=== PATIENT | male | born 1935 | race Caucasian/White ===

== ENCOUNTER → 2016-10-02 | Outpatient (CLI) | payer BC ==
[~2016-10-02] MED LIST: AMR2 PO; ASPCH81X PO; ASPEC81 PO; ATOR-24 PO; CLOP1TAB15 PO; DABI150C PO; EZET10TA63 PO; ISOS60TA25 PO; LEVO100T84 PO; LEVO125T5 PO; LOSA1TAB PO; METO100T14 PO; METO100T44 PO; METO50TA7 PO; MULT-506 PO; NTRGSL/4 UT; OMEG10007 PO; SENN-61 PO; SIMV40TA2 PO
[2016-10-02 12:21] LABS: BASO % 0.2 %; BASO ABS # 0.01 K/uL (0-0.2); COMPLETE YES; EOS % 3.1 %; HEMATOCRIT 37.6 % (42-52); IG% 0.2 %; LYMPH % 22.8 %; LYMPH ABS # 1.32 K/uL (1.2-3.4); MEAN CELL VOLUME 99.5 fL (80-100); MEAN CORPUSCULAR HEMOGLOBIN 32.5 pg (25-34); MEAN CORPUSCULAR HGB CONC 32.7 g/dl (32-36); MEAN PLATELET VOLUME 12.4 fL (7.4-10.4); MONO % 12.6 %; NEUT % 61.1 %; PLATELET COUNT 138 K/uL (130-400); RED BLOOD COUNT 3.78 M/uL (4.7-6.1)
[2016-10-02 12:40] LABS: ALT/SGPT 26 U/L (12-78); BLOOD UREA NITROGEN 29 mg/dl (7-18); BUN/CREATININE RATIO 22.2 (10-20); CARBON DIOXIDE 24 mmol/L (21-32); CHLORIDE 110 mmol/L (98-107); CHOLESTEROL 95 mg/dl (0-200); GLUCOSE 138 mg/dl (70-99); POTASSIUM 4.3 mmol/L (3.5-5.1); SODIUM 143 mmol/L (136-145); TRIGLYCERIDES 86 mg/dl (0-150); VERY LOW DENSITY LIPOPROT CALC 17 mg/dl
[2016-10-02 12:42] LABS: CALCIUM 8.6 mg/dl (8.5-10.1)
[2016-10-02 12:50] LABS: ALB/GLOB RATIO 1.1 (0.9-2); ALKALINE PHOSPHATASE 72 U/L (45-117); AST/SGOT 14 U/L (15-37); CHOLESTEROL/HDL RATIO 2.8; HDL CHOLESTEROL 34 mg/dl; LDL CHOLESTEROL CALCULATED 44 mg/dl; PROSTATE SPECIFIC ANTIGEN 0.622 ng/ml (0.000-4.000)
[2016-10-02 13:03] LABS: ESTIMATED AVERAGE GLUCOSE 169 mg/dl; HA1C FLAG Normal (Normal)
[2016-10-02 13:08] LABS: RATIO 10.1 mcg/mg (0-30.0)
== END | disposition home or self-care (01) ==
LOC: C.LABBFT 07:39
PROVIDERS: ATTEND Internal Medicine
DX: E11.59 Type 2 diabetes mellitus with other circulatory complications (principal); I25.10 Atherosclerotic heart disease of native coronary artery without angina pectoris; Z12.5 Encounter for screening for malignant neoplasm of prostate

== ENCOUNTER → 2016-10-12 | Outpatient (CLI) | payer BC ==
[2016-10-12 12:19] LABS: BASO % 0.2 %; BASO ABS # 0.01 K/uL (0-0.2); COMPLETE YES; HEMATOCRIT 38.7 % (42-52); IG% 0.2 %; LYMPH % 24.3 %; LYMPH ABS # 1.47 K/uL (1.2-3.4); MEAN PLATELET VOLUME 12.8 fL (7.4-10.4); MONO % 10.9 %; NEUT % 62.4 %; PLATELET COUNT 136 K/uL (130-400); RED BLOOD COUNT 3.87 M/uL (4.7-6.1); WHITE BLOOD COUNT 6.04 K/uL (4.8-10.8)
[2016-10-12 13:01] LABS: FERRITIN 179.5 ng/ml (8.0-388.0)
--- NOTE | 2016-10-17 11:14 | CODING QUERY MEDICAL NECESSITY ---
SUPPORTING DIAGNOSIS NEEDED A supporting diagnosis is required for the test/procedure performed on this patient in order for us to be reimbursed by the patient's insurance. Please provide a supporting diagnosis for the following test/procedure listed below next to the test name along with your signature. *If there is no additional diagnosis for this patient that would support the following test/procedure please document that below next to the test/procedure. Test(s)/Procedure(s) that require a supporting diagnosis: * VITAMIN B12 DIAGNOSIS: Provider Signature: Date: Thank you Sofia Wakpala [employer] Once completed, please kindly fax back to [phone] For questions please call [phone]
== END | disposition home or self-care (01) ==
LOC: C.LABBFT 08:33
PROVIDERS: ATTEND Internal Medicine
DX: D64.9 Anemia, unspecified (principal)

== ENCOUNTER → 2017-03-06 | Day surgery (SDC) | payer BC ==
[2017-02-26 10:15] VITALS: Ht 170.2 cm; Wt 109.1 kg
[~2017-03-06] VITALS: Ht 170.2 cm; Wt 109.1 kg
[~2017-03-06] MED LIST changes: +500ML BSS 0.3ML EPI 1:1000PF IRRIG ONE; +ACETAMINOPHEN 325 MG TAB PO PRN; +AMVISC PLUS 0.8ML SYRINGE INT OCU ONE; -ASPEC81 PO; +ATROPINE SULFATE 0.1 MG/ML 5ML SYR IV PRN; +AcetaZOLAMIDE 250 MG TAB PO SCH; +BETAXOLOL HCL 0.25% OP SUSP PER DROP CHARGE OPL SCH; +BRIMONIDINE TART 0.2% OP SOLN PER DROP CHARGE ONE; +BSS FLUSH ONE; -CLOP1TAB15 PO; +ENDOCOAT 0.85ML SYRINGE INT OCU ONE; -EZET10TA63 PO; +EpHEDrine SULFATE INJ 50 MG/ML AMP IV PRN; +EpINEphrine INJ 1MG/ML AMP 1 MG/ML AMP ONE; +LACTATED RINGER'S 1000ML 500 ML IV SCH; -LEVO100T84 PO; +LIDOCAINE 4% OP SOLN DROP CHARGE ONE; +LIDOCAINE 4% OP SOLN DROP CHARGE OPL SCH; +LIDOCAINE HCL 1% MPF 2 ML VIAL ONE; -METO100T44 PO; -METO50TA7 PO; +MIDAZOLAM HCL 1 MG/ML 2ML VIAL ONE; +MIX: 4ML BSS 1ML EPI 1:1000 PF INSTIL ONE; +MOXIFLOXACIN OPH SOLN PER DROP CHARGE ONE; -MULT-506 PO; +OCUCOAT 1 ML SOLN IO ONE; -OMEG10007 PO; +POVIDONE-IODINE OP SOLN 30 ML BTL ONE; +PROPARACAINE 0.5% OP SOLN PER DROP CHARGE OPL SCH; -SIMV40TA2 PO; +TOBRAMYCIN/DEXAMETHASONE OPH OINT PER APPLN CHARGE ONE
--- NOTE | 2017-03-06 07:43 | History & Physical Bridge - [place] ---
H&P Re-Evaluation Bridge Note: I have examined the patient, reviewed the History & Physical and in the interval since the performance of the History & Physical I have noted the following changes of clinical significance: No changes noted
[2017-03-06] MEDS: PHENYLEPHRINE HCL 2.5% OP SOLN PER DROP CHARGE OPL SCH ×2 (07:49→07:54)
[2017-03-06] MEDS: TROPICAMIDE 1% OP SOLN PER DROP CHARGE OPL SCH ×2 (07:50→07:55)
[2017-03-06] MEDS: CYCLOPENTOLATE HCL 1% OP SOLN PER DROP CHARGE OPL SCH ×2 (07:51→07:56)
[2017-03-06] MEDS: MOXIFLOXACIN OPH SOLN PER DROP CHARGE OPL SCH ×2 (07:52→08:02)
--- NOTE | 2017-03-06 08:38 | Discharge Instructions-SurgCtr ---
Discharge Instructions Date of Service Mar 06, 2017. Visit Reason for Visit: Left Cataract Discharge Discharge Diagnosis / Problem: lens implant left eye Discharge Goals Goal(s): Improve function Activity Recommendations Activity Limitations: resume your previous activity Lifting Limitations: no more than 10 pounds Exercise/Sports Limitations: gradually increase as tolerated May Resume Sexual Activity: when tolerated Shower/Bathe: tomorrow Driving or Machine Use: resume 1 day after discharge Anesthesia . Post Anesthesia Instructions: If you have had General Anesthesia or IV Sedation: * Do not drive today. * Resume driving when surgeon permits. * Do not make important decisions or sign legal documents today. * Call surgeon for: 1. Temperature elevations greater than 101 degrees F. 2. Uncontrollable pain. 3. Excessive bleeding. 4. Persistent nausea and vomiting. 5. Medication intolerance (nausea, vomiting or rash). * For nausea and vomiting use only clear liquids such as: tea, soda, bouillon until nausea subsides, then gradually increase diet as tolerated. * If you have any concerns or questions, call your surgeon's office. If physician is unavailable and it is an emergency, call 911 or go to the nearest emergency room. . Instructions / Follow-Up Instructions / Follow-Up ACTIVITY RECOMMENDATIONS: * Light activities. * Mild irritation and blurred vision are common for the first few days. * You may walk outside, read, watch television. * Redness around the white part of the eye is common. MEDICATIONS: Resume previous medications unless instructed otherwise by your surgeon. * Take white Diamox (Acetazolamide) tablet at 1 pm today. Start all eye drops at 1 pm today: * Eye drops (today and tomorrow): Durezol - one drop in operative eye every 3 hours while awake Ofloxacin - one drop in operative eye every 3 hours while awake SPECIAL CARE INSTRUCTIONS: * Tape plastic shield over eye to sleep at night. Call your doctor at with any concerns or problems. FOLLOW UP VISIT: Follow-up with Dr Wilkes at [place] office as scheduled. Diet Recommendations Home Diet: no limitations Procedures Procedures Performed: Left Cataract Phacoemulsification with Intraocular Lens Implant Pending Studies Studies pending at discharge: no Medical Emergencies . Who to Call and When: Medical Emergencies: If at any time you feel your situation is an emergency, please call 911 immediately. . Non-Emergent Contact Non-Emergency issues call your: Roofing Applicator Call Non-Emergent contact if: your pain is not controlled [phone] . . "Provider Documentation" section prepared by Antonio Wilkes. .
--- NOTE | 2017-03-06 08:40 | [facility] Operative Report ---
Operative Report Date of Service Mar 06, 2017. Operative Report 1. PREOPERATIVE DIAGNOSIS: Senile nuclear cataract, left eye. 2. POSTOPERATIVE DIAGNOSIS: Senile nuclear cataract, left eye. 3. PROCEDURE: Phacoemulsification of left cataract with posterior chamber lens implant, type Bausch & Lomb, model MX60, power +19.5 diopters. ANESTHESIA: Local standby. SURGEON: Dr. Wilkes. COMPLICATIONS: None. OPERATING TIME: 10 minutes. 4. OPERATION AND FINDINGS: DESCRIPTION OF PROCEDURE: The left pupil was dilated. The anesthetic was administered using a topical technique. The left eye was prepped and draped. A speculum was placed. A clear corneal incision was formed. The chamber was filled with Amvisc Plus and Endocoat. Epinephrine solution was used. A paracentesis was placed. A capsulorrhexis was performed. The nucleus was hydrodissected. A dense lens was removed with phacoemulsification. Time was 7.73 seconds. The aspiration unit was used to remove the cortex. The capsule was filled with Amvisc Plus. The lens implant was folded and placed into the capsule. The incision was hydrated. The Amvisc was aspirated. The wound was secure. The chamber was deep. The pupil was round. Brimonidine, TobraDex ointment and Vigamox solution were placed. The speculum was removed. The patient was returned to the Recovery Room in stable condition. I attest to the content of the Intraoperative Record and any orders documented therein. Any exceptions are noted below. The scribe's documentation has been prepared in my presence, under my direction and personally reviewed by me in its entirety. I confirm that the note above accurately reflects all work, treatment, procedures, and medical decision making performed by me. I personally scribed for Antonio Wilkes M.D. (ALINE) on 03/06/17 at 08:40. Electronically submitted by Teressa Calvin ([email or web address]).
[2017-03-06 08:42] VITALS: TEMP 36.5
--- NOTE | 2017-03-06 08:48 | Anesthesia Progress Nt - [facility] ---
Anesthesia Post Op Note Date & Time Mar 06, 2017 at 08:47 Vital Signs Pain Intensity: 0 Vital Signs Past 12 Hours Date Time Temp Pulse Resp B/P (MAP) Pulse Ox O2 Delivery O2 Flow Rate FiO2 03/06/17 08:42 36.5 77 12 127/82 (97) 95 Room Air 03/06/17 07:51 37.1 90 20 144/90 (108) 97 Room Air Notes Mental Status: alert / awake / arousable, participated in evaluation Pt Amnestic to Procedure: Yes Nausea / Vomiting: adequately controlled Pain: adequately controlled Airway Patency, RR, SpO2: stable & adequate BP & HR: stable & adequate Hydration State: stable & adequate Anesthetic Complications: no major complications apparent
[2017-03-06 09:03] VITALS: BP 149/89; PULSE 75; O2SAT 96
== END | disposition home or self-care (01) ==
LOC: X.SURG 07:31
PROVIDERS: ATTEND Specialist
DX: H25.12 Age-related nuclear cataract, left eye (principal); I10 Essential (primary) hypertension; I51.9 Heart disease, unspecified; E03.9 Hypothyroidism, unspecified; Z79.82 Long term (current) use of aspirin; Z79.899 Other long term (current) drug therapy

== ENCOUNTER → 2017-03-20 | Day surgery (SDC) | payer BC ==
[2017-03-13 08:28] VITALS: Ht 170.2 cm; Wt 109.1 kg
[~2017-03-20] VITALS: Ht 170.2 cm; Wt 109.1 kg
[~2017-03-20] MED LIST changes: -500ML BSS 0.3ML EPI 1:1000PF IRRIG ONE; -AMVISC PLUS 0.8ML SYRINGE INT OCU ONE; -BETAXOLOL HCL 0.25% OP SUSP PER DROP CHARGE OPL SCH; +BETAXOLOL HCL 0.25% OP SUSP PER DROP CHARGE OPR SCH; -BSS FLUSH ONE; -ENDOCOAT 0.85ML SYRINGE INT OCU ONE; -LIDOCAINE 4% OP SOLN DROP CHARGE OPL SCH; +LIDOCAINE 4% OP SOLN DROP CHARGE OPR SCH; -MIX: 4ML BSS 1ML EPI 1:1000 PF INSTIL ONE; -OCUCOAT 1 ML SOLN IO ONE; -PROPARACAINE 0.5% OP SOLN PER DROP CHARGE OPL SCH; +PROPARACAINE 0.5% OP SOLN PER DROP CHARGE OPR SCH
[2017-03-20] MEDS: PHENYLEPHRINE HCL 2.5% OP SOLN PER DROP CHARGE OPR SCH ×2 (10:18→10:23)
[2017-03-20] MEDS: TROPICAMIDE 1% OP SOLN PER DROP CHARGE OPR SCH ×2 (10:18→10:23)
[2017-03-20] MEDS: CYCLOPENTOLATE HCL 1% OP SOLN PER DROP CHARGE OPR SCH ×2 (10:19→10:24)
[2017-03-20] MEDS: MOXIFLOXACIN OPH SOLN PER DROP CHARGE OPR SCH ×2 (10:20→10:30)
--- NOTE | 2017-03-20 10:58 | Discharge Instructions-SurgCtr ---
Discharge Instructions Date of Service Mar 20, 2017. Visit Reason for Visit: Right Cataract Discharge Discharge Diagnosis / Problem: lens implant right eye Discharge Goals Goal(s): Improve function Activity Recommendations Activity Limitations: resume your previous activity Lifting Limitations: no more than 10 pounds Exercise/Sports Limitations: gradually increase as tolerated May Resume Sexual Activity: when tolerated Shower/Bathe: tomorrow Driving or Machine Use: resume 1 day after discharge Anesthesia . Post Anesthesia Instructions: If you have had General Anesthesia or IV Sedation: * Do not drive today. * Resume driving when surgeon permits. * Do not make important decisions or sign legal documents today. * Call surgeon for: 1. Temperature elevations greater than 101 degrees F. 2. Uncontrollable pain. 3. Excessive bleeding. 4. Persistent nausea and vomiting. 5. Medication intolerance (nausea, vomiting or rash). * For nausea and vomiting use only clear liquids such as: tea, soda, bouillon until nausea subsides, then gradually increase diet as tolerated. * If you have any concerns or questions, call your surgeon's office. If physician is unavailable and it is an emergency, call 911 or go to the nearest emergency room. . Instructions / Follow-Up Instructions / Follow-Up ACTIVITY RECOMMENDATIONS: * Light activities. * Mild irritation and blurred vision are common for the first few days. * You may walk outside, read, watch television. * Redness around the white part of the eye is common. MEDICATIONS: Resume previous medications unless instructed otherwise by your surgeon. * Take white Diamox (Acetazolamide) tablet at 2 pm today. Start all eye drops at 2 pm today: * Eye drops (today and tomorrow): Durezol - one drop in operative eye every 3 hours while awake Ofloxacin - one drop in operative eye every 3 hours while awake SPECIAL CARE INSTRUCTIONS: * Tape plastic shield over eye to sleep at night. Call your doctor at with any concerns or problems. FOLLOW UP VISIT: Follow-up with Dr Wilkes at [facility] as scheduled. Diet Recommendations Home Diet: no limitations Procedures Procedures Performed: Right Eye Cataract Phacoemulsification With Intraocular Lens Implant Pending Studies Studies pending at discharge: no Medical Emergencies . Who to Call and When: Medical Emergencies: If at any time you feel your situation is an emergency, please call 911 immediately. . Non-Emergent Contact Non-Emergency issues call your: Directional Driller Call Non-Emergent contact if: your pain is not controlled [phone] . . "Provider Documentation" section prepared by Antonio Wilkes. .
--- NOTE | 2017-03-20 11:00 | [facility] Operative Report ---
Operative Report Date of Service Mar 20, 2017. Operative Report 1. PREOPERATIVE DIAGNOSIS: Senile nuclear cataract, right eye. 2. POSTOPERATIVE DIAGNOSIS: Senile nuclear cataract, right eye. 3. PROCEDURE: Phacoemulsification of right cataract with posterior chamber lens implant, type Bausch & Lomb, model MI60L, power +19.5 diopters. ANESTHESIA: Local standby. SURGEON: Dr. Wilkes. COMPLICATIONS: None. OPERATING TIME: 10 minutes. 4. OPERATION AND FINDINGS: DESCRIPTION OF PROCEDURE: The right pupil was dilated. The anesthetic was administered using a topical technique. The right eye was prepped and draped. A speculum was placed. A clear corneal incision was formed. The chamber was filled with Amvisc Plus and Endocoat. Epinephrine solution was used. A paracentesis was placed. A capsulorrhexis was performed. The nucleus was hydrodissected. The lens was removed with phacoemulsification. Time was 6.10 seconds. The aspiration unit was used to remove the cortex. The capsule was filled with Amvisc Plus. The lens implant was folded and placed into the capsule. The incision was hydrated. The Amvisc was aspirated. The wound was secure. The chamber was deep. The pupil was round. Brimonidine, TobraDex ointment and Vigamox solution were placed. The speculum was removed. The patient was returned to the Recovery Room in stable condition. I attest to the content of the Intraoperative Record and any orders documented therein. Any exceptions are noted below. The scribe's documentation has been prepared in my presence, under my direction and personally reviewed by me in its entirety. I confirm that the note above accurately reflects all work, treatment, procedures, and medical decision making performed by me. I personally scribed for Antonio Wilkes M.D. (ALINE) on 03/20/17 at 11:00. Electronically submitted by Teressa Calvin ([email or web address]).
[2017-03-20 11:03] VITALS: TEMP 36.4
--- NOTE | 2017-03-20 11:24 | Anesthesia Progress Nt - [facility] ---
Anesthesia Post Op Note Date & Time Mar 20, 2017 at 11:24 Vital Signs Pain Intensity: 0 Vital Signs Past 12 Hours Date Time Temp Pulse Resp B/P (MAP) Pulse Ox O2 Delivery O2 Flow Rate FiO2 03/20/17 11:03 36.4 65 16 151/88 (109) 96 Room Air 03/20/17 10:08 36.4 66 18 143/87 (105) 96 Room Air Notes Mental Status: alert / awake / arousable, participated in evaluation Pt Amnestic to Procedure: Yes Nausea / Vomiting: adequately controlled Pain: adequately controlled Airway Patency, RR, SpO2: stable & adequate BP & HR: stable & adequate Hydration State: stable & adequate Anesthetic Complications: no major complications apparent
[2017-03-20 11:27] VITALS: BP 138/77; PULSE 61; O2SAT 96
== END | disposition home or self-care (01) ==
LOC: X.SURG 09:21
PROVIDERS: ATTEND Specialist
DX: H25.11 Age-related nuclear cataract, right eye (principal); I25.2 Old myocardial infarction; I25.10 Atherosclerotic heart disease of native coronary artery without angina pectoris; I10 Essential (primary) hypertension; E11.9 Type 2 diabetes mellitus without complications; E03.9 Hypothyroidism, unspecified; Z87.891 Personal history of nicotine dependence; Z79.82 Long term (current) use of aspirin; Z98.42 Cataract extraction status, left eye

== ENCOUNTER → 2017-04-02 | Outpatient (CLI) | payer BC ==
[~2017-04-02] MED LIST changes: -ACETAMINOPHEN 325 MG TAB PO PRN; -ATROPINE SULFATE 0.1 MG/ML 5ML SYR IV PRN; -AcetaZOLAMIDE 250 MG TAB PO SCH; -BETAXOLOL HCL 0.25% OP SUSP PER DROP CHARGE OPR SCH; -BRIMONIDINE TART 0.2% OP SOLN PER DROP CHARGE ONE; -EpHEDrine SULFATE INJ 50 MG/ML AMP IV PRN; -EpINEphrine INJ 1MG/ML AMP 1 MG/ML AMP ONE; -LACTATED RINGER'S 1000ML 500 ML IV SCH; -LIDOCAINE 4% OP SOLN DROP CHARGE ONE; -LIDOCAINE 4% OP SOLN DROP CHARGE OPR SCH; -LIDOCAINE HCL 1% MPF 2 ML VIAL ONE; -MIDAZOLAM HCL 1 MG/ML 2ML VIAL ONE; -MOXIFLOXACIN OPH SOLN PER DROP CHARGE ONE; -POVIDONE-IODINE OP SOLN 30 ML BTL ONE; -PROPARACAINE 0.5% OP SOLN PER DROP CHARGE OPR SCH; -TOBRAMYCIN/DEXAMETHASONE OPH OINT PER APPLN CHARGE ONE
[2017-04-02 12:19] LABS: MEAN CORPUSCULAR HGB CONC 32.6 g/dl (32-36)
[2017-04-02 12:21] LABS: ESTIMATED AVERAGE GLUCOSE 192 mg/dl; HA1C FLAG Normal (Normal)
[2017-04-02 12:26] LABS: ALT/SGPT 28 U/L (12-78); BLOOD UREA NITROGEN 26 mg/dl (7-18); BUN/CREATININE RATIO 18.8 (10-20); CALCIUM 9.2 mg/dl (8.5-10.1); CARBON DIOXIDE 25 mmol/L (21-32); CHLORIDE 106 mmol/L (98-107); CHOLESTEROL 124 mg/dl (0-200); CREATININE 1.36 mg/dl (0.60-1.40); GLUCOSE 165 mg/dl (70-99); POTASSIUM 4.2 mmol/L (3.5-5.1); SODIUM 139 mmol/L (136-145); TRIGLYCERIDES 152 mg/dl (0-150); VERY LOW DENSITY LIPOPROT CALC 30 mg/dl
[2017-04-02 12:29] LABS: ALB/GLOB RATIO 1.1 (0.9-2); ALKALINE PHOSPHATASE 81 U/L (45-117); AST/SGOT 15 U/L (15-37); CHOLESTEROL/HDL RATIO 3.3; HDL CHOLESTEROL 38 mg/dl; LDL CHOLESTEROL CALCULATED 56 mg/dl
[2017-04-02 12:39] LABS: HEMATOCRIT 38.9 % (42-52); MEAN CELL VOLUME 99.7 fL (80-100); MEAN CORPUSCULAR HEMOGLOBIN 32.6 pg (25-34); WHITE BLOOD COUNT 6.88 K/uL (4.8-10.8)
[2017-04-02 12:50] LABS: BASO % 0.3 %; BASO ABS # 0.02 K/uL (0-0.2); COMPLETE YES; EOS % 2.3 %; IG% 0.3 %; LYMPH % 19.8 %; LYMPH ABS # 1.36 K/uL (1.2-3.4); MEAN PLATELET VOLUME 13.2 fL (7.4-10.4); NEUT % 68.3 %; PLATELET COUNT 133 K/uL (130-400); PLT ESTIMATE DECREASED
== END | disposition home or self-care (01) ==
LOC: C.LABBFT 08:13
PROVIDERS: ATTEND Internal Medicine
DX: D64.9 Anemia, unspecified (principal); E11.59 Type 2 diabetes mellitus with other circulatory complications

== ENCOUNTER → 2017-08-16 | Outpatient (CLI) | payer BC ==
[2017-08-16 12:23] LABS: ALBUMIN 3.8 gm/dl (3.4-5.0); ALKALINE PHOSPHATASE 87 U/L (45-117); ALT/SGPT 26 U/L (12-78); AST/SGOT 16 U/L (15-37); BLOOD UREA NITROGEN 24 mg/dl (7-18); CALCIUM 8.8 mg/dl (8.5-10.1); CARBON DIOXIDE 27 mmol/L (21-32); CHOLESTEROL 110 mg/dl (0-200); CREATININE 1.33 mg/dl (0.60-1.40); GLUCOSE 117 mg/dl (70-99); LDL CHOLESTEROL CALCULATED 54 mg/dl; POTASSIUM 4.8 mmol/L (3.5-5.1); SODIUM 138 mmol/L (136-145)
[2017-08-16 12:24] LABS: HEMOGLOBIN A1C 7.3 % (4.5-5.6)
[2017-08-16 12:33] LABS: TOTAL PROTEIN 7.5 gm/dl (6.4-8.2)
== END | disposition home or self-care (01) ==
LOC: C.LABBFT 08:41
PROVIDERS: ATTEND Internal Medicine
DX: E11.59 Type 2 diabetes mellitus with other circulatory complications (principal)

== ENCOUNTER 2020-07-05 11:36 | Observation (INO) ==
[2020-07-05] MEDS ORDERED: LACTATED RINGER'S 1,000 ML IV SCH (11:45)
[2020-07-05 12:35] LABS: INR 1.4 (0.9-1.1); Prothrombin Time 14.2 Seconds (9.0-12.0)
[2020-07-05 12:52] LABS: Hematocrit (blood only) 37.7 % (42-52); Hemoglobin 12.2 g/dL (14.0-18.0); Mean Corpuscular Hemoglobin 32.7 pg (25-34); Mean Corpuscular Hgb Conc 32.4 g/dL (32-36); Mean Corpuscular Volume 101.1 fL (80-100); Platelet Count 118 K/uL (130-400); RDW Coefficient of Variation 12.9 % (11.5-14.5); RDW Standard Deviation 47.4 fL (36.4-46.3); Red Blood Count 3.73 M/uL (4.7-6.1); White Blood Count 9.05 K/uL (4.8-10.8)
[2020-07-05 12:53] LABS: Basophils # (auto) 0.02 K/uL (0-0.2); Basophils % (auto) 0.2 %; Echinocytes 1+; Eosinophils # (auto) 0.09 K/uL (0-0.5); Immature Granulocytes # (auto) 0.02 K/uL (0.00-0.02); Immature Granulocytes % (auto) 0.2 %; Lymphocytes # (auto) 1.75 K/uL (1.2-3.4); Lymphocytes % (auto) 19.3 %; Monocytes # (auto) 0.81 K/uL (0.11-0.59); Neutrophils # (auto) 6.36 K/uL (1.4-6.5); Neutrophils % (auto) 70.3 %; Platelet Estimate Decreased (Normal)
[2020-07-05 13:05] LABS: BUN Creatinine Ratio 18.4 (10-20); Blood Urea Nitrogen 34 mg/dl (7-18); Calcium 9.3 mg/dl (8.5-10.1); Carbon Dioxide 23 mmol/L (21-32); Chloride 108 mmol/L (98-107); Est GFR (Non-African American) 33.6; Glucose 268 mg/dl (70-99); Potassium 4.4 mmol/L (3.5-5.1); Sodium 138 mmol/L (136-145)
[2020-07-05] MEDS ORDERED: MIDAZOLAM HCL 5 MG/ML 1 ML VIAL ONE (13:59)
[2020-07-05] MEDS ORDERED: fentaNYL citrate 100 MCG/2 ML VIAL ONE (14:00)
[2020-07-05] MEDS ORDERED: LIDOCAINE HCL 1% 20 ML VIAL ONE (14:11)
[2020-07-05] MEDS ORDERED: BACITRACIN OINT 0.9 GM PKT ONE (14:11)
[2020-07-05] MEDS ORDERED: BACITRACIN INJ 50,000 UNIT VIAL ONE (14:11)
--- NOTE | 2020-07-05 14:33 | History & Physical Bridge Note ---
Date of Service July 05, 2020 History & Physical Bridge Note I have examined the patient, reviewed the History & Physical and in the interval since the performance of the History & Physical I have noted the following changes of clinical significance: no changes noted. I reviewed the indications, procedure, risks and alternatives with the patient, answered all questions. Consent obtained. Patient understands and agrees to the procedure. I also reviewed the risks and use of sedation, patient understands and consent obtained.
--- NOTE | 2020-07-05 14:42 | Pre Anesthesia Assessment ---
Date of Service July 05, 2020 Pre Sedation Assessment Vital Signs Temp Pulse Resp BP BP Pulse Ox 07/05/20 14:29 36.9 C 16 159/79 H 97 07/05/20 12:30 47 L 10 L 96 07/05/20 12:25 48 L 13 160/69 H 97 07/05/20 12:20 36 L 12 97 07/05/20 12:11 33 L 16 154/63 H 97 07/05/20 12:10 33 L 14 97 07/05/20 12:00 33 L 98 07/05/20 11:59 36.5 C 16 182/68 H 98 07/05/20 11:57 30 L 182/68 H 99 Cardiovascular + regular rate and + bradycardic Respiratory normal respiratory effort, lungs clear to auscultation Pre-Sedation Airway Assessment Smoking Status: Former smoker Hx Sleep Apnea: Yes Hx Difficult Intubation: No Short, Thick Neck: No Thyromental Distance: > or= 3.5 Finger Breadths Oral Cavity: + WNL Mallampati Class: II ASA: ASA2 NPO Status Date of Last Intake of Fluids: 07/05/20 Time of Last Intake of Fluids: 08:00 Date of Last Intake of Solid Food: 07/05/20 Time of Last Intake of Solid Foods: 08:00 Procedure Planning Contraindications for Sedation: none Current Medications Reviewed: Yes Notes The planned sedation has been discussed with the patient. Informed Consent was obtained. I have identified the patient, determined the appropriateness of sedation and have assessed the patient immediately prior to the procedure. All medicine(s) and interventions are by my order.
--- NOTE | 2020-07-05 16:41 | Electrophysiology Report ---
Date of Service July 05, 2020 Electrophysiology Procedure Electrophysiology Procedure Report Preoperative diagnosis: Complete heart block Postoperative diagnosis: Same Procedure: Dual-chamber pacemaker implantation Surgeon: Avery Davidson MD Estimated blood loss: 20 cc Complications: None Disposition: Carton Forming Machine Helper recovery Procedure details: After obtaining informed consent for the procedure, the patient was brought to the laboratory and prepped and draped in the standard sterile manner. Dye was injected the left arm IV site to opacify the left subclavian vein. The subclavian vein was identified and found to be free of obstruction. The left prepectoral region was anesthetized with 1% lidocaine local anesthetic and left axillary venipuncture was performed by percutaneous technique and a guidewire placed through the left subclavian vein into the superior vena cava. The area was further infiltrated with 1% lidocaine local anesthetic and a 6 atrial cm incision was made parallel to the left clavicle and 2 cm below it and carried down to the anterior pectoralis fascia. A pacemaker pocket was formed by blunt dissection anterior to the pectoralis fascia and a bacitracin-soaked sponge (50,000 units in 50 cc normal saline solution) was placed in the pocket. An 8 [place] Medtronic lead introducer was placed over the guidewire into the left subclavian vein, the dilator and guidewire were removed and a bipolar active fixation steroid tipped atrial lead was advanced through the introducer into the superior vena cava. A guidewire was placed through the introducer and the introducer was stripped from the lead and guidewire. Another 7 [place] Medtronic lead introducer was placed over the guidewire into the left subclavian vein, the dilator and guidewire were removed and a bipolar active fixation steroid tipped lead was advanced through the introducer into the superior vena cava. The atrial lead was temporarily placed in the right ventricle and screwed into position in order to pace the ventricle while the ventricular lead was being positioned. Using a His bundle guiding catheter and a guidewire the sheath was advanced into the right ventricle and positioned in the basilar septal area. The ventricular lead was advanced through the sheath and the lead was rotated with the fixed screw fixing the lead in position. Pacing and sensing thresholds were evaluated in bipolar configuration and are recorded on the implant data sheet. The atrial lead was unscrewed from the ventricular myocardium and withdrawn into the atrium. Using a curved stylette the atrial lead was positioned in the region of the atrial appendage and the screw extended fixing the lead in position. Pacing and sensing thresholds were evaluated in bipolar configuration and are recorded on the implant data sheet. Once the leads were in position they were attached to the anterior pectoralis fascia using 2 sutures of 2-0 silk around each lead collar. The bacitracin- soaked sponge was removed from the pocket, hemostasis was obtained, the pacemaker was attached to the leads and placed in the pocket with the leads coiled beneath it. The incision was closed with a running double subcutaneous closure of 3-0 Vicryl absorbable suture, followed by running subcuticular skin closure of 4-0 Vicryl absorbable suture. Bacitracin ointment was placed on the incision and a dressing applied. [facility] Electrophysiology codes Pacing Procedure 1: Pacin Insert/Replace Pacer A & V Miscellaneous Procedures Procedure 1: EP Miscellaneous: 45184 Contrast injection for venography Procedure 2: EP Miscellaneous: 33897-34 Vengraphy, extremity PG Moderate Sedation Codes Moderate Sedation Codes Procedure 1: Sedation/Anesthesia: 93904 Mod Sedation by the same physician;Init15 Min Child Age 5 & Up Procedure 2: Sedation/Anesthesia: 18764 Mod Sedation by the same physician; Ea [id number] Minutes
--- NOTE | 2020-07-05 16:51 | Post Anesthesia Assessment ---
Date of Service July 05, 2020 Post Sedation Assessment Vital Signs Temp Pulse Resp BP BP Pulse Ox 07/05/20 14:29 36.9 C 16 159/79 H 97 07/05/20 12:30 47 L 10 L 96 07/05/20 12:25 48 L 13 160/69 H 97 07/05/20 12:20 36 L 12 97 07/05/20 12:11 33 L 16 154/63 H 97 07/05/20 12:10 33 L 14 97 07/05/20 12:00 33 L 98 07/05/20 11:59 36.5 C 16 182/68 H 98 07/05/20 11:57 30 L 182/68 H 99 Discharge Sedation Level of Care: Fast Track Phase II Post Sedation Plan On clinical assessment, the patient appears to have tolerated the sedation without complications. Patient is recovering as anticipated. Patient will continue to be monitored by nursing and may be discharged when sedation discharge criteria are met per below protocol. Upon Completions of procedure up to 15 minutes continue every 5 minute vital signs and the P.A.R. score; then discharge to a Phase I or Fast Track to Phase II per the following guidelines: * Discharge Patient to appropriate Phase II area if PAR is 8 or greater or return to pre- procedure baseline. The post - procedure orders will be as directed. * If PAR score is less than 8 or not return to pre-procedure baseline then patient will follow Phase I monitoring till PAR is reached for Phase II. The Phase I may be done in procedure room or may call to secure a Phase I area. * If naloxone or flumazenil are used for reversal, hold in Phase I for continued monitoring from when last reversal dose was given for a minimum of 60 minutes or longer pending the nurse and/or physician discretion of patient condition before discharge to Phase II. Please call the Sedation Physician to re-evaluate and complete post-note for discharge to Phase II area. Do NOT discharge from procedure sedation or Phase 1 until post- sedation evaluation note is complete by procedure /sedation MD Sedation Discharge Instructions to be given to the patient at discharge to home.
[2020-07-05] MEDS ORDERED: NITROGLYCERIN SL 0.4 MG/TAB TAB SL PRN (17:16)
[2020-07-05] MEDS ORDERED: ACETAMINOPHEN W/CODEINE #3 1 TAB PO PRN (17:18)
[2020-07-05] MEDS ORDERED: ACETAMINOPHEN 325 MG TAB PO PRN (17:18)
[2020-07-05] MEDS ORDERED: PHARMACY GLYCEMIC MGMT CONSULT PRN (17:32)
[2020-07-05] MEDS ORDERED: GLUCAGON FOR INJ 1 MG VIAL IM PRN (17:45)
[2020-07-05] MEDS ORDERED: GLUCOSE 40% GEL 15 GM TUBE PO PRN (17:45)
[2020-07-05] MEDS ORDERED: CARBOHYDRATES FOR HYPOGLYCEMIA PO PRN (17:45)
[2020-07-05] MEDS ORDERED: DEXTROSE 50% 50 ML SYRINGE IV PRN (17:45)
[2020-07-05] MEDS ORDERED: GLUCOSE 10 TABS/TUBE PO PRN (17:45)
[2020-07-05] MEDS ORDERED: INSULIN GLARGINE SOLOSTAR 100 UNITS/ML 3 ML PEN SC ONE (18:00)
[2020-07-05] MEDS: INSULIN ASPART 100 UNITS/ML 3 ML PEN SC SCH ×3 (18:13→23:34)
[2020-07-05] MEDS ORDERED: GLIMEPIRIDE 2 MG TAB PO SCH (21:00)
[2020-07-06] MEDS: INSULIN ASPART 100 UNITS/ML 3 ML PEN SC SCH ×2 (03:54→08:31)
[2020-07-06] MEDS ORDERED: LEVOTHYROXINE SODIUM 150 MCG TABLET PO SCH (06:30)
--- NOTE | 2020-07-06 08:11 | XRay Report ---
XR chest 2V PA/lateral CLINICAL HISTORY: Chest x-ray for pacemaker placement COMPARISON STUDY: 11/04/2010 FINDINGS: The heart is enlarged. There is a left subclavian dual-chamber central venous pacemaker. No pneumothorax is visualized. Electrode position appears unremarkable right images. There is no failur e. There is no focal pulmonary consolidation. There is mild basilar atelectasis.[ IMPRESSION: No evidence of pneumothorax status post left subclavian pacemaker placement. ACT 112: Negative or not required by law. Electronically signed by: Jim Mayorga M.D. 07/06/2020 8:10 AM
--- NOTE | 2020-07-06 08:40 | Cardiology Progress Note ---
Date of Service July 06, 2020 Assessment & Plan (1) Status post placement of cardiac pacemaker: He is doing well post pacemaker implantation, the pacemaker is working well, his chest x-ray shows good lead position and he feels well. He will be stable for discharge today pending laboratory studies. (2) Acute kidney injury superimposed on chronic kidney disease: His creatinine has been rising recently, especially on the day of pacemaker implantation. I suspect some of this is due to his bradycardia with decreased kidney perfusion but I did use x-ray dye yesterday (a small amount) so repeat creatinine is pending. I suspect that will not keep him in the hospital, although it may determine when we have to do follow-up measurements. (3) Paroxysmal atrial fibrillation: He has a history of paroxysmal atrial fibrillation but has not had documentation of that in 10 years from the record. He may have asymptomatic episodes therefore it is not clear whether he has it, however the pacemaker has excellent monitoring for atrial fibrillation and therefore I am not going to continue his anticoagulation for now. He may well need it in the future but perhaps it safer to see that he has atrial fibrillation rather than continuing anticoagulation. (4) Hypertension: His blood pressure is quite elevated, he was on metoprolol succinate 100 mg daily and that was discontinued when he developed the bradycardia but it did not allow resumption of AV conduction. There is no reason to restart it and I am going to restart it today and send him home on that dose. Admission and Anticipated Discharge Date Admission Date: July 05, 2020 Subjective He is feeling well today, much better than before pacemaker implantation. No incisional discomfort, no chest discomfort or shortness of breath. Physical Exam Physical Exam: The incision is clean and dry, there is a small amount of blood on the dressing from yesterday (he was on Pradaxa), no swelling, erythema or tenderness. Correct rhythm is regular without rub Lungs are clear Results & Data ([facility]) Vital Signs (Past 12 Hours) Vital Signs Temp Pulse Pulse Resp BP BP Pulse Ox 07/06/20 07:19 83 07/06/20 07:12 36.7 C 88 17 179/99 H 96 07/06/20 02:23 36.4 C L 78 18 164/102 H 96 07/05/20 23:23 65 07/05/20 22:58 36.8 C 81 19 157/90 H 96 Diagnostic Findings Coagulation 07/05/20 Range/Units 12:07 PT 14.2 H (9.0-12.0) Seconds CBC 07/05/20 Range/Units 12:07 WBC 9.05 (4.8-10.8) K/uL RBC 3.73 L (4.7-6.1) M/uL Hgb 12.2 L (14.0-18.0) g/dL Hct 37.7 L (42-52) % Plt Count 118 L (130-400) K/uL Neut # (Auto) 6.36 (1.4-6.5) K/uL Lymph # (Auto) 1.75 (1.2-3.4) K/uL [place] # (Auto) 0.81 H (0.11-0.59) K/uL Eos # (Auto) 0.09 (0-0.5) K/uL Baso # (Auto) 0.02 (0-0.2) K/uL Comprehensive Metabolic Panel 07/05/20 Range/Units 12:07 Sodium 138 (136-145) mmol/L Potassium 4.4 (3.5-5.1) mmol/L Chloride 108 H (98-107) mmol/L Carbon Dioxide 23 (21-32) mmol/L BUN 34 H (7-18) mg/dl Creatinine 1.83 H (0.6-1.4) mg/dl Glucose 268 H (70-99) mg/dl Calcium 9.3 (8.5-10.1) mg/dl Intake and Output 07/05/20 07/06/20 07/06/20 22:59 06:59 14:59 Intake Total 200 / 200 278.5 / 278.5 Output Total 225 / 625 400 / 400 Balance -25 / -425 -121.5 / -121.5 Intake: IV 278.5 / 278.5 Lr 1,000 ml @ 15 mls/hr IV . 278.5 / 278.5 Q24H [facility] Rx#:[id number] Oral 200 / 200 Output: Urine 225 / 625 400 / 400 Other: Weight 100.698 kg Weight Measurement Method Built in [facility] Postop ECG: Sinus rhythm with atrial sensing and ventricular pacing appropriately Telemetry: Sinus rhythm with ventricular pacing appropriately Chest x-ray: Good lead position, no pneumothorax Pacemaker evaluation: Excellent pacing and sensing characteristics on both leads PG Care Time/CCT Total # of Minutes Spent Total Time Spent with Patient: Total time spent is greater than 50% in c oordination of care (as documented) at patient's floor/unit and/or counseling patient: Coding Level of Care Code 80352 Post Operative Follow-Up Diagnoses Status post placement of cardiac pacemaker Z95.0 Acute kidney injury superimposed on chronic kidney disease N17.9; N18.9 Paroxysmal atrial fibrillation I48.0 Hypertension I10 Hypertension type: essential hypertension CPT Codes Dual Lead Pacemaker System - 85855 ([id number]) (1) Hypertension Hypertension type: essential hypertension Qualified Code(s): I10 - Essential (primary) hypertension
[2020-07-06] MEDS ORDERED: ISOSORBIDE MONO EXTENDED REL 60 MG TABCR PO SCH (09:00)
[2020-07-06] MEDS ORDERED: INSULIN GLARGINE SOLOSTAR 100 UNITS/ML 3 ML PEN SC SCH (09:00)
[2020-07-06] MEDS ORDERED: ATORVASTATIN 40 MG TAB PO SCH (09:00)
[2020-07-06] MEDS ORDERED: SITagliptin PHOSPHATE 100 MG TAB PO SCH (09:00)
[2020-07-06] MEDS ORDERED: METOPROLOL SUCC 50MG EXT REL TAB PO SCH (09:00)
[2020-07-06] MEDS ORDERED: LOSARTAN POTASSIUM 50 MG TAB PO SCH (09:00)
[2020-07-06 10:00] LABS: BUN Creatinine Ratio 18.4 (10-20); Blood Urea Nitrogen 31 mg/dl (7-18); Calcium 9.8 mg/dl (8.5-10.1); Carbon Dioxide 24 mmol/L (21-32); Chloride 109 mmol/L (98-107); Est GFR (African American) 42.3; Est GFR (Non-African American) 36.5; Glucose 205 mg/dl (70-99); Sodium 138 mmol/L (136-145)
--- NOTE | 2020-07-07 05:27 | Electrocardiogram Report ---
Test Reason : Blood Pressure : / mmHG Vent. Rate : 084 BPM Atrial Rate : 084 BPM P-R Int : 196 ms QRS Dur : 148 ms QT Int : 426 ms P-R-T Axes : 053 -12 154 degrees QTc Int : 503 ms Atrial-sensed ventricular-paced rhythm Abnormal ECG When compared with ECG of 04-NOV-2010 14:37, Ventricular pacing is now present Confirmed by Trace Finn ([id number]) on 07/07/2020 5:26:40 AM Referred By: Avery Davidson Confirmed By:Trace Finn
--- NOTE | 2020-07-07 10:38 | Discharge Summary ---
Date of Service July 07, 2020 Admission HPI Per Admitting Provider 84-year-old man with coronary artery disease, hypertension, and paroxysmal atrial fibrillation (dabigatran/metoprolol) who presents acutely after noticing profound fatigue over the past week and a heart rate at times in the 40 bpm range. ECG today did show sinus bradycardia with first-degree and 2:1 second-degree AV block, ventricular rate 40 bpm. 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 His atrial fibrillation with rapid ventricular response occurred in 2010, I could not locate no documentation although he could have asymptomatic episodes of recurrent atrial fibrillation since that time. He last had transient chest discomfort in 2017, subsequent dobutamine stress echo achieved 96% maximum predicted heart rate, he did note mild chest discomfort but had no discernible wall motion abnormalities. He has not had any chest symptoms since that time. He denies any known tick exposure, rash, or other suggestion of Lyme disease. No fevers or chills. No orthopnea or PND. No ankle edema. No orthostasis, lightheadedness, presyncope, or syncope. No palpitations or CHF symptoms. He notes no bleeding problems or reflux symptoms. His lipid profile remains favorable on atorvastatin. His beta-beatriz was tapered off however he presented with complete heart block and a heart rate of just over 30 bpm on June 21, 2020. He was therefore on no medications to cause heart block and he was brought in for pacemaker implantation. Admission Exam (Per Admitting) Constitutional Constitutional: Alert, cooperative and in no distress. HEENT: Unremarkable Neck: No jugular venous distention, carotid pulses are slow but otherwise normal and equal bilaterally without bruits. Pulmonary: Clear to auscultation bilaterally. Cardiac: Regular slow rhythm with no murmur, gallop or rub. Abdomen: Soft, nontender with normal bowel sounds. Extremities: No edema. Distal pulses intact. Neurologic: No focal findings. Gait is steady. Skin: No rash, ecchymoses or petechiae. Discharge Data Procedures Performed Operation Date: 07/05/20 15:00 Actual Procedures p Pacer with A/V Leads (Dual) - Avery Davidson MD s Bundle of his Recording - Avery Davidson MD s Venogram Extremity Unilateral - Avery Davidson MD Hospital Course (1) Status post placement of cardiac pacemaker: He underwent pacemaker implantation on July 05, 2020, the procedure was uneventful. He is doing well post pacemaker implantation, the pacemaker is working well, his chest x-ray shows good lead position and he feels well. He will be stable for discharge today pending laboratory studies. (2) Acute kidney injury superimposed on chronic kidney disease: His creatinine has been rising recently, especially on the day of pacemaker implantation. I suspe suspected ct some of this is due to his bradycardia with decreased kidney perfusion but I did use x-ray dye yesterday (a small amount) so repeat creatinine was performed and had dropped back to his more recent readings which were elevated but in the 1.4 range. I suspect this may continue to improve although he may have underlying kidney disease. (3) Paroxysmal atrial fibrillation: He has a history of paroxysmal atrial fibrillation but has not had documentation of that in 10 years from the record. He may have asymptomatic episodes therefore it is not clear whether he has it, however the pacemaker has excellent monitoring for atrial fibrillation and therefore I am not going to continue his anticoagulation for now. He may well need it in the future but perhaps it safer to see that he has atrial fibrillation rather than continuing anticoagulation. (4) Hypertension: His blood pressure was quite elevated, he was on metoprolol succinate 100 mg daily and that was discontinued when he developed the bradycardia. There is no reason not to restart it following pacemaker implantation and I did restart it today and sent him home on that dose. Coding Level of Care Code None Diagnoses Status post placement of cardiac pacemaker Z95.0 Acute kidney injury superimposed on chronic kidney disease N17.9; N18.9 Paroxysmal atrial fibrillation I48.0 Hypertension I10 Hypertension type: essential hypertension
== END 2020-07-06 13:23 | disposition home or self-care (01) ==
LOC: 1E → 2S 18:58

== ENCOUNTER 2020-08-03 14:56 | Inpatient (IN) ==
[2020-08-03] MEDS ORDERED: ONDANSETRON INJ 2 MG/ML 2 ML VIAL IV STA (15:18)
[2020-08-03] MEDS ORDERED: ONDANSETRON INJ 2 MG/ML 2 ML VIAL ONE (15:19)
[2020-08-03 15:49] LABS: INR 1.1 (0.9-1.1); Partial Thromboplastin Time 25.1 Seconds (21.0-31.0)
[2020-08-03] MEDS ORDERED: OPTIRAY 320 125ml IV ONE (15:49)
[2020-08-03 15:50] LABS: iSTAT Creatinine 1.7 mg/dl (0.6-1.3); iSTAT Hemoglobin 12.6 g/dl (14.0-18.0); iSTAT Ionized Calcium 1.26 mmol/l (1.12-1.32); iSTAT Potassium 5.1 mmol/L (3.3-5.0)
[2020-08-03 15:51] LABS: Alanine Aminotransferase 23 U/L (12-78); Albumin Level 4.1 gm/dl (3.4-5.0); Aspartate Aminotransferase 8 U/L (15-37); BUN Creatinine Ratio 27.5 (10-20); Blood Urea Nitrogen 45 mg/dl (7-18); Calcium 9.5 mg/dl (8.5-10.1); Carbon Dioxide 24 mmol/L (21-32); Chloride 103 mmol/L (98-107); Est GFR (African American) 45.1; Est GFR (Non-African American) 38.9; Glucose 197 mg/dl (70-99); Potassium 4.9 mmol/L (3.5-5.1); Sodium 134 mmol/L (136-145)
[2020-08-03 15:55] LABS: Hematocrit (blood only) 37.7 % (42-52); Hemoglobin 12.4 g/dL (14.0-18.0); Mean Corpuscular Hemoglobin 32.6 pg (25-34); Mean Corpuscular Hgb Conc 32.9 g/dL (32-36); Mean Corpuscular Volume 99.2 fL (80-100); Mean Platelet Volume 13.1 fL (7.4-10.4); Platelet Count 114 K/uL (130-400); RDW Coefficient of Variation 12.7 % (11.5-14.5); RDW Standard Deviation 45.9 fL (36.4-46.3); White Blood Count 9.93 K/uL (4.8-10.8)
[2020-08-03 15:56] LABS: Albumin Globulin Ratio 1.1 (0.9-2); Alkaline Phosphatase 87 U/L (45-117); Basophils # (auto) 0.01 K/uL (0-0.2); Basophils % (auto) 0.1 %; Bilirubin,Total 0.6 mg/dl (0.2-1); Eosinophils # (auto) 0.02 K/uL (0-0.5); Eosinophils % (auto) 0.2 %; Giant Platelets 1+; Globulin 3.8 gm/dl (2.5-4.0); Immature Granulocytes # (auto) 0.02 K/uL (0.00-0.02); Immature Granulocytes % (auto) 0.2 %; Lymphocytes # (auto) 1.16 K/uL (1.2-3.4); Lymphocytes % (auto) 11.7 %; Monocytes # (auto) 0.66 K/uL (0.11-0.59); Monocytes % (auto) 6.6 %; Neutrophils # (auto) 8.06 K/uL (1.4-6.5); Neutrophils % (auto) 81.2 %; Platelet Estimate Decreased (Normal); Total Protein 7.9 gm/dl (6.4-8.2); Troponin I < 0.015 ng/ml (0-0.045)
--- NOTE | 2020-08-03 15:59 | CT Scan Report ---
HEAD CT NONCONTRAST CT DOSE: HISTORY: Stroke Like Symptoms TECHNIQUE: Multiaxial CT images of the head were performed without the use of intravenous contrast. A utomated exposure control was utilized for this study. A dose lowering technique was utilized adheri ng to the principles of ALARA. Comparison: None. Findings: A 2 cm retention cyst within the left maxillary sinus. The mastoid air cells are clear. The calvarium and skull base are intact. There is no mass, hematoma, midline shift, acute infarct. White matter hypodensity is nonspecific but suggestive of microvascular ischemic change. The ventricles an d sulci demonstrate mild age-related involutional changes. There is an old punctate lacunar infarct s een within the left basal ganglia. Impression: No acute intracranial abnormality. Atrophy and microvascular ischemic changes. ACT 112: Negative or not required by law. Electronically signed by: dA Mensah M.D. 08/03/2020 3:58 PM
--- NOTE | 2020-08-03 16:07 | CT Scan Report ---
CTA ANGIOGRAPHY OF THE HEAD CLINICAL HISTORY: Stroke Like Symptoms COMPARISON STUDY: No previous studies for comparison. TECHNIQUE: Helical axial images of the head were obtained following uneventful intravenous administr ation of 118 cc of Optiray 320. Sagittal and coronal reconstructions were viewed as well as maximal i ntensity projections on an independent 3-D workstation. Automated exposure control was utilized for the study. A dose lowering technique was utilized adhering to the principles of ALARA. FINDINGS: No acute intracranial hemorrhage, midline shift or mass effect is present. Ventricular syst em is unremarkable. Basal cisterns are patent. There is suspected encephalomalacia within the right o ccipital lobe. No intracranial aneurysm is identified. There is extensive calcified plaque within the bilateral cavernous carotids. There is no abrupt cut off within the anterior circulation. There is a brupt cut off of the intracranial portion of the right vertebral artery just distal to the takeoff of the right posterior inferior cerebellar artery which is patent. The basilar artery and intracranial portion of the left vertebral artery are patent. There is mild stenosis of the bilateral posterior ce rebral arteries which are patent. IMPRESSION: 1. Abrupt occlusion of the intracranial portion of the right vertebral artery which is likely acute. Findings discussed with Dr. Stockton at time of dictation. 2. No additional sites of vessel occlusion. Extensive plaque within bilateral cavernous carotids. No intracranial aneurysm. ACT 112: Negative or not required by law. Electronically signed by: Carlos Woodward M.D. 08/03/2020 4:05 PM
--- NOTE | 2020-08-03 16:07 | CT Scan Report ---
NECK CTA HISTORY: Stroke Like Symptoms TECHNIQUE: Multiaxial CT images of the neck were performed following the intravenous administration o f contrast to evaluate the major cervical vessels. Maximum intensity projection images were also obta ined. All measurements were calculated based on NASCET criteria. A dose lowering technique was utili zed adhering to the principles of ALARA. COMPARISON STUDY: None. FINDINGS: The aortic arch and proximal great vessels are widely patent. Pacemaker wires are partiall y visualized. There is moderate calcified plaque within the right carotid bulb resulting in 30% focal stenosis at the origin of the right internal carotid artery. Remaining segments of the right interna l carotid artery are patent. No significant stenosis or dissection within the left carotid arteries. The right common carotid artery is also patent. The bilateral cervical vertebral arteries are patent. However, there is focal occlusion involving the intracranial portion of the distal right vertebral a rtery. This is likely acute. A 4 mm nodule within the right upper lobe on image 17. 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 IMPRESSION: 1. Focal occlusion involving the intracranial portion of the distal right vertebral artery. This is l ikely acute. 2. Approximately 30% stenosis at the origin of the right internal carotid artery. The remaining bilat eral carotid arteries are patent. 3. 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 4. A 4 mm indeterminate pulmonary nodule within the right upper lobe. One year chest CT follow-up can be performed to ensure stability. ACT 112: Negative or not required by law. Electronically signed by: Ad Mensah M.D. 08/03/2020 4:06 PM
[2020-08-03] MEDS ORDERED: SODIUM CHLORIDE 0.9% 500 ML IV ONE (16:25)
--- NOTE | 2020-08-03 16:48 | XRay Report ---
XR chest 1V portable CLINICAL HISTORY: dizzy COMPARISON STUDY: Chest radiograph July 06, 2020. FINDINGS: Dual lead left subclavian pacemaker is in place. There is no pneumothorax. Cardiomegaly is unchanged. Trace left pleural effusion is noted. There is pulmonary vascular congestion with suspecte d mild pulmonary edema. IMPRESSION: 1. Mild pulmonary edema with a trace left pleural effusion. 2. Cardiomegaly. ACT 112: Negative or not required by law. Electronically signed by: Carlos Woodward M.D. 08/03/2020 4:46 PM
--- NOTE | 2020-08-03 16:59 | Emergency Department Note ---
Impression & Plan Vertebral artery occlusion, CKD (chronic kidney disease), stage III, Cerebrovascular accident, Nausea & vomiting ED Provider Note Provider: Adriel Stockton MD DATE OF SERVICE: 08/03/2020 CHIEF COMPLAINT: Dizzy, nausea, neck pain, speech issues HISTORY OF PRESENT ILLNESS: Patient is a 84-year-old gentleman history of CKD, diabetes, hyperlipidemia, hypothyroidism, hypertension, A. fib with recent plantation of the pacemaker several weeks ago presenting today via ambulance from home with sudden onset of dizziness around 10 AM according to him and his . Reports his guarding felt very suddenly dizzy. states she felt his speech was a little bit slurred. Patient frontal but numbness in his right fingers. also states she seemed like his right face was a little bit droopy. Patient yesterday and overnight had been complaining of some pain in the back of his neck as well which he states is minimal at this time. Denies headache. States nausea and some vomiting started earlier. Vomiting upon me entering the room. Denies abdominal pain. Denies chest pain or shortness of breath. Denies weakness or numbness in the lower extremities that is new. Patient denies recent illness. Patient denies a history of similar. does report the patient is on aspirin at this time but did accidentally take a dose of his Pradaxa yesterday although he supposed to be off this medication after his pacemaker. Patient states he did well after his pacemaker placement and I was able to ambulate and get around much better than before when he had bradycardia. REVIEW OF SYSTEMS: A total of 10 review of systems was obtained and negative except as stated above in the HPI. PAST MEDICAL HISTORY: As noted above MEDICATIONS: Reviewed home medications with the patient. SOCIAL HISTORY: Lives at home with PHYSICAL EXAM: GENERAL: alert and oriented on the stretcher appears somewhat fatigued Head: normocephalic and atraumatic EYES: No injection, discharge or icterus. PERRL NECK: Trachea midline. Supple. ENT: Mucous membranes pink and moist. Pharynx without erythema or exudate. LUNGS: Airway patent. No retractions. Breath sounds clear HEART: Regular rate and rhythm. No chest wall tenderness with a left upper chest wall pacemaker in place without significant erythema. ABDOMEN: Soft and non-tender, without guarding or rebound. SKIN: Warm, mildly diaphoretic somewhat malone in appearance. EXTREMITIES: Without swelling, tenderness or deformity NEUROLOGICAL: Patient with some mild right-sided facial droop. No significant aphasia. Following all commands. No gaze preference. Tongue midline. states his speech is slightly off but no gross dysarthria/slurred speech or. Normal strength and tone in the extremities. Sensation to gross touch normal except for the distal tips of the right fingers. EK bpm AV paced rhythm with no acute ST segment elevation noted. Inferior and lateral T wave flattening noted. QTc 438. CONTINUOUS CARDIAC MONITORING: was ordered and showed a heart rate of 60s bpm in paced rhythm EKG #2: 68 bpm interval he states ventricularly paced rhythm no PVC noted. No acute ST segment elevation noted with persistent inferior and lateral T wave flattening. Patient's laboratory studies and imaging reviewed. Differential includes Infection, dehydration, metabolic abnormality, hypo/hyperglycemia, electrolyte disturbance, anemia, hypoxia, cardiac sources, intracerebral event, toxicologic, neurologic, as well as other pathologies. IMPRESSION/MEDICAL DECISION MAKING: Patient presents with sudden onset of dizziness with a day or 2 of some neck pain. Does not appear meningitic no fever reported. No significant cytosis appreciated. Outside the timeframe for TPA and a stroke alert was not called. Patient also did take a dose of Pradaxa yesterday. Right vertebral occlusion noted per radiology who alerted me this via call when reading. No other large vessel occlusion noted per radiology report. Patient's nausea improved and his color and diaphoresis resolved while here. Discussed with telestroke at [facility] reported there is no acute intervention that could be offered there at this time and less clot progression. Discussed with our neurology here. Covid was negative. Renal function appears at baseline and given some fluid hydration here. Stable anemia without significant leukocytosis doubt this is infectious. The hospitalist was alerted. The patient was updated with the findings. I doubt this is cardiac in nature and believe this is likely related to stroke and vertebral occlusion. Patient was agreeable for further admission and care here of likely stroke in the right vertebral artery occlusion. DIAGNOSIS: Stroke, right vertebral occlusion, nausea DISPOSITION: Hospitalist will evaluate for further care as an inpatient Past Med/Surg History Medical History (Updated 08/03/20 @ 23:51 by Adriel Stockton M.D.) Anemia Benign prostate hyperplasia CAD (coronary artery disease) Diabetes mellitus with circulatory complication Dyslipidemia Hypertension Hypothyroidism Obesity Paroxysmal atrial fibrillation Prostatitis Surgical History History of colonoscopy (~1992) S/P cataract surgery left - 03/06/17, right - 03/20/17 Family History Father Lung cancer Smoker Brother Smoker Social History Smoking Status: Former smoker Tobacco Type: Cigarettes Age Started Using Tobacco: 14; Age Quit Using Tobacco: 50; packs per day: 0.5; Years Smoked: 36; Cigarettes Per Day: 10; Smoking End Date: 1970; Second Hand Exposure: No; Hx Alcohol Use: No Hx Substance Use: No Preferred Language: Greek Communication Ability: Effective Sign Language Interpreter Required: No Beliefs That Will Affect Care: None marital status: Current Living Situation: Spouse Other Information That Helps Us Care for You: No Feels Safe at Home: Yes Safety Concerns: Feels Safe At This Time Assistive Devices: Glasses and Hearing Aid - Bilateral Allergies Allergies Allergy/AdvReac Type Severity Reaction Status Date / Time No Known Allergies Allergy Verified 08/03/20 17:25 Home Meds Home Medications Medication Instructions Recorded Confirmed blood-glucose meter #1 ea 10/22/18 07/19/20 nitroglycerin 0.4 mg sublingual 0.4 mg SL Q5M PRN #1 tab 01/02/19 08/03/20 tablet aspirin 81 mg tablet,delayed 81 mg PO DAILY 07/11/20 08/03/20 release atorvastatin 40 mg PO HS 08/03/20 08/03/20 Previous Rx's Medication Instructions Recorded isosorbide mononitrate 60 mg 60 mg PO DAILY #90 tab 01/11/20 tablet,extended release 24 hr levothyroxine 150 mcg tablet 150 mcg PO DAILY #90 tab 05/11/20 metoprolol succinate 100 mg PO QAM #60 tab 07/06/20 blood sugar diagnostic #100 ea 07/11/20 glimepiride 4 mg tablet 4 mg PO BID #180 tab 07/11/20 lancets 30 gauge #200 ea 07/11/20 losartan 50 mg tablet 50 mg PO DAILY #90 tab 07/11/20 sitagliptin 100 mg tablet 100 mg PO DAILY #90 tab 07/11/20 Results & Data (ED) Vital Signs Vital Signs - 24 hr 08/03/20 14:40 08/03/20 15:01 08/03/20 15:25 Temperature 36.6 C Temperature Source Oral Pulse Rate 68 65 69 Pulse Rate [Apical] Pulse Rate from SpO2 Sensor 65 68 Pulse Rhythm Regular Pulse Rhythm [Apical] Pulse Strength Strong Respiratory Rate 18 19 13 Respiratory Effort / Characteristics Respiratory Depth Normal Respiratory Pattern Blood Pressure 138/78 138/78 138/75 Blood Pressure [Left Arm] Blood Pressure Mean 98 98 96 Blood Pressure Mean [Left Arm] Blood Pressure Position Semi-fowlers Blood Pressure Position [Left Arm] Pulse Oximetry 98 96 97 Oxygen Delivery Method Room Air Sepsis Recent Fever Within 48 Hours No Sepsis New/Unexplained Change in Mental Status Yes Sepsis Action Taken by Nursing No Action Required 08/03/20 15:30 08/03/20 15:58 08/03/20 16:00 Temperature Temperature Source Pulse Rate 68 69 67 Pulse Rate [Apical] Pulse Rate from SpO2 Sensor 68 70 67 Pulse Rhythm Pulse Rhythm [Apical] Pulse Strength Respiratory Rate 12 13 10 L Respiratory Effort / Characteristics Respiratory Depth Respiratory Pattern Blood Pressure 156/78 H 126/65 128/70 Blood Pressure [Left Arm] Blood Pressure Mean 104 85 89 Blood Pressure Mean [Left Arm] Blood Pressure Position Blood Pressure Position [Left Arm] Pulse Oximetry 96 98 96 Oxygen Delivery Method Sepsis Recent Fever Within 48 Hours Sepsis New/Unexplained Change in Mental Status Sepsis Action Taken by Nursing 08/03/20 16:30 08/03/20 16:39 08/03/20 17:00 Temperature Temperature Source Pulse Rate 65 63 Pulse Rate [Apical] 62 Pulse Rate from SpO2 Sensor 63 66 Pulse Rhythm Pulse Rhythm [Apical] Regular Pulse Strength Respiratory Rate 12 17 16 Respiratory Effort / Characteristics Non-Labored Spontaneous Respiratory Depth Normal Respiratory Pattern Regular Blood Pressure 140/69 148/84 H Blood Pressure [Left Arm] 140/69 Blood Pressure Mean 92 105 Blood Pressure Mean [Left Arm] 92 Blood Pressure Position Blood Pressure Position [Left Arm] Lying Pulse Oximetry 95 97 97 Oxygen Delivery Method Room Air Sepsis Recent Fever Within 48 Hours Sepsis New/Unexplained Change in Mental Status Sepsis Action Taken by Nursing 08/03/20 17:30 08/03/20 18:00 08/03/20 18:01 Temperature Temperature Source Pulse Rate 66 68 65 Pulse Rate [Apical] Pulse Rate from SpO2 Sensor Pulse Rhythm Pulse Rhythm [Apical] Pulse Strength Respiratory Rate 15 18 15 Respiratory Effort / Characteristics Respiratory Depth Respiratory Pattern Blood Pressure 139/81 172/83 H Blood Pressure [Left Arm] Blood Pressure Mean 100 112 Blood Pressure Mean [Left Arm] Blood Pressure Position Blood Pressure Position [Left Arm] Pulse Oximetry Oxygen Delivery Method Sepsis Recent Fever Within 48 Hours Sepsis New/Unexplained Change in Mental Status Sepsis Action Taken by Nursing 08/03/20 18:30 08/03/20 18:31 08/03/20 19:00 Temperature Temperature Source Pulse Rate 68 67 67 Pulse Rate [Apical] Pulse Rate from SpO2 Sensor Pulse Rhythm Pulse Rhythm [Apical] Pulse Strength Respiratory Rate 10 L 15 14 Respiratory Effort / Characteristics Respiratory Depth Respiratory Pattern Blood Pressure 213/107 H Blood Pressure [Left Arm] Blood Pressure Mean 142 Blood Pressure Mean [Left Arm] Blood Pressure Position Blood Pressure Position [Left Arm] Pulse Oximetry Oxygen Delivery Method Sepsis Recent Fever Within 48 Hours Sepsis New/Unexplained Change in Mental Status Sepsis Action Taken by Nursing 08/03/20 19:01 08/03/20 19:30 Temperature Temperature Source Pulse Rate 66 64 Pulse Rate [Apical] Pulse Rate from SpO2 Sensor Pulse Rhythm Pulse Rhythm [Apical] Pulse Strength Respiratory Rate 17 14 Respiratory Effort / Characteristics Respiratory Depth Respiratory Pattern Blood Pressure 151/96 H Blood Pressure [Left Arm] Blood Pressure Mean 114 Blood Pressure Mean [Left Arm] Blood Pressure Position Blood Pressure Position [Left Arm] Pulse Oximetry Oxygen Delivery Method Sepsis Recent Fever Within 48 Hours Sepsis New/Unexplained Change in Mental Status Sepsis Action Taken by Nursing Laboratory Data Result diagrams: 08/03/20 15:13 08/03/20 15:13 Lab Results 08/03/20 08/03/20 08/03/20 Range/Units 15:13 15:13 15:13 WBC 9.93 (4.8-10.8) K/uL RBC 3.80 L (4.7-6.1) M/uL Hgb 12.4 L (14.0-18.0) g/dL POC Hgb (14.0-18.0) g/dl Hct 37.7 L (42-52) % POC Hct (42-52) % MCV 99.2 (80-100) fL MCH 32.6 (25-34) pg MCHC 32.9 (32-36) g/dL RDW Std Deviation 45.9 (36.4-46.3) fL RDW Coeff of Jose 12.7 (11.5-14.5) % Plt Count 114 L (130-400) K/uL MPV 13.1 H (7.4-10.4) fL Immature Gran % (Auto) 0.2 % Neut % (Auto) 81.2 % Lymph % (Auto) 11.7 % [place] % (Auto) 6.6 % Eos % (Auto) 0.2 % Baso % (Auto) 0.1 % Neut # (Auto) 8.06 H (1.4-6.5) K/uL Lymph # (Auto) 1.16 L (1.2-3.4) K/uL [place] # (Auto) 0.66 H (0.11-0.59) K/uL Eos # (Auto) 0.02 (0-0.5) K/uL Baso # (Auto) 0.01 (0-0.2) K/uL Immature Gran # (Auto) 0.02 (0.00-0.02) K/uL Platelet Estimate Decreased L (Normal) Giant Platelets 1+ PT 11.0 (9.0-12.0) Seconds INR 1.1 (0.9-1.1) APTT 25.1 (21.0-31.0) Seconds PTT Ratio 1.0 POC Sodium (135-144) mmol/L Sodium 134 L (136-145) mmol/L POC Potassium (3.3-5.0) mmol/L Potassium 4.9 (3.5-5.1) mmol/L POC Chloride (101-112) mmol/L Chloride 103 (98-107) mmol/L Carbon Dioxide 24 (21-32) mmol/L POC Total CO2 (24-31) mmol/L Anion Gap 6.0 (3-11) POC Anion Gap (16-25) mmol/L POC BUN (7-18) mg/dl BUN 45 H (7-18) mg/dl Creatinine 1.62 H (0.6-1.4) mg/dl POC Creatinine (0.6-1.3) mg/dl Est Cr Clr Drug Dosing 40.0 ml/min Est GFR ( Amer) 45.1 Est GFR (Non-Af Amer) 38.9 BUN/Creatinine Ratio 27.5 H (10-20) Glucose 197 H (70-99) mg/dl POC Glucose (other) (70-99) mg/dl Calcium 9.5 (8.5-10.1) mg/dl POC Ioniz Calcium Aaliyah (1.12-1.32) mmol/l Magnesium 2.0 (1.8-2.4) mg/dl Total Bilirubin 0.6 (0.2-1) mg/dl AST 8 L (15-37) U/L ALT 23 (12-78) U/L Alkaline Phosphatase 87 (45-117) U/L Troponin I < 0.015 (0-0.045) ng/ml Total Protein 7.9 (6.4-8.2) gm/dl Albumin 4.1 (3.4-5.0) gm/dl Globulin 3.8 (2.5-4.0) gm/dl Albumin/Globulin Ratio 1.1 (0.9-2) COVID-19 Eval Order SARS-CoV-2 (PCR) (Negative) Influenza Type A (PCR) (Neg) Influenza Type B (PCR) (Neg) RSV (RT-PCR) (Neg) Blood Type Antibody Screen 08/03/20 08/03/20 08/03/20 Range/Units 15:32 15:38 17:25 WBC (4.8-10.8) K/uL RBC (4.7-6.1) M/uL Hgb (14.0-18.0) g/dL POC Hgb 12.6 L (14.0-18.0) g/dl Hct (42-52) % POC Hct 37 L (42-52) % MCV (80-100) fL MCH (25-34) pg MCHC (32-36) g/dL RDW Std Deviation (36.4-46.3) fL RDW Coeff of Jose (11.5-14.5) % Plt Count (130-400) K/uL MPV (7.4-10.4) fL Immature Gran % (Auto) % Neut % (Auto) % Lymph % (Auto) % [place] % (Auto) % Eos % (Auto) % Baso % (Auto) % Neut # (Auto) (1.4-6.5) K/uL Lymph # (Auto) (1.2-3.4) K/uL [place] # (Auto) (0.11-0.59) K/uL Eos # (Auto) (0-0.5) K/uL Baso # (Auto) (0-0.2) K/uL Immature Gran # (Auto) (0.00-0.02) K/uL Platelet Estimate (Normal) Giant Platelets PT (9.0-12.0) Seconds INR (0.9-1.1) APTT (21.0-31.0) Seconds PTT Ratio POC Sodium 134 L (135-144) mmol/L Sodium (136-145) mmol/L POC Potassium 5.1 H (3.3-5.0) mmol/L Potassium (3.5-5.1) mmol/L POC Chloride 102 (101-112) mmol/L Chloride (98-107) mmol/L Carbon Dioxide (21-32) mmol/L POC Total CO2 26 (24-31) mmol/L Anion Gap (3-11) POC Anion Gap 13.0 L (16-25) mmol/L POC BUN 46 H (7-18) mg/dl BUN (7-18) mg/dl Creatinine (0.6-1.4) mg/dl POC Creatinine 1.7 H (0.6-1.3) mg/dl Est Cr Clr Drug Dosing ml/min Est GFR ( Amer) Est GFR (Non-Af Amer) BUN/Creatinine Ratio (10-20) Glucose (70-99) mg/dl POC Glucose (other) 208 H (70-99) mg/dl Calcium (8.5-10.1) mg/dl POC Ioniz Calcium Aaliyah 1.26 (1.12-1.32) mmol/l Magnesium (1.8-2.4) mg/dl Total Bilirubin (0.2-1) mg/dl AST (15-37) U/L ALT (12-78) U/L Alkaline Phosphatase (45-117) U/L Troponin I (0-0.045) ng/ml Total Protein (6.4-8.2) gm/dl Albumin (3.4-5.0) gm/dl Globulin (2.5-4.0) gm/dl Albumin/Globulin Ratio (0.9-2) COVID-19 Eval Order CovFluRsv at [facility] SARS-CoV-2 (PCR) (Negative) Influenza Type A (PCR) (Neg) Influenza Type B (PCR) (Neg) RSV (RT-PCR) (Neg) Blood Type A Positive Antibody Screen NEGATIVE 08/03/20 Range/Units 17:25 WBC (4.8-10.8) K/uL RBC (4.7-6.1) M/uL Hgb (14.0-18.0) g/dL POC Hgb (14.0-18.0) g/dl Hct (42-52) % POC Hct (42-52) % MCV (80-100) fL MCH (25-34) pg MCHC (32-36) g/dL RDW Std Deviation (36.4-46.3) fL RDW Coeff of Jose (11.5-14.5) % Plt Count (130-400) K/uL MPV (7.4-10.4) fL Immature Gran % (Auto) % Neut % (Auto) % Lymph % (Auto) % [place] % (Auto) % Eos % (Auto) % Baso % (Auto) % Neut # (Auto) (1.4-6.5) K/uL Lymph # (Auto) (1.2-3.4) K/uL [place] # (Auto) (0.11-0.59) K/uL Eos # (Auto) (0-0.5) K/uL Baso # (Auto) (0-0.2) K/uL Immature Gran # (Auto) (0.00-0.02) K/uL Platelet Estimate (Normal) Giant Platelets PT (9.0-12.0) Seconds INR (0.9-1.1) APTT (21.0-31.0) Seconds PTT Ratio POC Sodium (135-144) mmol/L Sodium (136-145) mmol/L POC Potassium (3.3-5.0) mmol/L Potassium (3.5-5.1) mmol/L POC Chloride (101-112) mmol/L Chloride (98-107) mmol/L Carbon Dioxide (21-32) mmol/L POC Total CO2 (24-31) mmol/L Anion Gap (3-11) POC Anion Gap (16-25) mmol/L POC BUN (7-18) mg/dl BUN (7-18) mg/dl Creatinine (0.6-1.4) mg/dl POC Creatinine (0.6-1.3) mg/dl Est Cr Clr Drug Dosing ml/min Est GFR ( Amer) Est GFR (Non-Af Amer) BUN/Creatinine Ratio (10-20) Glucose (70-99) mg/dl POC Glucose (other) (70-99) mg/dl Calcium (8.5-10.1) mg/dl POC Ioniz Calcium Aaliyah (1.12-1.32) mmol/l Magnesium (1.8-2.4) mg/dl Total Bilirubin (0.2-1) mg/dl AST (15-37) U/L ALT (12-78) U/L Alkaline Phosphatase (45-117) U/L Troponin I (0-0.045) ng/ml Total Protein (6.4-8.2) gm/dl Albumin (3.4-5.0) gm/dl Globulin (2.5-4.0) gm/dl Albumin/Globulin Ratio (0.9-2) COVID-19 Eval Order SARS-CoV-2 (PCR) NEGATIVE (Negative) Influenza Type A (PCR) Negative (Neg) Influenza Type B (PCR) Negative (Neg) RSV (RT-PCR) Negative (Neg) Blood Type Antibody Screen Administered Medications Heparin Sodium/Dextrose (Heparin Sodium/Dextrose) 25,000 units in 500 mls @ 29 mls/hr IV .[id number] JOHN; Protocol Stop: 09/02/20 21:07 Last Admin: 08/03/20 21:48 Dose: 1,450 units/hr, 29 mls/hr Documented by: [id number] Cosigned by: [id number] Dextrose/Lactated Ringer's (D5w And Lactated Ringers) 1,000 mls @ 80 mls/hr IV .[id number] JOHN Stop: 09/02/20 21:11 Last Admin: 08/03/20 21:25 Dose: 80 mls/hr Documented by: [id number] Discontinued Medications Aspirin (Aspirin 300 Mg Supp) 300 mg AK ONE ONE Stop: 08/03/20 21:13 Last Admin: 08/03/20 21:50 Dose: 300 mg Documented by: [id number] Heparin Sodium/Dextrose (Heparin Iv Standard *No* Bolus) 1 ea IV Q15M JOHN; Protocol Stop: 09/02/20 21:07 Last Admin: 08/03/20 22:00 Dose: Not Given Documented by: [id number] Admin: 08/03/20 21:59 Dose: Not Given Documented by: [id number] Sodium Chloride (Nss) 500 mls @ 999 mls/hr IV .Q31M ONE Stop: 08/03/20 16:55 Last Infusion: 08/03/20 17:21 Dose: 0 mls/hr Documented by: [id number] Admin: 08/03/20 16:41 Dose: 999 mls/hr Documented by: [id number] Ioversol (Optiray 320 125ml) 118 ml IV ONCE ONE Stop: 08/03/20 15:50 Last Admin: 08/03/20 15:50 Dose: 118 ml Documented by: [id number] Ondansetron HCl (Ondansetron Inj 2 Mg/Ml 2 Ml Vial) 4 mg IV NOW STA Stop: 08/03/20 15:19 Last Admin: 08/03/20 15:26 Dose: 4 mg Documented by: [id number] Ondansetron HCl (Ondansetron Inj 2 Mg/Ml 2 Ml Vial) Confirm Administered Dose 4 mg .ROUTE .STK-MED ONE Stop: 08/03/20 15:20 Last Admin: 08/03/20 17:21 Dose: Not Given Documented by: [id number] Imaging Data Radiologist's Impression: Head CT 08/03/20 15:[address] DOSE: HISTORY: Stroke Like Symptoms TECHNIQUE: Multiaxial CT images of the head were performed without the use of intravenous contrast. Automated exposure control was utilized for this study. A dose lowering technique was utilized adhering to the principles of ALARA. Comparison: None. Findings: A 2 cm retention cyst within the left maxillary sinus. The mastoid air cells are clear. The calvarium and skull base are intact. There is no mass, hematoma, midline shift, acute infarct. White matter hypodensity is nonspecific but suggestive of microvascular ischemic change. The ventricles and sulci demonstrate mild age-related involutional changes. There is an old punctate lacunar infarct seen within the left basal ganglia. Impression: No acute intracranial abnormality. Atrophy and microvascular ischemic changes. ACT 112: Negative or not required by law. Electronically signed by: Ad Mensah M.D. 08/03/2020 3:58 PM Head CTA 08/03/20 15:19 CTA ANGIOGRAPHY OF THE HEAD CLINICAL HISTORY: Stroke Like Symptoms COMPARISON STUDY: No previous studies for comparison. TECHNIQUE: Helical axial images of the head were obtained following uneventful intravenous administration of 118 cc of Optiray 320. Sagittal and coronal reconstructions were viewed as well as maximal intensity projections on an independent 3-D workstation. Automated exposure control was utilized for the study. A dose lowering technique was utilized adhering to the principles of ALARA. FINDINGS: No acute intracranial hemorrhage, midline shift or mass effect is present. Ventricular system is unremarkable. Basal cisterns are patent. There is suspected encephalomalacia within the right occipital lobe. No intracranial aneurysm is identified. There is extensive calcified plaque within the bilateral cavernous carotids. There is no abrupt cut off within the anterior circulation. There is abrupt cut off of the intracranial portion of the right vertebral artery just distal to the takeoff of the right posterior inferior cerebellar artery which is patent. The basilar artery and intracranial portion of the left vertebral artery are patent. There is mild stenosis of the bilateral posterior cerebral arteries which are patent. IMPRESSION: 1. Abrupt occlusion of the intracranial portion of the right vertebral artery which is likely acute. Findings discussed with Dr. Stockton at time of dictation. 2. No additional sites of vessel occlusion. Extensive plaque within bilateral cavernous carotids. No intracranial aneurysm. ACT 112: Negative or not required by law. Electronically signed by: Carlos Woodward M.D. 08/03/2020 4:05 PM Neck CTA 08/03/20 15:19 NECK CTA HISTORY: Stroke Like Symptoms TECHNIQUE: Multiaxial CT images of the neck were performed following the intravenous administration of contrast to evaluate the major cervical vessels. Maximum intensity projection images were also obtained. All measurements were calculated based on NASCET criteria. A dose lowering technique was utilized adhering to the principles of ALARA. COMPARISON STUDY: None. FINDINGS: The aortic arch and proximal great vessels are widely patent. Pacemaker wires are partially visualized. There is moderate calcified plaque within the right carotid bulb resulting in 30% focal stenosis at the origin of the right internal carotid artery. Remaining segments of the right internal carotid artery are patent. No significant stenosis or dissection within the left carotid arteries. The right common carotid artery is also patent. The bilateral cervical vertebral arteries are patent. However, there is focal occlusion involving the intracranial portion of the distal right vertebral artery. This is likely acute. A 4 mm nodule within the right upper lobe on image 17. 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 IMPRESSION: 1. Focal occlusion involving the intracranial portion of the distal right vertebral artery. This is likely acute. 2. Approximately 30% stenosis at the origin of the right internal carotid artery. The remaining bilateral carotid arteries are patent. 3. 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 4. A 4 mm indeterminate pulmonary nodule within the right upper lobe. One year chest CT follow-up can be performed to ensure stability. ACT 112: Negative or not required by law. Electronically signed by: Ad Mensah M.D. 08/03/2020 4:06 PM Chest X-Ray 08/03/20 16:27 XR chest 1V portable CLINICAL HISTORY: dizzy COMPARISON STUDY: Chest radiograph July 06, 2020. FINDINGS: Dual lead left subclavian pacemaker is in place. There is no pneumothorax. Cardiomegaly is unchanged. Trace left pleural effusion is noted. There is pulmonary vascular congestion with suspected mild pulmonary edema. IMPRESSION: 1. Mild pulmonary edema with a trace left pleural effusion. 2. Cardiomegaly. ACT 112: Negative or not required by law. Electronically signed by: Carlos Woodward M.D. 08/03/2020 4:46 PM Discharge Plan Visit Data Chief Complaint: Stroke/CVA Symptoms ED Provider: Adriel Stockton Discharge Problem: Vertebral artery occlusion, CKD (chronic kidney disease), stage III, Cerebrovascular accident, Nausea & vomiting Patient Disposition: Admitted As Inpatient Discharge Instructions Interventions: ED Discharge Assessment Last Done: 08/03/20 20:38 Discharge Problem: Vertebral artery occlusion Qualifiers: Laterality: right Qualified Code(s): I65.01 - Occlusion and stenosis of right vertebral artery CKD (chronic kidney disease), stage III Qualifiers: Chronic kidney disease stage 3 subtype: stage 3b (GFR 30-44) Qualified Code(s): N18.32 - Chronic kidney disease, stage 3b Cerebrovascular accident Qualifiers: CVA mechanism: unspecified Qualified Code(s): I63.9 - Cerebral infarction, unspecified Nausea & vomiting Qualifiers: Vomiting type: unspecified Vomiting Intractability: non-intractable Qualified C ode(s): R11.2 - Nausea with vomiting, unspecified
--- NOTE | 2020-08-03 18:18 | History & Physical Report ---
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 - CHANDANA XT MRI SURE SCAN [id number] generator, Atrial Lead Medtronic - [id number], RV lead- Medtronic [id number] - Pacemaker in ~2 weeks, this may change ability for MRI to be done- Information to cardiology- pending OK or not. - Allow permissive HTN-oral agents on hold as bedside swallow evaluation needs performed secondary to dysarthria. - BP <220 / <110---- Labetalol IV 10-20 mg IV - ASA and Plavix- Oder in morning of 08/04 if swallow screen, otherwise ASA rectal is OK - Continue Atorvastatin 40 mg - NPO as above - ECHO ordered with bubble study - Heparin drip no bolus- neurology recommendation- overnight (2) Hyperlipidemia: As above, lipid panel in the morning - Continue Atorvastatin 40mg (3) CKD (chronic kidney disease), stage III: Stable slight increase in BUN - NPO tonight, D5LR at 80 ml per hour for hydration - Keep intravascularly repleted with contrast (4) Diabetes mellitus type 2, uncontrolled: Hold oral agents - NPO- BG checks 6 hours while NPO - Notify provifer if > 180, no coverage until then. - Avoid hypoglycemia for now (5) Obesity: No acute needs - continue with above, DM, Lipids, BP control, excercise - Appreciate PT/OT (6) Hypothyroidism: No acute needs - continue Synthroid- convert to IV in morning if not tolerating PO (7) CAD (coronary artery disease): Non occlusive disease, Normal stress ECHO in 2017 - Continue statin and BB, ARB, and isosorbide when able to tolerate PO History of Present Illness Chief Complaint: dizziness Primary Care Provider: Taj Montes MD 84 YOM with past medical history of CKD III, DM II, HLD, Hypothyroidism, HTN, CAD, BPH, AFib, and heart block with recent placement of permanent pacemaker. Patient comes to the emergency room after calling 911 this morning for feeling like he was going to pass out and vision changes. The patient was out in the garden planting tomato plants, where approximately around 1000 he started feeling like he was going to pass out- light headedness, dizzy, nausea. This was associated with vision change as well- "everything could not come into focus". He did not report any visual field cuts or inability to see out of either eye. He sat down thinking this would go away and attempted to drink some water, which he then threw up. Patient and also report some facial droop and slurred speech. He also endorses neck pain that is sharp and aching in nature. This neck pain has been going on for weeks per the patient. He denies any change with head position. Upon my evaluation the patient and the , both thought this was greatly improved. He did take his medications this morning including an ASA and also reports that he took a Pradaxa dose yesterday as he forgot that it was not discontinued. Currently NIHSS- 0. Pending swallow screen, NPO until that is completed. Allow permissive HTN, hold home medic ations at this time, patient will be admitted for hemodynamic monitoring, telemetry, and q2 hour neuro checks. Allergies Allergy/AdvReac Type Severity Reaction Status Date / Time No Known Allergies Allergy Verified 08/03/20 17:25 Home Medications Medication Instructions Recorded Confirmed Type blood-glucose meter #1 ea 10/22/18 07/19/20 History nitroglycerin 0.4 mg sublingual 0.4 mg SL Q5M PRN #1 tab 01/02/19 08/03/20 History tablet isosorbide mononitrate 60 mg 60 mg PO DAILY #90 tab 01/11/20 08/03/20 Rx tablet,extended release 24 hr levothyroxine 150 mcg tablet 150 mcg PO DAILY #90 tab 05/11/20 08/03/20 Rx metoprolol succinate 100 mg PO QAM #60 tab 07/06/20 08/03/20 Rx aspirin 81 mg tablet,delayed 81 mg PO DAILY 07/11/20 08/03/20 History release blood sugar diagnostic #100 ea 07/11/20 07/19/20 Rx glimepiride 4 mg tablet 4 mg PO BID #180 tab 07/11/20 08/03/20 Rx lancets 30 gauge #200 ea 07/11/20 07/19/20 Rx losartan 50 mg tablet 50 mg PO DAILY #90 tab 07/11/20 08/03/20 Rx sitagliptin 100 mg tablet 100 mg PO DAILY #90 tab 07/11/20 08/03/20 Rx atorvastatin 40 mg PO HS 08/03/20 08/03/20 History Past Med/Surg History Medical History (Updated 08/03/20 @ 23:51 by Adriel Stockton M.D.) Anemia Benign prostate hyperplasia CAD (coronary artery disease) Diabetes mellitus with circulatory complication Dyslipidemia Hypertension Hypothyroidism Obesity Paroxysmal atrial fibrillation Prostatitis Surgical History History of colonoscopy (~1992) S/P cataract surgery left - 03/06/17, right - 03/20/17 Family History Father Lung cancer Smoker Brother Smoker Social History Smoking Status: Former smoker Tobacco Type: Cigarettes Age Started Using Tobacco: 14; Age Quit Using Tobacco: 50; packs per day: 0.5; Years Smoked: 36; Cigarettes Per Day: 10; Smoking End Date: 1970; Second Hand Exposure: No; Hx Alcohol Use: No Hx Substance Use: No Preferred Language: Syriac Communication Ability: Effective Mail Reader Required: No Beliefs That Will Affect Care: None marital status: Current Living Situation: Spouse Other Information That Helps Us Care for You: No Feels Safe at Home: Yes Safety Concerns: Feels Safe At This Time Assistive Devices: Glasses and Hearing Aid - Bilateral Review of Systems Review of Systems: REVIEW OF SYSTEMS: Constitutional: No fever, sweats or chills Eyes: (+) worsening or blurred vision; No diplopia, no ENT: normal hearing, no trouble swallowing Respiratory: No cough, sputum, dyspnea at rest or on exertion Cardiovascular: No chest pain, tightness or palpitations Abdomen: (+) nausea, vomiting, No pain, , diarrhea or constipation Musculoskeletal: No joint pain, calf pain, swelling Neurologic: (+) dizziness, numbness, (-) weakness, numbness/tingling, or balance problems Psychiatric: No anxiety or depression Skin: No rash or itch Physical Exam Physical Exam: PHYSICAL EXAM: General: awake, alert, no apparent distress Head: Normocephalic, atraumatic ENT: PERRL, EOMI, no pharyngeal exudate, mucous membranes moist Neuro: AAO x 3, speech clear and appropriate slight slurring, strength intact bilaterally 5/5 upper and lower, sensation intact and equal all extremities and dermatomes, no pronator drift, no visual defects, fine motor moments and coordination intact, posterior neck pain, and dizziness, No visual field deficits, no difficulty reading or writing, object interpretation normal. No overshoot with finger to nose. Chest: equal rise and fall of the chest, no accessory muscle use, no heaves or thrills, Clear to auscultation, on room air, Cardiac: Regular rate and rhythm with occasional V-pace, telemetry reviewed, skin warm dry, cap refill <3 seconds, peripheral pulses +2 no JVD, no murmur, no edema GI: NABS x 4 quadrants, soft, nontender to palpation, no rebound, guarding or tenderness : Spontaneously voiding, no pain, no CVA tenderness, Extremities: Normal inspection, no peripheral edema or erythema, calfs nontender to palpation Psych: Normal mood and affect Skin: no rash or erythema Results & Data Results & Data ([facility]) Vital Signs (Past 12 Hours) Vital Signs Temp Pulse Pulse Resp BP BP Pulse Ox 08/03/20 16:39 62 17 140/69 97 08/03/20 16:00 67 10 L 128/70 96 08/03/20 15:58 69 13 126/65 98 08/03/20 15:30 68 12 156/78 H 96 08/03/20 15:25 69 13 138/75 97 08/03/20 15:01 65 19 138/78 96 08/03/20 14:40 36.6 C 68 18 138/78 98 Laboratory Results Abnormal lab results 08/03/20 08/03/20 08/03/20 Range/Units 15:13 15:13 15:38 RBC 3.80 L (4.7-6.1) M/uL Hgb 12.4 L (14.0-18.0) g/dL POC Hgb 12.6 L (14.0-18.0) g/dl Hct 37.7 L (42-52) % POC Hct 37 L (42-52) % Plt Count 114 L (130-400) K/uL MPV 13.1 H (7.4-10.4) fL Neut # (Auto) 8.06 H (1.4-6.5) K/uL Lymph # (Auto) 1.16 L (1.2-3.4) K/uL [place] # (Auto) 0.66 H (0.11-0.59) K/uL Platelet Estimate Decreased L (Normal) POC Sodium 134 L (135-144) mmol/L Sodium 134 L (136-145) mmol/L POC Potassium 5.1 H (3.3-5.0) mmol/L POC Anion Gap 13.0 L (16-25) mmol/L POC BUN 46 H (7-18) mg/dl BUN 45 H (7-18) mg/dl Creatinine 1.62 H (0.6-1.4) mg/dl POC Creatinine 1.7 H (0.6-1.3) mg/dl BUN/Creatinine Ratio 27.5 H (10-20) Glucose 197 H (70-99) mg/dl POC Glucose (other) 208 H (70-99) mg/dl AST 8 L (15-37) U/L Diagnostic Findings XR chest 1V portable CLINICAL HISTORY: dizzy COMPARISON STUDY: Chest radiograph July 06, 2020. FINDINGS: Dual lead left subclavian pacemaker is in place. There is no pneumothorax. Cardiomegaly is unchanged. Trace left pleural effusion is noted. There is pulmonary vascular congestion with suspected mild pulmonary edema. IMPRESSION: 1. Mild pulmonary edema with a trace left pleural effusion. 2. Cardiomegaly. NECK CTA HISTORY: Stroke Like Symptoms TECHNIQUE: Multiaxial CT images of the neck were performed following the intravenous administration of contrast to evaluate the major cervical vessels. Maximum intensity projection images were also obtained. All measurements were calculated based on NASCET criteria. A dose lowering technique was utilized adhering to the principles of ALARA. COMPARISON STUDY: None. FINDINGS: The aortic arch and proximal great vessels are widely patent. Pacemaker wires are partially visualized. There is moderate calcified plaque within the right carotid bulb resulting in 30% focal stenosis at the origin of the right internal carotid artery. Remaining segments of the right internal carotid artery are patent. No significant stenosis or dissection within the left carotid arteries. The right common carotid artery is also patent. The bilateral cervical vertebral arteries are patent. However, there is focal occlusion involving the intracranial portion of the distal right vertebral artery. This is likely acute. A 4 mm nodule within the right upper lobe on image 17. 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 IMPRESSION: 1. Focal occlusion involving the intracranial portion of the distal right vertebral artery. This is likely acute. 2. Approximately 30% stenosis at the origin of the right internal carotid artery. The remaining bilateral carotid arteries are patent. 3. 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 4. A 4 mm indeterminate pulmonary nodule within the right upper lobe. One year chest CT follow-up can be performed to ensure stability. CTA ANGIOGRAPHY OF THE HEAD CLINICAL HISTORY: Stroke Like Symptoms COMPARISON STUDY: No previous studies for comparison. TECHNIQUE: Helical axial images of the head were obtained following uneventful intravenous administration of 118 cc of Optiray 320. Sagittal and coronal reconstructions were viewed as well as maximal intensity projections on an independent 3-D workstation. Automated exposure control was utilized for the study. A dose lowering technique was utilized adhering to the principles of ALARA. FINDINGS: No acute intracranial hemorrhage, midline shift or mass effect is pre sent. Ventricular system is unremarkable. Basal cisterns are patent. There is suspected encephalomalacia within the right occipital lobe. No intracranial aneurysm is identified. There is extensive calcified plaque within the bilateral cavernous carotids. There is no abrupt cut off within the anterior circulation. There is abrupt cut off of the intracranial portion of the right vertebral artery just distal to the takeoff of the right posterior inferior cerebellar artery which is patent. The basilar artery and intracranial portion of the left vertebral artery are patent. There is mild stenosis of the bilateral posterior cerebral arteries which are patent. IMPRESSION: 1. Abrupt occlusion of the intracranial portion of the right vertebral artery which is likely acute. Findings discussed with Dr. Stockton at time of dictation. 2. No additional sites of vessel occlusion. Extensive plaque within bilateral cavernous carotids. No intracranial aneurysm. Medications Administered Discontinued Medications Sodium Chloride (Nss) 500 mls @ 999 mls/hr IV .Q31M ONE Stop: 08/03/20 16:55 Last Infusion: 08/03/20 17:21 Dose: 0 mls/hr Documented by: [id number] Admin: 08/03/20 16:41 Dose: 999 mls/hr Documented by: [id number] Ioversol (Optiray 320 125ml) 118 ml IV ONCE ONE Stop: 08/03/20 15:50 Last Admin: 08/03/20 15:50 Dose: 118 ml Documented by: [id number] Ondansetron HCl (Ondansetron Inj 2 Mg/Ml 2 Ml Vial) 4 mg IV NOW STA Stop: 08/03/20 15:19 Last Admin: 08/03/20 15:26 Dose: 4 mg Documented by: [id number] Ondansetron HCl (Ondansetron Inj 2 Mg/Ml 2 Ml Vial) Confirm Administered Dose 4 mg .ROUTE .STK-MED ONE Stop: 08/03/20 15:20 Last Admin: 08/03/20 17:21 Dose: Not Given Documented by: [id number] Home Medications blood-glucose meter #1 ea 10/22/18 [History Confirmed 07/19/20] nitroglycerin 0.4 mg sublingual tablet 0.4 mg SL Q5M PRN #1 tab 01/02/19 [History Confirmed 08/03/20] isosorbide mononitrate 60 mg tablet,extended release 24 hr 60 mg PO DAILY #90 tab 01/11/20 [Rx Confirmed 08/03/20] levothyroxine 150 mcg tablet 150 mcg PO DAILY #90 tab 05/11/20 [Rx Confirmed 08/03/20] metoprolol succinate 100 mg PO QAM #60 tab 07/06/20 [Rx Confirmed 08/03/20] aspirin 81 mg tablet,delayed release 81 mg PO DAILY 07/11/20 [History Confirmed 08/03/20] blood sugar diagnostic #100 ea 07/11/20 [Rx Confirmed 07/19/20] glimepiride 4 mg tablet 4 mg PO BID #180 tab 07/11/20 [Rx Confirmed 08/03/20] lancets 30 gauge #200 ea 07/11/20 [Rx Confirmed 07/19/20] losartan 50 mg tablet 50 mg PO DAILY #90 tab 07/11/20 [Rx Confirmed 08/03/20] sitagliptin 100 mg tablet 100 mg PO DAILY #90 tab 07/11/20 [Rx Confirmed 08/03/20] atorvastatin 40 mg PO HS 08/03/20 [History Confirmed 08/03/20] ECG Additional Comments: XR chest 1V portable CLINICAL HISTORY: dizzy COMPARISON STUDY: Chest radiograph July 06, 2020. FINDINGS: Dual lead left subclavian pacemaker is in place. There is no pneumothorax. Cardiomegaly is unchanged. Trace left pleural effusion is noted. There is pulmonary vascular congestion with suspected mild pulmonary edema. IMPRESSION: 1. Mild pulmonary edema with a trace left pleural effusion. 2. Cardiomegaly. Code Status & VTE Plan Code Status CODE: FULL VTE: Heparin drip Supervising Physician Co-Signing Physician Notes I personally saw and examined the patient. I verified all velasco points and agree with Dl WELLER with the following exceptions and/or additions: 84-year-old male who presents to the ER with strokelike symptoms consisting of slurred speech, dizziness. Last known well 10 AM. O/E -mild dysarthria appreciated, not yet back to baseline per family at bedside. No focal neuropathy on exam, no facial droop, mild sensory deficit in fingertips of right hand. A/P Vertebral artery occlusion -discussed with neurology at time of admission and planning for heparin IV drip. Agree with allowing permissive hypertension and holding losartan and isosorbide mononitrate at this time. Restart atorvastatin pending speech evaluation. Otherwise plan as above PG Care Time/CCT Total # of Minutes Spent Total Time Spent with Patient: Total time spent is greater than 50% in coordination of care (as documented) at patient's floor/unit and/or counseling patient: Coding Level of Care Code 76632 Initial Inpt Care Lvl 3 Diagnoses Vertebral artery occlusion I65.09 Laterality: unspecified laterality Hyperlipidemia E78.5 Hyperlipidemia type: unspecified CKD (chronic kidney disease), stage III N18.30 Chronic kidney disease stage 3 subtype: unspecified whether 3a or 3b Diabetes mellitus type 2, uncontrolled E11.65 Glycemic state: with hyperglycemia Obesity E66.09; Z68.33 Body mass index: BMI 33.0-33.9 Obesity classification: adult class 1 (BMI 30 - 34.9) Obesity type: due to excess calories Serious obesity comorbidity presence: without serious comorbidity Hypothyroidism E03.9 Hypothyroidism type: unspecified CAD (coronary artery disease) I25.10 Associated angina: without angina Coronary Disease-Associated Artery/Lesion type: [place] artery [place] vs. transplanted heart: [place] heart (1) Vertebral artery occlusion Laterality: unspecified laterality Qualified Code(s): I65.09 - Occlusion and stenosis of unspecified vertebral artery (2) CKD (chronic kidney disease), stage III Chronic kidney disease stage 3 subtype: unspecified whether 3a or 3b Qualified Code(s): N18.30 - Chronic kidney disease, stage 3 unspecified (3) CAD (coronary artery disease) Associated angina: without angina Coronary Disease-Associated Artery/Lesion type: [place] artery [place] vs. transplanted heart: [place] heart Qualified Code(s): I25.10 - Atherosclerotic heart disease of [place] coronary artery without angina pectoris (4) Hyperlipidemia Hyperlipidemia type: unspecified Qualified Code(s): E78.5 - Hyperlipidemia, unspecified (5) Hypothyroidism Hypothyroidism type: unspecified Qualified Code(s): E03.9 - Hypothyroidism, unspecified (6) Diabetes mellitus type 2, uncontrolled Glycemic state: with hyperglycemia Qualified Code(s): E11.65 - Type 2 diabetes mellitus with hyperglycemia (7) Obesity Body mass index: BMI 33.0-33.9 Obesity classification: adult class 1 (BMI 30 - 34.9) Obesity type: due to excess calories Serious obesity comorbidity presence: without serious comorbidity Qualified Code(s): E66.09 - Other obesity due to excess calories; Z68.33 - Body mass index [BMI] 33.0-33.9, adult
--- NOTE | 2020-08-03 18:24 | Neurology Consultation ---
Date of Consultation August 03, 2020 Assessment & Plan (1) Vertebral artery occlusion: Agus Watt is an 84 yo man w/ PMH of HTN, HLD, DM, CKD, pAfib on ASA, CAD s/p recent pacemaker (07/05/20) placement and hypothyroidism who p/t [facility] with acute onset of dizziness, dysarthria, right FP. 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 (does appear to have a dominant left vertebral artery at baseline and hypoplastic right vertebral artery so this could be chronic in nature is no comparison is available) - MRI brain: pending - MRA neck: pending (would get MRA neck with fat sat sequence to r/o possible dissection given the neck pain and vertebral artery occlusion) - TTE: pending - Telemetry: pending - A1c: pending - FLP: pending - Troponin, TSH: negative, pending Stroke Management: - Acute treatment: ASA - Continuous cardiac monitoring, should have PM interrogated as outpatient if telemetry here unrevealing - Vitals, Neurochecks, NIHSS per unit routine - BP parameters: SBP CAP 220, hold home anti-hypertensives for permissive HTN, IV Labetalol/Hydralazine PRN - Obtain MRI brain to evaluate stroke burden/MRA neck with fat sat sequence to r/o dissection - Complete ischemic stroke workup with TTE without bubble, A1c, fasting lipid panel, TSH - Consult speech, PT, OT for supportive management - Will staff counsel concerning stroke education, smoking cessation, healthy diet, physical activity, weight loss - Follow up with PCP for assistance with outpatient goals (BP <130/80, LDL <70, A1c <7) - Follow up in neurology clinic in 6-8 weeks with BENIGNO Ramon Secondary Stroke Prevention: - Antiplatelet: transition to plavix 75mg daily on the AM of 08/04 - Anticoagulation: if ok from a cardiac standpoint given recent PM placement, would consider high risk/no bolus heparin gtt overnight before transitioning to PO plavix tomorrow - Statin: Atorvastatin 40mg daily HTN: - BP parameters, as above - Hold home BP meds (isosorbide, losartan, metoprolol) for now in favor of permissive HTN FEN/GI: - Diet: NPO until cleared by Speech evaluation - Monitor lytes and replete PRN - Zofran prn for nausea Glucose Control: - Sliding scale insulin and accuchecks per primary team to avoid hyperglycemia Thank you for this interesting consult. Plan of care was discussed with primary team. Please call with any questions. (2) Hyperlipidemia: (3) Paroxysmal atrial fibrillation: (4) Uncontrolled diabetes mellitus with stage 3 chronic kidney disease: (5) Hypertension: History of Present Illness History of Present Illness Agus Watt is an 84 yo man w/ PMH of HTN, HLD, DM, CKD, pAfib on ASA, CAD s/p recent pacemaker (07/05/20) placement and hypothyroidism who p/t [facility] with acute onset of dizziness, dysarthria, right FP. [employer] ~10am on 08/03/20. In the ED, he was afebrile, BP 138/78, heart rate 68, respiratory 18 satting 98% on room air. Labs notable for WBC 9.2, hemoglobin low at 12.4 with MCV 99.2, platelets low at 114, sodium 134, potassium 4.9, BUN 45, creatinine elevated to 1.62, glucose 197, INR 1.1, LFTs within normal, troponin negative. Imaging independently reviewed. 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 MRI brain pending. On examination, he reports that he was in his normal state of health until about 10am this morning when he had acute onset of dizziness, N/V, right FP, dysarthria and right hand numbness. This persisted, prompting ED presentation. reports that he has c/o neck pain for the last month. Denies any associated headache, vision loss, weakness. Has been on ASA 81mg daily, took an extra pradaxa by accident yesterday. Otherwise, denies any recent illness, injury, neck manipulation or other change in medications. Had PM placed last month for persistent bradycardia (neck pain present prior to this). Allergies Allergy/AdvReac Type Severity Reaction Status Date / Time No Known Allergies Allergy Verified 08/03/20 17:25 Home Medications Medication Instructions Recorded Confirmed Type blood-glucose meter #1 ea 10/22/18 07/19/20 History nitroglycerin 0.4 mg sublingual 0.4 mg SL Q5M PRN #1 tab 01/02/19 08/03/20 History tablet isosorbide mononitrate 60 mg 60 mg PO DAILY #90 tab 01/11/20 08/03/20 Rx tablet,extended release 24 hr levothyroxine 150 mcg tablet 150 mcg PO DAILY #90 tab 05/11/20 08/03/20 Rx metoprolol succinate 100 mg PO QAM #60 tab 07/06/20 08/03/20 Rx aspirin 81 mg tablet,delayed 81 mg PO DAILY 07/11/20 08/03/20 History release blood sugar diagnostic #100 ea 07/11/20 07/19/20 Rx glimepiride 4 mg tablet 4 mg PO BID #180 tab 07/11/20 08/03/20 Rx lancets 30 gauge #200 ea 07/11/20 07/19/20 Rx losartan 50 mg tablet 50 mg PO DAILY #90 tab 07/11/20 08/03/20 Rx sitagliptin 100 mg tablet 100 mg PO DAILY #90 tab 07/11/20 08/03/20 Rx atorvastatin 40 mg PO HS 08/03/20 08/03/20 History Patient History Medical History Anemia Benign prostate hyperplasia CAD (coronary artery disease) Diabetes mellitus with circulatory complication Dyslipidemia Hypertension Hypothyroidism Obesity Paroxysmal atrial fibrillation Prostatitis Surgical History History of colonoscopy (~1992) S/P cataract surgery left - 03/06/17, right - 03/20/17 Family History Father Lung cancer Smoker Brother Smoker Social History Smoking Status: Unknown if ever smoked Tobacco Type: Cigarettes Age Started Using Tobacco: 14; Age Quit Using Tobacco: 50; packs per day: 0.5; Years Smoked: 36; Cigarettes Per Day: 10; Second Hand Exposure: No; Hx Alcohol Use: No Hx Substance Use: No Preferred Language: German Beliefs That Will Affect Care: None marital status: Current Living Situation: Spouse Feels Safe at Home: Yes Assistive Devices: Hearing Aid - Bilateral Review of Systems Review of Systems: 14 point review of systems completed and negative except as in HPI. Exam (Neuro) Physical Exam: General Exam: GEN: NAD, sitting/lying down in examination bed. HEENT: No conjunctival injection, no rhinorrhea. CV: RRR on monitor, no significant edema. PULM: Nonlabored respirations on room air. Neuro Exam: MS: Awake and Alert. Oriented to person, place, and date. Speech fluent and appropriate, +dysarthria, no paraphasic errors. Language intact including naming, comprehension, repetition. Cognition and memory grossly intact. Attention intact. No neglect. CN: Visual lopez full, + blink to threat bilaterally. No extinction to double simultaneous stimuli. Unable to visualize fundi on fundoscopic exam. PERRLA OU. Left CNVI partial palsy, mild end gaze nystagmus (worse on left lateral gaze). Facial sensation intact to LT. Mild right facial droop. Hearing intact to conversation. Shoulder shrug normal. Tongue midline. MOTOR: Normal bulk and tone. No pronator drift. BUE strength 5/5 at deltoids, biceps, triceps, wrist flexors and extensors bilaterally. BLE strength 5/5 at iliopsoas, hamstrings, quadriceps, tibialis anterior, and gastrocnemius bilaterally. REFLEXES: 1+ at biceps, triceps, brachioradialis, absent patella, and absent Achilles bilaterally. Flexor plantar responses bilaterally. SENSORY: Intact to LT/vibration throughout, no extinction to double simultaneous stimuli. COORDINATION: Mild dysmetria in RUE on [id number], normal LUE. Normal Stephen bilaterally. GAIT: Deferred due to physical status. NIH STROKE SCALE 1A. Level of Consciousness (0-3) = 0 1B. LOC Questions (0-2) = 0 1C. LOC Commands (0-2) = 0 2. Best Horizontal Gaze (0-2) = 0 3. Visual Lopez (0-3) = 0 4. Facial Palsy (0-3) = 1 5. Motor Arm Right (0-4) = 0 Left (0-4) = 0 6. Motor Leg Right (0-4) = 0 Left (0-4) = 0 7. Limb Ataxia (0-2) = 1 8. Sensory (0-2) = 0 9. Best Language (0-3) = 0 10. Dysarthria (0-2) = 2 11. Extinction and Inattention (0-2) = 0 NIHSS TOTAL = 4 Results & Data ([facility]) Vital Signs (Past 12 Hours) Vital Signs Temp Pulse Pulse Resp BP BP Pulse Ox 08/03/20 16:39 62 17 140/69 97 08/03/20 16:00 67 10 L 128/70 96 08/03/20 15:58 69 13 126/65 98 08/03/20 15:30 68 12 156/78 H 96 08/03/20 15:25 69 13 138/75 97 08/03/20 15:01 65 19 138/78 96 08/03/20 14:40 36.6 C 68 18 138/78 98 PG Care Time/CCT Total # of Minutes Spent Total Time Spent with Patient: Total time spent is greater than 50% in coordination of care (as documented) at patient's floor/unit and/or counseling patient: Coding Level of Care Code 94176 Initial Inpt Care Lvl 3 Diagnoses Vertebral artery occlusion I65.09 Hyperlipidemia E78.5 Paroxysmal atrial fibrillation I48.0 Uncontrolled diabetes mellitus with stage 3 chronic kidney disease E11.22; E11.65; N18.30 Hypertension I10 Hypertension type: essential hypertension (1) Hypertension Hypertension type: essential hypertension Qualified Code(s): I10 - Essential (primary) hypertension
[2020-08-03 18:29] LABS: Influenza A virus by PCR Negative (Neg); Influenza B virus by PCR Negative (Neg); RSV by PCR Negative (Neg); SARS CoV2 RNA(COVID-19) InHosp NEGATIVE (Negative)
[2020-08-03] MEDS ORDERED: ONDANSETRON INJ 2 MG/ML 2 ML VIAL IV PRN (21:08)
[2020-08-03] MEDS ORDERED: PHARMACIST DISCHARGE MED REC CONSULT PRN (21:12)
[2020-08-03] MEDS ORDERED: ASPIRIN 300 MG SUPP PR ONE (21:12)
[2020-08-03] MEDS ORDERED: DEXTROSE 50% 50 ML SYRINGE IV PRN (21:12)
[2020-08-03] MEDS ORDERED: CARBOHYDRATES FOR HYPOGLYCEMIA PO PRN (21:12)
[2020-08-03] MEDS ORDERED: GLUCOSE 40% GEL 15 GM TUBE PO PRN (21:12)
[2020-08-03] MEDS ORDERED: GLUCAGON FOR INJ 1 MG VIAL SQ PRN (21:12)
[2020-08-03] MEDS ORDERED: NITROGLYCERIN SL 0.4 MG/TAB TAB SL PRN (21:12)
[2020-08-03] MEDS ORDERED: GLUCOSE 10 TABS/TUBE PO PRN (21:12)
[2020-08-03] MEDS: D5W AND LACTATED RINGERS 1,000 ML IV SCH (21:25)
[2020-08-03] MEDS: HEPARIN SODIUM/DEXTROSE 25,000 UNITS/500 ML BAG IV SCH (21:48)
[2020-08-03 21:52] LABS: Partial Thromboplastin Time 25.9 Seconds (21.0-31.0)
[2020-08-03] MEDS: Heparin IV Adult Wt-Based Standard *NO* Bolus Protocol IV SCH ×2 (21:59→22:00)
[2020-08-04 05:16] LABS: Hematocrit (blood only) 34.5 % (42-52); Hemoglobin 11.5 g/dL (14.0-18.0); Mean Corpuscular Hemoglobin 32.9 pg (25-34); Mean Corpuscular Hgb Conc 33.3 g/dL (32-36); Mean Corpuscular Volume 98.6 fL (80-100); Mean Platelet Volume 12.9 fL (7.4-10.4); Platelet Count 106 K/uL (130-400); RDW Coefficient of Variation 12.6 % (11.5-14.5); RDW Standard Deviation 44.9 fL (36.4-46.3); White Blood Count 8.75 K/uL (4.8-10.8)
[2020-08-04 05:17] LABS: Basophils # (auto) 0.01 K/uL (0-0.2); Basophils % (auto) 0.1 %; Eosinophils # (auto) 0.02 K/uL (0-0.5); Eosinophils % (auto) 0.2 %; Giant Platelets 1+; Immature Granulocytes # (auto) 0.02 K/uL (0.00-0.02); Immature Granulocytes % (auto) 0.2 %; Lymphocytes # (auto) 1.02 K/uL (1.2-3.4); Lymphocytes % (auto) 11.7 %; Monocytes % (auto) 10.3 %; Neutrophils # (auto) 6.78 K/uL (1.4-6.5); Neutrophils % (auto) 77.5 %; Platelet Estimate Decreased (Normal)
[2020-08-04 05:21] LABS: Partial Thromboplastin Ratio 1.6; Partial Thromboplastin Time 42.9 Seconds (21.0-31.0)
[2020-08-04 05:30] LABS: BUN Creatinine Ratio 26.9 (10-20); Creatinine Clr Calc Pharmacy 47.1 ml/min; Est GFR (African American) 54.8; Est GFR (Non-African American) 47.3; Potassium 4.1 mmol/L (3.5-5.1)
[2020-08-04 06:15] LABS: Estimated Average Glucose 194 mg/dl; Hemoglobin A1C 8.4 % (4.5-5.6)
--- NOTE | 2020-08-04 09:10 | Hospitalist Progress Note ---
Date of Service August 04, 2020 Assessment & Plan (1) Vertebral artery occlusion: CT scan of the head with no hemorrhage. There is chronic infarct in left centrum semiovale. 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 Heparin drip initiated No evidence of intracranial hemorrhage or hemorrhagic conversion Discontinue heparin drip in the morning and initiate clopidogrel 75 mg daily Continue with aspirin 81 mg daily Continue with atorvastatin (2) S/P cardiac pacemaker procedure: Status post cardiac pacemaker placement 2 weeks ago It appears that the pacemaker is MRI compatible Check with cardiology regarding safety of MRI since placement was only 2 weeks ago Pacemaker interrogated and shows no episodes of atrial fibrillation or ventricular tachycardia Continue to monitor on telemetry (3) Uncontrolled diabetes mellitus with stage 3 chronic kidney disease: Outpatient management with glimepiride and sitagliptin No insulin as an outpatient We will initiate sliding scale insulin with NovoLog Hemoglobin A1c is 8.4% (4) Hypertension: Permissive hypertension at this time due to acute findings on CT head Continue with home antihypertensives Follow on telemetry (5) CAD (coronary artery disease): No evidence of ACS Initiated on heparin drip for vertebral artery occlusion not for cardiac purposes Imdur, losartan, metoprolol succinate all held to allow for permissive hypertension Reinstitute antihypertensives in the morning if patient continues to be stable (6) CKD (chronic kidney disease), stage III: Creatinine stable at 1.38 Follow serial labs (7) Hyperlipidemia: Continue atorvastatin (8) Paroxysmal atrial fibrillation: Metoprolol succinate Not on any antiarrhythmics Follow on telemetry (9) Hypothyroidism: TSH 1.02 Continue levothyroxine at 150 mcg daily (10) DVT prophylaxis: Currently on heparin drip Convert to clopidogrel tomorrow Admission and Anticipated Discharge Date Admission Date: August 03, 2020 Subjective Attending: Dr. Nunn Is an 84-year-old male that presented yesterday with near syncope. CT scan of the head revealed a vessel vessel embolus in the left dot from v ertebral artery occlusion. There is no hemorrhagic transformation. There is also evidence of chronic infarct in left centrum semiovale. MRI of the head and MRA of the neck was recommended but patient has a pacemaker that was just placed in the last 2 weeks. Radiology does not feel that an MRI would provide further information from a CTA. Patient seen at bedside. He has somewhat of a slur to his speech I am unclear as to whether this is chronic or acute. He also has a slight facial droop on the right side. He is complaining of right sided visual problems where he gets twinges of pain behind his right eye. His tongue is midline. Cerebellar function is intact. No aphasia. He denies any fever or chills. No evidence of illness. He denies any dysphagia. He has no acute complaints. Review of Systems Review of Systems: All systems reviewed & are unremarkable except as noted in Subjective Physical Exam Physical Exam: GENERAL : No acute distress. Pleasant. Talkative EYES: No icterus, gaze conjugate. Pupils equal round and reactive to light NOSE: No evidence of epistaxis MOUTH: No lesions or candidiasis. Slight facial droop on the right. Tongue is midline. Mucosa moist. NECK: Supple LUNGS: CTA B/L, no wheezes, rales or rhonchi HEART: Regular, rate controlled. No appreciation of ectopy. ABDOMEN: Soft, NT, ND, BS Present EXTREMITIES: No LE edema, pedal pulses intact NEURO: A&OX3. Good historian. Slight right pronator drift. Cerebellar function intact with [id number] and rapid alternating movements. Able to easily perform [id number]. Toes are downgoing bilaterally. Results & Data Results & Data ([facility]) Vital Signs (Past 12 Hours) Vital Signs Temp Pulse Pulse Resp BP Pulse Ox Pulse Ox 08/04/20 07:12 62 08/04/20 07:11 36.5 C 67 20 121/73 95 08/04/20 03:57 36.7 C 60 18 116/72 96 08/03/20 23:11 36.8 C 68 69 18 124/78 97 08/03/20 21:16 71 08/03/20 21:12 97 Laboratory Results 08/04/20 03:58 08/04/20 03:58 Diagnostic Findings CTA ANGIOGRAPHY OF THE HEAD CLINICAL HISTORY: Stroke Like Symptoms COMPARISON STUDY: No previous studies for comparison. TECHNIQUE: Helical axial images of the head were obtained following uneventful intravenous administration of 118 cc of Optiray 320. Sagittal and coronal reconstructions were viewed as well as maximal intensity projections on an independent 3-D workstation. Automated exposure control was utilized for the study. A dose lowering technique was utilized adhering to the principles of ALARA. FINDINGS: No acute intracranial hemorrhage, midline shift or mass effect is present. Ventricular system is unremarkable. Basal cisterns are patent. There is suspected encephalomalacia within the right occipital lobe. No intracranial aneurysm is identified. There is extensive calcified plaque within the bilateral cavernous carotids. There is no abrupt cut off within the anterior circulation. There is abrupt cut off of the intracranial portion of the right vertebral artery just distal to the takeoff of the right posterior inferior cerebellar artery which is patent. The basilar artery and intracranial portion of the left vertebral artery are patent. There is mild stenosis of the bilateral posterior cerebral arteries which are patent. IMPRESSION: 1. Abrupt occlusion of the intracranial portion of the right vertebral artery which is likely acute. Findings discussed with Dr. Stockton at time of dictation. 2. No additional sites of vessel occlusion. Extensive plaque within bilateral ca vernous carotids. No intracranial aneurysm. PG Care Time/CCT Total # of Minutes Spent Total Time Spent with Patient: Total time spent is greater than 50% in coordination of care (as documented) at patient's floor/unit and/or counseling patient: Coding Level of Care Code 64087 Subseq Hosp Care Lvl 3 Diagnoses Vertebral artery occlusion I65.01 Laterality: right S/P cardiac pacemaker procedure Z95.0 Uncontrolled diabetes mellitus with stage 3 chronic kidney disease E11.22; E11.65; N18.30 Hypertension I10 Hypertension type: essential hypertension CAD (coronary artery disease) I25.10 Coronary Disease-Associated Artery/Lesion type: [place] artery [place] vs. transplanted heart: [place] heart Associated angina: without angina CKD (chronic kidney disease), stage III N18.32 Chronic kidney disease stage 3 subtype: stage 3b (GFR 30-44) Hyperlipidemia E78.5 Hyperlipidemia type: unspecified Paroxysmal atrial fibrillation I48.0 Hypothyroidism E03.9 Hypothyroidism type: unspecified DVT prophylaxis Z29.9 (1) Vertebral artery occlusion Laterality: right Qualified Code(s): I65.01 - Occlusion and stenosis of right vertebral artery (2) Hypertension Hypertension type: essential hypertension Qualified Code(s): I10 - Essential (primary) hypertension (3) CAD (coronary artery disease) Coronary Disease-Associated Artery/Lesion type: [place] artery [place] vs. transplanted heart: [place] heart Associated angina: without angina Qualified Code(s): I25.10 - Atherosclerotic heart disease of [place] coronary artery without angina pectoris (4) CKD (chronic kidney disease), stage III Chronic kidney disease stage 3 subtype: stage 3b (GFR 30-44) Qualified Code(s): N18.32 - Chronic kidney disease, stage 3b (5) Hyperlipidemia Hyperlipidemia type: unspecified Qualified Code(s): E78.5 - Hyperlipidemia, unspecified (6) Hypothyroidism Hypothyroidism type: unspecified Qualified Code(s): E03.9 - Hypothyroidism, unspecified
[2020-08-04] MEDS: D5W AND LACTATED RINGERS 1,000 ML IV SCH ×2 (09:59→23:24)
--- NOTE | 2020-08-04 11:50 | XCELERA ---
[id number]
[2020-08-04 11:56] LABS: Partial Thromboplastin Ratio 1.9
[2020-08-04] MEDS: HEPARIN SODIUM/DEXTROSE 25,000 UNITS/500 ML BAG IV SCH (13:09)
--- NOTE | 2020-08-04 14:27 | Neurology Progress Note ---
Date of Service August 04, 2020 Assessment & Plan (1) Vertebral artery occlusion: Agus Watt is an 84 yo man w/ PMH of HTN, HLD, DM, CKD, pAfib on ASA, CAD s/p recent pacemaker (07/05/20) placement and hypothyroidism who p/t [facility] with acute onset of dizziness, dysarthria, right FP. 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 If unable to obtain, recommend an outpatient DSA soon after discharge to see if intervention would be appropriate. - TTE: EF 60-65%, moderate LVH, moderate LA dilation, mild MR - Telemetry: pending. Pacemaker report shows no episodes of AF/VT. - A1c: 8.4 - FLP: 66 - Troponin, TSH: negative, pending Stroke Management: - Acute treatment: ASA - Continuous cardiac monitoring, should have PM interrogated as outpatient if telemetry here unrevealing - Vitals, Neurochecks, NIHSS per unit routine - BP parameters: SBP CAP 180, IV Labetalol/Hydralazine PRN - Obtain MRI brain to evaluate stroke burden/MRA neck with fat sat sequence to r/o dissection - Complete ischemic stroke workup with TSH - Consult speech, PT, OT for supportive management - Will counseling services director concerning stroke education, smoking cessation, healthy diet, physical activity, weight loss - Follow up with PCP for assistance with outpatient goals (BP <130/80, LDL <70, A1c <7) - Follow up in neurology clinic in 6-8 weeks with BENIGNO Ramon Secondary Stroke Prevention: - Antiplatelet: continue ASA 81mg daily/start plavix 75mg daily - Anticoagulation: d/c heparin gtt and start plavix 75mg daily - Statin: continue Atorvastatin 40mg daily HTN: - BP parameters, as above - Restart home BP meds (isosorbide, losartan, metoprolol) for goal normotension over the next 3-4 days FEN/GI: - Diet: NPO until cleared by Speech evaluation - Monitor lytes and replete PRN - Zofran prn for nausea Glucose Control: - Sliding scale insulin and accuchecks per primary team to avoid hyperglycemia Thank you for this interesting consult. Plan of care was discussed with primary team. Please call with any questions. (2) Hyperlipidemia: (3) Paroxysmal atrial fibrillation: (4) Uncontrolled diabetes mellitus with stage 3 chronic kidney disease: (5) Hypertension: Admission and Anticipated Discharge Date Admission Date: August 03, 2020 Subjective NAEs overnight. Unable to obtain MRI brain yet. He reports that he has been having intermittent blurry vision and right hand numbness. Denies any new stroke like symptoms. Review of Systems Review of Systems: 10 point review of systems completed and negative except as in HPI. Results & Data ([facility]) Vital Signs (Past 12 Hours) Vital Signs Temp Pulse Pulse Resp BP Pulse Ox 08/04/20 09:30 72 18 137/82 98 08/04/20 07:12 62 08/04/20 07:11 36.5 C 67 20 121/73 95 08/04/20 03:57 36.7 C 60 18 116/72 96 Exam (Neuro) Physical Exam: General Exam: GEN: NAD, lying down in examination bed. HEENT: No conjunctival injection, no rhinorrhea. CV: RRR on monitor, no significant edema. PULM: Nonlabored respirations on room air. Neuro Exam: NIH STROKE SCALE 1A. Level of Consciousness (0-3) = 0 1B. LOC Questions (0-2) = 0 1C. LOC Commands (0-2) = 0 2. Best Horizontal Gaze (0-2) = 0 3. Visual Lopez (0-3) = 0 4. Facial Palsy (0-3) = 1 5. Motor Arm Right (0-4) = 0 Left (0-4) = 0 6. Motor Leg Right (0-4) = 0 Left (0-4) = 0 7. Limb Ataxia (0-2) = 0 8. Sensory (0-2) = 0 9. Best Language (0-3) = 0 10. Dysarthria (0-2) = 2 11. Extinction and Inattention (0-2) = 0 NIHSS TOTAL = 3 PG Care Time/CCT Total # of Minutes Spent Total Time Spent with Patient: Total time spent is greater than 50% in coordination of care (as documented) at patient's floor/unit and/or counseling patient: Coding Level of Care Code 70745 Subseq Hosp Care Lvl 3 Diagnoses Vertebral artery occlusion I65.01 Laterality: right Hyperlipidemia E78.5 Hyperlipidemia type: unspecified Paroxysmal atrial fibrillation I48.0 Uncontrolled diabetes mellitus with stage 3 chronic kidney disease E11.22; E11.65; N18.30 Hypertension I10 Hypertension type: essential hypertension (1) Vertebral artery occlusion Laterality: right Qualified Code(s): I65.01 - Occlusion and stenosis of right vertebral artery (2) Hyperlipidemia Hyperlipidemia type: unspecified Qualified Code(s): E78.5 - Hyperlipidemia, unspecified (3) Hypertension Hypertension type: essential hypertension Qualified Code(s): I10 - Essential (primary) hypertension
--- NOTE | 2020-08-04 22:14 | Electrocardiogram Report ---
Test Reason : Blood Pressure : / mmHG Vent. Rate : 061 BPM Atrial Rate : 061 BPM P-R Int : 240 ms QRS Dur : 118 ms QT Int : 436 ms P-R-T Axes : 000 -09 250 degrees QTc Int : 438 ms AV dual-paced rhythm with prolonged AV conduction Abnormal ECG When compared with ECG of 05-JUL-2020 17:28, Vent. rate has decreased BY 23 BPM Confirmed by Trace Finn ([id number]) on 08/04/2020 10:14:20 PM Referred By: REFERRED SELF Confirmed By:Trace Finn
[2020-08-04] MEDS ORDERED: DEXTROSE 50% 50 ML SYRINGE IV PRN (22:22)
[2020-08-05] MEDS: LEVOTHYROXINE SODIUM 150 MCG TABLET PO SCH (05:40)
[2020-08-05] MEDS: HEPARIN SODIUM/DEXTROSE 25,000 UNITS/500 ML BAG IV SCH (05:40)
[2020-08-05 06:12] LABS: Partial Thromboplastin Ratio 2.4
[2020-08-05 06:17] LABS: Partial Thromboplastin Time 62.2 Seconds (21.0-31.0)
[2020-08-05 06:20] LABS: Eosinophils # (auto) 0.03 K/uL (0-0.5); Eosinophils % (auto) 0.4 %; Hematocrit (blood only) 34.7 % (42-52); Hemoglobin 11.5 g/dL (14.0-18.0); Immature Granulocytes # (auto) 0.02 K/uL (0.00-0.02); Immature Granulocytes % (auto) 0.2 %; Lymphocytes # (auto) 1.22 K/uL (1.2-3.4); Lymphocytes % (auto) 14.6 %; Mean Corpuscular Hemoglobin 32.9 pg (25-34); Mean Corpuscular Hgb Conc 33.1 g/dL (32-36); Mean Corpuscular Volume 99.1 fL (80-100); Mean Platelet Volume 13.5 fL (7.4-10.4); Monocytes # (auto) 0.84 K/uL (0.11-0.59); Neutrophils # (auto) 6.27 K/uL (1.4-6.5); Neutrophils % (auto) 74.8 %; Platelet Count 108 K/uL (130-400); Platelet Estimate Decreased (Normal); RBC Morphology Unremarkable; RDW Coefficient of Variation 12.6 % (11.5-14.5); RDW Standard Deviation 45.6 fL (36.4-46.3); White Blood Count 8.38 K/uL (4.8-10.8)
[2020-08-05 06:28] LABS: BUN Creatinine Ratio 24.5 (10-20); Calcium 8.9 mg/dl (8.5-10.1); Creatinine Clr Calc Pharmacy 49.8 ml/min; Est GFR (African American) 58.9; Est GFR (Non-African American) 50.8; Potassium 4.3 mmol/L (3.5-5.1)
--- NOTE | 2020-08-05 06:30 | Electrocardiogram Report ---
Test Reason : Blood Pressure : / mmHG Vent. Rate : 063 BPM Atrial Rate : 063 BPM P-R Int : 240 ms QRS Dur : 122 ms QT Int : 442 ms P-R-T Axes : 065 -11 239 degrees QTc Int : 452 ms AV dual-paced rhythm with prolonged AV conduction Abnormal ECG When compared with ECG of 03-AUG-2020 15:09, Vent. rate has increased BY 2 BPM Confirmed by Trace Finn ([id number]) on 08/05/2020 6:30:02 AM Referred By: REFERRED SELF Confirmed By:Trace Finn
[2020-08-05] MEDS: INSULIN ASPART 100 UNITS/ML 3 ML PEN SC SCH ×4 (08:18→20:00)
[2020-08-05] MEDS ORDERED: GADOBUTROL 65ML VIAL IV ONE (14:04)
--- NOTE | 2020-08-05 14:16 | Magnetic Resonance Report ---
MR brain wo con HISTORY: 84 years-old Male posterior stroke acute strokelike symptoms COMPARISON: Head CT 08/03/2020, CTA neck 08/03/2020. TECHNIQUE: Multiplanar multisequence MRI of the brain was obtained without the use of IV contrast FINDINGS: Chief Underwriter localizer images demonstrate no gross extracranial abnormality. Small focus of restricted diffu antionette involves the right aspect of the cervical medullary junction measuring 6 mm in AP dimension. Cor responding increased T2/FLAIR signal within this distribution measures up to 12 mm. Low to intermedia te signal on the ADC map. There is no acute intracranial hemorrhage, midline shift, abnormal extra-ax ial collection, hydrocephalus or intracranial mass. No pathologic blooming artifact. Age-related invo lutional changes. Mild patchy T2/FLAIR hyperintensities throughout the white matter suggest chronic m icrovascular ischemic disease. Chronic lacunar infarct of the superior aspect left lentiform nucleus. The cerebral venous sinuses and major arterial flow voids are patent. Right mastoid effusion. Polypoi d mucosal thickening of the left maxillary sinus, 3.0 cm. Prior bilateral lens repair. The skull and soft tissues are unremarkable. IMPRESSION: 1. Small acute infarct involves the right cervical medullary junction. 2. Age-related involutional changes with chronic microvascular ischemic disease. ACT 112: Negative or not required by law. The above report was generated using voice recognition software. It may contain grammatical, syntax o r spelling errors. Electronically signed by: Chris Sandoval M.D. 08/05/2020 2:15 PM
--- NOTE | 2020-08-05 14:24 | Magnetic Resonance Report ---
NECK MRA HISTORY: Vertebral artery occlusion TECHNIQUE: [id number] and gadolinium-enhanced MRA of the neck was performed both before and after the intravenous administration of contrast. All measurements were calculated based on NASCET criteri a. COMPARISON STUDY: Neck CTA 08/03/2020. FINDINGS: The aortic arch and proximal great vessels are widely patent. Redemonstration of the occlu ded distal right vertebral artery at the intracranial portion. Approximately 30% focal stenosis at th e origin of the right internal carotid artery due to the calcified plaque. No significant stenosis wi thin the bilateral common carotid or left internal carotid arteries. 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 IMPRESSION: 1. No change in the occluded intracranial portion of the distal right vertebral artery. 2. 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 3. Approximately 30% stenosis at the origin of the right internal carotid artery. ACT 112: Negative or not required by law. Electronically signed by: Ad Mensah M.D. 08/05/2020 2:23 PM
[2020-08-05] MEDS: CLOPIDOGREL BISULFATE 75 MG TAB PO SCH (15:24)
--- NOTE | 2020-08-05 17:19 | Hospitalist Progress Note ---
Date of Service August 05, 2020 Assessment & Plan (1) Vertebral artery occlusion: CT scan of the head with no hemorrhage. There is chronic infarct in left centrum semiovale. 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 MRI of the brain with small acute infarct involving the right cervical medullary junction. MRA of the neck with: * No change in the occluded intracranial portion of the distal right vertebral artery. 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 * Approximately 30% stenosis at the origin of the right internal carotid artery. Heparin drip discontinued today and clopidogrel started Continue with aspirin 81 mg daily Continue with atorvastatin Patient seen by PT/OT. At this point they feel the patient is not safe to go home. (2) S/P cardiac pacemaker procedure: Status post cardiac pacemaker placement 2 weeks ago Discussed pacemaker with cardiology. Okay for MRI. Pacemaker interrogated and shows no episodes of atrial fibrillation or ventricular tachycardia Continue to monitor on telemetry No issues with telemetry. (3) Uncontrolled diabetes mellitus with stage 3 chronic kidney disease: Outpatient management with glimepiride and sitagliptin No insulin as an outpatient We will initiate sliding scale insulin with NovoLog Hemoglobin A1c is 8.4% Will most likely discharge home on only glimepiride and sitagliptin with outpatient management (4) Hypertension: Permissive hypertension at this time due to acute findings on CT head Continue with home antihypertensives Follow on telemetry (5) CAD (coronary artery disease): No evidence of ACS Initiated on heparin drip for vertebral artery occlusion not for cardiac purposes. This was discontinued today and clopidogrel was started Imdur, losartan, metoprolol succinate all held to allow for permissive hypert ension Reinstitute antihypertensives in the morning if patient continues to be stable (6) CKD (chronic kidney disease), stage III: Creatinine stable at 1.3 Follow serial labs (7) Hyperlipidemia: Continue atorvastatin (8) Paroxysmal atrial fibrillation: Metoprolol succinate Not on any antiarrhythmics Follow on telemetry (9) Hypothyroidism: TSH 1.02 Continue levothyroxine at 150 mcg daily (10) DVT prophylaxis: Clopidogrel started today Increase ambulation as tolerated Continue with physical therapy Disposition: Per Occupational Therapy report, patient would best be served by going to acute rehab for short period of time. Long discussion with patient's by telephone tonight with update. She agrees with rehab and personally would prefer [facility]. She is very concerned that she did not get him to the hospital in time or this may have been caused by overuse of the arm on the side of the pacemaker. I assured her that she did everything correctly in these things occur without being anyone's fault. She was very appreciative for the call. All questions were answered to her satisfaction. Admission and Anticipated Discharge Date Admission Date: August 03, 2020 Subjective Attending: Dr. Nunn Patient seen well in bedside chair. Generally he is feeling better. However, he continues to have episodes where he gets numbness followed by hemiparesis of the right arm and difficulty with his right eye. These episodes only last a few minutes and are accompanied by diaphoresis. He is scheduled for an MRA and MRI of the brain and neck. Neurology is following. Heparin drip has been discontinued. Clopidogrel has been started. Referral has been made for placement for rehab. He denies any chest pain or shortness of breath. Review of Systems Review of Systems: All systems reviewed & are unremarkable except as noted in Subjective Physical Exam Physical Exam: GENERAL : No acute distress EYES: No icterus, gaze conjugate. Pupils equal round and reactive to light. NOSE: No evidence of epistaxis MOUTH: No lesions or candidiasis NECK: Supple LUNGS: CTA B/L, no wheezes, rales or rhonchi HEART: Regular, rate controlled ABDOMEN: Soft, NT, ND, BS Present EXTREMITIES: No LE edema, pedal pulses intact NEURO: A&OX3. Pronator drift is resolved. There is no evidence of facial droop. Patient still has a little bit of a slur but states that he thinks this is normal for him. Results & Data Results & Data ([facility]) Vital Signs (Past 12 Hours) Vital Signs Temp Pulse Pulse Resp BP Pulse Ox 08/05/20 14:20 66 08/05/20 11:29 36.7 C 81 16 138/66 96 08/05/20 07:51 36.5 C 64 19 145/76 H 95 Laboratory Results 08/05/20 05:22 08/05/20 05:22 Diagnostic Findings NECK MRA HISTORY: Vertebral artery occlusion TECHNIQUE: [id number] and gadolinium-enhanced MRA of the neck was performed both before and after the intravenous administration of contrast. All measurements were calculated based on NASCET criteria. COMPARISON STUDY: Neck CTA 08/03/2020. FINDINGS: The aortic arch and proximal great vessels are widely patent. Redemonstration of the occluded distal right vertebral artery at the intracranial portion. Approximately 30% focal stenosis at the origin of the right internal carotid artery due to the calcified plaque. No significant stenosis within the bilateral common carotid or left internal carotid arteries. 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 IMPRESSION: 1. No change in the occluded intracranial portion of the distal right vertebral artery. 2. Mild focal fusiform aneurysmal dilatation of the distal left cervical inter nal carotid artery measuring up to 7 mm in diameter. 3. Approximately 30% stenosis at the origin of the right internal carotid artery. ACT 112: Negative or not required by law. Electronically signed by: Ad Mensah M.D. 08/05/2020 2:23 PM MR brain wo con HISTORY: 84 years-old Male posterior stroke acute strokelike symptoms COMPARISON: Head CT 08/03/2020, CTA neck 08/03/2020. TECHNIQUE: Multiplanar multisequence MRI of the brain was obtained without the use of IV contrast FINDINGS: Store Coordinator localizer images demonstrate no gross extracranial abnormality. Small focus of restricted diffusion involves the right aspect of the cervical medul salome junction measuring 6 mm in AP dimension. Corresponding increased T2/FLAIR signal within this distribution measures up to 12 mm. Low to intermediate signal on the ADC map. There is no acute intracranial hemorrhage, midline shift, abnormal extra-axial collection, hydrocephalus or intracranial mass. No pathologic blooming artifact. Age-related involutional changes. Mild patchy T2/FLAIR hyperintensities throughout the white matter suggest chronic microvascular ischemic disease. Chronic lacunar infarct of the superior aspect left lentiform nucleus. The cerebral venous sinuses and major arterial flow voids are patent. Right mastoid effusion. Polypoid mucosal thickening of the left maxillary sinus, 3.0 cm. Prior bilateral lens repair. The skull and soft tissues are unremarkable. IMPRESSION: 1. Small acute infarct involves the right cervical medullary junction. 2. Age-related involutional changes with chronic microvascular ischemic disease. ACT 112: Negative or not required by law. The above report was generated using voice recognition software. It may contain grammatical, syntax or spelling errors. Electronically signed by: Chris Sandoval M.D. 08/05/2020 2:15 PM PG Care Time/CCT Total # of Minutes Spent Total Time Spent with Patient: Total time spent is greater than 50% in coordination of care (as documented) at patient's floor/unit and/or counseling patient: Coding Level of Care Code 24924 Subseq Hosp Care Lvl 2 Diagnoses Vertebral artery occlusion I65.01 Laterality: right S/P cardiac pacemaker procedure Z95.0 Uncontrolled diabetes mellitus with stage 3 chronic kidney disease E11.22; E11.65; N18.30 Hypertension I10 Hypertension type: essential hypertension CAD (coronary artery disease) I25.10 Associated angina: without angina Coronary Disease-Associated Artery/Lesion type: mc[place]ath artery [place] vs. transplanted heart: mcgrath heart CKD (chronic kidney disease), stage III N18.32 Chronic kidney disease stage 3 subtype: stage 3b (GFR 30-44) Hyperlipidemia E78.5 Hyperlipidemia type: unspecified Paroxysmal atrial fibrillation I48.0 Hypothyroidism E03.9 Hypothyroidism type: unspecified DVT prophylaxis Z29.9 (1) Vertebral artery occlusion Laterality: right Qualified Code(s): I65.01 - Occlusion and stenosis of right vertebral artery (2) CKD (chronic kidney disease), stage III Chronic kidney disease stage 3 subtype: stage 3b (GFR 30-44) Qualified Code(s): N18.32 - Chronic kidney disease, stage 3b (3) CAD (coronary artery disease) Associated angina: without angina Coronary Disease-Associated Artery/Lesion type: m[place] artery [place] vs. transplanted heart: mcgrath heart Qualified Code(s): I25.10 - Atherosclerotic heart disease of mcgrath coronary artery without angina pectoris (4) Hyperlipidemia Hyperlipidemia type: unspecified Qualified Code(s): E78.5 - Hyperlipidemia, unspecified (5) Hypothyroidism Hypothyroidism type: unspecified Qualified Code(s): E03.9 - Hypothyroidism, unspecified (6) Hypertension Hypertension type: essential hypertension Qualified Code(s): I10 - Essential (primary) hypertension
[2020-08-05] MEDS: ATORVASTATIN 40 MG TAB PO SCH (20:02)
[2020-08-06] MEDS: LEVOTHYROXINE SODIUM 150 MCG TABLET PO SCH (05:35)
[2020-08-06 07:27] LABS: Partial Thromboplastin Ratio 0.9; Partial Thromboplastin Time 23.7 Seconds (21.0-31.0)
[2020-08-06 07:39] LABS: Hematocrit (blood only) 36.1 % (42-52); Hemoglobin 11.8 g/dL (14.0-18.0); Mean Corpuscular Hemoglobin 32.7 pg (25-34); Mean Corpuscular Hgb Conc 32.7 g/dL (32-36); Mean Platelet Volume 12.7 fL (7.4-10.4); Platelet Count 107 K/uL (130-400); RDW Coefficient of Variation 12.7 % (11.5-14.5); RDW Standard Deviation 46.6 fL (36.4-46.3); Red Blood Count 3.61 M/uL (4.7-6.1); White Blood Count 6.99 K/uL (4.8-10.8)
[2020-08-06 07:40] LABS: Basophils # (auto) 0.01 K/uL (0-0.2); Basophils % (auto) 0.1 %; Eosinophils # (auto) 0.04 K/uL (0-0.5); Eosinophils % (auto) 0.6 %; Immature Granulocytes # (auto) 0.01 K/uL (0.00-0.02); Immature Granulocytes % (auto) 0.1 %; Lymphocytes # (auto) 1.06 K/uL (1.2-3.4); Lymphocytes % (auto) 15.2 %; Monocytes # (auto) 0.72 K/uL (0.11-0.59); Monocytes % (auto) 10.3 %; Neutrophils # (auto) 5.15 K/uL (1.4-6.5); Neutrophils % (auto) 73.7 %; Platelet Estimate Decreased (Normal)
[2020-08-06] MEDS: INSULIN ASPART 100 UNITS/ML 3 ML PEN SC SCH ×4 (07:40→21:09)
[2020-08-06 07:42] LABS: BUN Creatinine Ratio 21.2 (10-20); Calcium 9.4 mg/dl (8.5-10.1); Creatinine Clr Calc Pharmacy 46.7 ml/min; Est GFR (African American) 54.3; Est GFR (Non-African American) 46.9
[2020-08-06] MEDS: METOPROLOL SUCC 50MG EXT REL TAB PO SCH (07:55)
[2020-08-06] MEDS: ISOSORBIDE MONO EXTENDED REL 60 MG TABCR PO SCH (07:55)
[2020-08-06] MEDS: ASPIRIN 81 MG ECTAB PO SCH (07:55)
[2020-08-06] MEDS: CLOPIDOGREL BISULFATE 75 MG TAB PO SCH (07:55)
[2020-08-06] MEDS: LOSARTAN POTASSIUM 50 MG TAB PO SCH (07:55)
[2020-08-06] MEDS: ATORVASTATIN 40 MG TAB PO SCH (20:25)
--- NOTE | 2020-08-06 21:26 | Hospitalist Progress Note ---
Date of Service August 06, 2020 Assessment & Plan (1) Cerebrovascular accident: MRI brain shows acute stroke at cervical medullary junction on the right - Allow permissive HTN initially - ASA and Plavix 75mg daily can stop heparin drip - Continue Atorvastatin 40 mg - BP control with Losartan, Imdur, Metoprolol - needs better DM control, on glimepiride and sitagliptin, HbA1c is 8.4% - ECHO: no atrial septal defect Dr. Stockton recommends close follow up with vascular surgeon for diagnostic angiogram of neck, vertebral artery might require intervention, not emergent, no need for transfer (2) Vertebral artery occlusion: Right vertebral artery occlusion- acute - [facility] consulted, appreciate their recommendations - MRI of the brain ordered- Urgent to Routine- pending MRI compatibility and ability of medtronic medical office technician. - CHANDANA XT MRI SURE SCAN [id number] generator, Atrial Lead Medtronic - [id number], RV lead- Medtronic [id number] - Pacemaker in ~2 weeks, this may change ability for MRI to be done- Information to cardiology- Okay for MRI MRI brain: acute right stroke cervical medullary junction see above for management, recommendations (3) S/P cardiac pacemaker procedure: Status post cardiac pacemaker placement 2 weeks ago Discussed pacemaker with cardiology. [place] for MRI. Pacemaker interrogated and shows no episodes of atrial fibrillation or ventricular tachycardia Continue to monitor on telemetry No issues with telemetry. (4) Uncontrolled diabetes mellitus with stage 3 chronic kidney disease: Outpatient management with glimepiride and sitagliptin No insulin as an outpatient We will initiate sliding scale insulin with NovoLog Hemoglobin A1c is 8.4% Will most likely discharge home on only glimepiride and sitagliptin with outpatient management (5) Hypertension: see above, Losartan, Imdur, Metoprolol (6) CAD (coronary artery disease): No evidence of ACS Initiated on heparin drip for vertebral artery occlusion not for cardiac purposes. This was discontinued and clopidogrel was started Imdur, losartan, metoprolol succinate resumed (7) CKD (chronic kidney disease), stage III: Creatinine stable at 1.39 electrolytes stable (8) Hyperlipidemia: As above, lipid panel in the morning - Continue Atorvastatin 40mg (9) Paroxysmal atrial fibrillation: Metoprolol s/p pacemaker (10) Hypothyroidism: TSH 1.02 Continue levothyroxine at 150 mcg daily (11) DVT prophylaxis: Clopidogrel started today Increase ambulation as tolerated Continue with physical therapy Disposition: Per Occupational Therapy report, patient would best be served by going to acute rehab for short period of time. Long discussion with patient's by telephone tonight with update. She agrees with rehab and personally would prefer [facility]. She is very concerned that she did not get him to the hospital in time or this may have been caused by overuse of the arm on the side of the pacemaker. I assured her that she did everything correctly in these things occur without being anyone's fault. She was very appreciative for the call. All questions were answered to her satisfaction. Admission and Anticipated Discharge Date Admission Date: August 03, 2020 Subjective patient doing well, had one episode of diaphoresis and weakness, similar to prior episodes eating well, no focal neurological deficits, NIH is 0-1 breathing comfortably, no chest pain, no fever reviewed MRI brain results, small stroke at right cervical medullary junction MRA neck with fusiform dilation of right internal carotid d/w Dr. Stockton, she recommends close follow up with vascular surgeon at [place] for diagnostic angiogram patient and his are considering rehab at this time, CM following Review of Systems Review of Systems: All systems reviewed & are unremarkable except as noted in Subjective Physical Exam Constitutional: WD/WN, vitals as above Neck: trachea midline, no thyromegaly Respiratory: normal respiratory effort, lungs clear to auscultation Cardiovascular: RRR, no murmur, no edema Gastrointestinal (Abdomen): normal bowel sounds, soft, nontender, no hepatosplenomegaly Musculoskeletal: no cyanosis or clubbing, extremities motor strength 5/5 Skin: no rashes, warm and dry Neurologic: patellar DTR's 2+ bilat, sensation intact and PERRL, EOMI, accommodation nl, no face palsy, no dysarthria Psychiatric: A+Ox3, euthymic affect Lymphatic: no cervical or axillary lymphadenopathy Results & Data Results & Data ([place]) Vital Signs (Past 12 Hours) Vital Signs Temp Pulse Pulse Resp BP Pulse Ox 08/06/20 19:17 36.9 C 69 20 132/69 95 08/06/20 15:55 36.4 C L 64 16 120/68 98 08/06/20 15:21 36.9 C 67 19 137/60 97 08/06/20 15:00 64 08/06/20 11:07 36.7 C 62 19 93/59 L 95 Laboratory Results Laboratory Results - last 24 hr 08/06/20 08/06/20 08/06/20 07:06 07:06 07:06 WBC 6.99 RBC 3.61 L Hgb 11.8 L Hct 36.1 L MCV 100.0 MCH 32.7 MCHC 32.7 RDW Std Deviation 46.6 H RDW Coeff of Jose 12.7 Plt Count 107 L MPV 12.7 H Immature Gran % (Auto) 0.1 Neut % (Auto) 73.7 Lymph % (Auto) 15.2 [place] % (Auto) 10.3 Eos % (Auto) 0.6 Baso % (Auto) 0.1 Neut # (Auto) 5.15 Lymph # (Auto) 1.06 L [place] # (Auto) 0.72 H Eos # (Auto) 0.04 Baso # (Auto) 0.01 Immature Gran # (Auto) 0.01 Platelet Estimate Decreased L APTT 23.7 PTT Ratio 0.9 Sodium 139 Potassium 4.0 Chloride 107 Carbon Dioxide 28 Anion Gap 4.0 BUN 29 H Creatinine 1.39 Est Cr Clr Drug Dosing 46.7 Est GFR ( Amer) 54.3 Est GFR (Non-Af Amer) 46.9 BUN/Creatinine Ratio 21.2 H Glucose 158 H POC Glucose Calcium 9.4 08/06/20 08/06/20 08/06/20 07:29 08:58 11:31 WBC RBC Hgb Hct MCV MCH MCHC RDW Std Deviation RDW Coeff of Jose Plt Count MPV Immature Gran % (Auto) Neut % (Auto) Lymph % (Auto) [place] % (Auto) Eos % (Auto) Baso % (Auto) Neut # (Auto) Lymph # (Auto) [place] # (Auto) Eos # (Auto) Baso # (Auto) Immature Gran # (Auto) Platelet Estimate APTT PTT Ratio Sodium Potassium Chloride Carbon Dioxide Anion Gap BUN Creatinine Est Cr Clr Drug Dosing Est GFR ( Amer) Est GFR (Non-Af Amer) BUN/Creatinine Ratio Glucose POC Glucose 160 H 179 H 150 H Calcium 08/06/20 08/06/20 16:41 20:29 WBC RBC Hgb Hct MCV MCH MCHC RDW Std Deviation RDW Coeff of Jose Plt Count MPV Immature Gran % (Auto) Neut % (Auto) Lymph % (Auto) [place] % (Auto) Eos % (Auto) Baso % (Auto) Neut # (Auto) Lymph # (Auto) [place] # (Auto) Eos # (Auto) Baso # (Auto) Immature Gran # (Auto) Platelet Estimate APTT PTT Ratio Sodium Potassium Chloride Carbon Dioxide Anion Gap BUN Creatinine Est Cr Clr Drug Dosing Est GFR ( Amer) Est GFR (Non-Af Amer) BUN/Creatinine Ratio Glucose POC Glucose 126 H 109 H Calcium Diagnostic Findings MRI brain IMPRESSION: 1. Small acute infarct involves the right cervical medullary junction. 2. Age-related involutional changes with chronic microvascular ischemic disease. MRA neck IMPRESSION: 1. No change in the occluded intracranial portion of the distal right vertebral artery. 2. 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 3. Approximately 30% stenosis at the origin of the right internal carotid artery. Medications Administered Current Inpatient Medications Aspirin (Aspirin 81 Mg Ectab) 81 mg PO DAILY JOHN Stop: 09/05/20 08:59 Last Admin: 08/06/20 07:55 Dose: 81 mg Documented by: Atorvastatin Calcium (Atorvastatin 40 Mg Tab) 40 mg PO HS JOHN Stop: 09/04/20 20:59 Last Admin: 08/06/20 20:25 Dose: 40 mg Documented by: Clopidogrel Bisulfate (Clopidogrel Bisulfate 75 Mg Tab) 75 mg PO QAM JOHN Stop: 09/04/20 13:14 Last Admin: 08/06/20 07:55 Dose: 75 mg Documented by: Dextrose (Dextrose 50% 50 Ml Syringe) 25 - 50 ml IV UD PRN; Protocol PRN Reason: Hypoglycemia Protocol Stop: 09/02/20 21:11 Glucagon (Glucagon For Inj 1 Mg Vial) 1 mg SQ UD PRN; Protocol PRN Reason: Hypoglycemia Protocol Stop: 09/02/20 21:11 Glucose (Glucose 10 Tabs/Tube) 4 - 8 tabs PO UD PRN; Protocol PRN Reason: Hypoglycemia Protocol Stop: 09/02/20 21:11 Glucose (Glucose 40% Gel 15 Gm Tube) 15 - 30 gm PO UD PRN; Protocol PRN Reason: Hypoglycemia Protocol Stop: 09/02/20 21:11 Insulin Aspart (Insulin Aspart 100 Units/Ml 3 Ml Pen) 0 units SC ACHS JOHN Stop: 09/04/20 07:29 Last Admin: 08/06/20 17:02 Dose: 2 units Documented by: Isosorbide Mononitrate (Isosorbide [place] Extended Rel 60 Mg Tabcr) 60 mg PO DAILY [facility] Stop: 09/05/20 08:59 Last Admin: 08/06/20 07:55 Dose: 60 mg Documented by: Levothyroxine Sodium (Levothyroxine Sodium 150 Mcg Tablet) 150 mcg PO DAILYBB [facility] Stop: 09/04/20 06:29 Last Admin: 08/06/20 05:35 Dose: 150 mcg Documented by: Losartan Potassium (Losartan Potassium 50 Mg Tab) 50 mg PO DAILY [facility] Stop: 09/05/20 08:59 Last Admin: 08/06/20 07:55 Dose: 50 mg Documented by: Metoprolol Succinate (Metoprolol Succ 50mg Ext Rel Tab) 100 mg PO QAM [facility] Stop: 09/05/20 08:59 Last Admin: 08/06/20 07:55 Dose: 100 mg Documented by: Miscellaneous (Carbohydrates For Hypoglycemia ) 15 - 30 gm PO UD PRN PRN Reason: Hypoglycemia Protocol Stop: 09/02/20 21:11 Miscellaneous Information (Pharmacist Discharge Med Rec Consult) 1 ea N/A UD PRN PRN Reason: Consult Stop: 09/02/20 21:11 Nitroglycerin (Nitroglycerin Sl 0.4 Mg/Tab Tab) 0.4 mg SL Q5M PRN PRN Reason: chest pain Stop: 09/02/20 21:11 Ondansetron HCl (Ondansetron Inj 2 Mg/Ml 2 Ml Vial) 4 mg IV Q6H PRN PRN Reason: Nausea Stop: 09/02/20 21:07 PG Care Time/CCT Total # of Minutes Spent Total Time Spent with Patient: Total time spent is greater than 50% in coordination of care (as documented) at patient's floor/unit and/or counseling patient: Coding Level of Care Code 62307 Subseq Hosp Care Lvl 2 Diagnoses Cerebrovascular accident I63.9 CVA mechanism: unspecified Vertebral artery occlusion I65.01 Laterality: right S/P cardiac pacemaker procedure Z95.0 Uncontrolled diabetes mellitus with stage 3 chronic kidney disease E11.22; E11.65; N18.30 Hypertension I10 Hypertension type: essential hypertension CAD (coronary artery disease) I25.10 Coronary Disease-Associated Artery/Lesion type: [place] artery [place] vs. transplanted heart: [place]q heart Associated angina: without angina CKD (chronic kidney disease), stage III N18.32 Chronic kidney disease stage 3 subtype: stage 3b (GFR 30-44) Hyperlipidemia E78.5 Hyperlipidemia type: unspecified Paroxysmal atrial fibrillation I48.0 Hypothyroidism E03.9 Hypothyroidism type: unspecified DVT prophylaxis Z29.9 (1) Vertebral artery occlusion Laterality: right Qualified Code(s): I65.01 - Occlusion and stenosis of right vertebral artery (2) Hypertension Hypertension type: essential hypertension Qualified Code(s): I10 - Essential (primary) hypertension (3) CAD (coronary artery disease) Coronary Disease-Associated Artery/Lesion type: [place] artery [place] vs. transplanted heart: [place]q heart Associated angina: without angina Qualified Code(s): I25.10 - Atherosclerotic heart disease of [place] coronary artery without angina pectoris (4) CKD (chronic kidney disease), stage III Chronic kidney disease stage 3 subtype: stage 3b (GFR 30-44) Qualified Code(s): N18.32 - Chronic kidney disease, stage 3b (5) Hyperlipidemia Hyperlipidemia type: unspecified Qualified Code(s): E78.5 - Hyperlipidemia, unspecified (6) Hypothyroidism Hypothyroidism type: unspecified Qualified Code(s): E03.9 - Hypothyroidism, unspecified (7) Cerebrovascular accident CVA mechanism: unspecified Qualified Code(s): I63.9 - Cerebral infarction, unspecified
[2020-08-07] MEDS: LEVOTHYROXINE SODIUM 150 MCG TABLET PO SCH (06:21)
[2020-08-07] MEDS: LOSARTAN POTASSIUM 50 MG TAB PO SCH (07:41)
[2020-08-07] MEDS: CLOPIDOGREL BISULFATE 75 MG TAB PO SCH (07:42)
[2020-08-07] MEDS: ASPIRIN 81 MG ECTAB PO SCH (07:42)
[2020-08-07] MEDS: ISOSORBIDE MONO EXTENDED REL 60 MG TABCR PO SCH (07:42)
[2020-08-07] MEDS: INSULIN ASPART 100 UNITS/ML 3 ML PEN SC SCH ×4 (07:45→20:23)
--- NOTE | 2020-08-07 08:15 | Neurology Progress Note ---
Date of Service August 07, 2020 Assessment & Plan (1) Vertebral artery occlusion: Agus Watt is an 84 yo man w/ PMH of HTN, HLD, DM, CKD, pAfib on ASA, CAD s/p recent pacemaker (07/05/20) placement and hypothyroidism who p/t [facility] with acute onset of dizziness, dysarthria, right FP. 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 - TTE: EF 60-65%, moderate LVH, moderate LA dilation, mild MR - Telemetry: pending. Pacemaker report shows no episodes of AF/VT. - A1c: 8.4 - FLP: 66 - Troponin, TSH: negative, WNL Stroke Management: - Continuous cardiac monitoring, should have PM interrogated as outpatient if te lemetry here unrevealing - Vitals, Neurochecks, NIHSS per unit routine - BP parameters: SBP CAP 180, goal normotension - Consult speech, PT, OT for supportive management - Will genetic counselor concerning stroke education, smoking cessation, healthy diet, physical activity, weight loss - Follow up with PCP for assistance with outpatient goals (BP <130/80, LDL <70, A1c <7) - Follow up in neurology clinic in 6-8 weeks with BENIGNO Ramon - Recommend an outpatient DSA soon after discharge to see if intervention would be appropriate vs maximal medical therapy with ASA/plavix/statin (recommend Dr Garcia at [facility]) Secondary Stroke Prevention: - Antiplatelet: continue ASA 81mg daily/plavix 75mg daily x21 days minimum - Anticoagulation: not indicated at this time - Statin: continue Atorvastatin 40mg daily HTN: - BP parameters, as above - Continue home BP meds (isosorbide, losartan, metoprolol) for goal normotension over the next 2-3 days FEN/GI: - Monitor lytes and replete PRN - Zofran prn for nausea Glucose Control: - Sliding scale insulin and accuchecks per primary team to avoid hyperglycemia Thank you for this interesting consult. Plan of care was discussed with primary team. Please call with any questions. (2) Hyperlipidemia: (3) Paroxysmal atrial fibrillation: (4) Uncontrolled diabetes mellitus with stage 3 chronic kidney disease: (5) Hypertension: Admission and Anticipated Discharge Date Admission Date: August 03, 2020 Subjective NAEs overnight. He feels like he is doing better and would prefer doing PT at home. Ok to have outpatient DSA. Review of Systems Review of Systems: 10 point review of systems completed and negative except as in HPI. Results & Data ([facility]) Vital Signs (Past 12 Hours) Vital Signs Temp Pulse Pulse Resp BP Pulse Ox 08/07/20 07:34 62 08/07/20 07:06 61 19 105/72 96 08/07/20 03:35 36.7 C 65 17 120/66 98 08/06/20 22:57 36.6 C 60 18 124/70 96 Exam (Neuro) Physical Exam: General Exam: GEN: NAD, lying down in examination bed. HEENT: No conjunctival injection, no rhinorrhea. CV: RRR on monitor, no significant edema. PULM: Nonlabored respirations on room air. Neuro Exam: NIH STROKE SCALE 1A. Level of Consciousness (0-3) = 0 1B. LOC Questions (0-2) = 0 1C. LOC Commands (0-2) = 0 2. Best Horizontal Gaze (0-2) = 0 3. Visual Lopez (0-3) = 0 4. Facial Palsy (0-3) = 1 5. Motor Arm Right (0-4) = 0 Left (0-4) = 0 6. Motor Leg Right (0-4) = 0 Left (0-4) = 0 7. Limb Ataxia (0-2) = 0 8. Sensory (0-2) = 0 9. Best Language (0-3) = 0 10. Dysarthria (0-2) = 2 11. Extinction and Inattention (0-2) = 0 NIHSS TOTAL = 3 PG Care Time/CCT Total # of Minutes Spent Total Time Spent with Patient: Total time spent is greater than 50% in coordination of care (as documented) at patient's floor/unit and/or counseling patient: Coding Level of Care Code 59307 Subseq Hosp Care Lvl 3 Diagnoses Vertebral artery occlusion I65.01 Laterality: right Hyperlipidemia E78.5 Hyperlipidemia type: unspecified Paroxysmal atrial fibrillation I48.0 Uncontrolled diabetes mellitus with stage 3 chronic kidney disease E11.22; E11.65; N18.30 Hypertension I10 Hypertension type: essential hypertension (1) Vertebral artery occlusion Laterality: right Qualified Code(s): I65.01 - Occlusion and stenosis of right vertebral artery (2) Hyperlipidemia Hyperlipidemia type: unspecified Qualified Code(s): E78.5 - Hyperlipidemia, unspecified (3) Hypertension Hypertension type: essential hypertension Qualified Code(s): I10 - Essential (primary) hypertension
[2020-08-07] MEDS: METOPROLOL SUCC 50MG EXT REL TAB PO SCH (09:21)
--- NOTE | 2020-08-07 14:58 | Hospitalist Progress Note ---
Date of Service August 07, 2020 Assessment & Plan (1) Vertebral artery occlusion: CT scan of the head with no hemorrhage. There is chronic infarct in left centrum semiovale. 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 MRI of the brain with small acute infarct involving the right cervical medullary junction. MRA of the neck with: * No change in the occluded intracranial portion of the distal right vertebral artery. 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 * Approximately 30% stenosis at the origin of the right internal carotid artery. Heparin drip discontinued. Continue clopidogrel daily Continue with aspirin 81 mg daily Continue with atorvastatin Patient seen by PT/OT. At this point they feel the patient is not safe to go home. Referral made to [facility]. Follow-up outpatient with neurology Follow-up outpatient with vascular surgery (2) S/P cardiac pacemaker procedure: Status post cardiac pacemaker placement 2 weeks ago Discussed pacemaker with cardiology. Okay for MRI. Pacemaker interrogated and shows no episodes of atrial fibrillation or ventricular tachycardia No arrhythmias or issues on telemetry Moved to medical floor (3) Uncontrolled diabetes mellitus with stage 3 chronic kidney disease: Outpatient management with glimepiride and sitagliptin No insulin as an outpatient Continue sliding scale insulin with NovoLog Hemoglobin A1c is 8.4% Will most likely discharge home on only glimepiride and sitagliptin with outpatient management Aggressive control as an outpatient (4) Hypertension: Permissive hypertension at this time due to acute findings on CT head Continue with home antihypertensives Vitals per protocol (5) CAD (coronary artery disease): No evidence of ACS Initiated on heparin drip for vertebral artery occlusion not for cardiac purposes. This was discontinued and clopidogrel was started Continue Imdur, losartan, metoprolol succinate as tolerated (6) CKD (chronic kidney disease), stage III: Creatinine stable Follow serial labs (7) Hyperlipidemia: Continue atorvastatin (8) Paroxysmal atrial fibrillation: Metoprolol succinate Not on any antiarrhythmics Follow (9) Hypothyroidism: TSH 1.02 Continue levothyroxine at 150 mcg daily (10) DVT prophylaxis: Clopidogrel started today Increase ambulation as tolerated Continue with physical therapy Disposition: Per Occupational Therapy report, patient would best be served by going to acute rehab for short period of time. Long discussion with patient's by telephone. She agrees with rehab and [facility] Continue inpatient physical therapy and Occupational Therapy until discharge Disposition: Patient to transfer to medical floor today. Discharge to rehab per case management Admission and Anticipated Discharge Date Admission Date: August 03, 2020 Subjective Attending: Dr. Nunn Patient seen and examined at bedside. Has not had any more episodes today with change in status of right arm and right eye. Still having some irritation to right eye. Awaiting placement for acute care rehab No fever, chills, shakes, rigors. No chest pain or tightness. No lightheadedness, syncope, presyncope. No awareness of any arrhythmias. No awareness of any problems with pacemaker. No other acute complaints Review of Systems Review of Systems: All systems reviewed & are unremarkable except as noted in Subjective Physical Exam Physical Exam: GENERAL : No acute distress EYES: No icterus, gaze conjugate. Still some irritation of the right eye. No conjunctivitis. No discharge. NOSE: No evidence of epistaxis MOUTH: No lesions or candidiasis NECK: Supple LUNGS: CTA B/L, no wheezes, rales or rhonchi HEART: Regular, rate controlled ABDOMEN: Soft, NT, ND, BS Present EXTREMITIES: No LE edema, pedal pulses intact NEURO: A&OX3. No facial droop. Tongue is midline. Strength is equal and appropriate bilaterally. Negative pronator drift. Results & Data Results & Data ([facility]) Vital Signs (Past 12 Hours) Vital Signs Temp Pulse Pulse Resp BP Pulse Ox 08/07/20 11:35 36.7 C 78 20 148/82 H 96 08/07/20 07:34 62 08/07/20 07:06 61 19 105/72 96 08/07/20 03:35 36.7 C 65 17 120/66 98 Laboratory Results 08/06/20 07:06 08/06/20 07:06 Diagnostic Findings No further diagnostic studies PG Care Time/CCT Total # of Minutes Spent Total Time Spent with Patient: Total time spent is greater than 50% in coordination of care (as documented) at patient's floor/unit and/or counseling patient: Coding Level of Care Code 85651 Subseq Hosp Care Lvl 2 Diagnoses Vertebral artery occlusion I65.01 Laterality: right S/P cardiac pacemaker procedure Z95.0 Uncontrolled diabetes mellitus with stage 3 chronic kidney disease E11.22; E11.65; N18.30 Hypertension I10 Hypertension type: essential hypertension CAD (coronary artery disease) I25.10 Coronary Disease-Associated Artery/Lesion type: koi artery [place] vs. transplanted heart: koi heart Associated angina: without angina CKD (chronic kidney disease), stage III N18.32 Chronic kidney disease stage 3 subtype: stage 3b (GFR 30-44) Hyperlipidemia E78.5 Hyperlipidemia type: unspecified Paroxysmal atrial fibrillation I48.0 Hypothyroidism E03.9 Hypothyroidism type: unspecified DVT prophylaxis Z29.9 (1) Vertebral artery occlusion Laterality: right Qualified Code(s): I65.01 - Occlusion and stenosis of right vertebral artery (2) Hypertension Hypertension type: essential hypertension Qualified Code(s): I10 - Essential (primary) hypertension (3) CAD (coronary artery disease) Coronary Disease-Associated Artery/Lesion type: koi artery [place] vs. transplanted heart: koi heart Associated angina: without angina Qualified Code(s): I25.10 - Atherosclerotic heart disease of koi coronary artery without angina pectoris (4) CKD (chronic kidney disease), stage III Chronic kidney disease stage 3 subtype: stage 3b (GFR 30-44) Qualified Code(s): N18.32 - Chronic kidney disease, stage 3b (5) Hyperlipidemia Hyperlipidemia type: unspecified Qualified Code(s): E78.5 - Hyperlipidemia, unspecified (6) Hypothyroidism Hypothyroidism type: unspecified Qualified Code(s): E03.9 - Hypothyroidism, unspecified
[2020-08-07] MEDS: ATORVASTATIN 40 MG TAB PO SCH (20:04)
[2020-08-08] MEDS: LEVOTHYROXINE SODIUM 150 MCG TABLET PO SCH (06:22)
[2020-08-08] MEDS: LOSARTAN POTASSIUM 50 MG TAB PO SCH (08:07)
[2020-08-08] MEDS: CLOPIDOGREL BISULFATE 75 MG TAB PO SCH (08:07)
[2020-08-08] MEDS: METOPROLOL SUCC 50MG EXT REL TAB PO SCH (08:07)
[2020-08-08] MEDS: ASPIRIN 81 MG ECTAB PO SCH (08:07)
[2020-08-08] MEDS: ISOSORBIDE MONO EXTENDED REL 60 MG TABCR PO SCH (08:08)
[2020-08-08] MEDS: INSULIN ASPART 100 UNITS/ML 3 ML PEN SC SCH ×4 (08:10→20:19)
[2020-08-08] MEDS: ATORVASTATIN 40 MG TAB PO SCH (20:18)
[2020-08-08] MEDS ORDERED: ENOXAPARIN INJ 40 MG/0.4 ML SYR SQ ONE (21:13)
--- NOTE | 2020-08-08 21:13 | Hospitalist Progress Note ---
Date of Service August 08, 2020 Assessment & Plan (1) Cerebrovascular accident: MRI brain with acute stroke of right medulla. Continue ASA 81mg daily and Plavix 75mg daily for secondary stroke prevention. Continue Atorvastatin 40 mg. BP control with Losartan, Imdur, Metoprolol. ECHO: no source of thrombus. Dr. Stockton from [facility] Neuro recommends close follow up with vascular surgeon for diagnostic angiogram of neck vessels. Vertebral artery might require intervention but certainly not emergent. (2) Vertebral artery occlusion: Right vertebral artery occlusion - acute f/u vascular surgery post-discharge asa, plavix statin (3) S/P cardiac pacemaker procedure: Status post cardiac pacemaker placement in June 2020 for high-grade AV block. Pacemaker interrogation without paroxysmal atrial fibrillation or ventricular tachycardia. Continue to monitor on telemetry. (4) Uncontrolled diabetes mellitus with stage 3 chronic kidney disease: Outpatient management with glimepiride and sitagliptin No insulin as an outpatient Remains on novolog for correction/carb coverage Hemoglobin A1c is 8.4% (5) Hypertension: continue losartan, Imdur, Metoprolol (6) CAD (coronary artery disease): No evidence of ACS while here Imdur, losartan, metoprolol succinate statin asa plavix (7) CKD (chronic kidney disease), stage III: Creatinine stable at 1.39 repeat AM (8) Hyperlipidemia: LDL 66 on lipid profile this admission Continue Atorvastatin 40mg (9) Paroxysmal atrial fibrillation: No documented PAF in 10+ years. Recent pacer interrogation without a.fib or flutter. Had been on pradaxa up until June - now discontinued. (10) Hypothyroidism: TSH 1.02 Continue levothyroxine at 150 mcg daily (11) Thrombocytopenia: with mild anemia and macrocytosis check b12/folate in am (12) Anemia: macrocytic check b12/folate in am (13) DVT prophylaxis: lovenox 40mg daily discussed care with Radha from case management referral made to [facility] continue PT/OT attempted to call pt's this evening - phone rang and rang, did not connect w/ her Admission and Anticipated Discharge Date Admission Date: August 03, 2020 Subjective patient quite irritated that he is "just sitting around." during the visit he went back/forth about going to rehab but ultimately did state he would attend. he did voice that he knew rehab would be good for him. he reports unsteadiness on his feet. also reports mild numbness of right hand along with right eye droopiness. tele with no afib or flutter. Review of Systems Constitutional: no anorexia Respiratory: no cough and no dyspnea Cardiovascular: no chest pain Gastrointestinal: no abdominal pain Physical Exam Constitutional: no acute distress and no altered mental status Eyes: right eye ptosis ENMT: external ear and nose normal, oropharynx normal Respiratory: normal respiratory effort, lungs clear to auscultation Cardiovascular: Rate/Rhythm: regular rate and regular rhythm Heart Sounds: normal S1 and normal S2; no murmur Vessels: posterior tibial pulses present and dorsalis pedis pulses present; no JVD Extremities: no edema Gastrointestinal (Abdomen): normal bowel sounds, soft, nontender, no hepatosplenomegaly Neurologic: gait - tendency to lose balance and fall to his left; strength 5/5 x 4 extremities however; speech fluent Results & Data Results & Data ([facility]) Vital Signs (Past 12 Hours) Vital Signs Temp Pulse Resp BP Pulse Ox 08/08/20 15:22 36.7 C 65 18 130/62 95 Laboratory Results Laboratory Results - last 24 hr 08/08/20 08/08/20 08/08/20 07:33 11:25 16:29 POC Glucose 163 H 118 H 118 H 08/08/20 19:58 POC Glucose 141 H PG Care Time/CCT Total # of Minutes Spent Total Time Spent with Patient: Total time spent is greater than 50% in coordination of care (as documented) at patient's floor/unit and/or counseling patient: Coding Level of Care Code 05315 Subseq Hosp Care Lvl 2 Diagnoses Cerebrovascular accident I63.9 CVA mechanism: unspecified Vertebral artery occlusion I65.01 Laterality: right S/P cardiac pacemaker procedure Z95.0 Uncontrolled diabetes mellitus with stage 3 chronic kidney disease E11.22; E11.65; N18.30 Hypertension I10 Hypertension type: essential hypertension CAD (coronary artery disease) I25.10 Associated angina: without angina Coronary Disease-Associated Artery/Lesion type: [place] artery [place] vs. transplanted heart: [place] heart CKD (chronic kidney disease), stage III N18.32 Chronic kidney disease stage 3 subtype: stage 3b (GFR 30-44) Hyperlipidemia E78.5 Hyperlipidemia type: unspecified Paroxysmal atrial fibrillation I48.0 Hypothyroidism E03.9 Hypothyroidism type: unspecified Thrombocytopenia D69.6 Anemia D64.9 DVT prophylaxis Z29.9 (1) Vertebral artery occlusion Laterality: right Qualified Code(s): I65.01 - Occlusion and stenosis of right vertebral artery (2) CKD (chronic kidney disease), stage III Chronic kidney disease stage 3 subtype: stage 3b (GFR 30-44) Qualified Code(s): N18.32 - Chronic kidney disease, stage 3b (3) CAD (coronary artery disease) Associated angina: without angina Coronary Disease-Associated Artery/Lesion type: [place] artery [place] vs. transplanted heart: [place] heart Qualified Code(s): I25.10 - Atherosclerotic heart disease of [place] coronary artery without angina pectoris (4) Hyperlipidemia Hyperlipidemia type: unspecified Qualified Code(s): E78.5 - Hyperlipidemia, unspecified (5) Hypothyroidism Hypothyroidism type: unspecified Qualified Code(s): E03.9 - Hypothyroidism, unspecified (6) Cerebrovascular accident CVA mechanism: unspecified Qualified Code(s): I63.9 - Cerebral infarction, unspecified (7) Hypertension Hypertension type: essential hypertension Qualified Code(s): I10 - Essential (primary) hypertension
[2020-08-08] MEDS ORDERED: Nursing to Pharmacy Communication SCH (21:45)
[2020-08-09] MEDS: LEVOTHYROXINE SODIUM 150 MCG TABLET PO SCH (05:58)
[2020-08-09 07:02] LABS: Hematocrit (blood only) 34.6 % (42-52); Hemoglobin 11.4 g/dL (14.0-18.0); Mean Corpuscular Hemoglobin 32.7 pg (25-34); Mean Corpuscular Hgb Conc 32.9 g/dL (32-36); Mean Corpuscular Volume 99.1 fL (80-100); Mean Platelet Volume 12.8 fL (7.4-10.4); Platelet Count 115 K/uL (130-400); RDW Coefficient of Variation 12.7 % (11.5-14.5); RDW Standard Deviation 45.7 fL (36.4-46.3); Red Blood Count 3.49 M/uL (4.7-6.1)
[2020-08-09 07:33] LABS: BUN Creatinine Ratio 26.2 (10-20); Calcium 8.8 mg/dl (8.5-10.1); Creatinine Clr Calc Pharmacy 40.8 ml/min; Est GFR (African American) 46.5; Est GFR (Non-African American) 40.1; Potassium 4.1 mmol/L (3.5-5.1)
[2020-08-09 07:50] LABS: Folate (Folic Acid) > 20.00 ng/ml (>5.38); Vitamin B12 363 pg/ml (193-986)
[2020-08-09] MEDS: LOSARTAN POTASSIUM 50 MG TAB PO SCH (08:34)
[2020-08-09] MEDS: METOPROLOL SUCC 50MG EXT REL TAB PO SCH (08:34)
[2020-08-09] MEDS: CLOPIDOGREL BISULFATE 75 MG TAB PO SCH (08:35)
[2020-08-09] MEDS: ASPIRIN 81 MG ECTAB PO SCH (08:35)
[2020-08-09] MEDS: ISOSORBIDE MONO EXTENDED REL 60 MG TABCR PO SCH (08:35)
[2020-08-09] MEDS: INSULIN ASPART 100 UNITS/ML 3 ML PEN SC SCH ×2 (08:37→12:12)
[2020-08-09] MEDS ORDERED: CYANOCOBALAMIN 500 MCG TABLET (VITAMIN B-12) PO SCH (09:45)
[2020-08-09] MEDS ORDERED: STROKE PATIENT DISCHARGE STA (16:30)
--- NOTE | 2020-08-09 16:39 | Discharge Summary ---
Date of Service date of admission - August 04, 2019 date of discharge - August 09, 2020 Admission HPI Per Admitting Provider 84 YOM with past medical history of CKD III, DM II, HLD, Hypothyroidism, HTN, CAD, BPH, AFib, and heart block with recent placement of permanent pacemaker. Patient comes to the emergency room after calling 911 this morning for feeling like he was going to pass out and vision changes. The patient was out in the garden planting tomato plants, where approximately around 1000 he started feeling like he was going to pass out- light headedness, dizzy, nausea. This was associated with vision change as well- "everything could not come into focus". He did not report any visual field cuts or inability to see out of either eye. He sat down thinking this would go away and attempted to drink some water, which he then threw up. Patient and also report some facial droop and slurred speech. He also endorses neck pain that is sharp and aching in nature. This neck pain has been going on for weeks per the patient. He denies any change with head position. Upon my evaluation the patient and the , both thought this was greatly improved. He did take his medications this morning including an ASA and also reports that he took a Pradaxa dose yesterday as he forgot that it was not discontinued. Currently NIHSS- 0. Pending swallow screen, NPO until that is completed. Allow permissive HTN, hold home medications at this time, patient will be admitted for hemodynamic monitoring, telemetry, and q2 hour neuro checks. Principal Diagnosis right-sided medullary stroke Discharge Exam Constitutional no acute distress and no altered mental status Eyes slight ptosis of right upper eyeli ENMT external ear and nose normal, oropharynx normal Respiratory normal respiratory effort, lungs clear to auscultation Cardiovascular Rate/Rhythm: regular rate and regular rhythm Heart Sounds: normal S1 and normal S2; no murmur Vessels: posterior tibial pulses present and dorsalis pedis pulses present; no JVD Extremities: no edema Gastrointestinal (Abdomen) normal bowel sounds, soft, nontender, no hepatosplenomegaly Neurologic deep tendon reflexes 2+ bilaterally and moves all extremities; no focal motor deficits Speech / Cognition: normal speech Gait: + ataxic gait (Tendency to sway to left ) Discharge Data Allergies Allergy/AdvReac Type Severity Reaction Status Date / Time No Known Allergies Allergy Verified 08/03/20 17:25 Consultations [facility] Neurology PT, OT Speech therapy Procedures Performed echocardiogram - * EF 60-65% * NO OBVIOUS ASD or PFO * mild mitral regurgitation pacemaker interrogation - no PAF or ventricular dysrhythmia Ordered Studies Head CT 08/03/20 15:[address] DOSE: HISTORY: Stroke Like Symptoms TECHNIQUE: Multiaxial CT images of the head were performed without the use of intravenous contrast. Automated exposure control was utilized for this study. A dose lowering technique was utilized adhering to the principles of ALARA. Comparison: None. Findings: A 2 cm retention cyst within the left maxillary sinus. The mastoid air cells are clear. The calvarium and skull base are intact. There is no mass, hematoma, midline shift, acute infarct. White matter hypodensity is nonspecific but suggestive of microvascular ischemic change. The ventricles and sulci demonstrate mild age-related involutional changes. There is an old punctate lacunar infarct seen within the left basal ganglia. Impression: No acute intracranial abnormality. Atrophy and microvascular ischemic changes. ACT 112: Negative or not required by law. Electronically signed by: Ad Mensah M.D. 08/03/2020 3:58 PM Head CTA 08/03/20 15:19 CTA ANGIOGRAPHY OF THE HEAD CLINICAL HISTORY: Stroke Like Symptoms COMPARISON STUDY: No previous studies for comparison. TECHNIQUE: Helical axial images of the head were obtained following uneventful intravenous administration of 118 cc of Optiray 320. Sagittal and coronal reconstructions were viewed as well as maximal intensity projections on an independent 3-D workstation. Automated exposure control was utilized for the study. A dose lowering technique was utilized adhering to the principles of ALARA. FINDINGS: No acute intracranial hemorrhage, midline shift or mass effect is present. Ventricular system is unremarkable. Basal cisterns are patent. There is suspected encephalomalacia within the right occipital lobe. No intracranial aneurysm is identified. There is extensive calcified plaque within the bilateral cavernous carotids. There is no abrupt cut off within the anterior circulation. There is abrupt cut off of the intracranial portion of the right vertebral artery just distal to the takeoff of the right posterior inferior cerebellar artery which is patent. The basilar artery and intracranial portion of the left vertebral artery are patent. There is mild stenosis of the bilateral posterior cerebral arteries which are patent. IMPRESSION: 1. Abrupt occlusion of the intracranial portion of the right vertebral artery which is likely acute. Findings discussed with Dr. Stockton at time of dictation. 2. No additional sites of vessel occlusion. Extensive plaque within bilateral cavernous carotids. No intracranial aneurysm. ACT 112: Negative or not required by law. Electronically signed by: Carlos Woodward M.D. 08/03/2020 4:05 PM Neck CTA 08/03/20 15:19 NECK CTA HISTORY: Stroke Like Symptoms TECHNIQUE: Multiaxial CT images of the neck were performed following the intravenous administration of contrast to evaluate the major cervical vessels. Maximum intensity projection images were also obtained. All measurements were calculated based on NASCET criteria. A dose lowering technique was utilized adhering to the principles of ALARA. COMPARISON STUDY: None. FINDINGS: The aortic arch and proximal great vessels are widely patent. Pacemaker wires are partially visualized. There is moderate calcified plaque within the right carotid bulb resulting in 30% focal stenosis at the origin of the right internal carotid artery. Remaining segments of the right internal carotid artery are patent. No significant stenosis or dissection within the left carotid arteries. The right common carotid artery is also patent. The bilateral cervical vertebral arteries are patent. However, there is focal occlusion involving the intracranial portion of the distal right vertebral artery. This is likely acute. A 4 mm nodule within the right upper lobe on image 17. 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 IMPRESSION: 1. Focal occlusion involving the intracranial portion of the distal right vertebral artery. This is likely acute. 2. Approximately 30% stenosis at the origin of the right internal carotid artery. The remaining bilateral carotid arteries are patent. 3. 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 4. A 4 mm indeterminate pulmonary nodule within the right upper lobe. One year chest CT follow-up can be performed to ensure stability. ACT 112: Negative or not required by law. Electronically signed by: Ad Mensah M.D. 08/03/2020 4:06 PM Chest X-Ray 08/03/20 16:27 XR chest 1V portable CLINICAL HISTORY: dizzy COMPARISON STUDY: Chest radiograph July 06, 2020. FINDINGS: Dual lead left subclavian pacemaker is in place. There is no pneumothorax. Cardiomegaly is unchanged. Trace left pleural effusion is noted. There is pulmonary vascular congestion with suspected mild pulmonary edema. IMPRESSION: 1. Mild pulmonary edema with a trace left pleural effusion. 2. Cardiomegaly. ACT 112: Negative or not required by law. Electronically signed by: Carlos Woodward M.D. 08/03/2020 4:46 PM Brain MRI 08/05/20 05:36 MR brain wo con HISTORY: 84 years-old Male posterior stroke acute strokelike symptoms COMPARISON: Head CT 08/03/2020, CTA neck 08/03/2020. 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 Small focus of restricted diffusion involves the right aspect of the cervical medullary junction measuring 6 mm in AP dimension. Corresponding increased T2/FLAIR signal within this distribution measures up to 12 mm. Low to intermediate signal on the ADC map. There is no acute intracranial hemorrhage, midline shift, abnormal extra-axial collection, hydrocephalus or intracranial mass. No pathologic blooming artifact. Age-related involutional changes. Mild patchy T2/FLAIR hyperintensities throughout the white matter suggest chronic microvascular ischemic disease. Chronic lacunar infarct of the superior aspect left lentiform nucleus. The cerebral venous sinuses and major arterial flow voids are patent. Right mastoid effusion. Polypoid mucosal thickening of the left maxillary sinus, 3.0 cm. Prior bilateral lens repair. The skull and soft tissues are unremarkable. IMPRESSION: 1. Small acute infarct involves the right cervical medullary junction. 2. Age-related involutional changes with chronic microvascular ischemic disease. ACT 112: Negative or not required by law. The above report was generated using voice recognition software. It may contain grammatical, syntax or spelling errors. Electronically signed by: Chris Sandoval M.D. 08/05/2020 2:15 PM Neck MRA 08/05/20 11:51 NECK MRA HISTORY: Vertebral artery occlusion TECHNIQUE: Iffo-ty-evsfyd and gadolinium-enhanced MRA of the neck was performed both before and after the intravenous administration of contrast. All measurements were calculated based on NASCET criteria. COMPARISON STUDY: Neck CTA 08/03/2020. FINDINGS: The aortic arch and proximal great vessels are widely patent. Redemonstration of the occluded distal right vertebral artery at the intracranial portion. Approximately 30% focal stenosis at the origin of the right internal carotid artery due to the calcified plaque. No significant stenosis within the bilateral common carotid or left internal carotid arteries. 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 IMPRESSION: 1. No change in the occluded intracranial portion of the distal right vertebral artery. 2. 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 3. Approximately 30% stenosis at the origin of the right internal carotid artery. ACT 112: Negative or not required by law. Electronically signed by: Ad Mensah M.D. 08/05/2020 2:23 PM Hospital Course (1) Cerebrovascular accident: MRI brain with acute stroke of right medulla. Stroke mechanism - vessel to vessel embolus. Acute right vertebral artery occlusion felt to be the culprit. Seen by [facility] Neurology, Dr Anna Stockton. Combination of aspirin 81mg + plavix 75mg recommended x 21 days for secondary stroke prevention. At the 21-day moody the aspirin can be STOPPED, and he can continue on the plavix once daily by itself. Continue Atorvastatin 40mg. LDL was 66 on lipid profile. BP control with Losartan, Imdur, Metoprolol. ECHO: no source of thrombus/embolus. In addition to the above Dr. Stockton recommended close follow up with a vascular surgeon for diagnostic angiogram of neck vessels given the acute vertebral artery occlusion on right. He potentially may need intervention of such. See below. Finally, the patient's symptoms improved nicely while here, and it is hoped he makes a good recovery from this stroke. 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 Likely cause of his medullary stroke. f/u vascular surgery post-discharge - Dr Stockton recommended Dr Radha Garcia at [facility], vascular neurology. Continue asa, plavix x 21 days, then plavix monotherapy thereafter. Continue statin. 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 Pacemaker interrogation without paroxysmal atrial fibrillation or ventricular tachycardia. (4) Uncontrolled diabetes mellitus with stage 3 chronic kidney disease: Outpatient management with glimepiride and sitagliptin No insulin as an outpatient Hemoglobin A1c was 8.4% previous outpatient regimen of meds resumed at discharge (5) Hypertension: continue losartan, Imdur, Metoprolol BPs controlled (6) CAD (coronary artery disease): No evidence of ACS while here Imdur, losartan, metoprolol succinate were continued He remains on statin, asa, and plavix as well (7) CKD (chronic kidney disease), stage III: baseline CrCl 40s baseline Cr about 1.4 to 1.6 (8) Hyperlipidemia: LDL 66 on lipid profile this admission Continue Atorvastatin 40mg (9) Paroxysmal atrial fibrillation: No documented PAF in 10+ years. Recent pacer interrogation without a.fib or flutter. Had been on pradaxa up until June 2020 - now discontinued. (10) Hypothyroidism: TSH 1.02 Continue levothyroxine at 150 mcg daily (11) Thrombocytopenia: with mild anemia and macrocytosis platelet count low 100s on CBCs this admission given low-normal vitamin B12 level will supplement such if thrombocytopenia persists despite B12 supplementation I would advise outpatient hematology referral (12) Anemia: macrocytic discharge Hb 11.4 b12 level 363; since it is low-normal I discharged him on 1000mcg of oral B12 daily folate level was normal (13) Pulmonary nodule: 4mm - RUL refer to [facility] Pulmonary nodule program Total Time Total Time Spent Total Time Spent (In Minutes): 45 Total Time Includes: Examination of the Patient, Discharge Planning, Medication Reconciliation and Communication With Other Providers Discharge Plan Discharge Items Patient Disposition: Transfer Inpatient Rehab Fac Reason For Visit: STROKE, RIGHT VERTEBRAL ARTERY OCCLUSION Discharge Diagnosis: 1. right-sided stroke of the medulla 2. right-sided vertebral artery occlusion 3. diabetes 4. high blood pressure 5. mild anemia with mild thrombocytopenia (low platelets) 6. low-normal vitamin B12 level Activity: Resume your previous activity Non-emergency contact: Primary Care Provider and Neurologist Call non-emergency contact if: you have any medication questions and your symptoms worsen Follow-up/Referrals: Taj Montes III, MD [Primary Care Provider] - (see Dr Montes upon discharge from [facility] ) Mikaela Daley PA-C [Physician Shore Worker] - (6-8 weeks) Diet: Carb Consistent or DM2 and Heart Healthy Addtl Attending Provider Instructions: Mr Watt, You were treated for a stroke that caused mildly droopy right eyelid, numbness of the right hand, and unsteadiness on your feet. These symptoms gradually improved while here. Your MRI of the brain showed a stroke in the brainstem on the right side in a structure called the "medulla." We found a blocked/occluded artery on the back of the neck on the right side which is the likely cause of your stroke. This artery is called the "vertebral artery." The [facility] Neurology team saw you in consult and recommended 3 weeks of low- dose aspirin with plavix. At the 21-day moody the aspirin can be stopped, and you can continue on plavix once daily thereafter. Dr Stockton from neurology is recommending you see a vascular specialist by the name of Dr Radha Garcia in [place] to determine if you need anything done for the blocked artery in the back of the neck. Her office address/phone number is in this paperwork. Recommendations - 1. check blood sugars before meals and at bedtime. 2. CBC, BMP in 3-4 days for stability. 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 Follow up in neurology clinic in 6-8 weeks with BENIGNO Ramon. 2. Recommend an outpatient clinic appointment with Dr Radha Garcia at [facility], Vascular Neurology, to discuss treatment options for vertebral artery stenosis. Dr Radha Garcia [facility] [address] [place] [address], [address] [place] [address] 3. Aspirin 81mg daily PLUS Plavix 75mg daily x 21 days, then stop the aspirin, and continue on plavix alone thereafter. Stroke discharge instructions - Risk Factors for Stroke: You can reduce your chances of stroke by working with your medical provider to adopt a healthy lifestyle. Some specific ways to lower your chance of stroke are: * If you are a smoker, now is the time to stop smoking cigarettes * If you are diabetic, improve the control of your blood sugars * Avoid excessive amounts of alcohol * Control high blood pressure * Lose weight if you are overweight * Be sure to lead an active lifestyle * Eat a healthy diet low in salt, cholesterol and fat You should know about other risk factors for stroke that you are unable to control. These include: * Age 55 years or older * Male gender * Certain racial groups: , or / * Family History of Stroke, Mini stroke or Heart Attack * Sickle Cell Disease Who to Call and When: Medical Emergencies: Call 911 immediately if you experience any of the following warning signs and symptoms of Stroke: * Sudden numbness or weakness of the face, arm or leg, especially on one side of the body * Sudden confusion, trouble speaking or understanding * Sudden trouble seeing in one or both eyes * Sudden trouble walking, dizziness, loss of balance or coordination * Sudden severe headache with no cause Do not delay calling 911 if you experience any warning signs or symptoms of a stroke. Delay in seeking medical attention may affect what treatments can be given to you. . Pending Studies at Discharge: No Stand-Alone Forms: [facility] Skilled Items Patient informed of condition?: Yes DNR: No Discharge Level of Care: Acute rehab Communicable Disease: No Discharge Prognosis: Stable Lines: None Urinary Catheter: No Medications and DC Order Prescriptions: New clopidogrel 75 mg Tablet 75 mg PO QAM Qty: 30 RF: 5 cyanocobalamin (vitamin B-12) 500 mcg Tablet 1,000 mcg PO QAM Qty: 60 RF: 5 pantoprazole [Protonix] 40 mg tablet,delayed release (DR/EC) 40 mg PO DAILY Qty: 21 RF: 0 Continued isosorbide mononitrate 60 mg tablet extended release 24 hr 60 mg PO DAILY Qty: 90 RF: 3 aspirin [Adult Aspirin Regimen] 81 mg tablet,delayed release (DR/EC) 81 mg PO DAILY RF: 0 (DME) lancets [OneTouch Delica Lancets] 30 gauge misc See Rx Instructions .ROUTE .MEDSUPPLY Qty: 200 RF: 5 (DME) OneTouch Ultra Blue Test Strip Strip See Rx Instructions .ROUTE .MEDSUPPLY Qty: 100 RF: 5 glimepiride 4 mg tablet 4 mg PO BID Qty: 180 RF: 3 losartan 50 mg tablet 50 mg PO DAILY Qty: 90 RF: 3 Januvia 100 mg tablet 100 mg PO DAILY Qty: 90 RF: 3 levothyroxine 150 mcg tablet 150 mcg PO DAILY Qty: 90 RF: 3 (DME) blood-glucose meter kit See Dose Instructions .ROUTE .MEDSUPPLY Qty: 1 RF: 0 nitroglycerin 0.4 mg tablet, sublingual 0.4 mg SL Q5M PRN (Reason: chest pain) Qty: 1 RF: 0 metoprolol succinate 50 mg Tablet Extended Release 24 Hr 100 mg PO QAM Qty: 60 RF: 0 atorvastatin 40 mg tablet 40 mg PO HS RF: 0 Discharge Orders: Discharge Order (Routine); Ordered 08/09/20 Ordered By: Yao Short/Other Patient Handouts: Managing Type 2 Diabetes, Managing Diabetes: The A1C Test Admission Data Admit Date/Time: 08/03/20 19:42 Attending Provider: Yao Muñiz Admit Provider: Yao Martinez Primary Care Provider: Taj Montes III Other Providers: aYo Martinez ; Anna Stockton ; [employer],[facility] Other Interventions: Discharge Summary Assessment (RN) Last Done: 08/09/20 16:40 Coding Level of Care Code D/C Day Management >30 mins Diagnoses Cerebrovascular accident I63.9 CVA mechanism: unspecified Vertebral artery occlusion I65.01 Laterality: right S/P cardiac pacemaker procedure Z95.0 Uncontrolled diabetes mellitus with stage 3 chronic kidney disease E11.22; E11.65; N18.30 Hypertension I10 Hypertension type: essential hypertension CAD (coronary artery disease) I25.10 Associated angina: without angina Coronary Disease-Associated Artery/Lesion type: [place] artery [place] vs. transplanted heart: [place] heart CKD (chronic kidney disease), stage III N18.32 Chronic kidney disease stage 3 subtype: stage 3b (GFR 30-44) Hyperlipidemia E78.5 Hyperlipidemia type: unspecified Paroxysmal atrial fibrillation I48.0 Hypothyroidism E03.9 Hypothyroidism type: unspecified Thrombocytopenia D69.6 Anemia D64.9 Pulmonary nodule R91.1
--- NOTE | 2020-08-18 14:40 | Coding Query ---
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 Please assist us with the question(s) below: Coding Question(s): There is documentation, only on Progress Note 08/05/20 of, "However, he continues to have episodes where he gets numbness followed by hemiparesis of the right arm and difficulty with his right eye". The Hemiparesis of of the right arm is not documented elsewhere. Please specify below, in your clinical opinion. ( ) Hemiparesis of the Right Arm was treated/monitored. Please specify further below, in your clinical opinion regarding POA: ( ) likely present on admission ( x ) not present on admission ( ) undetermined if POA ( ) Other condition of the Right Arm was treated/monitored: Please Specify . Please specify further below, in your clinical opinion regarding POA: ( ) likely present on admission ( x ) not present on admission ( ) undetermined if POA ( x ) Hemiparesis of the Right Arm was either Ruled-out or Not treated/monitored or not a significant diagnosis RULED out - admitting physician, neurologist, and myself never saw right arm weakness. Physician's Response(s): Thank you Christina Zee Principal Diagnosis: "that condition established after study, to be chiefly responsible for occasioning the admission of the patient to the hospital for care." Co-Existing Principal Diagnosis: "when two or more diagnoses equally meet the criteria for principal diagnosis as determined by the circumstances of admission, diagnostic work up, and/or therapy provided, and the Alphabetic Index, Tabular List, or another coding guideline does not provide sequencing direction, any one of the diagnoses may be sequenced first." "When the physician has documented what appears to be a current diagnosis in the body of the record, but has not included the diagnosis in the final diagnostic statement, the physician should be asked whether the diagnosis should be added." (Source Coding Clinic 2 QTR90. p3-4) [facility]
== END 2020-08-09 17:12 | DRG 66 ==
LOC: ED 14:56 → SUATTDRO 19:42 → 2S 19:42 → 2W 08-07 14:46

== ENCOUNTER 2021-08-05 11:04 | Observation (INO) ==
--- NOTE | 2021-08-05 11:24 | Emergency Department Note ---
History of Present Illness General Chief complaint: Neuro Symptoms/Deficit Stated complaint: L EYE PROBLEM, L SIDE NUMB, BALANCE ISSUES Time Seen by Provider: 08/05/21 11:13 Source: patient and family History of Present Illness 85-year-old male presents with a history of prior CVA currently on Eliquis he states that at 730 this morning he had a slight headache in the right temporal region with mild pain in the right eye as well as tingling in the right fingertips. Patient states approximately 1 year ago this was a similar presentation of when he had a stroke. Patient has been taking aspirin and Eliquis daily. Patient denies any nausea vomiting chest pain shortness of breath. Patient has had increased blood sugar recently and some gait disturbances according to the patient's . Patient states that his symptoms are greatly improving. There are no other complaints at this time Home Medications Medication Instructions Recorded Confirmed Type blood-glucose meter #1 ea 10/22/18 05/15/21 History nitroglycerin 0.4 mg sublingual 0.4 mg SL Q5M PRN #1 tab 01/02/19 05/15/21 History tablet aspirin 81 mg tablet,delayed 81 mg PO DAILY 07/11/20 05/15/21 History release (Adult Aspirin Regimen) cyanocobalamin (vitamin B-12) 500 1,000 mcg PO QAM #60 tab 08/09/20 05/15/21 Rx mcg tablet levothyroxine 150 mcg tablet 150 mcg PO DAILY #90 tab 09/15/20 05/15/21 Rx metoprolol succinate 100 mg 100 mg PO DAILY #90 tab 09/15/20 05/15/21 Rx tablet,extended release 24 hr sitagliptin 50 mg tablet 50 mg PO DAILY #90 tab 09/15/20 05/15/21 Rx tiotropium 2.5 mcg-olodaterol 2.5 2 puff INHALATION DAILY #4 g 10/14/20 05/15/21 Rx mcg/actuation mist for inhalation (Stiolto Respimat) atorvastatin 40 mg tablet 40 mg PO HS #90 tab 10/17/20 05/15/21 Rx glimepiride 4 mg tablet 4 mg PO BID #180 tab 10/17/20 05/15/21 Rx losartan 50 mg tablet 50 mg PO DAILY #90 tab 10/17/20 05/15/21 Rx isosorbide mononitrate 60 mg 60 mg PO DAILY #90 tab 02/21/21 05/15/21 Rx tablet,extended release 24 hr apixaban 5 mg tablet (Eliquis) 5 mg PO BID #180 tab 02/23/21 05/15/21 Rx cholecalciferol (vitamin D3) 50 50 mcg PO DAILY 03/21/21 05/15/21 History mcg (2,000 unit) capsule blood sugar diagnostic #100 ea 05/15/21 05/15/21 Rx lancets 30 gauge (OneTouch Delica #200 ea 05/15/21 05/15/21 Rx Lancets) Allergies Allergy/AdvReac Type Severity Reaction Status Date / Time No Known Allergies Allergy Verified 05/15/21 08:31 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) Anemia Benign prostate hyperplasia CAD (coronary artery disease) Cerebrovascular accident CKD (chronic kidney disease), stage III Diabetes mellitus type 2, uncontrolled Diabetes mellitus with circulatory complication Dyslipidemia Hyperlipidemia Hypertension Hypothyroidism Obesity Paroxysmal atrial fibrillation Prostatitis 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 Surgical History History of colonoscopy (~1992) S/P cataract surgery left - 03/06/17, right - 03/20/17 Family History Father Lung cancer Smoker Brother Smoker Denies family history of Ovarian cancer Prostate cancer Breast cancer Colorectal cancer Social History Smoking Status: Never smoker Tobacco Type: Cigarettes Age Started Using Tobacco: 14; Age Quit Using Tobacco: 50; packs per day: 0.5; Years Smoked: 36; Cigarettes Per Day: 10; Second Hand Exposure: No; Hx Alcohol Use: No Hx Substance Use: No Preferred Language: Hungarian Communication Ability: Effective Manager Finance Required: No Beliefs That Will Affect Care: None marital status: Current Living Situation: Spouse Feels Safe at Home: Yes Assistive Devices: Walker Review of Systems A total of 10 systems reviewed and were otherwise negative Eyes: + problem reported Respiratory: no cough Cardiovascular: no chest pain Neurologic: + gait abnormality, + unsteadiness and + numbness; no syncope Physical Exam Vital Signs Vital Signs - 24 hr 08/05/21 11:08 08/05/21 11:23 08/05/21 11:24 Temperature 36.5 C Temperature Source Temporal Artery Scan Pulse Rate 82 69 Pulse Rate from SpO2 Sensor 68 Pulse Rhythm Regular Pulse Strength Normal Respiratory Rate 20 11 L Respiratory Effort / Characteristics Non-Labored Spontaneous Respiratory Depth Normal Respiratory Pattern Regular Blood Pressure 170/61 H 145/83 H Blood Pressure Mean 97 103 Blood Pressure Position Sitting Pulse Oximetry 97 97 Oxygen Delivery Method Room Air Sepsis Recent Fever Within 48 Hours No Sepsis New/Unexplained Change in Mental Status N/A Sepsis Action Taken by Nursing No Action Required 08/05/21 11:28 08/05/21 11:30 08/05/21 12:00 Temperature Temperature Source Pulse Rate 68 67 Pulse Rate from SpO2 Sensor 68 68 Pulse Rhythm Pulse Strength Respiratory Rate 17 15 Respiratory Effort / Characteristics Respiratory Depth Respiratory Pattern Blood Pressure 130/75 113/68 Blood Pressure Mean 93 83 Blood Pressure Position Pulse Oximetry 97 96 97 Oxygen Delivery Method Room Air Sepsis Recent Fever Within 48 Hours Sepsis New/Unexplained Change in Mental Status Sepsis Action Taken by Nursing 08/05/21 12:30 Temperature Temperature Source Pulse Rate 64 Pulse Rate from SpO2 Sensor 64 Pulse Rhythm Pulse Strength Respiratory Rate 9 L Respiratory Effort / Characteristics Respiratory Depth Respiratory Pattern Blood Pressure 103/64 Blood Pressure Mean 77 Blood Pressure Position Pulse Oximetry 96 Oxygen Delivery Method Sepsis Recent Fever Within 48 Hours Sepsis New/Unexplained Change in Mental Status Sepsis Action Taken by Nursing VITAL SIGNS - Vital signs and nursing notes were reviewed. GENERAL -85-year-old male appearing his stated age who is in no acute distress. Communicates well with provider and answers questions appropriately. SKIN - Without rashes. HEAD - NC/AT. Nontender along the right temporal region EYES - PERRL with EOMI bilaterally. Sclera anicteric. Palpebral conjunctiva pink and moist with no injection noted. EARS - No deformities of external structures noted on gross examination bilaterally. No pain elicited with palpation of the tragus bilaterally. NOSE - Midline and without cyanosis. No epistaxis or purulent drainage noted. Septum midline without deviation or septal hematoma noted. MOUTH/OROPHARYNX - Without perioral cyanosis. Buccal mucosa pink and moist and without leukoplakia. Tongue midline with equal elevation of palate bilaterally. No tonsillar hypertrophy, erythema, or exudates noted. Normal dentition noted. NECK - Neck with FROM. Supple to palpation. No lymphadenopathy noted. No nuchal rigidity. LUNGS - Chest wall symmetric without accessory muscle use, intercostals retractions, or central cyanosis. Normal vesicular breath sounds CTA B/L. No wheezes, rales, or rhonchi appreciated. CARDIAC - RRR with S1/S2. No murmur, rubs, or gallops appreciated. ABDOMEN - Abdominal contour soft without pulsations or visible masses. BS normoactive all four quadrants. No tenderness, palpable masses, hepatosplenomegaly, or ascites noted. EXTREMITIES - No clubbing or peripheral cyanosis. No pretibial edema present. +3/5 radial, posterior tibial, and dorsalis pedis pulses palpated throughout. +5/5 strength noted in UE/LE bilaterally. NEUROLOGIC - Cranial nerves II through XII grossly intact. Sensory intact to light touch throughout. Patellar reflexes +2/4. PSYCH - A&Ox3 and cooperates fully with examiner. Pt is very pleasant and interacts well with examiner. Course Reevaluation(s) Reevaluation #1: Patient resting in no distress at 12:35 PM, NIH is 0, [facility] Medical Decision Making Medical Records Attestation: I reviewed the patient's medical records. Home Medications Current Medication List: was personally reviewed by me Laboratory Data Attestation: I reviewed the patient's lab results. Result diagrams: 08/05/21 11:20 08/05/21 11:20 Lab Results 08/05/21 08/05/21 08/05/21 Range/Units 11:18 11:20 11:20 WBC 8.80 (4.8-10.8) K/uL RBC 3.97 L (4.7-6.1) M/uL Hgb 13.3 L (14.0-18.0) g/dL Hct 39.8 L (42-52) % MCV 100.3 H (80-100) fL MCH 33.5 (25-34) pg MCHC 33.4 (32-36) g/dL RDW Std Deviation 47.3 H (36.4-46.3) fL RDW Coeff of Jose 13.0 (11.5-14.5) % Plt Count 130 (130-400) K/uL MPV 13.4 H (7.4-10.4) fL Immature Gran % (Auto) 0.1 % Neut % (Auto) 77.0 % Lymph % (Auto) 15.2 % [place] % (Auto) 7.0 % Eos % (Auto) 0.6 % Baso % (Auto) 0.1 % Neut # (Auto) 6.77 H (1.4-6.5) K/uL Lymph # (Auto) 1.34 (1.2-3.4) K/uL [place] # (Auto) 0.62 H (0.11-0.59) K/uL Eos # (Auto) 0.05 (0-0.5) K/uL Baso # (Auto) 0.01 (0-0.2) K/uL Immature Gran # (Auto) 0.01 (0.00-0.02) K/uL Platelet Estimate Decreased L (Normal) ESR (0-20) mm/hr PT 11.5 (9.0-12.0) Seconds INR 1.1 (0.9-1.1) APTT 26.0 (21.0-31.0) Seconds PTT Ratio 0.9 Sodium (136-145) mmol/L Potassium (3.5-5.1) mmol/L Chloride (98-107) mmol/L Carbon Dioxide (21-32) mmol/L Anion Gap (3-11) BUN (6-23) mg/dl Creatinine (0.6-1.4) mg/dl Est Cr Clr Drug Dosing ml/min Est GFR ( Amer) ml/min Est GFR (Non-Af Amer) ml/min BUN/Creatinine Ratio (10-20) Glucose (70-99(Fasting)) mg/dl POC Glucose 245 H (70-99) mg/dl Calcium (8.5-10.1) mg/dl Magnesium (1.7-2.4) mg/dl Total Bilirubin (0.2-1.0) mg/dl AST (13-39) U/L ALT (7-52) U/L Alkaline Phosphatase (34-104) U/L Troponin I High Sens (0-20) pg/ml Total Protein (6.0-8.3) gm/dl Albumin (3.4-5.0) gm/dl Globulin (2.5-4.0) gm/dl Albumin/Globulin Ratio (0.9-2) SARS-CoV-2, RNA, NAAT (NEGATIVE) 08/05/21 08/05/21 08/05/21 Range/Units 11:20 11:20 12:35 WBC (4.8-10.8) K/uL RBC (4.7-6.1) M/uL Hgb (14.0-18.0) g/dL Hct (42-52) % MCV (80-100) fL MCH (25-34) pg MCHC (32-36) g/dL RDW Std Deviation (36.4-46.3) fL RDW Coeff of Jose (11.5-14.5) % Plt Count (130-400) K/uL MPV (7.4-10.4) fL Immature Gran % (Auto) % Neut % (Auto) % Lymph % (Auto) % [place] % (Auto) % Eos % (Auto) % Baso % (Auto) % Neut # (Auto) (1.4-6.5) K/uL Lymph # (Auto) (1.2-3.4) K/uL [place] # (Auto) (0.11-0.59) K/uL Eos # (Auto) (0-0.5) K/uL Baso # (Auto) (0-0.2) K/uL Immature Gran # (Auto) (0.00-0.02) K/uL Platelet Estimate (Normal) ESR 25 H (0-20) mm/hr PT (9.0-12.0) Seconds INR (0.9-1.1) APTT (21.0-31.0) Seconds PTT Ratio Sodium 138 (136-145) mmol/L Potassium 4.6 (3.5-5.1) mmol/L Chloride 105 (98-107) mmol/L Carbon Dioxide 26 (21-32) mmol/L Anion Gap 7 (3-11) BUN 38 H (6-23) mg/dl Creatinine 1.48 H (0.6-1.4) mg/dl Est Cr Clr Drug Dosing 42.7 ml/min Est GFR ( Amer) 50.0 ml/min Est GFR (Non-Af Amer) 43.1 ml/min BUN/Creatinine Ratio 25.7 H (10-20) Glucose 199 H (70-99(Fasting)) mg/dl POC Glucose (70-99) mg/dl Calcium 9.7 (8.5-10.1) mg/dl Magnesium 1.9 (1.7-2.4) mg/dl Total Bilirubin 0.5 (0.2-1.0) mg/dl AST 14 (13-39) U/L ALT 15 (7-52) U/L Alkaline Phosphatase 81 (34-104) U/L Troponin I High Sens 13.8 (0-20) pg/ml Total Protein 7.6 (6.0-8.3) gm/dl Albumin 4.4 (3.4-5.0) gm/dl Globulin 3.2 (2.5-4.0) gm/dl Albumin/Globulin Ratio 1.4 (0.9-2) SARS-CoV-2, RNA, NAAT NEGATIVE (NEGATIVE) Imaging Data Radiologist's Impression: Head CT 08/05/21 11:19 CT head/brain wo con CLINICAL HISTORY: Stroke Like Symptoms . Difficulty with balance. Numbness in the hands. COMPARISON STUDY: 08/03/2020 CT DOSE: 614.27 mGy.cm TECHNIQUE: Standard CT of the Brain was performed without IV contrast. A dose lowering technique was utilized adhering to the principles of ALARA. FINDINGS: Extraaxial space: There is no evidence for subdural hematoma. There are no extra-axial fluid collections. Ventricles and cisterns: The ventricles are mildly dilated bilaterally. There is no evidence for midline shift or mass effect. Parenchyma: There is no subarachnoid or intraparenchymal hemorrhage. There is no evidence for an acute infarct or cerebral edema. Acute or infarct is again seen within the basal ganglia on the left. There is mild cerebral cortical atrophy and decreased attenuation in the periventricular white matter representing remote small vessel disease. There are no gross mass lesions. Osseous structures: There is no evidence for an acute fracture. There is again a large mucosal polyp versus an inclusion cyst involving the floor the left maxillary antrum. The remaining visualized paranasal sinuses are clear. The mastoid air cells are clear bilaterally. Soft tissues: There is no evidence for focal soft tissue swelling. IMPRESSION: 1. No acute intracerebral pathology. 2. 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 3. Chronic left maxillary sinusitis is again noted. ACT 112: Negative or not required by law. Electronically signed by: Behzad Omalley M.D. 08/05/2021 11:58 AM MDM Narrative Patient medical decision making differential diagnosis includes CVA, TIA, temporal arteritis, metabolic derangement, and hyperglycemia. Plan is to check labs, CT, EKG Impression & Plan TIA (transient ischemic attack), Acute hyperglycemia Discharge Plan Visit Data Patient Disposition: Being Evaluated by Hospitalist Forms Stand Alone Forms: [facility] Prescriptions Prescriptions: No Action sitagliptin 50 mg tablet 50 mg PO DAILY Qty: 90 RF: 3 metoprolol succinate 100 mg tablet extended release 24 hr 100 mg PO DAILY Qty: 90 RF: 3 levothyroxine 150 mcg tablet 150 mcg PO DAILY Qty: 90 RF: 3 atorvastatin 40 mg tablet 40 mg PO HS Qty: 90 RF: 3 glimepiride 4 mg tablet 4 mg PO BID Qty: 180 RF: 3 losartan 50 mg tablet 50 mg PO DAILY Qty: 90 RF: 3 isosorbide mononitrate 60 mg tablet extended release 24 hr 60 mg PO DAILY Qty: 90 RF: 3 Eliquis 5 mg tablet 5 mg PO BID Qty: 180 RF: 3 cholecalciferol (vitamin D3) 50 mcg (2,000 unit) capsule 50 mcg PO DAILY RF: 0 aspirin [Adult Aspirin Regimen] 81 mg tablet,delayed release (DR/EC) 81 mg PO DAILY RF: 0 (DME) lancets [OneTouch Delica Lancets] 30 gauge misc See Rx Instructions .ROUTE .MEDSUPPLY Qty: 200 RF: 5 (DME) OneTouch Ultra Blue Test Strip Strip See Rx Instructions .ROUTE .MEDSUPPLY Qty: 100 RF: 5 (DME) blood-glucose meter kit See Dose Instructions .ROUTE .MEDSUPPLY Qty: 1 RF: 0 nitroglycerin 0.4 mg tablet, sublingual 0.4 mg SL Q5M PRN (Reason: chest pain) Qty: 1 RF: 0 tiotropium-olodaterol [Stiolto Respimat] 2.5-2.5 mcg/actuation mist RF: 0 Stiolto Respimat 2.5-2.5 mcg/actuation mist 2 puff inhalation DAILY Qty: 4 RF: 3 cyanocobalamin (vitamin B-12) 500 mcg Tablet 1,000 mcg PO QAM Qty: 60 RF: 5 Referrals Referrals: Savanna Lizama CRNP [Primary Care Provider] -
[2021-08-05 11:47] LABS: INR 1.1 (0.9-1.1); Partial Thromboplastin Ratio 0.9; Prothrombin Time 11.5 Seconds (9.0-12.0)
[2021-08-05 12:01] LABS: Troponin I High Sensitivity 13.8 pg/ml (0-20)
--- NOTE | 2021-08-05 12:01 | CT Scan Report ---
CT head/brain wo con CLINICAL HISTORY: Stroke Like Symptoms . Difficulty with balance. Numbness in the hands. COMPARISON STUDY: 08/03/2020 CT DOSE: 614.27 mGy.cm TECHNIQUE: Standard CT of the Brain was performed without IV contrast. A dose lowering technique was utilized adhering to the principles of ALARA. FINDINGS: Extraaxial space: There is no evidence for subdural hematoma. There are no extra-axial fluid collecti ons. Ventricles and cisterns: The ventricles are mildly dilated bilaterally. There is no evidence for midl ine shift or mass effect. Parenchyma: There is no subarachnoid or intraparenchymal hemorrhage. There is no evidence for an acut e infarct or cerebral edema. Acute or infarct is again seen within the basal ganglia on the left. The re is mild cerebral cortical atrophy and decreased attenuation in the periventricular white matter re presenting remote small vessel disease. There are no gross mass lesions. Osseous structures: There is no evidence for an acute fracture. There is again a large mucosal polyp versus an inclusion cyst involving the floor the left maxillary antrum. The remaining visualized para nasal sinuses are clear. The mastoid air cells are clear bilaterally. Soft tissues: There is no evidence for focal soft tissue swelling. IMPRESSION: 1. No acute intracerebral pathology. 2. 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 3. Chronic left maxillary sinusitis is again noted. ACT 112: Negative or not required by law. Electronically signed by: Behzad Omalley M.D. 08/05/2021 11:58 AM
[2021-08-05 12:02] LABS: Basophils # (auto) 0.01 K/uL (0-0.2); Basophils % (auto) 0.1 %; Eosinophils # (auto) 0.05 K/uL (0-0.5); Eosinophils % (auto) 0.6 %; Hematocrit (blood only) 39.8 % (42-52); Hemoglobin 13.3 g/dL (14.0-18.0); Immature Granulocytes # (auto) 0.01 K/uL (0.00-0.02); Immature Granulocytes % (auto) 0.1 %; Lymphocytes # (auto) 1.34 K/uL (1.2-3.4); Lymphocytes % (auto) 15.2 %; Mean Corpuscular Hemoglobin 33.5 pg (25-34); Mean Corpuscular Hgb Conc 33.4 g/dL (32-36); Mean Corpuscular Volume 100.3 fL (80-100); Mean Platelet Volume 13.4 fL (7.4-10.4); Monocytes # (auto) 0.62 K/uL (0.11-0.59); Neutrophils # (auto) 6.77 K/uL (1.4-6.5); Platelet Count 130 K/uL (130-400); Platelet Estimate Decreased (Normal); RDW Standard Deviation 47.3 fL (36.4-46.3); Red Blood Count 3.97 M/uL (4.7-6.1)
[2021-08-05 12:17] LABS: Albumin Globulin Ratio 1.4 (0.9-2); Albumin Level 4.4 gm/dl (3.4-5.0); BUN Creatinine Ratio 25.7 (10-20); Bilirubin,Total 0.5 mg/dl (0.2-1.0); Calcium 9.7 mg/dl (8.5-10.1); Creatinine Clr Calc Pharmacy 42.7 ml/min; Est GFR (Non-African American) 43.1 ml/min; Globulin 3.2 gm/dl (2.5-4.0); Magnesium 1.9 mg/dl (1.7-2.4); Potassium 4.6 mmol/L (3.5-5.1); Total Protein 7.6 gm/dl (6.0-8.3)
--- NOTE | 2021-08-05 13:10 | History & Physical Report ---
Date of Service August 05, 2021 Assessment & Plan (1) TIA (transient ischemic attack): Plan: -Right temporal headache with right fingertip numbness and slight balance disturbance. Resolved within 30 minutes, symptoms absent on exam in ED. -CT without evidence of acute infarction/hemorrhage/mass. 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 -Echo, carotid dopplers, MRI, lipid panel, A1c ordered. -On telemetry. (2) Diabetes mellitus type 2, uncontrolled: Plan: -HbA1c of 7.1% in April 2021. Will recheck in AM. -On sitagliptin and glimepiride at home, will hold during admission. -Checks sugars daily at home, only in AM before breakfast. Log from home shows they run 110-180, however today it is 199 on BMP, POC glucose is 245. Discussed with patient his sugar may be elevated at other times during the day or perhaps is home monitor is not giving accurate results. -BGM achs with SSI. -CC diet. (3) CKD (chronic kidney disease), stage III: Plan: -BUN 38, Cr 1.48, about baseline. -Renally dose all medications, avoid nephrotoxic agents. -Repeat BMP in AM. (4) Anemia: Plan: -Chronic, H/H acceptable and stable today. -Daily B12 supplement. B12 level n April. (5) CAD (coronary artery disease): Plan: -Follows with Dr. Valenzuela. -Continue metoprolol, losartan, isosorbide. Nitroglycerin prn. (6) Paroxysmal atrial fibrillation: Plan: -S/p pacemaker placement due to second-degree heart block. -Continue metoprolol. (7) Hypertension: Plan: -Continue metoprolol, losartan. (8) Hyperlipidemia: Plan: -Continue atorvastatin 40 gm daily. -Lipid panel in AM. (9) COPD with emphysema: Plan: -Continue home inhalers/ (10) Hypothyroidism: Plan: -Continue levothyroxine 150 mcg daily. (11) Benign prostate hyperplasia: Plan: -No current medications for this. (12) History of CVA (cerebrovascular accident): Plan: -In July 2020, evaluated here. Near full recovery since then, slightly decreased sensation in left -Continue Eliquis and aspirin. Plan: -Admit to med telemetry. -SCDs, Eliquis plus ASA for DVT ppx. -Full code. History of Present Illness Chief Complaint: right sided headache, finger numbness Primary Care Provider: NITHIN Tsai Mr. Watt is an 85-year-old male with past medical history of CVA in 2020 on Eliquis and ASA, CAD, HTN, HLD, pacemaker present, CKD3, DM2, and hypothyroidism who presents today with right-sided head pain and right finger numbness that started around 7:30 this morning. It was overlying his R shinto, sharp in quality with ? neck pain, "this morning my neck felt just a little different, and cracks every one and a while when I'm moving around", however no radiation to left side/eyes/ears/jaw. Associated with some general balance issues, and numbness and tingling in the tips of his R distal first four fingers. He does not report blurry vision this morning, but has had some intermittent blurry vision in the last month. Symptoms resolved within 30 minutes of onset, however patient's previous stroke in 2020 presented similarly so he came to ED for furth er evaluation. 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 A year ago the headache really hurt and went into my eye and ear and this was nothing close to that.' Also notes with his stroke his symptom were in his left hand predominantly, although headache was righ sided. Also endorses chronic memory dullness, but without acute confusion today Speech remains at baseline for him. Prior to this, he has been in his regular state of health with the exception of some mild nausea over the past day or two. No fever/chills, falls, focal weakness, swallowing difficulty, speech difficulty, chest pain/pressure, palpitations, abdominal pain, vomiting. In ED, Vital signs within normal limits, stable. Labs significant for non- fasting glucose on BMP 199, POC glucose 245. BUN 38, creatinine 1.48 which appears to be baseline. ESR 25. All other labs within normal limits. CT of head did not show acute intracerebral pathology. 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 Allergies Allergy/AdvReac Type Severity Reaction Status Date / Time No Known Allergies Allergy Verified 08/05/21 14:26 Home Medications Medication Instructions Recorded Confirmed Type blood-glucose meter #1 ea 10/22/18 05/15/21 History nitroglycerin 0.4 mg sublingual 0.4 mg SL Q5M PRN #1 tab 01/02/19 05/15/21 History tablet aspirin 81 mg tablet,delayed 81 mg PO DAILY 07/11/20 05/15/21 History release (Adult Aspirin Regimen) cyanocobalamin (vitamin B-12) 500 1,000 mcg PO QAM #60 tab 08/09/20 05/15/21 Rx mcg tablet sitagliptin 50 mg tablet 50 mg PO DAILY #90 tab 09/15/20 05/15/21 Rx atorvastatin 40 mg tablet 40 mg PO HS #90 tab 10/17/20 05/15/21 Rx glimepiride 4 mg tablet 4 mg PO BID #180 tab 10/17/20 05/15/21 Rx losartan 50 mg tablet 50 mg PO DAILY #90 tab 10/17/20 05/15/21 Rx apixaban 5 mg tablet (Eliquis) 5 mg PO BID #180 tab 02/23/21 05/15/21 Rx cholecalciferol (vitamin D3) 50 50 mcg PO DAILY 03/21/21 05/15/21 History mcg (2,000 unit) capsule blood sugar diagnostic #100 ea 05/15/21 05/15/21 Rx lancets 30 gauge (OneTouch Delica #200 ea 05/15/21 05/15/21 Rx Lancets) acetaminophen 325 mg tablet 650 mg PO Q4H PRN 08/05/21 08/05/21 History isosorbide mononitrate 60 mg 30 mg PO DAILY 08/05/21 08/05/21 History tablet,extended release 24 hr levothyroxine 150 mcg tablet 150 mcg PO DAILYBB 08/05/21 08/05/21 History metoprolol succinate 100 mg 100 mg PO DAILY 08/05/21 08/05/21 History tablet,extended release 24 hr multivitamin with minerals 1 tab PO DAILY 08/05/21 08/05/21 History (Multiple Vitamin-Minerals) Past Med/Surg History Medical History (Updated 08/05/21 @ 14:40 by Jyoti Bland PA-C) 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) Anemia Benign prostate hyperplasia CAD (coronary artery disease) Cerebrovascular accident CKD (chronic kidney disease), stage III Diabetes mellitus type 2, uncontrolled Diabetes mellitus with circulatory complication Dyslipidemia Hyperlipidemia Hypertension Hypothyroidism Obesity Paroxysmal atrial fibrillation Prostatitis 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 Surgical History History of colonoscopy (~1992) S/P cataract surgery left - 03/06/17, right - 03/20/17 Family History Father Lung cancer Smoker Brother Smoker Denies family history of Ovarian cancer Prostate cancer Breast cancer Colorectal cancer Social History Smoking Status: Former smoker Tobacco Type: Cigarettes Age Started Using Tobacco: 14; Age Quit Using Tobacco: 50; packs per day: 0.5; Years Smoked: 36; Cigarettes Per Day: 10; Smoking End Date: 1986; Second Hand Exposure: No; Do You Dip or Chew Tobacco: No; Hx Alcohol Use: No Hx Substance Use: No Preferred Language: Turkish Communication Ability: Effective Cotton Inspector Required: No Beliefs That Will Affect Care: None marital status: Current Living Situation: Spouse Other Information That Helps Us Care for You: No Feels Safe at Home: Yes Assistive Devices: Hearing Aid - Right and Walker Review of Systems Review of Systems: Constitutional: No fever/chills, weakness, fatigue, myalgias, anorexia, night sweats Eyes: Intermittent blurred vision with past several months, no acute issue today. No diplopia. ENT: No tinnitus, normal hearing, no trouble swallowing Respiratory: No cough, sputum, dyspnea at rest or on exertion Cardiovascular: No chest pain, tightness or palpitations Abdomen: Mild nausea x1-2 days; no vomiting, diarrhea or constipation : Denies dysuria, hematuria, increased urgency/frequency, urinary retention Musculoskeletal: No joint pain, calf pain, swelling Neurologic: Right-sided temporal headache, stabbing in nature this morning w/ right distal fourth digit numbness, generalized sense of being off balance; no focal or general weakness Psychiatric: No anxiety or depression Skin: No rash or itch Physical Exam Physical Exam: General: awake, alert, no apparent distress Head: Normocephalic, atraumatic ENT: PERRL, EOMI, no pharyngeal exudate, mucous membranes moist Chest: Clear to auscultation, on room air, no adventitious breath sounds Cardiac: Regular rate and rhythm, no murmur, no JVD, normal peripheral pulses, good capillary refill Abdominal: NABS x 4 quadrants, soft, nontender to palpation, no rebound, gu arding or tenderness Extremities: Normal inspection, no peripheral edema or erythema, calfs nontender to palpation Psych: Normal mood and affect Neuro: AAO x 3, strength intact bilaterally and rated 5/5, no motor deficits, speech is clear, no peripheral sensory deficits Skin: no rash or erythema Results & Data Results & Data ([facility]) Vital Signs (Past 12 Hours) Vital Signs Temp Pulse Resp BP Pulse Ox 08/05/21 12:30 64 9 L 103/64 96 08/05/21 12:00 67 15 113/68 97 08/05/21 11:30 68 17 130/75 96 08/05/21 11:28 97 08/05/21 11:24 69 11 L 97 08/05/21 11:23 145/83 H 08/05/21 11:08 36.5 C 82 20 170/61 H 97 Laboratory Results Abnormal lab results 08/05/21 08/05/21 08/05/21 Range/Units 11:18 11:20 11:20 RBC 3.97 L (4.7-6.1) M/uL Hgb 13.3 L (14.0-18.0) g/dL Hct 39.8 L (42-52) % MCV 100.3 H (80-100) fL RDW Std Deviation 47.3 H (36.4-46.3) fL MPV 13.4 H (7.4-10.4) fL Neut # (Auto) 6.77 H (1.4-6.5) K/uL [place] # (Auto) 0.62 H (0.11-0.59) K/uL Platelet Estimate Decreased L (Normal) ESR (0-20) mm/hr BUN 38 H (6-23) mg/dl Creatinine 1.48 H (0.6-1.4) mg/dl BUN/Creatinine Ratio 25.7 H (10-20) Glucose 199 H (70-99(Fasting)) mg/dl POC Glucose 245 H (70-99) mg/dl 08/05/21 Range/Units 11:20 RBC (4.7-6.1) M/uL Hgb (14.0-18.0) g/dL Hct (42-52) % MCV (80-100) fL RDW Std Deviation (36.4-46.3) fL MPV (7.4-10.4) fL Neut # (Auto) (1.4-6.5) K/uL [place] # (Auto) (0.11-0.59) K/uL Platelet Estimate (Normal) ESR 25 H (0-20) mm/hr BUN (6-23) mg/dl Creatinine (0.6-1.4) mg/dl BUN/Creatinine Ratio (10-20) Glucose (70-99(Fasting)) mg/dl POC Glucose (70-99) mg/dl Diagnostic Findings Head CT 08/05/21 11:19 CT head/brain wo con CLINICAL HISTORY: Stroke Like Symptoms . Difficulty with balance. Numbness in the hands. COMPARISON STUDY: 08/03/2020 CT DOSE: 614.27 mGy.cm TECHNIQUE: Standard CT of the Brain was performed without IV contrast. A dose lowering technique was utilized adhering to the principles of ALARA. FINDINGS: Extraaxial space: There is no evidence for subdural hematoma. There are no extra-axial fluid collections. Ventricles and cisterns: The ventricles are mildly dilated bilaterally. There is no evidence for midline shift or mass effect. Parenchyma: There is no subarachnoid or intraparenchymal hemorrhage. There is no evidence for an acute infarct or cerebral edema. Acute or infarct is again seen within the basal ganglia on the left. There is mild cerebral cortical atrophy and decreased attenuation in the periventricular white matter representing remote small vessel disease. There are no gross mass lesions. Osseous structures: There is no evidence for an acute fracture. There is again a large mucosal polyp versus an inclusion cyst involving the floor the left maxillary antrum. The remaining visualized paranasal sinuses are clear. The mastoid air cells are clear bilaterally. Soft tissues: There is no evidence for focal soft tissue swelling. IMPRESSION: 1. No acute intracerebral pathology. 2. 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 3. Chronic left maxillary sinusitis is again noted. ACT 112: Negative or not required by law. Electronically signed by: Behzad Omalley M.D. 08/05/2021 11:58 AM ECG Additional Comments: Atrial-sensed ventricular-paced rhythm with prolonged AV conduction Abnormal ECG When compared with ECG of 03-AUG-2021 12:26, No significant change was found. No ST segment or T wave changes. NSR. Code Status & VTE Plan Code Status Full code. VTE Prophylaxis Plan VTE Prophylaxis will be ordered: Yes Supervising Physician Co-Signing Physician Notes Patient seen and examined, chart reviewed, case discussed with Jyoti Bland PA-C and I agree with the assessment and plan as above except as otherwise noted. Patient is 85-year-old male with a history of CAD, DM, hypertension, A. fib, former tobacco use, COPD with emphysema, CKD stage III, hypothyroidism, hyperlipidemia, and pacemaker placement who presented with a headache, right eye pain, and right fingertip tingling which was similar to what he had experienced with a stroke 1 year ago. At that time he had a right ischemic medullary stroke confirmed on MRI, was treated with dual antiplatelet therapy followed by Plavix alone in addition to continuing his statin, losartan, metoprolol, and isosorbide. On follow-up he was switched from clopidogrel to Eliquis and aspirin was readded. He is anticoagulated with a DOAC and is on aspirin low- dose daily. At time of provider assessment symptoms have greatly improved and nearly completely resolved. No indication for TPA. No leukocytosis, hemoglobin 13.3, potassium and sodium are normal, creatinine 1.48 near normal baseline with creatinine clearance of 42, BSG 99. Patient has had reportedly some labile blood sugars, and was previously [address] check[address] Head [address] without acute findings. TSH 08/03 was normal. He was seen 08/03 in the ER for hyperglycemia without DKA. Home diabetes regimen include sitagliptin 50 mg daily, glimepiride 4 mg p.o. twice daily. Patient is on max dose of glimepiride, sitagliptin could be increased to 100 mg daily. Last A1c was 7.1 05/13 with this regimen. Patient does note that he has never been on Metformin, and has never been on a diabetes medicine the cause diarrhea. He has had some intermittent blurry vision with blood sugar fluctuations, and thinks his home glucometer may not be working correctly. Discussed that he should replace this or have it validated against an outpatient check with his PCP. Given high BSG here, symptoms, and stroke risk can consider using 500 mg extended release once to twice daily of Metformin XL although his EGFR is borderline cut off of around 45. No history on record review of EGFR less than 30. Will follow with TIA order set, no TPA, repeat imaging in the morning, and manage with basal bolus insulin for optimal control overnight. At time of bedside assessment patient is neurovascularly intact, no numbness or tingling in his hands or feet bilaterally, and has 5/5 strength in upper and lower extremities. Visual acuity and hearing are intact at visit. Does have some right medial canthus eversion with irritation, this is been present since he had his cataracts replaced. No dacryocystitis. No purulence/discharge and no stye is appreciated. May use methylcellulose drops for irritation Labs and images reviewed PG Care Time/CCT Total # of Minutes Spent Total Time Spent with Patient: Total time spent is greater than 50% in coordination of care (as documented) at patient's floor/unit and/or counseling patient: Coding Level of Care Code 10639 Initial Inpt Care Lvl 3 Diagnoses TIA (transient ischemic attack) G45.9 Anemia D64.9 Benign prostate hyperplasia N40.0 CAD (coronary artery disease) I25.10 Coronary Disease-Associated Artery/Lesion type: [place] artery [place] vs. transplanted heart: kashia heart Associated angina: without angina Diabetes mellitus type 2, uncontrolled E11.65 Glycemic state: with hyperglycemia Paroxysmal atrial fibrillation I48.0 Hypertension I10 Hypertension type: essential hypertension COPD with emphysema J43.9 Hyperlipidemia E78.5 Hyperlipidemia type: unspecified CKD (chronic kidney disease), stage III N18.32 Chronic kidney disease stage 3 subtype: stage 3b (GFR 30-44) Hypothyroidism E03.9 Hypothyroidism type: unspecified History of CVA (cerebrovascular accident) Z86.73 (1) CAD (coronary artery disease) Coronary Disease-Associated Artery/Lesion type: [place] artery [place] vs. transplanted heart: k[place]ia heart Associated angina: without angina Qualified Code(s): I25.10 - Atherosclerotic heart disease of [place] coronary artery without angina pectoris (2) Diabetes mellitus type 2, uncontrolled Glycemic state: with hyperglycemia Qualified Code(s): E11.65 - Type 2 diabetes mellitus with hyperglycemia (3) Hypertension Hypertension type: essential hypertension Qualified Code(s): I10 - Essential (primary) hypertension (4) Hyperlipidemia Hyperlipidemia type: unspecified Qualified Code(s): E78.5 - Hyperlipidemia, unspecified (5) CKD (chronic kidney disease), stage III Chronic kidney disease stage 3 subtype: stage 3b (GFR 30-44) Qualified Code(s): N18.32 - Chronic kidney disease, stage 3b (6) Hypothyroidism Hypothyroidism type: unspecified Qualified Code(s): E03.9 - Hypothyroidism, unspecified
--- NOTE | 2021-08-05 13:29 | Emergency Department Note ---
ED Visit Note EKG interpreted by me paced rhythm and underlying atrial rhythm rate is 68 first-degree AV block no obvious ST segment elevation or depression normal axis .
[2021-08-05] MEDS ORDERED: GLUCOSE 10 TABS/TUBE PO PRN (14:27)
[2021-08-05] MEDS ORDERED: GLUCOSE 40% GEL 15 GM TUBE PO PRN (14:27)
[2021-08-05] MEDS ORDERED: GLUCAGON FOR INJ 1 MG VIAL SQ PRN (14:27)
[2021-08-05] MEDS ORDERED: POLYETHYLENE (MIRALAX) 17 GM PACK PO PRN (14:27)
[2021-08-05] MEDS ORDERED: ONDANSETRON INJ 2 MG/ML 2 ML VIAL IV PRN (14:27)
[2021-08-05] MEDS ORDERED: NITROGLYCERIN SL 0.4 MG/TAB TAB SL PRN (14:27)
[2021-08-05] MEDS ORDERED: CARBOHYDRATES FOR HYPOGLYCEMIA PO PRN (14:27)
[2021-08-05] MEDS ORDERED: DEXTROSE 50% 50 ML SYRINGE IV PRN (14:27)
[2021-08-05] MEDS ORDERED: ACETAMINOPHEN 325 MG TAB PO PRN (14:27)
--- NOTE | 2021-08-05 16:26 | XCELERA ---
[id number]
--- NOTE | 2021-08-05 16:40 | Ultrasound Report ---
US carotid doppler BI CLINICAL HISTORY: TIA/CVA. COMPARISON: None. TECHNIQUE: Gallardo scale, Doppler spectral analysis, and color imaging was performed. Stenosis assessmen t by velocity criteria. FINDINGS: Right CCA velocity (cm/s): 60 Right ICA velocity (cm/s): 44 Right ICA/CCA ratio: 0.8 Right vertebral arterial flow: Antegrade. Right findings: There is prominent atherosclerotic plaque present at the origin of the right interna l carotid artery with approximately 50% stenosis present. Left CCA velocity (cm/s): 74 Left ICA velocity (cm/s): 63 Left ICA/CCA ratio: 0.8 Left vertebral arterial flow: Antegrade. Left findings: There is also atherosclerotic plaque present at the origin of the left internal carot id artery with less than 50% stenosis. IMPRESSION: 1. Approximately 50% stenosis at the origin of the right internal carotid artery due to large calcifi ed atherosclerotic plaque. 2. However, no hemodynamically significant stenosis is present. ACT 112: Negative or not required by law. Electronically signed by: Behzad Omalley M.D. 08/05/2021 4:38 PM
[2021-08-05] MEDS: INSULIN ASPART PER UNIT SC SCH ×2 (17:26→20:13)
[2021-08-05] MEDS: APIXABAN 5 MG TABLET PO SCH (20:13)
[2021-08-05] MEDS ORDERED: ATORVASTATIN 40 MG TAB PO SCH (21:00)
[2021-08-06] MEDS ORDERED: LEVOTHYROXINE SODIUM 150 MCG TABLET PO SCH (06:30)
[2021-08-06 07:08] LABS: INR 1.1 (0.9-1.1); Prothrombin Time 11.4 Seconds (9.0-12.0)
[2021-08-06 07:21] LABS: BUN Creatinine Ratio 24.5 (10-20); Calcium 9.4 mg/dl (8.5-10.1); Chol HDL Ratio 3.3 (0-5); Creatinine Clr Calc Pharmacy 44.3 ml/min; Est GFR (African American) 53.9 ml/min; Est GFR (Non-African American) 46.5 ml/min; Potassium 4.3 mmol/L (3.5-5.1)
--- NOTE | 2021-08-06 07:28 | Electrocardiogram Report ---
Test Reason : Blood Pressure : / mmHG Vent. Rate : 068 BPM Atrial Rate : 068 BPM P-R Int : 222 ms QRS Dur : 118 ms QT Int : 418 ms P-R-T Axes : 060 -11 043 degrees QTc Int : 444 ms Atrial-sensed ventricular-paced rhythm with prolonged AV conduction Abnormal ECG When compared with ECG of 03-AUG-2021 12:26, No significant change was found Confirmed by Rodrigo Mckeon ([id number]) on 08/06/2021 7:28:15 AM Referred By: REFERRED SELF Confirmed By:Sony Mckeon
[2021-08-06 08:32] LABS: Basophils # (auto) 0.01 K/uL (0-0.2); Basophils % (auto) 0.1 %; Eosinophils # (auto) 0.12 K/uL (0-0.5); Eosinophils % (auto) 1.5 %; Hematocrit (blood only) 38.6 % (42-52); Hemoglobin 12.6 g/dL (14.0-18.0); Immature Granulocytes # (auto) 0.02 K/uL (0.00-0.02); Immature Granulocytes % (auto) 0.3 %; Lymphocytes # (auto) 1.37 K/uL (1.2-3.4); Lymphocytes % (auto) 17.2 %; Mean Corpuscular Hemoglobin 32.7 pg (25-34); Mean Corpuscular Hgb Conc 32.6 g/dL (32-36); Mean Corpuscular Volume 100.3 fL (80-100); Mean Platelet Volume 13.8 fL (7.4-10.4); Monocytes # (auto) 0.78 K/uL (0.11-0.59); Monocytes % (auto) 9.8 %; Neutrophils # (auto) 5.68 K/uL (1.4-6.5); Neutrophils % (auto) 71.1 %; Platelet Count 120 K/uL (130-400); Platelet Estimate Decreased (Normal); RDW Coefficient of Variation 13.3 % (11.5-14.5); RDW Standard Deviation 48.2 fL (36.4-46.3); Red Blood Count 3.85 M/uL (4.7-6.1); White Blood Count 7.98 K/uL (4.8-10.8)
[2021-08-06] MEDS: INSULIN ASPART PER UNIT SC SCH ×2 (08:47→12:50)
[2021-08-06] MEDS: APIXABAN 5 MG TABLET PO SCH (08:50)
[2021-08-06] MEDS ORDERED: CYANOCOBALAMIN (B-12) 500 MCG TABLET PO SCH (09:00)
[2021-08-06] MEDS ORDERED: LOSARTAN POTASSIUM 50 MG TAB PO SCH (09:00)
[2021-08-06] MEDS ORDERED: ASPIRIN 81 MG ECTAB PO SCH (09:00)
[2021-08-06] MEDS ORDERED: ISOSORBIDE MONO EXTENDED REL 60 MG TABCR PO SCH (09:00)
[2021-08-06] MEDS ORDERED: UMECLIDINIUM/VILANTEROL 62.5/25MCG 7 PUFFS/INHALER INH SCH (09:00)
[2021-08-06] MEDS ORDERED: CHOLECALCIFEROL 1,000 UNITS 25 MCG TAB PO SCH (09:00)
[2021-08-06] MEDS ORDERED: METOPROLOL SUCC 50MG EXT REL TAB PO SCH (09:00)
--- NOTE | 2021-08-06 17:03 | Discharge Summary ---
Date of Service August 06, 2021 Admission HPI Per Admitting Provider Mr. Watt is an 85-year-old male with past medical history of CVA in 2020 on Eliquis and ASA, CAD, HTN, HLD, pacemaker present, CKD3, DM2, and hypothyroidism who presents today with right-sided head pain and right finger numbness that started around 7:30 this morning. It was overlying his R restoration, sharp in quality with ? neck pain, "this morning my neck felt just a little different, and cracks every one and a while when I'm moving around", however no radiation to left side/eyes/ears/jaw. Associated with some general balance issues, and numbness and tingling in the tips of his R distal first four fingers. He does not report blurry vision this morning, but has had some intermittent blurry vision in the last month. Symptoms resolved within 30 minutes of onset, however patient's previous stroke in 2020 presented similarly so he came to ED for further evaluation. His prior stroke felt similar but this episode 'was much much cake puller. A year ago the headache really hurt and went into my eye and ear and this was nothing close to that.' Also notes with his stroke his symptom were in his left hand predominantly, although headache was righ sided. Also endorses chronic memory dullness, but without acute confusion today Speech remains at baseline for him. Prior to this, he has been in his regular state of health with the exception of some mild nausea over the past day or two. No fever/chills, falls, focal weakness, swallowing difficulty, speech difficulty, chest pain/pressure, palpitations, abdominal pain, vomiting. In ED, Vital signs within normal limits, stable. Labs significant for non-fasting glucose on BMP 199, POC glucose 245. BUN 38, creatinine 1.48 which appears to be baseline. ESR 25. All other labs within normal limits. CT of head did not show acute intracerebral pathology. 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 Principal Diagnosis TIA Carotid Stenosis Discharge Exam General: A&Ox3. NAD. Cooperative. HEENT: Atraumatic, normocephalic. Vision and hearing grossly intact. Pulm: CTAB A&P. -wheezes, -rales, -rhonchi. Symmetrical chest rise. No increased work of breathing. No respiratory distress. Cardiac: RRR, -mrg. Radial pulses intact and symmetrical. Abdominal: Nontender, nondistended, soft. BS present. CRANIAL NERVES: II: Pupils equal and reactive, no relative afferent pupillary defect, no VF cuts III, IV, : EOM intact, no gaze preference or deviation, no nystagmus. V: normal sensation in V1, V2, and V3 segments bilaterally VII: no asymmetry, no nasolabial fold flattening VIII: normal hearing to speech IX, X: normal palatal elevation, no uvular deviation XI: 5/5 head turn and 5/5 shoulder shrug bilaterally XII: midline tongue protrusion MOTOR: RUE: 5/5 Shoulder internal rotation, external rotation, flexion, extension, abduction, adduction 5/5 Elbow flexion/extension, wrist flexion/extension 5/5 wellness instructor strength, finger flexion/extension, interosseus LUE: 5/5 Shoulder internal rotation, external rotation, flexion, extension, abduction, adduction 5/5 Elbow flexion/extension, wrist flexion/extension 5/5 wellness instructor strength, finger flexion/extension, interosseus RLE: 5/5 to hip flexion/extension, ankle dorsiflexion/plantarflexion LLE: 5/5 to hip flexion/extension, ankle dorsiflexion/plantarflexion REFLEXES: 2/4 patellar, bicepts, and achilles DTR without asymmetry. Bilateral flexor planter response, no Long's, no clonus SENSORY: Normal to touch in upper and lower extremities without deficit or asymmetry Discharge Data Allergies Allergy/AdvReac Type Severity Reaction Status Date / Time No Known Allergies Allergy Verified 08/05/21 14:26 Consultations 08/05/21 12:34 ED Decision to Admit Stat 08/06/21 08:04 Consult Vascular Surgery Routine 08/06/21 12:04 Consult [facility] dog daycare provider Routine Ordered Studies 08/05/21 11:19 CT head/brain wo con Stat 08/05/21 14:27 US carotid doppler BI Routine 08/06/21 14:27 MR brain wo con Routine Hospital Course (1) TIA (transient ischemic attack): Agus is an 85-year-old male with a history of CVA who presented with symptoms concerning for TIA. He had a history of right medullary stroke which presented with right-sided headache and left hand tingling/numbness. His current episode presented as right headache in the same spot with right sided hand numbness/tingling without weakness. He has not had symptoms like this since his stroke 1 year ago. His symptoms lasted for 30 minutes after which they resolved. No hypoglycemia. Patient has had some gait disturbance. To do as outpatient: 1. Follow-up MRI. This was scheduled for patient be performed prior to discharge, patient was unwilling to wait for this to be completed and wanted either set up as outpatient or to leave AMA without. Risks of not having follow-up imaging including potential for interval development of a stroke, or a stroke which was not visible on ischial CT which could prompt a change in antiplatelet agent to reduce future stroke risk was discussed, patient is unwilling to wait further for this to be completed. Recommend completing as outpatient, if stroke --> clopidogrel 2. Follow-up with vascular surgery. Patient did have TIA symptoms with a 50% right internal carotid plaque/stenosis. He thinks endarterectomy was discussed with his last stroke but 3. Follow-up with PCP within 1 week 4. Repeat BMP for creatinine stability. Patient was hyperglycemic with evid ence of poor control while admitted with an A1c above 7 at last check. Recheck was pending at time of discharge, patient did not want to wait further before leaving for additional management. Given observed high blood sugars and stroke risk 500mg Metformin XL were added once daily. His creatinine clearance is borderline for this (46.6 at discharge), follow BMP. -Right temporal headache with right fingertip numbness and slight balance disturbance. Resolved within 30 minutes, symptoms absent on exam in ED. -CT without evidence of acute infarction/hemorrhage/mass. 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 -Carotid Dopplers with right ICA 50% plaque stenosis. Discussed with vascular, patient will have follow-up with their office this week. Echo with normal LV SF, mildly dilated left atrium, no intra-arterial shunting -No abnormalities observed on telemetry Total cholesterol 106, LDL 55 (2) Diabetes mellitus type 2, uncontrolled: -HbA1c of 7.1% in April 2021. Will recheck in AM. -On sitagliptin and glimepiride at home, will hold during admission. -Checks sugars daily at home, only in AM before breakfast. Log from home shows they run 110-180, however today it is 199 on BMP, POC glucose is 245. Discussed with patient his sugar may be elevated at other times during the day or perhaps is home monitor is not giving accurate results. Patient with borderline creatinine clearance. Given high blood sugars here, A1c above 7.1 with recheck pending, and report of intermittent high blood sugars patient will start Metformin 500 mg extended release. Creatinine clearance for this is borderline (46 at dc), and should have BMP within 1 week and discontinued if not tolerated. (3) CKD (chronic kidney disease), stage III: -BUN 38, Cr 1.48, about baseline. -Renally dose all medications, avoid nephrotoxic agents. -Repeat stable, creatinine clearance 46 (4) Anemia: -Chronic, H/H acceptable and stable today. -Daily B12 supplement. B12 level n April. (5) CAD (coronary artery disease): -Follows with Dr. Valenzuela. -Continue metoprolol, losartan, isosorbide. Nitroglycerin prn. (6) Paroxysmal atrial fibrillation: -S/p pacemaker placement due to second-degree heart block. -Continue metoprolol. (7) Hypertension: -Continue metoprolol, losartan. (8) Hyperlipidemia: -Continue atorvastatin 40 gm daily. -Lipid panel as above (9) COPD with emphysema: -Continue home inhalers/ (10) Hypothyroidism: -Continue levothyroxine 150 mcg daily. (11) Benign prostate hyperplasia: -No current medications for this. (12) History of CVA (cerebrovascular accident): -In July 2020, evaluated here. Near full recovery since then, slightly decreased sensation in left -Continue Eliquis and aspirin. -Admit to med telemetry. -SCDs, Eliquis plus ASA for DVT ppx. -Full code. Total Time Total Time Spent Total Time Spent (In Minutes): Time spend day of discharge 45 minutes including direct patient care, documentation, review of labs and images, and coordination of care. Discharge Plan Discharge Items Patient Disposition: Home - Self-Care Reason For Visit: L EYE PROBLEM, L SIDE NUMB, BALANCE ISSUES Discharge Diagnosis: TIA R Carotid Stenosis Activity: Resume your previous activity Non-emergency contact: Primary Care Provider and Surgeon Call non-emergency contact if: you have any medication questions, your symptoms worsen, your pain is not controlled, your pain is worsening and you have a fever Follow-up/Referrals: Savanna Lizama CRNP [Primary Care Provider] - Tushar Menezes MD [Physician] - Diet: Carb Consistent or DM2 and Heart Healthy Addtl Attending Provider Instructions: You are seen in the hospital for right temporal headache and right fingertip numbness suspicious for a transient ischemic attack (mini stroke). This resolved within 30 minutes, and was absent by time evaluation in the emergency department. A CT scan did not show any evidence of acute stroke. A ultrasound of your neck showed a 50% stenosis (narrowing) of your right internal carotid artery which can cause strokes and strokelike symptoms. This was discussed with vascular surgery. Some patients benefit from a carotid endarterectomy performed within 2 weeks of TIA symptoms, a follow-up appointment is being scheduled for you with vascular surgery this week. If you do not receive confirmation of an appointment within 48 hours, please call their office at the number above. You were ambulating with good strength and your normal level of independent function at time of discharge. Please continue to take your home medications including apixaban and aspirin. Your home blood sugar has been elevated at home. Your last A1c was 7.1%, near but not at goal. You have had some vision changes with fluctuating blood sugars. Given your stroke risk and intermittent blood sugars above 200, the risk/benefits of starting an additional diabetes medication vs liberalized A1C goal with age was discussed. Your kidney function (creatinine) was 1.39, normal, during admission but with age we lose filtering capacity and your estimated creatinine clearance was 44.3. With filtering function between 30 and 45 Metformin should be used carefully, and a low-dose of 500 mg extended release was added. Please have a follow-up BMP to check your kidney function at your primary care follow-up within 2 weeks. If you do not tolerate this medication, or your kidney function worsens, it may be reasonable to switch to an alternative adjunct diabetes medication such as a long-acting insulin. Please continue to take your statin medication. Your LDL (bad cholesterol) was 55 during admission, an increase in your statin dose was not recommended. You requested to leave AMA due to delays in obtaining an MRI. You did not wish to wait have an MRI as inpatient which was not able to be performed in the morning/early afternoon. The risks of deferring MRI were discussed with you, and it was noted that you could have had a stroke that did not appear on the CT scan which could affect your choice of antiplatelet medication to prevent future strokes. You expressed an understanding of this, and wished to be discharged with followup as an outpatient instead. If you develop any new or worsening symptoms including fever, chills, sweats, chest pain, chest pressure, difficulty breathing, uncontrolled nausea/vomiting, rash, wheezing, passing out or nearly passing out, bleeding, black/bloody bowel movements, or other new or concerning symptoms please call your primary care physician, or call 911 for re-evaluation in the emergency department if you are very concerned. Pending Studies at Discharge: No Stand-Alone Forms: [facility], Smoking Cessation Medications and DC Order Prescriptions: New metformin 500 mg tablet extended release 24 hr 500 mg PO DAILY Qty: 30 RF: 0 Continued sitagliptin 50 mg tablet 50 mg PO DAILY Qty: 90 RF: 3 atorvastatin 40 mg tablet 40 mg PO HS Qty: 90 RF: 3 glimepiride 4 mg tablet 4 mg PO BID Qty: 180 RF: 3 losartan 50 mg tablet 50 mg PO DAILY Qty: 90 RF: 3 Eliquis 5 mg tablet 5 mg PO BID Qty: 180 RF: 3 cholecalciferol (vitamin D3) 50 mcg (2,000 unit) capsule 50 mcg PO DAILY RF: 0 aspirin [Adult Aspirin Regimen] 81 mg tablet,delayed release (DR/EC) 81 mg PO DAILY RF: 0 (DME) lancets [OneTouch Delica Lancets] 30 gauge misc See Rx Instructions .ROUTE .MEDSUPPLY Qty: 200 RF: 5 (DME) blood sugar diagnostic Strip See Rx Instructions .ROUTE .MEDSUPPLY Qty: 100 RF: 5 (DME) blood-glucose meter kit See Dose Instructions .ROUTE .MEDSUPPLY Qty: 1 RF: 0 nitroglycerin 0.4 mg tablet, sublingual 0.4 mg SL Q5M PRN (Reason: chest pain) Qty: 1 RF: 0 acetaminophen 325 mg Tablet 650 mg PO Q4H PRN (Reason: Pain) RF: 0 isosorbide mononitrate 60 mg tablet extended release 24 hr 30 mg PO DAILY RF: 0 levothyroxine 150 mcg tablet 150 mcg PO DAILYBB RF: 0 metoprolol succinate 100 mg tablet extended release 24 hr 100 mg PO DAILY RF: 0 Multiple Vitamin-Minerals Tablet 1 tab PO DAILY RF: 0 cyanocobalamin (vitamin B-12) 500 mcg Tablet 1,000 mcg PO QAM Qty: 60 RF: 5 Discharge Orders: Discharge Order (Routine); Ordered 08/06/21 Ordered By: Omid Pozo Admission Data Admit Date/Time: 08/05/21 13:11 Attending Provider: Omid Pozo Admit Provider: Jyoti Bland Primary Care Provider: Savanna Lizama Other Providers: Omid Pozo ; Tushar Menezes Other Interventions: Discharge Summary Assessment (RN) Last Done: 08/06/21 15:57 Coding Level of Care Code D/C DAY MANAGEMENT >30 MINS Diagnoses TIA (transient ischemic attack) G45.9 Diabetes mellitus type 2, uncontrolled E11.65 Glycemic state: with hyperglycemia CKD (chronic kidney disease), stage III N18.32 Chronic kidney disease stage 3 subtype: stage 3b (GFR 30-44) Anemia D64.9 CAD (coronary artery disease) I25.10 Coronary Disease-Associated Artery/Lesion type: [place] artery [place] vs. transplanted heart: [place] heart Associated angina: without angina Paroxysmal atrial fibrillation I48.0 Hypertension I10 Hypertension type: essential hypertension Hyperlipidemia E78.5 Hyperlipidemia type: unspecified COPD with emphysema J43.9 Hypothyroidism E03.9 Hypothyroidism type: unspecified Benign prostate hyperplasia N40.0 History of CVA (cerebrovascular accident) Z86.73
[2021-08-07 07:33] LABS: Estimated Average Glucose 166 mg/dl; Hemoglobin A1C 7.4 % (4.5-5.6)
--- NOTE | 2021-08-11 11:17 | Consultation ---
Date of Consultation August 11, 2021 History of Present Illness Attending Physician: Omid Pozo MD History of Present Illness PT DISCHARGED BEFORE BEING SEEN. Allergies Allergy/AdvReac Type Severity Reaction Status Date / Time No Known Allergies Allergy Verified 08/05/21 14:26 Home Medications Medication Instructions Recorded Confirmed Type blood-glucose meter #1 ea 10/22/18 08/07/21 History nitroglycerin 0.4 mg sublingual 0.4 mg SL Q5M PRN #1 tab 01/02/19 08/07/21 History tablet aspirin 81 mg tablet,delayed 81 mg PO DAILY 07/11/20 08/07/21 History release (Adult Aspirin Regimen) cyanocobalamin (vitamin B-12) 500 1,000 mcg PO QAM #60 tab 08/09/20 08/07/21 Rx mcg tablet atorvastatin 40 mg tablet 40 mg PO HS #90 tab 10/17/20 08/07/21 Rx apixaban 5 mg tablet (Eliquis) 5 mg PO BID #180 tab 02/23/21 08/07/21 Rx cholecalciferol (vitamin D3) 50 50 mcg PO DAILY 03/21/21 08/07/21 History mcg (2,000 unit) capsule acetaminophen 325 mg tablet 650 mg PO Q4H PRN 08/05/21 08/07/21 History isosorbide mononitrate 60 mg 30 mg PO DAILY 08/05/21 08/07/21 History tablet,extended release 24 hr levothyroxine 150 mcg tablet 150 mcg PO DAILYBB 08/05/21 08/07/21 History metoprolol succinate 100 mg 100 mg PO DAILY 08/05/21 08/07/21 History tablet,extended release 24 hr multivitamin with minerals 1 tab PO DAILY 08/05/21 08/07/21 History (Multiple Vitamin-Minerals) glimepiride 4 mg tablet 4 mg PO BID #180 tab 08/07/21 08/07/21 Rx losartan 50 mg tablet 50 mg PO DAILY #90 tab 08/07/21 08/07/21 Rx metformin 500 mg tablet,extended 500 mg PO DAILY #90 tab 08/07/21 08/07/21 Rx release 24 hr sitagliptin 50 mg tablet 50 mg PO DAILY #90 tab 08/07/21 08/07/21 Rx blood sugar diagnostic #100 ea 08/08/21 Rx lancets 30 gauge (OneTouch Delica #200 ea 08/08/21 Rx Lancets) Patient History Medical History (Updated 08/07/21 @ 10:57 by NITHIN Tsai) 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) Anemia Benign prostate hyperplasia CAD (coronary artery disease) Cerebrovascular accident CKD (chronic kidney disease), stage III Diabetes mellitus type 2, uncontrolled Diabetes mellitus with circulatory complication Dyslipidemia Hyperlipidemia Hypertension Hypothyroidism Obesity Paroxysmal atrial fibrillation Prostatitis 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 Surgical History History of colonoscopy (~1992) S/P cataract surgery left - 03/06/17, right - 03/20/17 Family History Father Lung cancer Smoker Brother Smoker Denies family history of Ovarian cancer Prostate cancer Breast cancer Colorectal cancer Social History Smoking Status: Former smoker Tobacco Type: Cigarettes Age Started Using Tobacco: 14; Age Quit Using Tobacco: 50; packs per day: 0.5; Years Smoked: 36; Cigarettes Per Day: 10; Second Hand Exposure: No; Hx Alcohol Use: No Hx Substance Use: No Preferred Language: Kiswahili Communication Ability: Effective Big Data Developer Required: No Beliefs That Will Affect Care: None marital status: Current Living Situation: Spouse Feels Safe at Home: Yes Assistive Devices: Hearing Aid - Right and Walker
--- NOTE | 2021-08-11 12:40 | Coding Query ---
CODING QUERY To promote full compliance with coding requirements relating to patient care, provider participation is requested in all cases of property clerk uncertainty. Please assist us with the question(s) below: Coding Question(s): There is documentation of TIA and Carotid Stenosis and documentation of, "Patient did have TIA symptoms with a 50% right internal carotid plaque/stenosis", and, "To do as outpatient: 1. Follow-up MRI. This was scheduled for patient be performed prior to discharge, patient was unwilling to wait for this to be completed and wanted either set up as outpatient or to leave AMA without. Risks of not having follow-up imaging including potential for interval development of a stroke, or a stroke which was not visible on ischial CT which could prompt a change in antiplatelet agent to reduce future stroke risk was discussed, patient is unwilling to wait further for this to be completed. Recommend completing as outpatient, if stroke --> clopidogrel", and, "Addtl Attending Provider Instructions: You are seen in the hospital for right temporal headache and right fingertip numbness suspicious for a transient ischemic attack (mini stroke). This resolved within 30 minutes, and was absent by time evaluation in the emergency department. A CT scan did not show any evidence of acute stroke. A ultrasound of your neck showed a 50% stenosis (narrowing) of your right internal carotid artery which can cause strokes and strokelike symptoms. This was discussed with vascular surgery. Some patients benefit from a carotid endarterectomy performed within 2 weeks of TIA symptoms, a follow-up appointment is being scheduled for you with vascular surgery this week", and, "You requested to leave AMA due to delays in obtaining an MRI. You did not wish to wait have an MRI as inpatient which was not able to be performed in the morning/early afternoon. The risks of deferring MRI were discussed with you, and it was noted that you could have had a stroke that did not appear on the CT scan which could affect your choice of antiplatelet medication to prevent future strokes. You expressed an understanding of this, and wished to be discharged with followup as an outpatient instead". Please specify below, in your clinical opinion, regarding TIA, Stroke and Carotid Stenosis, during this admission. ( X ) TIA, and Possible Stroke were Treated and/or monitored during this admission. Please specify further below, in your clinical opinion: ( ) most likely caused by the Right Carotid Stenosis ( ) Not likely caused by the Right Carotid Stenosis, Unspecified cause ( X ) caused by other: Please Specify, potentially caused by R carotid stenosis ( ) TIA was Treated during this admission, the Possible Stroke was Not treated and/or monitored during this admission. Please specify further below, in your clinical opinion: ( ) most likely caused by the Right Carotid Stenosis ( ) Not likely caused by the Right Carotid Stenosis, Unspecified cause ( ) caused by other: Please Specify ( ) Other: Please Specify Physician's Response(s): Thank you Christina Zee Principal Diagnosis: "that condition established after study, to be chiefly responsible for occasioning the admission of the patient to the hospital for care." Co-Existing Principal Diagnosis: "when two or more diagnoses equally meet the criteria for principal diagnosis as determined by the circumstances of admission, diagnostic work up, and/or therapy provided, and the Alphabetic Index, Tabular List, or another coding guideline does not provide sequencing direction, any one of the diagnoses may be sequenced first." "When the physician has documented what appears to be a current diagnosis in the body of the record, but has not included the diagnosis in the final diagnostic statement, the physician should be asked whether the diagnosis should be added." (Source Coding [facility] 2 QTR90. p3-4) [facility]
== END 2021-08-06 16:35 | disposition home or self-care (01) ==
LOC: ED 11:04 → INTOOBSV 13:11 → 2N 13:11

== ENCOUNTER 2021-08-24 10:56 | Inpatient (IN) ==
[2021-08-24 11:59] LABS: INR 1.1 (0.9-1.1); Partial Thromboplastin Time 27.1 Seconds (21.0-31.0); Prothrombin Time 11.4 Seconds (9.0-12.0)
[2021-08-24 12:05] LABS: Alanine Aminotransferase 14 U/L (7-52); Albumin Globulin Ratio 1.3 (0.9-2); Albumin Level 4.1 gm/dl (3.4-5.0); Alkaline Phosphatase 82 U/L (34-104); Anion Gap 8 (3-11); Aspartate Aminotransferase 14 U/L (13-39); BUN Creatinine Ratio 24.8 (10-20); Bilirubin,Total 0.5 mg/dl (0.2-1.0); Blood Urea Nitrogen 33 mg/dl (6-23); Calcium 9.8 mg/dl (8.5-10.1); Carbon Dioxide 25 mmol/L (21-32); Chloride 103 mmol/L (98-107); Est GFR (African American) 56.9 ml/min; Est GFR (Non-African American) 49.1 ml/min; Globulin 3.2 gm/dl (2.5-4.0); Glucose 200 mg/dl (70-99(Fasting)); Magnesium 1.9 mg/dl (1.7-2.4); Potassium 4.1 mmol/L (3.5-5.1); Sodium 136 mmol/L (136-145); Total Protein 7.3 gm/dl (6.0-8.3)
[2021-08-24 12:10] LABS: Troponin I High Sensitivity 16.2 pg/ml (0-20)
--- NOTE | 2021-08-24 12:12 | Emergency Department Note ---
History of Present Illness General Chief complaint: Neuro Symptoms/Deficit Stated complaint: WEAKNESS, STROKE IN JULY, OFF BALANCE Time Seen by Provider: 08/24/21 11:22 History of Present Illness Provider complaint: Weakness difficulty walking getting balance issues Onset (ago): day(s) 3 Associated symptoms: + weakness; no chest pain, no cough, no fever/chills, no headaches, no nausea/vomiting or no shortness of breath 85-year-old male presents emergency department with weakness difficulty walking and balance issues. Family member at bedside states his symptoms have been going on for the last few weeks but have been gotten progressively worse over the last 3 days. Patient was seen outpatient and had an MRI done which showed a stroke and was told to come to the emergency department. Patient denies any falls or headaches. Denies any hematuria, dysuria, fever, chest pain, difficulty breathing, melena, or hematochezia. Home Medications Medication Instructions Recorded Confirmed Type blood-glucose meter #1 ea 10/22/18 08/07/21 History nitroglycerin 0.4 mg sublingual 0.4 mg SL Q5M PRN #1 tab 01/02/19 08/24/21 History tablet aspirin 81 mg tablet,delayed 81 mg PO DAILY 07/11/20 08/24/21 History release (Adult Aspirin Regimen) cyanocobalamin (vitamin B-12) 500 1,000 mcg PO QAM #60 tab 08/09/20 08/24/21 Rx mcg tablet atorvastatin 40 mg tablet 40 mg PO HS #90 tab 10/17/20 08/24/21 Rx apixaban 5 mg tablet (Eliquis) 5 mg PO BID #180 tab 02/23/21 08/24/21 Rx cholecalciferol (vitamin D3) 50 50 mcg PO DAILY 03/21/21 08/24/21 History mcg (2,000 unit) capsule acetaminophen 325 mg tablet 650 mg PO Q4H PRN 08/05/21 08/24/21 History isosorbide mononitrate 60 mg 30 mg PO DAILY 08/05/21 08/24/21 History tablet,extended release 24 hr levothyroxine 150 mcg tablet 150 mcg PO DAILYBB 08/05/21 08/24/21 History metoprolol succinate 100 mg 100 mg PO DAILY 08/05/21 08/24/21 History tablet,extended release 24 hr multivitamin with minerals 1 tab PO DAILY 08/05/21 08/24/21 History (Multiple Vitamin-Minerals) glimepiride 4 mg tablet 4 mg PO BID #180 tab 08/07/21 08/24/21 Rx losartan 50 mg tablet 50 mg PO DAILY #90 tab 08/07/21 08/24/21 Rx blood sugar diagnostic #100 ea 08/08/21 Rx lancets 30 gauge (YasmaniTouch Delica #200 ea 08/08/21 08/24/21 Rx Lancets) metformin 500 mg tablet,extended 500 mg PO DIRECTED 08/24/21 08/24/21 History release 24 hr sitagliptin 50 mg tablet (Januvia) 50 mg PO DAILY 08/24/21 08/24/21 History Allergies Allergy/AdvReac Type Severity Reaction Status Date / Time No Known Allergies Allergy Verified 08/24/21 12:16 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) Anemia Benign prostate hyperplasia CAD (coronary artery disease) Cerebrovascular accident CKD (chronic kidney disease), stage III Diabetes mellitus type 2, uncontrolled Diabetes mellitus with circulatory complication Dyslipidemia Hyperlipidemia Hypertension Hypothyroidism Obesity Paroxysmal atrial fibrillation Prostatitis 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 Surgical History History of colonoscopy (~1992) S/P cataract surgery left - 03/06/17, right - 03/20/17 Family History Father Lung cancer Smoker Brother Smoker Denies family history of Ovarian cancer Prostate cancer Breast cancer Colorectal cancer Social History Smoking Status: Former smoker Tobacco Type: Cigarettes Age Started Using Tobacco: 14; Age Quit Using Tobacco: 50; packs per day: 0.5; Years Smoked: 36; Cigarettes Per Day: 10; Second Hand Exposure: No; Hx Alcohol Use: No Hx Substance Use: No Preferred Language: Albanian Communication Ability: Effective 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 Beliefs That Will Affect Care: None marital status: Current Living Situation: Spouse Feels Safe at Home: Yes Assistive Devices: Walker Review of Systems A total of 10 systems reviewed and were otherwise negative Physical Exam Vital Signs Vital Signs - 24 hr 08/24/21 11:01 08/24/21 11:17 08/24/21 13:00 Temperature 36.7 C Temperature Source Temporal Artery Scan Pulse Rate 72 Pulse Rate [Apical] 69 68 Pulse Rhythm Regular Pulse Strength Normal Respiratory Rate 18 18 18 Respiratory Effort / Characteristics Non-Labored Spontaneous Non-Labored Spontaneous Non-Labored Spontaneous Respiratory Depth Normal Normal Normal Respiratory Pattern Regular Regular Regular Blood Pressure 133/80 Blood Pressure [Left Arm] 154/83 H 142/85 H Blood Pressure Mean 97 Blood Pressure Mean [Left Arm] 106 104 Blood Pressure Position Sitting Blood Pressure Position [Left Arm] Sitting Pulse Oximetry 97 96 97 Oxygen Delivery Method Room Air Room Air Room Air Sepsis Recent Fever Within 48 Hours No Sepsis New/Unexplained Change in Mental Status N/A Sepsis Action Taken by Nursing No Action Required Physical Exam GENERAL: He is oriented to person, place, and time. He appears well-developed and well-nourished. He does not appear distressed. HENT: Exam performed. - Head: Normocephalic and atraumatic. - Right Ear: External ear normal. No mastoid tenderness. - Left Ear: External ear normal. No mastoid tenderness. - Mouth/Throat: The oropharynx is clear and moist. No trismus in the jaw. No dental abscesses or uvula swelling. No oropharyngeal exudate or tonsillar abscesses. EYES: Conjunctivae and EOM are normal. Pupils are equal, round, and reactive to light. Right eye exhibits no discharge. Left eye exhibits no discharge. No scleral icterus. NECK: Normal range of motion. Neck supple. No JVD present. No spinous process tenderness present. No carotid bruit present. No rigidity. No tracheal deviation and normal range of motion present. No Brudzinski's sign and no Kernig's sign noted. CV: Normal rate, regular rhythm, normal heart sounds and intact distal pulses. There is no peripheral edema. Palpable radial pulses bue. PULM/CHEST: Effort normal and breath sounds normal. No respiratory distress. No stridor. He has no wheezes. He has no rales. - Chest Wall: He exhibits no tenderness. ABD: The abdomen is soft. Bowel sounds are normal. He has no distension. No mass is present. There is no tenderness. There is no rebound, no guarding, no Spangler's sign and no tenderness at McBurney's point. Rovsig negative. MUSC/SKEL: Normal range of motion. There is no peripheral edema, tenderness or deformity. LYMPH: No cervical adenopathy. NEURO: Mild dysarthria. Cerebellar ataxia. And oriented x3. Sensation intact. No facial droop. SKIN: Skin is warm and dry. He is not diaphoretic. PSYCH: He has a normal mood and affect. Behavior is normal. Judgment and thought content normal. Course Course 112: The patient was evaluated in room C11. A complete history and physical exam was performed Cardiac monitoring: An order was placed for continuous cardiac monitoring. The monitor shows a rate of 70 with sinus rhythm EMR reviewed. Patient was admitted to the hospital on August 06, 2023 2 for TIA. Patient left AMA from the hospital on August 06, 2021 and refused to get an MRI done. Patient was seen by his PCP and had an MRI done yesterday which showed large region of restricted diffusion in the inferior right cerebellar hemisphere consistent with an acute to subacute infarct. This is consistent with the patient's cerebellar ataxia. I discussed with the patient and family member at bedside to make sure he is willing to stay in the hospital this time and the patient and family member state they are. Patient will be admitted to the [facility] hospitalist team Dr. Varela will be notified. Medical Decision Making Laboratory Data Result diagrams: 08/24/21 11:22 08/24/21 11: Lab Results 08/24/21 08/24/21 08/24/21 Range/Units 11:22 11:22 11:22 WBC 8.99 (4.8-10.8) K/uL RBC 4.14 L (4.7-6.1) M/uL Hgb 13.6 L (14.0-18.0) g/dL Hct 41.3 L (42-52) % MCV 99.8 (80-100) fL MCH 32.9 (25-34) pg MCHC 32.9 (32-36) g/dL RDW Std Deviation 48.2 H (36.4-46.3) fL RDW Coeff of Jose 13.2 (11.5-14.5) % Plt Count 120 L (130-400) K/uL MPV 13.4 H (7.4-10.4) fL Immature Gran % (Auto) 0.2 % Neut % (Auto) 76.8 % Lymph % (Auto) 16.4 % [place] % (Auto) 6.2 % Eos % (Auto) 0.3 % Baso % (Auto) 0.1 % Neut # (Auto) 6.90 H (1.4-6.5) K/uL Lymph # (Auto) 1.47 (1.2-3.4) K/uL [place] # (Auto) 0.56 (0.11-0.59) K/uL Eos # (Auto) 0.03 (0-0.5) K/uL Baso # (Auto) 0.01 (0-0.2) K/uL Immature Gran # (Auto) 0.02 (0.00-0.02) K/uL Platelet Estimate Decreased L (Normal) PT 11.4 (9.0-12.0) Seconds INR 1.1 (0.9-1.1) APTT 27.1 (21.0-31.0) Seconds PTT Ratio 1.0 Sodium 136 (136-145) mmol/L Potassium 4.1 (3.5-5.1) mmol/L Chloride 103 (98-107) mmol/L Carbon Dioxide 25 (21-32) mmol/L Anion Gap 8 (3-11) BUN 33 H (6-23) mg/dl Creatinine 1.33 (0.6-1.4) mg/dl Est Cr Clr Drug Dosing Not Reportable Est GFR ( Amer) 56.9 ml/min Est GFR (Non-Af Amer) 49.1 ml/min BUN/Creatinine Ratio 24.8 H (10-20) Glucose 200 H (70-99(Fasting)) mg/dl POC Glucose (70-99) mg/dl Calcium 9.8 (8.5-10.1) mg/dl Magnesium 1.9 (1.7-2.4) mg/dl Total Bilirubin 0.5 (0.2-1.0) mg/dl AST 14 (13-39) U/L ALT 14 (7-52) U/L Alkaline Phosphatase 82 (34-104) U/L Troponin I High Sens 16.2 (0-20) pg/ml Total Protein 7.3 (6.0-8.3) gm/dl Albumin 4.1 (3.4-5.0) gm/dl Globulin 3.2 (2.5-4.0) gm/dl Albumin/Globulin Ratio 1.3 (0.9-2) SARS-CoV-2, RNA, NAAT (NEGATIVE) 08/24/21 08/24/21 Range/Units 11:29 11:54 WBC (4.8-10.8) K/uL RBC (4.7-6.1) M/uL Hgb (14.0-18.0) g/dL Hct (42-52) % MCV (80-100) fL MCH (25-34) pg MCHC (32-36) g/dL RDW Std Deviation (36.4-46.3) fL RDW Coeff of Jose (11.5-14.5) % Plt Count (130-400) K/uL MPV (7.4-10.4) fL Immature Gran % (Auto) % Neut % (Auto) % Lymph % (Auto) % [place] % (Auto) % Eos % (Auto) % Baso % (Auto) % Neut # (Auto) (1.4-6.5) K/uL Lymph # (Auto) (1.2-3.4) K/uL [place] # (Auto) (0.11-0.59) K/uL Eos # (Auto) (0-0.5) K/uL Baso # (Auto) (0-0.2) K/uL Immature Gran # (Auto) (0.00-0.02) K/uL Platelet Estimate (Normal) PT (9.0-12.0) Seconds INR (0.9-1.1) APTT (21.0-31.0) Seconds PTT Ratio Sodium (136-145) mmol/L Potassium (3.5-5.1) mmol/L Chloride (98-107) mmol/L Carbon Dioxide (21-32) mmol/L Anion Gap (3-11) BUN (6-23) mg/dl Creatinine (0.6-1.4) mg/dl Est Cr Clr Drug Dosing Est GFR ( Amer) ml/min Est GFR (Non-Af Amer) ml/min BUN/Creatinine Ratio (10-20) Glucose (70-99(Fasting)) mg/dl POC Glucose 193 H (70-99) mg/dl Calcium (8.5-10.1) mg/dl Magnesium (1.7-2.4) mg/dl Total Bilirubin (0.2-1.0) mg/dl AST (13-39) U/L ALT (7-52) U/L Alkaline Phosphatase (34-104) U/L Troponin I High Sens (0-20) pg/ml Total Protein (6.0-8.3) gm/dl Albumin (3.4-5.0) gm/dl Globulin (2.5-4.0) gm/dl Albumin/Globulin Ratio (0.9-2) SARS-CoV-2, RNA, NAAT NEGATIVE (NEGATIVE) ECG Data Additional Comments: Paced rhythm with rate of 72. CO 226 QRS 116 QTC [address] elevati on or depression. MDM Narrative The patient was evaluated in room C11. A complete history and physical exam was performed Cardiac monitoring: An order was placed for continuous cardiac monitoring. The monitor shows a rate of 70 with sinus rhythm EMR reviewed. Patient was admitted to the hospital on August 06, 2023 2 for TIA. Patient left AMA from the hospital on August 06, 2021 and refused to get an MRI done. Patient was seen by his PCP and had an MRI done yesterday which showed large region of restricted diffusion in the inferior right cerebellar hemisphere consistent with an acute to subacute infarct. This is consistent with the patient's cerebellar ataxia. I discussed with the patient and family member at bedside to make sure he is willing to stay in the hospital this time and the patient and family member state they are. Patient will be admitted to the [facility] hospitalist team Dr. Varela will be notified. Impression & Plan Cerebrovascular accident Discharge Plan Visit Data Chief Complaint: Neuro Symptoms/Deficit Stated Complaint: WEAKNESS, STROKE IN JULY, OFF BALANCE ED Provider: Woodrow Clark Discharge Problem: Cerebrovascular accident Patient Disposition: Admitted As Inpatient Discharge Instructions Interventions: ED Discharge Assessment Last Done: 08/24/21 15:14 Discharge Problem: Cerebrovascular accident Qualifiers: CVA mechanism: unspecified Qualified Code(s): I63.9 - Cerebral infarction, unspecified
[2021-08-24 12:18] LABS: Hematocrit (blood only) 41.3 % (42-52); Hemoglobin 13.6 g/dL (14.0-18.0); Mean Corpuscular Hemoglobin 32.9 pg (25-34); Mean Corpuscular Hgb Conc 32.9 g/dL (32-36); Mean Corpuscular Volume 99.8 fL (80-100); Mean Platelet Volume 13.4 fL (7.4-10.4); Platelet Count 120 K/uL (130-400); RDW Coefficient of Variation 13.2 % (11.5-14.5); RDW Standard Deviation 48.2 fL (36.4-46.3); Red Blood Count 4.14 M/uL (4.7-6.1); White Blood Count 8.99 K/uL (4.8-10.8)
[2021-08-24 12:19] LABS: Basophils # (auto) 0.01 K/uL (0-0.2); Basophils % (auto) 0.1 %; Eosinophils # (auto) 0.03 K/uL (0-0.5); Eosinophils % (auto) 0.3 %; Immature Granulocytes # (auto) 0.02 K/uL (0.00-0.02); Immature Granulocytes % (auto) 0.2 %; Lymphocytes # (auto) 1.47 K/uL (1.2-3.4); Lymphocytes % (auto) 16.4 %; Monocytes # (auto) 0.56 K/uL (0.11-0.59); Monocytes % (auto) 6.2 %; Neutrophils % (auto) 76.8 %; Platelet Estimate Decreased (Normal)
--- NOTE | 2021-08-24 13:23 | History & Physical Report ---
Date of Service August 24, 2021 Assessment & Plan (1) Cerebrovascular accident: Plan: 85 yo male Admit for stroke MRI findings: IMPRESSION: 1. There is a large region of restricted diffusion in the inferior right cerebellar hemisphere as above consistent with an acute to subacute infarct. 2. An additional punctate focus of restricted diffusion is seen within the high right parietal lobe cortex. This also indicates a tiny acute to subacute infarct. 3. There is no hemorrhage or mass effect. 4. Chronic changes as above. Switch ASA to plavix. continue Eliquis (for atrial fibrillation.) continue neuro. stroke protocol. (2) Hypertension: Plan: hold Beta beatriz and ARB. permissive hypertension (3) Diabetes mellitus with circulatory complication: Plan: consult glycemic control (4) CAD (coronary artery disease): Plan: resume home meds statin and ASA. (5) Benign prostate hyperplasia: Plan: resume BPH (6) Hyperlipidemia: Plan: resume statin (7) Hypothyroidism: Plan: resume levothyroxine. History of Present Illness Chief Complaint: Positive MRI Primary Care Provider: NITHIN Tsai Mr. Watt is an 85-year-old male with past medical history of CVA in 2020 on Eliquis and ASA, CAD, HTN, HLD, pacemaker present, CKD3, DM2, and hypothyroidism who presents today having worsening balance issues. Patient had a positive outpatient MRI of the brain after leaving AMA last month for a possible stroke.. His prior neuro symptoms from last admission: ssociated with some general balance issues, and numbness and tingling in the tips of his R distal first four fingers. He does not report blurry vision this morning, but has had some intermittent blurry vision in the last month. Patient reports that over the past 2 weeks, he has stated that his balance has been worsening. He states that when he ambulates he gets dizzy, and gets nauseous. Family at [facility]. Allergies Allergy/AdvReac Type Severity Reaction Status Date / Time No Known Allergies Allergy Verified 08/24/21 12:16 Home Medications Medication Instructions Recorded Confirmed Type blood-glucose meter #1 ea 10/22/18 08/07/21 History nitroglycerin 0.4 mg sublingual 0.4 mg SL Q5M PRN #1 tab 01/02/19 08/24/21 History tablet aspirin 81 mg tablet,delayed 81 mg PO DAILY 07/11/20 08/24/21 History release (Adult Aspirin Regimen) cyanocobalamin (vitamin B-12) 500 1,000 mcg PO QAM #60 tab 08/09/20 08/24/21 Rx mcg tablet atorvastatin 40 mg tablet 40 mg PO HS #90 tab 10/17/20 08/24/21 Rx apixaban 5 mg tablet (Eliquis) 5 mg PO BID #180 tab 02/23/21 08/24/21 Rx cholecalciferol (vitamin D3) 50 50 mcg PO DAILY 03/21/21 08/24/21 History mcg (2,000 unit) capsule acetaminophen 325 mg tablet 650 mg PO Q4H PRN 08/05/21 08/24/21 History isosorbide mononitrate 60 mg 30 mg PO DAILY 08/05/21 08/24/21 History tablet,extended release 24 hr levothyroxine 150 mcg tablet 150 mcg PO DAILYBB 08/05/21 08/24/21 History metoprolol succinate 100 mg 100 mg PO DAILY 08/05/21 08/24/21 History tablet,extended release 24 hr multivitamin with minerals 1 tab PO DAILY 08/05/21 08/24/21 History (Multiple Vitamin-Minerals) glimepiride 4 mg tablet 4 mg PO BID #180 tab 08/07/21 08/24/21 Rx losartan 50 mg tablet 50 mg PO DAILY #90 tab 08/07/21 08/24/21 Rx blood sugar diagnostic #100 ea 08/08/21 Rx lancets 30 gauge (OneTouch Delica #200 ea 08/08/21 08/24/21 Rx Lancets) metformin 500 mg tablet,extended 500 mg PO DIRECTED 08/24/21 08/24/21 History release 24 hr sitagliptin 50 mg tablet (Januvia) 50 mg PO DAILY 08/24/21 08/24/21 History 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) Anemia Benign prostate hyperplasia CAD (coronary artery disease) Cerebrovascular accident CKD (chronic kidney disease), stage III Diabetes mellitus type 2, uncontrolled Diabetes mellitus with circulatory complication Dyslipidemia Hyperlipidemia Hypertension Hypothyroidism Obesity Paroxysmal atrial fibrillation Prostatitis 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 Surgical History History of colonoscopy (~1992) S/P cataract surgery left - 03/06/17, right - 03/20/17 Family History Father Lung cancer Smoker Brother Smoker Denies family history of Ovarian cancer Prostate cancer Breast cancer Colorectal cancer Social History Smoking Status: Former smoker Tobacco Type: Cigarettes Age Started Using Tobacco: 14; Age Quit Using Tobacco: 50; packs per day: 0.5; Years Smoked: 36; Cigarettes Per Day: 10; Second Hand Exposure: No; Hx Alcohol Use: No Hx Substance Use: No Preferred Language: Haitian Communication Ability: Effective 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 Beliefs That Will Affect Care: None marital status: Current Living Situation: Spouse Feels Safe at Home: Yes Assistive Devices: Walker Review of Systems Constitutional: no fever and no body aches Eyes: no blind spots Ear, Nose, Mouth, Throat: no ear pain Respiratory: no cough Cardiovascular: no chest pain Gastrointestinal: no abdominal pain Genitourinary: no dysuria Integumentary: no acne Neurologic: + gait abnormality Psychiatric: no behavioral changes Endocrine: no fatigue Hematologic / Lymphatic: no easy bleeding Allergy / Immunological: no GI upset with certain foods Physical Exam Physical Exam: General: awake, alert, no apparent distress Head: Normocephalic, atraumatic ENT: PERRL, EOMI, no pharyngeal exudate, mucous membranes moist Chest: Clear to auscultation, on room air, no adventitious breath sounds Cardiac: Regular rate and rhythm, no murmur, no JVD, normal peripheral pulses, good capillary refill Abdominal: NABS x 4 quadrants, soft, nontender to palpation, no rebound, guarding or tenderness Extremities: Normal inspection, no peripheral edema or erythema, calfs nontender to palpation Psych: Normal mood and affect Neuro: AAO x 3, strength intact bilaterally and rated 5/5, no motor deficits, speech is clear, no peripheral sensory deficits Skin: no rash or erythema Results & Data Results & Data ([facility]) Vital Signs (Past 12 Hours) Vital Signs Temp Pulse Pulse Resp BP BP Pulse Ox 08/24/21 11:17 69 18 154/83 H 96 08/24/21 11:01 36.7 C 72 18 133/80 97 PG Care Time/CCT Total # of Minutes Spent Total Time Spent with Patient: Total time spent is greater than 50% in coordination of care (as documented) at patient's floor/unit and/or counseling patient: Coding Level of Care Code 40120 Initial Inpt Care Lvl 3 Diagnoses Cerebrovascular accident I63.9 CVA mechanism: unspecified Hypertension I10 Hypertension type: essential hypertension Diabetes mellitus with circulatory complication E11.59 CAD (coronary artery disease) I25.10 Associated angina: without angina Coronary Disease-Associated Artery/Lesion type: [place] artery [place] vs. transplanted heart: [place] heart Benign prostate hyperplasia N40.0 Hyperlipidemia E78.5 Hyperlipidemia type: unspecified Hypothyroidism E03.9 Hypothyroidism type: unspecified (1) CAD (coronary artery disease) Associated angina: without angina Coronary Disease-Associated Artery/Lesion type: [place] artery [place] vs. transplanted heart: [place] heart Qualified Code(s): I25.10 - Atherosclerotic heart disease of [place] coronary artery without angina pectoris (2) Hyperlipidemia Hyperlipidemia type: unspecified Qualified Code(s): E78.5 - Hyperlipidemia, unspecified (3) Hypothyroidism Hypothyroidism type: unspecified Qualified Code(s): E03.9 - Hypothyroidism, unspecified (4) Cerebrovascular accident CVA mechanism: unspecified Qualified Code(s): I63.9 - Cerebral infarction, unspecified (5) Hypertension Hypertension type: essential hypertension Qualified Code(s): I10 - Essential (primary) hypertension
[2021-08-24] MEDS ORDERED: PHARMACIST DISCHARGE MED REC CONSULT PRN (14:44)
[2021-08-24] MEDS ORDERED: CLOPIDOGREL BISULFATE 75 MG TAB PO STA (15:01)
[2021-08-24] MEDS ORDERED: PHARMACY GLYCEMIC MGMT CONSULT PRN (15:02)
[2021-08-24] MEDS ORDERED: Patient's HEIGHT &/or WEIGHT Needed SCH (15:45)
[2021-08-24] MEDS: INSULIN ASPART PER UNIT SC SCH ×2 (17:08→22:18)
[2021-08-24] MEDS ORDERED: ATORVASTATIN 40 MG TAB PO SCH (21:00)
[2021-08-24] MEDS: APIXABAN 5 MG TABLET PO SCH (22:18)
[2021-08-25] MEDS ORDERED: LEVOTHYROXINE SODIUM 150 MCG TABLET PO SCH (06:30)
--- NOTE | 2021-08-25 07:37 | Hospitalist Progress Note ---
Date of Service August 25, 2021 Assessment & Plan (1) Cerebrovascular accident: Plan: 85 yo PMHx of CVA in 2020 on Eliquis and aspirin, CAD, HTN, HLD, pacemaker present, CKD3, DM2, former smoker, and hypothyroidism presented with weakness, difficulty walking, and balance issues and MRI showing stroke. #CVA -presented with weakness, difficulty walking, worsening balance -seen last month in ED, diagnosed with TIA but refused MRI and left AMA; recently seen by PCP and MRI obtained -MRI brain (08/23/21): large region of restricted diffusion in inferior right cerebellar hemisphere --> acute-subacute infarct, additional punctate focus of restricted diffusion in right parietal lobe --> tiny acute-subacute infarct -Carotid doppler (08/05/21): 50% stenosis right ICA w/o hemodynamically significant stenosis -Head CT (08/05/21): no acute pathology, cerebral cortical atrophy w/ small vessel disease -Echo (08/05/21): normal left ventricular systolic function, mild LVH, grade 2 diastolic dysfunction consistent with elevated left atrial pressure -EKG: ventricular paced rhythm -CTA head (08/25): pending -CTA neck (08/25): pending -A1C 7.5 -lipid panel wnl -switched aspirin to plavix in ED, cont. -neuro checks, dysphagia screen, fall precautions, on telemetry -neuro consult appreciated -vascular consult appreciated: no surgical interventon necessary #Hypertension -hold metoprolol, losartan -allow for permissive hypertension <SBP 220 #Diabetes mellitus with circulatory complication -consult glycemic control -hold sitagliptin, metformin, glimepiride #CAD (coronary artery disease) -switched aspirin to plavix in ED, cont. -continue statin #stable angina -continue imdur #afib -switched aspirin to plavix, cont. -cont. eliquis #Benign prostate hyperplasia -resume BPH #Hyperlipidemia -cont. statin #Hypothyroidism -cont. levothyroxine DVT ppx: eliquis 5mg BID FEN/GI: DM2, HH Code Status: full Dispo: med/surg tele Admission and Anticipated Discharge Date Admission Date: August 24, 2021 Subjective 85 yo pmhx of CVA in 2020 on Eliquis and ASA, CAD, HTN, HLD, pacemaker present, CKD3, DM2, former smoker, and hypothyroidism presented with weakness difficulty walking and balance issues. Family member at bedside states his symptoms have been going on for the last few weeks but have been gotten progressively worse o nati the last 3 days.Patient was seen outpatient and had an MRI done which showed a stroke and was told to come to the emergency department. Patient denies any falls or headaches.Denies any hematuria, dysuria, fever, chest pain, difficulty breathing, melena, or hematochezia. His prior neuro symptoms from last admission: associated with some general balance issues, and numbness and tingling in the tips of his R distal first four fingers. He does not report blurry vision this morning, but has had some intermittent blurry vision in the last month. Patient reports that over the past 2 weeks, he has stated that his balance has been worsening. He states that when he ambulates he gets dizzy, and gets nauseous. Physical Exam Physical Exam: General: awake, alert, no apparent distress Head: Normocephalic, atraumatic ENT: PERRL, EOMI, no pharyngeal exudate, mucous membranes moist Chest: Clear to auscultation, on room air, no adventitious breath sounds Cardiac: Regular rate and rhythm, no murmur, no JVD, normal peripheral pulses, good capillary refill Abdominal: NABS x 4 quadrants, soft, nontender to palpation, no rebound, guarding or tenderness Extremities: Normal inspection, no peripheral edema or erythema, calfs nontender to palpation Psych: Normal mood and affect Neuro: AAO x 3, strength intact bilaterally and rated 5/5, no motor deficits, speech is clear, no peripheral sensory deficits Skin: no rash or erythema Results & Data Results & Data ([facility]) Vital Signs (Past 12 Hours) Vital Signs Temp Pulse Pulse Resp BP Pulse Ox 08/25/21 07:00 36.5 C 65 20 162/79 H 95 08/25/21 03:44 36.5 C 94 H 20 144/73 H 93 08/24/21 23:18 36.8 C 71 18 134/77 96 08/24/21 22:18 86 08/24/21 19:34 36.9 C 75 18 127/75 96 Diagnostic Findings Brain MRI (08/05/20): small acute infarct right cervical medullary junction, age related microvascular ischemic changes Head CTA (08/03): acute occlusion of right vertebral artery, extensive plaque in bilateral cavernous carotids Neck CTA (08/03): acute occlusion distal right vertebral artery, 30% stenosis ICA, 4mm pulm nodule right upper lobe (1 yr f/u recommended) Echo (08/05/21): normal left ventricular systolic function, mild LVH, grade 2 diastolic dysfunction consistent with elevated left atrial pressure Carotid doppler (08/05/21): 50% stenosis right ICA w/o hemodynamically significant stenosis Head CT (08/05/21): no acute pathology, cerebral cortical atrophy w/ small vessel disease MRI brain (08/23/21): large region of restricted diffusion in inferior right cerebellar hemisphere --> acute-subacute infarct, additional punctate focus of restricted diffusion in right parietal lobe --> tiny acute-subacute infarct Chest CT (08/24/21): multiple subcentimeter pulmonary nodules (no further f/u), cholelithiasis, mild dilation of ascending thoracic aorta EKG: ventricular paced rhythm Labs: 08/24 Hgb 13.6 normal coagulation studies lytes normal glucose 200 A!C 7.5 lipids pending (1) Cerebrovascular accident CVA mechanism: unspecified Qualified Code(s): I63.9 - Cerebral infarction, unspecified
[2021-08-25 07:41] LABS: Estimated Average Glucose 169 mg/dl; Hemoglobin A1C 7.5 % (4.5-5.6)
[2021-08-25] MEDS ORDERED: DEXTROSE 50% 50 ML SYRINGE IV PRN (07:45)
[2021-08-25] MEDS ORDERED: GLUCOSE 10 TABS/TUBE PO PRN (07:45)
[2021-08-25] MEDS ORDERED: GLUCOSE 40% GEL 15 GM TUBE PO PRN (07:45)
[2021-08-25] MEDS ORDERED: GLUCAGON FOR INJ 1 MG VIAL IM PRN (07:45)
[2021-08-25] MEDS ORDERED: CARBOHYDRATES FOR HYPOGLYCEMIA PO PRN (07:45)
[2021-08-25 08:02] LABS: Hematocrit (blood only) 39.4 % (42-52); Mean Corpuscular Hemoglobin 32.2 pg (25-34); Mean Corpuscular Volume 97.5 fL (80-100); Mean Platelet Volume 13.2 fL (7.4-10.4); Platelet Count 128 K/uL (130-400); RDW Coefficient of Variation 13.2 % (11.5-14.5); RDW Standard Deviation 47.1 fL (36.4-46.3); Red Blood Count 4.04 M/uL (4.7-6.1); White Blood Count 8.48 K/uL (4.8-10.8)
[2021-08-25 08:04] LABS: Basophils # (auto) 0.02 K/uL (0-0.2); Basophils % (auto) 0.2 %; Eosinophils # (auto) 0.07 K/uL (0-0.5); Eosinophils % (auto) 0.8 %; Immature Granulocytes # (auto) 0.03 K/uL (0.00-0.02); Immature Granulocytes % (auto) 0.4 %; Lymphocytes # (auto) 1.43 K/uL (1.2-3.4); Lymphocytes % (auto) 16.9 %; Monocytes # (auto) 0.83 K/uL (0.11-0.59); Monocytes % (auto) 9.8 %; Neutrophils % (auto) 71.9 %
[2021-08-25 08:10] LABS: BUN Creatinine Ratio 24.4 (10-20); Calcium 9.5 mg/dl (8.5-10.1); Chol HDL Ratio 3.3 (0-5); Creatinine Clr Calc Pharmacy 45.4 ml/min; Est GFR (African American) 55.9 ml/min; Est GFR (Non-African American) 48.2 ml/min
[2021-08-25] MEDS ORDERED: CYANOCOBALAMIN (B-12) 500 MCG TABLET PO SCH (09:00)
[2021-08-25] MEDS ORDERED: LOSARTAN POTASSIUM 50 MG TAB PO SCH (09:00)
[2021-08-25] MEDS ORDERED: ISOSORBIDE MONO EXTENDED REL 30 MG TABCR PO SCH (09:00)
[2021-08-25] MEDS ORDERED: METOPROLOL SUCC 50MG EXT REL TAB PO SCH (09:00)
[2021-08-25] MEDS ORDERED: CHOLECALCIFEROL 1,000 UNITS 25 MCG TAB PO SCH (09:00)
[2021-08-25] MEDS ORDERED: CLOPIDOGREL BISULFATE 75 MG TAB PO SCH (09:00)
--- NOTE | 2021-08-25 09:21 | Electrocardiogram Report ---
Test Reason : Blood Pressure : / mmHG Vent. Rate : 072 BPM Atrial Rate : 072 BPM P-R Int : 226 ms QRS Dur : 116 ms QT Int : 410 ms P-R-T Axes : 073 -17 034 degrees QTc Int : 448 ms Atrial-sensed ventricular-paced rhythm with prolonged AV conduction Abnormal ECG When compared with ECG of 05-AUG-2021 11:20, Vent. rate has increased BY 4 BPM Confirmed by Avery Davidson ([id number]) on 08/24/2021 2:39:08 PM Referred By: Savanna Lizama Confirmed By:Avery Davidson
[2021-08-25] MEDS: APIXABAN 5 MG TABLET PO SCH (09:31)
[2021-08-25] MEDS: INSULIN ASPART PER UNIT SC SCH ×2 (09:32→12:52)
--- NOTE | 2021-08-25 09:33 | Consultation ---
Date of Consultation August 25, 2021 Assessment & Plan (1) Carotid artery plaque: Pt discussed with Dr Menezes, who reviewed imaging. Pt appears to have a mild stenosis of R ICA. This is not related to his recent CVA and does not require vascular surgical intervention at this time. He also has an occlusion of his R vertebral artery, which may have occurred simultaneously with his cerebellar infarct. This does not require vascular surgical intervention. This was discussed with pt, he expresses understanding. Please call if needed. History of Present Illness Reason for Consultation: carotid stenosis/CVA Attending Physician: Willow Shelby MD History of Present Illness 85 yo m with hx of HTN, CVA, DMII, CAD, a fib on eliquis, hypercholesterolemia, hypothyroidism, CKD, COPD, pulmonary nodules, cardiac pacemaker, BPH, admitted with worsening balance problems, seen in consultation today for carotid stenosis. Pt states he has had CVA in past which affected his L arm/hand strength and still has some residual weakness. States he was admitted a few weeks ago to [facility] for balance problems, but signed himself out. His PCP ordered a brain MRI which demonstrated subacute R cerebellar CVA. CTA neck done a few weeks ago demonstrated an acute R vertebral artery occlusion; this may have coincided with his CVA/balance problems. Pt states his balance problems/dizziness seemed to be getting worse, to the point that he has to hang on to objects for balance, so his family wanted him to come back to [facility]. Pt denies CARBAJAL, amaurosis, new unilateral weakness/numbness, facial droop, confusion. Denies fever, chest pain, SOB, abd pain, N/V, rest pain, claudication, other complaints. CTA neck from 08/03 demonstrates less than 50% stenosis of R ICA, occluded R vertebral. THis is confirmed with MRA neck performed on 08/05. Allergies Allergy/AdvReac Type Severity Reaction Status Date / Time No Known Allergies Allergy Verified 08/24/21 12:16 Home Medications Medication Instructions Recorded Confirmed Type blood-glucose meter #1 ea 10/22/18 08/07/21 History nitroglycerin 0.4 mg sublingual 0.4 mg SL Q5M PRN #1 tab 01/02/19 08/24/21 History tablet aspirin 81 mg tablet,delayed 81 mg PO DAILY 07/11/20 08/24/21 History release (Adult Aspirin Regimen) cyanocobalamin (vitamin B-12) 500 1,000 mcg PO QAM #60 tab 08/09/20 08/24/21 Rx mcg tablet atorvastatin 40 mg tablet 40 mg PO HS #90 tab 10/17/20 08/24/21 Rx apixaban 5 mg tablet (Eliquis) 5 mg PO BID #180 tab 02/23/21 08/24/21 Rx cholecalciferol (vitamin D3) 50 50 mcg PO DAILY 03/21/21 08/24/21 History mcg (2,000 unit) capsule acetaminophen 325 mg tablet 650 mg PO Q4H PRN 08/05/21 08/24/21 History isosorbide mononitrate 60 mg 30 mg PO DAILY 08/05/21 08/24/21 History tablet,extended release 24 hr levothyroxine 150 mcg tablet 150 mcg PO DAILYBB 08/05/21 08/24/21 History metoprolol succinate 100 mg 100 mg PO DAILY 08/05/21 08/24/21 History tablet,extended release 24 hr multivitamin with minerals 1 tab PO DAILY 08/05/21 08/24/21 History (Multiple Vitamin-Minerals) glimepiride 4 mg tablet 4 mg PO BID #180 tab 08/07/21 08/24/21 Rx losartan 50 mg tablet 50 mg PO DAILY #90 tab 08/07/21 08/24/21 Rx blood sugar diagnostic #100 ea 08/08/21 Rx lancets 30 gauge (OneTouch Delica #200 ea 08/08/21 08/24/21 Rx Lancets) metformin 500 mg tablet,extended 500 mg PO DIRECTED 08/24/21 08/24/21 History release 24 hr sitagliptin 50 mg tablet (Januvia) 50 mg PO DAILY 08/24/21 08/24/21 History Patient History Medical History 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) Anemia Benign prostate hyperplasia CAD (coronary artery disease) Cerebrovascular accident CKD (chronic kidney disease), stage III Diabetes mellitus type 2, uncontrolled Diabetes mellitus with circulatory complication Dyslipidemia Hyperlipidemia Hypertension Hypothyroidism Obesity Paroxysmal atrial fibrillation Prostatitis 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 Surgical History History of colonoscopy (~1992) S/P cataract surgery left - 03/06/17, right - 03/20/17 Family History Father Lung cancer Smoker Brother Smoker Denies family history of Ovarian cancer Prostate cancer Breast cancer Colorectal cancer Social History Smoking Status: Former smoker Tobacco Type: Cigarettes Age Started Using Tobacco: 14; Age Quit Using Tobacco: 50; packs per day: 0.5; Years Smoked: 36; Cigarettes Per Day: 10; Second Hand Exposure: No; Hx Alcohol Use: No Hx Substance Use: No Preferred Language: Yakut Communication Ability: Effective Claims Adjuster Required: No Beliefs That Will Affect Care: None marital status: Current Living Situation: Spouse Feels Safe at Home: Yes Assistive Devices: Walker Review of Systems Review of Systems: All systems reviewed & are unremarkable except as noted in HPI & below Physical Exam Constitutional: WD/WN, vitals as above cooperative and comfortable; not in distress ENMT: Ears: + hearing impairment (very MODOC) Neck: trachea midline Respiratory: normal respiratory effort, lungs clear to auscultation Auscultation: + diminished lung sounds Cardiovascular: Rate/Rhythm: + irregularly irregular Vessels: posterior tibial pulses present, dorsalis pedis pulses present and radial pulses present; no carotid bruit Extremities: normal capillary refill; no edema Gastrointestinal (Abdomen): Inspection/Auscultation: abdomen normal to inspection and normal bowel sounds Percussion/Palpation: abdomen soft; abdomen nontender Musculoskeletal: no cyanosis or clubbing, extremities motor strength 5/5 Skin: no rashes, warm and dry Neurologic: moves all extremities and awake; no focal motor deficits and not confused Psychiatric: A+Ox3, euthymic affect Results & Data ([facility]) Vital Signs (Past 12 Hours) Vital Signs Temp Pulse Pulse Resp BP Pulse Ox 08/25/21 07:00 36.5 C 65 20 162/79 H 95 08/25/21 03:44 36.5 C 94 H 20 144/73 H 93 08/24/21 23:18 36.8 C 71 18 134/77 96 08/24/21 22:18 86
--- NOTE | 2021-08-25 09:34 | Neurology Consultation ---
Date of Consultation August 25, 2021 Assessment & Plan (1) Acute stroke due to occlusion of right cerebellar artery: Acute to subacute inferior right cerebellar hemispheric stroke presenting with a 1 to 2-week history of ataxia. Patient has a history of right cervical medullary junction stroke in the context of an occluded right vertebral artery last July. History also notable for atrial fibrillation, on apixaban, type 2 diabetes mellitus, hypertension, hyperlipidemia, former smoker. Patient's daily low-dose aspirin has been discontinued in favor of clopidogrel. His Eliquis and atorvastatin have been continued. I would recommend completing an up-to-date CT angiogram of the head and neck. Permissive hypertension, systolic blood pressure 140 to 160 mmHg appropriate acutely. Patient will need consultations with PT/OT. No further immediate recommendations. History of Present Illness Reason for Consultation: stroke Requesting Physician: Shankar Varela Attending Physician: Willow Shelby MD History of Present Illness The patient is an 85-year-old male who had presented to the emergency department August 05, 2021 complaining of headache and paresthesias affecting the right hand. A CT of the head at that time was negative for acute pathology. He had l eft the hospital AGAINST MEDICAL ADVICE. (A previous brain MRI completed in July 2020 had revealed a small acute infarct involving the right cervical medullary junction. A CTA of the head and neck at that time had revealed an abrupt occlusion of the intracranial and distal right vertebral artery.) He has a history of atrial fibrillation, on Eliquis . He then had an outpatient brain MRI completed on July 24, 2021 revealing a relatively large subacute to acute infarct involving the inferior right cerebellar hemisphere. He was subsequently admitted for further evaluation and management. His Eliquis has been continued. Aspirin has been discontinued in favor of Plavix. His atorvastatin has been continued. Patient does report some worsening balance over the past 2 weeks, tendency to list to the right. He otherwise denies any other neurologic symptoms such as vision loss, diplopia, change in speech or swallowing, numbness of the limbs, or focal weakness. He denies headache. Allergies Allergy/AdvReac Type Severity Reaction Status Date / Time No Known Allergies Allergy Verified 08/24/21 12:16 Home Medications Medication Instructions Recorded Confirmed Type blood-glucose meter #1 ea 10/22/18 08/07/21 History nitroglycerin 0.4 mg sublingual 0.4 mg SL Q5M PRN #1 tab 01/02/19 08/24/21 History tablet aspirin 81 mg tablet,delayed 81 mg PO DAILY 07/11/20 08/24/21 History release (Adult Aspirin Regimen) cyanocobalamin (vitamin B-12) 500 1,000 mcg PO QAM #60 tab 08/09/20 08/24/21 Rx mcg tablet atorvastatin 40 mg tablet 40 mg PO HS #90 tab 10/17/20 08/24/21 Rx apixaban 5 mg tablet (Eliquis) 5 mg PO BID #180 tab 02/23/21 08/24/21 Rx cholecalciferol (vitamin D3) 50 50 mcg PO DAILY 03/21/21 08/24/21 History mcg (2,000 unit) capsule acetaminophen 325 mg tablet 650 mg PO Q4H PRN 08/05/21 08/24/21 History isosorbide mononitrate 60 mg 30 mg PO DAILY 08/05/21 08/24/21 History tablet,extended release 24 hr levothyroxine 150 mcg tablet 150 mcg PO DAILYBB 08/05/21 08/24/21 History metoprolol succinate 100 mg 100 mg PO DAILY 08/05/21 08/24/21 History tablet,extended release 24 hr multivitamin with minerals 1 tab PO DAILY 08/05/21 08/24/21 History (Multiple Vitamin-Minerals) glimepiride 4 mg tablet 4 mg PO BID #180 tab 08/07/21 08/24/21 Rx losartan 50 mg tablet 50 mg PO DAILY #90 tab 08/07/21 08/24/21 Rx blood sugar diagnostic #100 ea 08/08/21 Rx lancets 30 gauge (OneTouch Delica #200 ea 08/08/21 08/24/21 Rx Lancets) metformin 500 mg tablet,extended 500 mg PO DIRECTED 08/24/21 08/24/21 History release 24 hr sitagliptin 50 mg tablet (Januvia) 50 mg PO DAILY 08/24/21 08/24/21 History Patient History Medical History 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) Anemia Benign prostate hyperplasia CAD (coronary artery disease) Cerebrovascular accident CKD (chronic kidney disease), stage III Diabetes mellitus type 2, uncontrolled Diabetes mellitus with circulatory complication Dyslipidemia Hyperlipidemia Hypertension Hypothyroidism Obesity Paroxysmal atrial fibrillation Prostatitis 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 Surgical History History of colonoscopy (~1992) S/P cataract surgery left - 03/06/17, right - 03/20/17 Family History Father Lung cancer Smoker Brother Smoker Denies family history of Ovarian cancer Prostate cancer Breast cancer Colorectal cancer Social History Smoking Status: Former smoker Tobacco Type: Cigarettes Age Started Using Tobacco: 14; Age Quit Using Tobacco: 50; packs per day: 0.5; Years Smoked: 36; Cigarettes Per Day: 10; Second Hand Exposure: No; Hx Alcohol Use: No Hx Substance Use: No Preferred Language: Romansh Communication Ability: Effective Clinical Coordinator Required: No Beliefs That Will Affect Care: None marital status: Current Living Situation: Spouse Feels Safe at Home: Yes Assistive Devices: Walker Review of Systems Constitutional: no fever and no chills Eyes: no blind spots and no diplopia Ear, Nose, Mouth, Throat: + hearing loss; no ear pain Respiratory: no cough and no dyspnea Cardiovascular: no chest pain and no palpitations Gastrointestinal: no constipation and no diarrhea/loose stools Genitourinary: no urinary incontinence or no urinary urgency Musculoskeletal: no muscle weakness and no muscle atrophy Integumentary: no rash and no lesions Neurologic: as per Subjective / HPI, + unsteadiness and + tremor(s); no localized weakness, no headache(s) and no memory loss Psychiatric: no behavioral changes, no depression, no abnormal sleep pattern and no anxiety Hematologic / Lymphatic: no easy bruising and no lymphadenopathy Exam (Neuro) Constitutional: well developed and well nourished; no acute distress Eyes: normal visual chin by confrontation, PERRL, normal accommodation and EOM intact bilaterally; no fundoscopic abnormality, no nystagmus and no papilledema Cardiovascular: Vessels: normal carotid upstroke; no carotid bruit Neurologic: Oriented to:: Person, Place and Time Memory: Short Term Intact and Remote Intact Attention: Span Intact and Concentration Intact Language: Naming Objects and Repeating Phrases Speech Fluency: negative Dysarthria Speech Aphasia: negative Aphasia Fund of Knowledge: Current Events, Past History and Vocabulary Cranial Nerves: Normal II (Visual chin full to confrontation, visual acuity normal), III, IV, (Pupils equal round reactive to light and accommodation, eye movements normal), V (Facial sensation intact), VII (There is no facial droop or weakness), IX, X (Palate elevates to midline), XI (Shoulder shrug intact) and XII (Tongue protrudes to midline); Abnorm VIII (Diminished hearing to finger rub bilaterally) Motor Strength: Normal Lower Extremities and Normal Upper Extremities; negative Pronator Drift Motor Tone: Normal Lower Extremities and Normal Upper Extremities Muscle Bulk/Involuntary Movements: Action Tremor; negative Muscle Atrophy Sensation: Light Touch Intact, Pain/Temperature Intact, Vibration Intact and Proprioception Intact Coordination: Normal, Limited Balance and Dysdiadochokinesia Laterality: Right; negative Finger-Nose Abnormal or Heel-Ahuja Abnormal Deep Tendon Reflexes: Rt Triceps: 2+, Lt Triceps: 2+, Rt Biceps: 2+, Lt Biceps: 2+, Rt Brachioradialis: 2+, Lt Brachioradialis: 2+, Rt Patellar: 2+, Lt Patellar: 2+, Rt Ankle: 1+ and Lt Ankle: 1+ Special Tests: negative Babinski Present Gait: Ataxic (Tendency to list to the right) Results & Data ([facility]) Vital Signs (Past 12 Hours) Vital Signs Temp Pulse Pulse Resp BP Pulse Ox 08/25/21 07:00 36.5 C 65 20 162/79 H 95 08/25/21 03:44 36.5 C 94 H 20 144/73 H 93 08/24/21 23:18 36.8 C 71 18 134/77 96 08/24/21 22:18 86 Laboratory Results WBC 8.48, hemoglobin 13.0, hematocrit 39.4, platelet count 128, sodium 138, pot assium 4.0, BUN 33, creatinine 1.35, glucose 115, hemoglobin A1c 7.5, AST 14, ALT 14, triglycerides 114, cholesterol 101, LDL 47, VLDL 23, HDL 31. Diagnostic Findings Brain MRI completed August 23, 2021 revealed a large area of restricted diffusion in the inferior right cerebellar hemisphere consistent with an acute to subacute infarct. There was an additional punctate focus of restricted diffusion within the high right parietal lobe cortex also consistent with a tiny acute to subacute infarct. No hemorrhage or mass-effect. Chronic lacunar infarcts noted in the right cerebellar hemisphere, left periventricular white matter, and at the right cervical medullary junction. I reviewed the images as well as the radiologist interpretation of this test and was able to appreciate the above findings. A carotid duplex completed August 05, 2021 revealed an approximate 50% stenosis at the origin of the right internal carotid artery due to a large calcified atherosclerotic plaque. An MRA of the neck completed August 05, 2020 revealed no change in the occluded intracranial portion of the distal right vertebral artery. 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 There was an approximate 30% stenosis at the origin of the right internal carotid artery. CT angiography of the neck completed August 03, 2020 revealed focal occlusion involving the intracranial portion of the distal right vertebral artery, likely acute. There was a 30% stenosis of the origin of the right internal carotid artery. Remaining bilateral carotid arteries patent. There was mild focal. 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 There was also mention of a 4 mm indeterminate pulmonary nodule within the right upper lobe. CT angiography of the head completed August 03, 2020 revealed abrupt occlusion of the intracranial portion of the right vertebral artery which is likely acute. An electrocardiogram revealed an atrial sensed ventricular paced rhythm with prolonged AV conduction. An echocardiogram completed August 05, 2021 revealed normal left ventricular systolic function, mild concentric left ventricular hypertrophy, left atrium mildly dilated, no interatrial shunt. Coding Level of Care Code 03081 Initial Inpt Care Lvl 3 Diagnoses Acute stroke due to occlusion of right cerebellar artery I63.541
[2021-08-25] MEDS ORDERED: OPTIRAY 320 125ml IV ONE (12:15)
--- NOTE | 2021-08-25 12:59 | CT Scan Report ---
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 Follow-up study in a patient with hist ory of an acute infarct COMPARISON STUDY: CTA head and neck 08/03/2020, MRA of the neck 08/05/2020, brain MRI 08/23/2021 TECHNIQUE: Following the IV administration of 120 mL of Optiray, CT angiogram of the head and neck wa s performed from the aortic arch to the skull apex. Noncontrast head CT was also obtained. Images are reviewed in the axial, sagittal, and coronal planes. 3-D MIPS images are created and assessed. IV co ntrast was administered without complication. All measurements were calculated based on NASCET criter ia. A dose lowering technique was utilized adhering to the principles of ALARA. CT DOSE: 1094.70 mGy.cm FINDINGS: CT HEAD: No acute intracranial hemorrhage, midline shift, abnormal extra axial collection, hydrocephalus or in tracranial mass. Chronic left caudate nuclear lacunar infarct. Acute to subacute appearing infarct of the inferior right cerebellar hemisphere is again noted. Senescent calcifications of the right basal ganglia. A tiny focus of infarct in the superior right parietal lobe seen on the recent MRI is not w ell evaluated by CT. No acute calvarial fracture. Mastoid air cells are clear. Partially imaged polyp oid mucosal thickening of the left maxillary sinus. Unremarkable soft tissues. Prior bilateral lens r eplacement. CTA HEAD AND NECK: Atherosclerosis of the thoracic aortic arch. There is patency of the innominate and imaged subclavian arteries. Left subclavian pacer leads are partially imaged. Patency of the common carotid arteries. Atherosclerotic plaque of the carotid bulbs and proximal cervical segments of the internal carotid ar teries results in less than 50% stenosis bilaterally. Unchanged dilation of the distal cervical segme nt of the internal carotid artery, centimeters Additional atherosclerotic plaque of the cavernous, clinoid and supraclinoid segments. There is high- grade stenosis of the supraclinoid segment on the right on image 118 which has progressed from the pr ior study. There is mild multifocal low-grade stenosis of the middle cerebral arteries. Anterior cere bral arteries are patent. Dominant left vertebral artery. Multifocal atherosclerotic plaque of the left vertebral artery, notab ly within the V4 segment which results in mild to moderate stenosis, unchanged. Atherosclerotic plaqu e at the origin of the developmentally diminutive right vertebral artery results in at least moderate stenosis. Interval development of a linear filling defect involving the V2 segment of the right vert ebral artery extending from the level of C2 superiorly. There is occlusion of the distal V2, V3 and V 4 segments with a diffuse small areas of reconstitution within the V3 segment. There is diminished fl ow within the right PICA artery. The basilar and posterior cerebral arteries are patent. The cerebral venous sinuses are patent. Lung apices are clear. Heterogeneous thyroid. Multilevel degenerative changes of the cervical spine. IMPRESSION: 1. 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 2. Atherosclerosis with high-grade stenosis of the supraclinoid segment of the right internal carotid artery. 3. 50% stenosis of the bilateral carotid bulbs. 4. Acute to subacute infarct of the inferior right cerebellar hemisphere redemonstrated. ACT 112: Negative or not required by law. The above report was generated using voice recognition software. It may contain grammatical, syntax o r spelling errors. Electronically signed by: Attila Sandoval M.D. 08/25/2021 12:57 PM
--- NOTE | 2021-08-25 14:41 | Pharmacy Report ---
Pharmacy Glycemic Short Note 2 - Date of Service August 25, 2021 - Glycemic Short BSG Results (Last 24 hours): 08/24/21 08/24/21 08/25/21 16:32 20:07 07:00 Glucose 115 H POC Glucose 86 101 H 08/25/21 08/25/21 07:40 11:28 Glucose POC Glucose 122 H 192 H OUTPATIENT ANTIDIABETIC REGIMEN: * Metformin (unsure of dose?) * Sitagliptin 50mg PO daily * Glimepiride 4mg PO BID * HbA1c: 7.5% (08/25/21) ASSESSMENT: * Mr Watt is an 85yo diabetic M admitted with CVA. * Oral anti-diabetic meds held on admission and SQ Novolog ordered for coverage. * Pt passed a dysphagia screening last evening and is ordered a diabetic diet, which he appears to be tolerating. * BSGs have been stable thus far. Novolog parameters tightened slightly today for elevated pre-lunch BSG. * Will consider adding small dose of Lantus tomorrow if BSGs start to trend up. PLAN FOR INPATIENT GLYCEMIC CONTROL: * Hold outpatient oral diabetes medications * Basal insulin * none at this time * Bolus insulin * NovoLog per scale ACHS or Q6hrs while NPO * Goal Range: Low 110 mg/dL - High 150 mg/dL * Correction Factor: 30 mg/dL/unit * Nutritional / Prandial insulin per carb ratio of 1 unit per 10 grams CHO consumed
[2021-08-25] MEDS ORDERED: STROKE PATIENT DISCHARGE STA (15:18)
--- NOTE | 2021-08-25 16:16 | Discharge Summary ---
Date of Service August 25, 2021 Admission HPI Per Admitting Provider Mr. Watt is an 85-year-old male with past medical history of CVA in 2020 on Eliquis and ASA, CAD, HTN, HLD, pacemaker present, CKD3, DM2, and hypothyroidism who presents today having worsening balance issues. Patient had a positive outpatient MRI of the brain after leaving AMA last month for a possible stroke. His prior neuro symptoms from last admission: associated with some general balance issues, and numbness and tingling in the tips of his R distal first four fingers. He does not report blurry vision this morning, but has had some intermittent blurry vision in the last month. Patient reports that over the past 2 weeks, he has stated that his balance has been worsening. He states that when he ambulates he gets dizzy, and gets nauseous. Family at bedside. Principal Diagnosis CVA Discharge Exam General: awake, alert, no apparent distress HEENT: NCAT, PERRL, EOMI, mucous membranes moist, hard of hearing Respiratory: Clear to auscultation, no accessory muscle use Cardiac: RRR, no murmur Abdominal: soft, nontender to palpation, nondistended, Extremities: Normal inspection, no peripheral edema or erythema, calfs nontender to palpation Psych: Normal mood and affect Neuro: AOx3, strength intact 5/5 bilaterally, speech is clear, no peripheral sensory deficits, ataxia on ambulation but much improved with walker Discharge Data Allergies Allergy/AdvReac Type Severity Reaction Status Date / Time No Known Allergies Allergy Verified 08/24/21 12:16 Consultations 08/24/21 11:30 ED Decision to Admit Stat 08/24/21 14:35 Consult Neurology Routine 08/24/21 14:44 Consult Neurology Routine 08/24/21 14:56 Consult Vascular Surgery Routine Ordered Studies Laboratory Results WBC 8.48 K/uL (4.8-10.8) 08/25/21 07:00 RBC 4.04 M/uL (4.7-6.1) L 08/25/21 07:00 Hgb 13.0 g/dL (14.0-18.0) L 08/25/21 07:00 Hct 39.4 % (42-52) L 08/25/21 07:00 MCV 97.5 fL (80-100) 08/25/21 07:00 MCH 32.2 pg (25-34) 08/25/21 07:00 MCHC 33.0 g/dL (32-36) 08/25/21 07:00 RDW Std Deviation 47.1 fL (36.4-46.3) H 08/25/21 07:00 RDW Coeff of Jose 13.2 % (11.5-14.5) 08/25/21 07:00 Plt Count 128 K/uL (130-400) L 08/25/21 07:00 MPV 13.2 fL (7.4-10.4) H 08/25/21 07:00 Immature Gran % (Auto) 0.4 % 08/25/21 07:00 Neut % (Auto) 71.9 % 08/25/21 07:00 Lymph % (Auto) 16.9 % 08/25/21 07:00 [place] % (Auto) 9.8 % 08/25/21 07:00 Eos % (Auto) 0.8 % 08/25/21 07:00 Baso % (Auto) 0.2 % 08/25/21 07:00 Neut # (Auto) 6.10 K/uL (1.4-6.5) 08/25/21 07:00 Lymph # (Auto) 1.43 K/uL (1.2-3.4) 08/25/21 07:00 [place] # (Auto) 0.83 K/uL (0.11-0.59) H 08/25/21 07:00 Eos # (Auto) 0.07 K/uL (0-0.5) 08/25/21 07:00 Baso # (Auto) 0.02 K/uL (0-0.2) 08/25/21 07:00 Immature Gran # (Auto) 0.03 K/uL (0.00-0.02) H 08/25/21 07:00 Platelet Estimate Decreased (Normal) L 08/24/21 11: PT 11.4 Seconds (9.0-12.0) 08/24/21 11: INR 1.1 (0.9-1.1) 08/24/21: APTT 27.1 Seconds (21.0-31.0) 08/24/21: PTT Ratio 1.0 08/24/21 11:22 Sodium 138 mmol/L (136-145) 08/25/21 07:00 Potassium 4.0 mmol/L (3.5-5.1) 08/25/21 07:00 Chloride 105 mmol/L (98-107) 08/25/21 07:00 Carbon Dioxide 26 mmol/L (21-32) 08/25/21 07:00 Anion Gap 7 (3-11) 08/25/21 07:00 BUN 33 mg/dl (6-23) H 08/25/21 07:00 Creatinine 1.35 mg/dl (0.6-1.4) 08/25/21 07:00 Est Cr Clr Drug Dosing 45.4 ml/min 08/25/21 07:00 Est GFR ( Amer) 55.9 ml/min 08/25/21 07:00 Est GFR (Non-Af Amer) 48.2 ml/min 08/25/21 07:00 BUN/Creatinine Ratio 24.4 (10-20) H 08/25/21 07:00 Glucose 115 mg/dl (70-99(Fasting)) H 08/25/21 07:00 POC Glucose 192 mg/dl (70-99) H 08/25/21 11:28 Estimat Average Glucose 169 mg/dl 08/25/21 07:00 Hemoglobin A1c 7.5 % (4.5-5.6) H 08/25/21 07:00 Calcium 9.5 mg/dl (8.5-10.1) 08/25/21 07:00 Magnesium 1.9 mg/dl (1.7-2.4) 08/24/21 11:22 Total Bilirubin 0.5 mg/dl (0.2-1.0) 08/24/21 11:22 AST 14 U/L (13-39) 08/24/21 11:22 ALT 14 U/L (7-52) 08/24/21 11:22 Alkaline Phosphatase 82 U/L (34-104) 08/24/21 11:22 Troponin I High Sens 16.2 pg/ml (0-20) 08/24/21 11:22 Total Protein 7.3 gm/dl (6.0-8.3) 08/24/21 11:22 Albumin 4.1 gm/dl (3.4-5.0) 08/24/21 11:22 Globulin 3.2 gm/dl (2.5-4.0) 08/24/21 11:22 Albumin/Globulin Ratio 1.3 (0.9-2) 08/24/21 11:22 Triglycerides 114 mg/dl (0-150) 08/25/21 07:00 Cholesterol 101 mg/dl (0-200) 08/25/21 07:00 LDL Cholesterol, Calc 47 mg/dl 08/25/21 07:00 VLDL Cholesterol, Calc 23 mg/dl (0-30) 08/25/21 07:00 HDL Cholesterol 31 mg/dl 08/25/21 07:00 Cholesterol/HDL Ratio 3.3 (0-5) 08/25/21 07:00 SARS-CoV-2, RNA, NAAT NEGATIVE (NEGATIVE) 08/24/21 11:54 Impressions Neck CTA 08/25/21 09:34 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 Follow-up study in a patient with history of an acute infarct COMPARISON STUDY: CTA head and neck 08/03/2020, MRA of the neck 08/05/2020, brain MRI 08/23/2021 TECHNIQUE: Following the IV administration of 120 mL of Optiray, CT angiogram of the head and neck was performed from the aortic arch to the skull apex. Non contrast head CT was also obtained. Images are reviewed in the axial, sagittal, and coronal planes. 3-D MIPS images are created and assessed. IV contrast was administered without complication. All measurements were calculated based on NASCET criteria. A dose lowering technique was utilized adhering to the principles of ALARA. CT DOSE: 1094.70 mGy.cm FINDINGS: CT HEAD: No acute intracranial hemorrhage, midline shift, abnormal extra axial collection, hydrocephalus or intracranial mass. Chronic left caudate nuclear lacunar infarct. Acute to subacute appearing infarct of the inferior right ce rebellar hemisphere is again noted. Senescent calcifications of the right basal ganglia. A tiny focus of infarct in the superior right parietal lobe seen on the recent MRI is not well evaluated by CT. No acute calvarial fracture. Mastoid air cells are clear. Partially imaged polypoid mucosal thickening of the left maxillary sinus. Unremarkable soft tissues. Prior bilateral lens replacement. CTA HEAD AND NECK: Atherosclerosis of the thoracic aortic arch. There is patency of the innominate and imaged subclavian arteries. Left subclavian pacer leads are partially imaged. Patency of the common carotid arteries. Atherosclerotic plaque of the carotid bulbs and proximal cervical segments of the internal carotid arteries results in less than 50% stenosis bilaterally. Unchanged dilation of the distal cervical segment of the internal carotid artery, centimeters Additional atherosclerotic plaque of the cavernous, clinoid and supraclinoid segments. There is high-grade stenosis of the supraclinoid segment on the right on image 118 which has progressed from the prior study. There is mild multifocal low-grade stenosis of the middle cerebral arteries. Anterior cerebral arteries are patent. Dominant left vertebral artery. Multifocal atherosclerotic plaque of the left vertebral artery, notably within the V4 segment which results in mild to moderate stenosis, unchanged. Atherosclerotic plaque at the origin of the developmentally diminutive right vertebral artery results in at least moderate stenosis. Interval development of a linear filling defect involving the V2 segment of the right vertebral artery extending from the level of C2 superiorly. There is occlusion of the distal V2, V3 and V4 segments with a diffuse small areas of reconstitution within the V3 segment. There is diminished flow within the right PICA artery. The basilar and posterior cerebral arteries are patent. The cerebral venous sinuses are patent. Lung apices are clear. Heterogeneous thyroid. Multilevel degenerative changes of the cervical spine. IMPRESSION: 1. 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 2. Atherosclerosis with high-grade stenosis of the supraclinoid segment of the right internal carotid artery. 3. 50% stenosis of the bilateral carotid bulbs. 4. Acute to subacute infarct of the inferior right cerebellar hemisphere redemonstrated. ACT 112: Negative or not required by law. The above report was generated using voice recognition software. It may contain grammatical, syntax or spelling errors. Electronically signed by: Attila Sandoval M.D. 08/25/2021 12:57 PM Head CTA 08/25/21 10:31 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 Follow-up study in a patient with history of an acute infarct COMPARISON STUDY: CTA head and neck 08/03/2020, MRA of the neck 08/05/2020, brain MRI 08/23/2021 TECHNIQUE: Following the IV administration of 120 mL of Optiray, CT angiogram of the head and neck was performed from the aortic arch to the skull apex. Noncontrast head CT was also obtained. Images are reviewed in the axial, sagittal, and coronal planes. 3-D MIPS images are created and assessed. IV contrast was administered without complication. All measurements were calculated based on NASCET criteria. A dose lowering technique was utilized adhering to the principles of ALARA. CT DOSE: 1094.70 mGy.cm FINDINGS: CT HEAD: No acute intracranial hemorrhage, midline shift, abnormal extra axial collection, hydrocephalus or intracranial mass. Chronic left caudate nuclear lacunar infarct. Acute to subacute appearing infarct of the inferior right cerebellar hemisphere is again noted. Senescent calcifications of the right basal ganglia. A tiny focus of infarct in the superior right parietal lobe seen on the recent MRI is not well evaluated by CT. No acute calvarial fracture. Mastoid air cells are clear. Partially imaged polypoid mucosal thickening of the left maxillary sinus. Unremarkable soft tissues. Prior bilateral lens replacement. CTA HEAD AND NECK: Atherosclerosis of the thoracic aortic arch. There is patency of the innominate and imaged subclavian arteries. Left subclavian pacer leads are partially imaged. Patency of the common carotid arteries. Atherosclerotic plaque of the carotid bulbs and proximal cervical segments of the internal carotid arteries results in less than 50% stenosis bilaterally. Unchanged dilation of the distal cervical segment of the internal carotid artery, centimeters Additional atherosclerotic plaque of the cavernous, clinoid and supraclinoid segments. There is high-grade stenosis of the supraclinoid segment on the right on image 118 which has progressed from the prior study. There is mild multifocal low-grade stenosis of the middle cerebral arteries. Anterior cerebral arteries are patent. Dominant left vertebral artery. Multifocal atherosclerotic plaque of the left vertebral artery, notably within the V4 segment which results in mild to moderate stenosis, unchanged. Atherosclerotic plaque at the origin of the developmentally diminutive right vertebral artery results in at least moderate stenosis. Interval development of a linear filling defect involving the V2 segment of the right vertebral artery extending from the level of C2 superiorly. There is occlusion of the distal V2, V3 and V4 segments with a diffuse small areas of reconstitution within the V3 segment. There is diminished flow within the right PICA artery. The basilar and posterior cerebral arteries are patent. The cerebral venous sinuses are patent. Lung apices are clear. Heterogeneous thyroid. Multilevel degenerative changes of the cervical spine. IMPRESSION: 1. 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 2. Atherosclerosis with high-grade stenosis of the supraclinoid segment of the right internal carotid artery. 3. 50% stenosis of the bilateral carotid bulbs. 4. Acute to subacute infarct of the inferior right cerebellar hemisphere redemonstrated. ACT 112: Negative or not required by law. The above report was generated using voice recognition software. It may contain grammatical, syntax or spelling errors. Electronically signed by: Attila Sandoval M.D. 08/25/2021 12:57 PM Hospital Course (1) Cerebrovascular accident: 85 yo PMHx of CVA in 2020 on Eliquis and aspirin, CAD, HTN, HLD, pacemaker present, CKD3, DM2, former smoker, and hypothyroidism presented with weakness, difficulty walking, and balance issues and MRI showing stroke. 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 -presented with weakness, difficulty walking, worsening balance -seen last month in ED, diagnosed with TIA but refused MRI and left AMA; recently seen by PCP and MRI obtained outpatient -Head CT (08/05/21): no acute pathology, cerebral cortical atrophy w/ small vessel disease -Echo (08/05/21): normal left ventricular systolic function, mild LVH, grade 2 diastolic dysfunction consistent with elevated left atrial pressure -Carotid doppler (08/05/21): 50% stenosis right ICA w/o hemodynamically significant stenosis -EKG (08/24): ventricular paced rhythm -CTA head/neck (08/25): acute dissection right distal vertebral artery with occlusion, atherosclerosis with high grade stenosis of supraclinoid segment of right ICA, 50% stenosis bilateral carotid bulbs, acute-subacute infarct inferior right cerebellar hemisphere -MRI brain (08/23/21): large region of restricted diffusion in inferior right cer ebellar hemisphere consistent with acute-subacute infarct, additional punctate focus of restricted diffusion in right parietal lobe consistent with tiny acute- subacute infarct, no hemorrhage -A1C 7.5 -lipid panel wnl -neuro consult appreciated: cont. plavix and eliquis, f/u CTA head and neck in 3-6 months -vascular consult appreciated: no surgical intervention necessary, referred to vascular surgery, f/u carotid US 6 months -PT/OT: ok for home, cont. ambulating with walker -due to vertebral dissection, avoid high velocity neck manipulation (e.g. chiropractor) -d/c aspirin, started plavix daily -cont. home Eliquis #Hypertension -cont. home metoprolol, losartan -would recommend outpatient sleep study for risk stratification and potential need for CPAP #Diabetes mellitus with circulatory complication -cont. sitagliptin, metformin, glimepiride #CAD (coronary artery disease) -as above, cont. plavix -continue statin, losartan #stable angina -continue imdur #afib -switched aspirin to plavix, cont. -cont. eliquis #Hyperlipidemia -cont. statin #Hypothyroidism -cont. levothyroxine Total Time Total Time Spent Total Time Spent (In Minutes): 30 Discharge Plan Discharge Items Patient Disposition: Home - Self-Care Reason For Visit: STROKE Discharge Diagnosis: stroke Activity: Per Instructions section Non-emergency contact: Primary Care Provider and Surgeon Call non-emergency contact if: you have any medication questions and your symptoms worsen Follow-up/Referrals: Savanna Lizama CRNP [Primary Care Provider] - Diet: Heart Healthy Addtl Attending Provider Instructions: Activity Recommendations: See above Activation of Emergency Medical System: Call 911, immediately, if you experience any of the following: Warning Signs and Symptoms of Stroke: * Sudden numbness or weakness of the face, arm or leg, especially on one side of the body * Sudden confusion, trouble speaking or understanding * Sudden trouble seeing in one or both eyes * Sudden trouble walking, dizziness, loss of balance or coordination * Sudden severe headache with no cause Do not delay calling 911 if you experience any warning signs or symptoms of a stroke. Delay in seeking medical attention may affect what treatments can be given to you. Risk Factors for Stroke: You can reduce your chances of stroke by working with your medical provider to adopt a healthy lifestyle. Some specific ways to lower your chance of stroke are: * If you are a smoker, now is the time to stop smoking cigarettes * If you are diabetic, improve the control of your blood sugars * Avoid excessive amounts of alcohol * Control high blood pressure * Lose weight if you are overweight * Be sure to lead an active lifestyle * Eat a healthy diet low in salt, cholesterol and fat You should know about other risk factors for stroke that you are unable to control. These include: * Age 55 years or older * Male gender * Certain racial groups: , or / * Family History of Stroke, Mini stroke or Heart Attack * Sickle Cell Disease Follow Up: It is important for you to keep your follow up appointments with your medical provider. Who to Call and When: Medical Emergencies: Call 911 immediately if you experience any of the following warning signs and symptoms of Stroke: * Sudden numbness or weakness of the face, arm or leg, especially on one side of the body * Sudden confusion, trouble speaking or understanding * Sudden trouble seeing in one or both eyes * Sudden trouble walking, dizziness, loss of balance or coordination * Sudden severe headache with no cause Do not delay calling 911 if you experience any warning signs or symptoms of a stroke. Delay in seeking medical attention may affect what treatments can be given to you. Your imaging did also demonstrate concerns for a dissection (splitting) of one of the arteries in your neck and as a result of this it would be important for you to have a repeat CT Head/Neck with contrast in the coming 3-6 months. Additionally, because of this you will need to follow-up with a vascular surgeon at [facility] for monitoring and discussions on potential intervention options for this. Finally for your carotid arteries and strokes, you have been started on Plavix to decrease the continued stroke risk. Because of this you should stop taking the aspirin daily. You should also have a repeat ultrasound of your carotid arteries in 3-6 months. Pending Studies at Discharge: No Stand-Alone Forms: Medications to Prevent Stroke, [facility] [place] [facility], Smoking Cessation Medications and DC Order Prescriptions: New clopidogrel 75 mg Tablet 75 mg PO QAM 30 Days Qty: 30 RF: 0 Continued atorvastatin 40 mg tablet 40 mg PO HS Qty: 90 RF: 3 Eliquis 5 mg tablet 5 mg PO BID Qty: 180 RF: 3 cholecalciferol (vitamin D3) 50 mcg (2,000 unit) capsule 50 mcg PO DAILY RF: 0 losartan 50 mg tablet 50 mg PO DAILY Qty: 90 RF: 3 glimepiride 4 mg tablet 4 mg PO BID Qty: 180 RF: 3 nitroglycerin 0.4 mg tablet, sublingual 0.4 mg SL Q5M PRN (Reason: chest pain) Qty: 1 RF: 0 acetaminophen 325 mg Tablet 650 mg PO Q4H PRN (Reason: Pain) RF: 0 isosorbide mononitrate 60 mg tablet extended release 24 hr 30 mg PO DAILY RF: 0 levothyroxine 150 mcg tablet 150 mcg PO DAILYBB RF: 0 metoprolol succinate 100 mg tablet extended release 24 hr 100 mg PO DAILY RF: 0 Multiple Vitamin-Minerals Tablet 1 tab PO DAILY RF: 0 Januvia 50 mg tablet 50 mg PO DAILY RF: 0 metformin 500 mg tablet extended release 24 hr 500 mg PO DIRECTED RF: 0 cyanocobalamin (vitamin B-12) 500 mcg Tablet 1,000 mcg PO QAM Qty: 60 RF: 5 Discontinued aspirin [Adult Aspirin Regimen] 81 mg tablet,delayed release (DR/EC) 81 mg PO DAILY RF: 0 No Action (DME) blood sugar diagnostic Strip See Rx Instructions .ROUTE .MEDSUPPLY Qty: 100 RF: 5 (DME) lancets [OneTouch Delica Lancets] 30 gauge misc See Rx Instructions .ROUTE .MEDSUPPLY Qty: 200 RF: 5 (DME) blood-glucose meter kit See Dose Instructions .ROUTE .MEDSUPPLY Qty: 1 RF: 0 Discharge Orders: Discharge Order (Routine); Ordered 08/25/21 Ordered By: Kareem Short/Other Patient Handouts: Stroke Brain Body Effects, Using Blood Thinners Anticoagulants, Managing Type 2 Diabetes, 5 Steps for Eating Healthier, Stroke: Resources and Support, Discharge Instructions for Stroke, Risk Factors for Stroke Admission Data Admit Date/Time: 08/24/21 14:35 Attending Provider: Willow Shelby Admit Provider: Shankar Varela Primary Care Provider: Dl,Savanna L. Other Providers: Elfego Hicks ; Shankar Varela ; Tushar Menezes Other Interventions: Discharge Summary Assessment (RN) Last Done: 08/25/21 16:00 Supervising Physician Co-Signing Physician Notes Resident Physician Supervision Note: I independently interviewed and examined the patient and verified the velasco history and physical, reviewed labs and image studies and agree with resident Dr. Lindy Holley findings and care plan. Resident Activity Tracking Resident Involvement: Resident Care Provided Care Provided: Adult Hospital Medicine
--- NOTE | 2021-08-25 16:30 | Pharmacy Report ---
Pharmacist Stroke Counseling - Date of Service August 25, 2021 - Scope: Pharmacy has been consulted to provide medication discharge counseling for this patient admitted with ischemic stroke as per the Pharmacist Discharge Counseling for Stroke Patients Protocol. - Medications on Discharge: Home Medications Medication Instructions Recorded Confirmed blood-glucose meter #1 ea 10/22/18 08/07/21 nitroglycerin 0.4 mg sublingual 0.4 mg SL Q5M PRN #1 tab 01/02/19 08/24/21 tablet cholecalciferol (vitamin D3) 50 50 mcg PO DAILY 03/21/21 08/24/21 mcg (2,000 unit) capsule acetaminophen 325 mg tablet 650 mg PO Q4H PRN 08/05/21 08/24/21 isosorbide mononitrate 60 mg 30 mg PO DAILY 08/05/21 08/24/21 tablet,extended release 24 hr levothyroxine 150 mcg tablet 150 mcg PO DAILYBB 08/05/21 08/24/21 metoprolol succinate 100 mg 100 mg PO DAILY 08/05/21 08/24/21 tablet,extended release 24 hr multivitamin with minerals 1 tab PO DAILY 08/05/21 08/24/21 (Multiple Vitamin-Minerals) metformin 500 mg tablet,extended 500 mg PO DIRECTED 08/24/21 08/24/21 release 24 hr sitagliptin 50 mg tablet (Januvia) 50 mg PO DAILY 08/24/21 08/24/21 New Rx's Medication Instructions Recorded cyanocobalamin (vitamin B-12) 500 1,000 mcg PO QAM #60 tab 08/09/20 mcg tablet atorvastatin 40 mg tablet 40 mg PO HS #90 tab 10/17/20 apixaban 5 mg tablet (Eliquis) 5 mg PO BID #180 tab 02/23/21 glimepiride 4 mg tablet 4 mg PO BID #180 tab 08/07/21 losartan 50 mg tablet 50 mg PO DAILY #90 tab 08/07/21 blood sugar diagnostic #100 ea 08/08/21 lancets 30 gauge (OneTouch Delica #200 ea 08/08/21 Lancets) clopidogrel 75 mg tablet 75 mg PO QAM 30 Days #30 tab 08/25/21 - Action: The above medications, specifically ones for stroke treatment/prophylaxis, have been reviewed in detail with the patient and/or patient printing supplies sales representative(s) prior to discharge. This includes indication, common adverse reactions, drug interactions, and medication administration. Medication counseling has been employed using the teach-back method to ensure understanding. - Outcome: The patient and/or patient printing supplies sales representative(s) have demonstrated understanding of the medications. Additional comments: - Discussed medication changes with patient's (Ly), as she primarily manages his medications. She demonstrated good understanding of changes (d/c aspirin and add clopidogrel 75 mg PO daily. No obvious barriers to medication compliance identified. Patient already has pillbox. Thank you for allowing pharmacy to be involved in the care of this patient. Please call [phone] with any additional questions
== END 2021-08-25 16:42 | disposition home or self-care (01) | DRG 64 ==
LOC: ED 10:56 → 2N 14:35 → SUATTDRO 14:35 → 2N 15:14
DX: Z79.890 Hormone replacement therapy; Z86.73 Personal history of transient ischemic attack (TIA), and cerebral infarction without residual deficits; N40.0 Benign prostatic hyperplasia without lower urinary tract symptoms; R26.2 Difficulty in walking, not elsewhere classified; Z79.899 Other long term (current) drug therapy; Z95.0 Presence of cardiac pacemaker; N18.30 Chronic kidney disease, stage 3 unspecified; Z79.01 Long term (current) use of anticoagulants; E11.59 Type 2 diabetes mellitus with other circulatory complications; I63.211 Cerebral infarction due to unspecified occlusion or stenosis of right vertebral artery; Z87.891 Personal history of nicotine dependence; Z79.84 Long term (current) use of oral hypoglycemic drugs; R53.1 Weakness; E78.5 Hyperlipidemia, unspecified; Z79.82 Long term (current) use of aspirin; I69.334 Monoplegia of upper limb following cerebral infarction affecting left non-dominant side; R29.700 NIHSS score 0; I77.74 Dissection of vertebral artery; I25.118 Atherosclerotic heart disease of native coronary artery with other forms of angina pectoris; Z68.34 Body mass index [BMI] 34.0-34.9, adult; E03.9 Hypothyroidism, unspecified; R26.89 Other abnormalities of gait and mobility; E11.65 Type 2 diabetes mellitus with hyperglycemia; I12.9 Hypertensive chronic kidney disease with stage 1 through stage 4 chronic kidney disease, or unspecified chronic kidney disease; E66.9 Obesity, unspecified; I65.23 Occlusion and stenosis of bilateral carotid arteries; E11.22 Type 2 diabetes mellitus with diabetic chronic kidney disease; I48.0 Paroxysmal atrial fibrillation

== ENCOUNTER 2021-08-29 11:04 | Inpatient (IN) ==
--- NOTE | 2021-08-29 11:27 | Emergency Department Note ---
Impression & Plan Weakness, Lower abdominal pain, Diaphoresis, Leukocytosis, Elevated lactic acid level ED Provider Note NAME: RACHID ROBERT AGE: 85 SEX: M : 1935 ARRIVES VIA: Walk-In INFORMANT: [Patient] ED PROVIDER(S): [Luis Tracey MD] CHIEF COMPLAINT: Abdominal pain HISTORY OF PRESENT ILLNESS: The patient is an 85-year-old male who presents to the ER with several days if n ot week or so of lower abdominal pain that he notices with urination. He states that he begins to sweat and feels weak. Every time he urinates, he has the same symptoms. The patient also states that at times, he has tingling in both hands, especially the right. Today, when this episode of sweating occurred with urination, he also had some pain to the right posterior aspect of his head and neck. The patient was in the hospital recently for a CVA. He had a right vertebral artery dissection causing CVA. He was discharged 4 days ago. It is not clear if he spoke about his urinary issues and sweating spells to the staff here at the hospital with the last admission. The patient had an appointment to see his doctor's office today for follow-up visit. He did not go to the visit as he felt too weak to get there. He feels so weak that he is having a hard time getting things done. This has been the case since discharge from the hospital just 4 days ago. REVIEW OF SYSTEMS: See HPI for pertinent positives and negatives. A total of ten systems were reviewed and were otherwise negative. PMHx/PSHx: See Below SOCIAL HISTORY: See Below. PHYSICAL EXAM: GENERAL: Patient is in no acute distress. HEENT: No acute trauma, normocephalic atraumatic, mucous membranes moist, no nasal congestion, no scleral icterus. NECK: No stridor, no adenopathy, no meningismus, trachea is midline. LUNGS: Clear to auscultation bilaterally, no wheeze, no rhonchi, breath sounds equal. HEART: Without murmurs gallops or rubs, regular rate and rhythm. ABDOMEN: Soft, nontender, bowel sounds positive, no hernias, no peritonitis. EXTREMITIES: No cyanosis, mild bilateral pedal edema, full range of motion of all the joints without pain or difficulty, no signs for acute trauma. NEUROLOGIC: Oriented x 3, no acute motor or sensory deficits, no focal weakness. SKIN: No rash, no jaundice, no diaphoresis. DIFFERENTIAL DIAGNOSIS: Urinary retention, UTI, hydronephrosis, bowel ischemia, diverticulitis, colitis, electrolyte imbalance, anemia, stroke among others. EMERGENCY DEPARTMENT COURSE/PROCEDURES: ECG: Indication was abdominal pain. The ECG shows a ventricular pacemaker. The rate is 64. There is no ST elevation, no PVCs. Nonspecific ST changes noted. QTC is 420. Continuous Cardiac Monitoring: An order was placed for continuous cardiac monitoring. The monitor shows a rate of 66 with a ventricular pacemaker. MEDICAL DECISION MAKING: There is a mild leukocytosis, this of course could be consistent with infection. There is a very mild anemia present. There is a normal platelet count. No renal failure or significant electrolyte abnormality. Lactic acid level is elevated consistent with infection and or dehydration. No worrisome liver enzyme elevation. No evidence for pancreatitis. ECG shows a ventricular pacemaker no obvious ischemia. Cardiac enzyme testing x1 is not consistent with acute cardiac injury. Urinalysis does not show infection. Lyme disease testing was negative. COVID testing returned negative. Chest x-ray did not show CHF or pneumonia. Abdominal and pelvis CT does not show any bowel obstruction, no acute surgical process by CT imaging. No diverticulitis. Brain CT shows a subacute right posterior infarct consistent with his recent stroke diagnosis. The patient had a straight cath urine performed, 500cc of urine drained. Patient received IV ceftriaxone for the possibility of infection, possibly prostatitis. He was given a 500 cc saline bolus, he received IV Zofran and was given a dose of oral Flomax. Patient presents with weakness, fatigue, sweats, difficulty with urination. At this point, the cause for this entire presentation is unclear. I did consider the possibility of prostatitis as noted above, for this reason, ceftriaxone was given. The patient is in need of a hospital stay for further work-up and care. He may require some more aggressive rehab to help with his strengthening. I did speak with the patient and case management. The on-call hospitalist was consulted. 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) Anemia Benign prostate hyperplasia CAD (coronary artery disease) Cerebrovascular accident CKD (chronic kidney disease), stage III Diabetes mellitus type 2, uncontrolled Diabetes mellitus with circulatory complication Dyslipidemia Hyperlipidemia Hypertension Hypothyroidism Obesity Paroxysmal atrial fibrillation Prostatitis 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 Surgical History History of colonoscopy (~1992) S/P cataract surgery left - 03/06/17, right - 03/20/17 Family History Father Lung cancer Smoker Brother Smoker Denies family history of Ovarian cancer Prostate cancer Breast cancer Colorectal cancer Social History Smoking Status: Former smoker Tobacco Type: Cigarettes Age Started Using Tobacco: 14; Age Quit Using Tobacco: 50; packs per day: 0.5; Years Smoked: 36; Cigarettes Per Day: 10; Second Hand Exposure: No; Hx Alcohol Use: No Hx Substance Use: No Preferred Language: Irish Communication Ability: Effective Steam Finisher Required: No Beliefs That Will Affect Care: None marital status: Current Living Situation: Spouse Feels Safe at Home: Yes Assistive Devices: Hearing Aid - Right and Walker Allergies Allergies Allergy/AdvReac Type Severity Reaction Status Date / Time No Known Allergies Allergy Verified 08/24/21 12:16 Home Meds Home Medications Medication Instructions Recorded Confirmed nitroglycerin 0.4 mg sublingual 0.4 mg SL Q5M PRN #1 tab 01/02/19 08/29/21 tablet cholecalciferol (vitamin D3) 50 50 mcg PO DAILY 03/21/21 08/29/21 mcg (2,000 unit) capsule acetaminophen 325 mg tablet 650 mg PO Q4H PRN 08/05/21 08/29/21 isosorbide mononitrate 60 mg 30 mg PO DAILY 08/05/21 08/29/21 tablet,extended release 24 hr levothyroxine 150 mcg tablet 150 mcg PO DAILYBB 08/05/21 08/29/21 metoprolol succinate 100 mg 100 mg PO DAILY 08/05/21 08/29/21 tablet,extended release 24 hr multivitamin with minerals 1 tab PO DAILY 08/05/21 08/29/21 (Multiple Vitamin-Minerals) metformin 500 mg tablet,extended 500 mg PO DIRECTED 08/24/21 08/29/21 release 24 hr sitagliptin 50 mg tablet (Januvia) 50 mg PO DAILY 08/24/21 08/29/21 Previous Rx's Medication Instructions Recorded cyanocobalamin (vitamin B-12) 500 1,000 mcg PO QAM #60 tab 08/09/20 mcg tablet atorvastatin 40 mg tablet 40 mg PO HS #90 tab 10/17/20 apixaban 5 mg tablet (Eliquis) 5 mg PO BID #180 tab 02/23/21 glimepiride 4 mg tablet 4 mg PO BID #180 tab 08/07/21 losartan 50 mg tablet 50 mg PO DAILY #90 tab 08/07/21 clopidogrel 75 mg tablet 75 mg PO QAM 30 Days #30 tab 08/25/21 Results & Data (ED) Vital Signs Vital Signs - 24 hr 08/29/21 11:07 08/29/21 11:35 08/29/21 11:40 Temperature 36.9 C Temperature Source Temporal Artery Scan Pulse Rate 66 65 65 Pulse Rate [Apical] Pulse Rhythm Regular Pulse Rhythm [Apical] Pulse Strength Normal Pulse Strength [Apical] Respiratory Rate 20 Respiratory Effort / Characteristics Non-Labored Spontaneous Respiratory Depth Normal Respiratory Pattern Regular Blood Pressure 130/73 Blood Pressure [Right Arm] Blood Pressure Mean 92 Blood Pressure Mean [Right Arm] Blood Pressure Position Sitting Blood Pressure Position [Right Arm] Pulse Oximetry 98 Oxygen Delivery Method Room Air Sepsis Recent Fever Within 48 Hours No Sepsis New/Unexplained Change in Mental Status N/A Sepsis Action Taken by Nursing No Action Required 08/29/21 11:50 08/29/21 11:58 08/29/21 12:00 Temperature Temperature Source Pulse Rate 66 64 65 Pulse Rate [Apical] Pulse Rhythm Pulse Rhythm [Apical] Pulse Strength Pulse Strength [Apical] Respiratory Rate 14 21 14 Respiratory Effort / Characteristics Respiratory Depth Respiratory Pattern Blood Pressure 133/85 142/84 H Blood Pressure [Right Arm] Blood Pressure Mean 101 103 Blood Pressure Mean [Right Arm] Blood Pressure Position Blood Pressure Position [Right Arm] Pulse Oximetry Oxygen Delivery Method Sepsis Recent Fever Within 48 Hours Sepsis New/Unexplained Change in Mental Status Sepsis Action Taken by Nursing 08/29/21 12:06 08/29/21 13:12 08/29/21 14:07 Temperature Temperature Source Pulse Rate Pulse Rate [Apical] 64 60 Pulse Rhythm Pulse Rhythm [Apical] Regular Pulse Strength Pulse Strength [Apical] Normal Respiratory Rate 18 18 Respiratory Effort / Characteristics Respiratory Depth Respiratory Pattern Blood Pressure Blood Pressure [Right Arm] 131/73 153/89 H Blood Pressure Mean Blood Pressure Mean [Right Arm] 92 110 Blood Pressure Position Blood Pressure Position [Right Arm] Lying Pulse Oximetry 99 99 98 Oxygen Delivery Method Room Air Room Air Room Air Sepsis Recent Fever Within 48 Hours Sepsis New/Unexplained Change in Mental Status Sepsis Action Taken by Nursing 08/29/21 16:00 Temperature Temperature Source Pulse Rate Pulse Rate [Apical] 67 Pulse Rhythm Pulse Rhythm [Apical] Pulse Strength Pulse Strength [Apical] Respiratory Rate 18 Respiratory Effort / Characteristics Respiratory Depth Respiratory Pattern Blood Pressure Blood Pressure [Right Arm] 147/94 H Blood Pressure Mean Blood Pressure Mean [Right Arm] 111 Blood Pressure Position Blood Pressure Position [Right Arm] Pulse Oximetry 99 Oxygen Delivery Method Room Air Sepsis Recent Fever Within 48 Hours Sepsis New/Unexplained Change in Mental Status Sepsis Action Taken by Long Term Medications Current Medication List: was personally reviewed by me Laboratory Data Attestation: I reviewed the patient's lab results. Result diagrams: 08/29/21 11:47 08/29/21 11:47 Lab Results 08/29/21 08/29/21 08/29/21 Range/Units 11:47 11:47 11:47 WBC 11.05 H (4.8-10.8) K/uL RBC 4.15 L (4.7-6.1) M/uL Hgb 13.9 L (14.0-18.0) g/dL Hct 40.5 L (42-52) % MCV 97.6 (80-100) fL MCH 33.5 (25-34) pg MCHC 34.3 (32-36) g/dL RDW Std Deviation 46.5 H (36.4-46.3) fL RDW Coeff of Jose 13.0 (11.5-14.5) % Plt Count 136 (130-400) K/uL MPV 13.3 H (7.4-10.4) fL Immature Gran % (Auto) 0.2 % Neut % (Auto) 78.4 % Lymph % (Auto) 12.2 % [place] % (Auto) 9.0 % Eos % (Auto) 0.2 % Baso % (Auto) 0.0 % Neut # (Auto) 8.67 H (1.4-6.5) K/uL Lymph # (Auto) 1.35 (1.2-3.4) K/uL [place] # (Auto) 0.99 H (0.11-0.59) K/uL Eos # (Auto) 0.02 (0-0.5) K/uL Baso # (Auto) 0.00 (0-0.2) K/uL Immature Gran # (Auto) 0.02 (0.00-0.02) K/uL Platelet Estimate Decreased L (Normal) Sodium 137 (136-145) mmol/L Potassium 4.2 (3.5-5.1) mmol/L Chloride 103 (98-107) mmol/L Carbon Dioxide 24 (21-32) mmol/L Anion Gap 10 (3-11) BUN 41 H (6-23) mg/dl Creatinine 1.31 (0.6-1.4) mg/dl Est Cr Clr Drug Dosing Not Reportable Est GFR ( Amer) 57.9 ml/min Est GFR (Non-Af Amer) 50.0 ml/min BUN/Creatinine Ratio 31.3 H (10-20) Glucose 131 H (70-99(Fasting)) mg/dl Lactate 2.1 H* (0.4-2.0) mmol/L Calcium 10.1 (8.5-10.1) mg/dl Total Bilirubin 0.8 (0.2-1.0) mg/dl AST 13 (13-39) U/L ALT 17 (7-52) U/L Alkaline Phosphatase 90 (34-104) U/L Troponin I High Sens 19.0 (0-20) pg/ml Total Protein 7.4 (6.0-8.3) gm/dl Albumin 4.3 (3.4-5.0) gm/dl Globulin 3.1 (2.5-4.0) gm/dl Albumin/Globulin Ratio 1.4 (0.9-2) Lipase 67 (11-82) U/L Urine Color Urine Appearance (Clear) Urine pH (4.5-7.5) Ur Specific [place] (1.000-1.030) Urine Protein (Negative) Urine Glucose (UA) (Negative) Urine Ketones (Negative) Urine Blood (Negative) Urine Nitrite (Negative) Urine Bilirubin (Negative) Urine Urobilinogen (Negative) Ur Leukocyte Esterase (Negative) Lyme Disease IgG Ab (Negative) Lyme Disease IgM Ab (Negative) SARS-CoV-2, RNA, NAAT (NEGATIVE) 08/29/21 08/29/21 08/29/21 Range/Units 12:03 13:46 13:46 WBC (4.8-10.8) K/uL RBC (4.7-6.1) M/uL Hgb (14.0-18.0) g/dL Hct (42-52) % MCV (80-100) fL MCH (25-34) pg MCHC (32-36) g/dL RDW Std Deviation (36.4-46.3) fL RDW Coeff of Jose (11.5-14.5) % Plt Count (130-400) K/uL MPV (7.4-10.4) fL Immature Gran % (Auto) % Neut % (Auto) % Lymph % (Auto) % [place] % (Auto) % Eos % (Auto) % Baso % (Auto) % Neut # (Auto) (1.4-6.5) K/uL Lymph # (Auto) (1.2-3.4) K/uL [place] # (Auto) (0.11-0.59) K/uL Eos # (Auto) (0-0.5) K/uL Baso # (Auto) (0-0.2) K/uL Immature Gran # (Auto) (0.00-0.02) K/uL Platelet Estimate (Normal) Sodium (136-145) mmol/L Potassium (3.5-5.1) mmol/L Chloride (98-107) mmol/L Carbon Dioxide (21-32) mmol/L Anion Gap (3-11) BUN (6-23) mg/dl Creatinine (0.6-1.4) mg/dl Est Cr Clr Drug Dosing Est GFR ( Amer) ml/min Est GFR (Non-Af Amer) ml/min BUN/Creatinine Ratio (10-20) Glucose (70-99(Fasting)) mg/dl Lactate 1.3 (0.4-2.0) mmol/L Calcium (8.5-10.1) mg/dl Total Bilirubin (0.2-1.0) mg/dl AST (13-39) U/L ALT (7-52) U/L Alkaline Phosphatase (34-104) U/L Troponin I High Sens (0-20) pg/ml Total Protein (6.0-8.3) gm/dl Albumin (3.4-5.0) gm/dl Globulin (2.5-4.0) gm/dl Albumin/Globulin Ratio (0.9-2) Lipase (11-82) U/L Urine Color Yellow Urine Appearance Clear (Clear) Urine pH 5.5 (4.5-7.5) Ur Specific [place] 1.027 (1.000-1.030) Urine Protein Negative (Negative) Urine Glucose (UA) 1+ H (Negative) Urine Ketones Trace H (Negative) Urine Blood Negative (Negative) Urine Nitrite Negative (Negative) Urine Bilirubin Negative (Negative) Urine Urobilinogen Negative (Negative) Ur Leukocyte Esterase Negative (Negative) Lyme Disease IgG Ab Negative (Negative) Lyme Disease IgM Ab Negative (Negative) SARS-CoV-2, RNA, NAAT (NEGATIVE) 08/29/21 Range/Units 15:17 WBC (4.8-10.8) K/uL RBC (4.7-6.1) M/uL Hgb (14.0-18.0) g/dL Hct (42-52) % MCV (80-100) fL MCH (25-34) pg MCHC (32-36) g/dL RDW Std Deviation (36.4-46.3) fL RDW Coeff of Jose (11.5-14.5) % Plt Count (130-400) K/uL MPV (7.4-10.4) fL Immature Gran % (Auto) % Neut % (Auto) % Lymph % (Auto) % [place] % (Auto) % Eos % (Auto) % Baso % (Auto) % Neut # (Auto) (1.4-6.5) K/uL Lymph # (Auto) (1.2-3.4) K/uL [place] # (Auto) (0.11-0.59) K/uL Eos # (Auto) (0-0.5) K/uL Baso # (Auto) (0-0.2) K/uL Immature Gran # (Auto) (0.00-0.02) K/uL Platelet Estimate (Normal) Sodium (136-145) mmol/L Potassium (3.5-5.1) mmol/L Chloride (98-107) mmol/L Carbon Dioxide (21-32) mmol/L Anion Gap (3-11) BUN (6-23) mg/dl Creatinine (0.6-1.4) mg/dl Est Cr Clr Drug Dosing Est GFR ( Amer) ml/min Est GFR (Non-Af Amer) ml/min BUN/Creatinine Ratio (10-20) Glucose (70-99(Fasting)) mg/dl Lactate (0.4-2.0) mmol/L Calcium (8.5-10.1) mg/dl Total Bilirubin (0.2-1.0) mg/dl AST (13-39) U/L ALT (7-52) U/L Alkaline Phosphatase (34-104) U/L Troponin I High Sens (0-20) pg/ml Total Protein (6.0-8.3) gm/dl Albumin (3.4-5.0) gm/dl Globulin (2.5-4.0) gm/dl Albumin/Globulin Ratio (0.9-2) Lipase (11-82) U/L Urine Color Urine Appearance (Clear) Urine pH (4.5-7.5) Ur Specific [place] (1.000-1.030) Urine Protein (Negative) Urine Glucose (UA) (Negative) Urine Ketones (Negative) Urine Blood (Negative) Urine Nitrite (Negative) Urine Bilirubin (Negative) Urine Urobilinogen (Negative) Ur Leukocyte Esterase (Negative) Lyme Disease IgG Ab (Negative) Lyme Disease IgM Ab (Negative) SARS-CoV-2, RNA, NAAT NEGATIVE (NEGATIVE) Administered Medications Discontinued Medications Ceftriaxone Sodium (Rocephin) 2,000 mg in 70 mls @ 140 mls/hr IV NOW STA Stop: 08/29/21 16:14 Last Infusion: 08/29/21 16:30 Dose: 0 mls/hr Documented by: [id number] Admin: 08/29/21 15:53 Dose: 140 mls/hr Documented by: [id number] Sodium Chloride (Nss 1000ml) 500 mls @ 999 mls/hr IV .Q31M ONE Stop: 08/29/21 16:15 Last Infusion: 08/29/21 16:30 Dose: 0 mls/hr Documented by: [id number] Admin: 08/29/21 15:54 Dose: 999 mls/hr Documented by: [id number] Ioversol (Optiray 320 100ml) 94 ml IV ONCE ONE Stop: 08/29/21 13:54 Last Admin: 08/29/21 13:53 Dose: 94 ml Documented by: [id number] Ondansetron HCl (Ondansetron Inj 2 Mg/Ml 2 Ml Vial) 4 mg IV NOW STA Stop: 08/29/21 13:32 Last Admin: 08/29/21 13:37 Dose: 4 mg Documented by: [id number] Pantoprazole Sodium (Pantoprazole 40 Mg Tab) 20 mg PO NOW STA Stop: 08/29/21 17:23 Last Admin: 08/29/21 17:36 Dose: 20 mg Documented by: [id number] Tamsulosin HCl (Tamsulosin Hcl 0.4 Mg Cap) 0.4 mg PO NOW ONE Stop: 08/29/21 15:46 Last Admin: 08/29/21 15:53 Dose: 0.4 mg Documented by: [id number] Imaging Data Radiologist's Impression: Abdomen/Pelvis CT 08/29/21 11:[address] WITH IV CONTRAST CT DOSE: HISTORY: lower abd pain TECHNIQUE: Multiaxial CT images of the abdomen and pelvis were performed foll owing the use of intravenous contrast. A dose lowering technique was utilized adhering to the principles of ALARA. COMPARISON STUDY: None. FINDINGS: Mild interstitial thickening at the lung bases which is likely chronic. No pneumoperitoneum. No pneumatosis. Bilateral L5 spondylolysis. No suspicious lytic or blastic osseous lesions. Pacemaker wires are noted. The heart is mildly enlarged. There is a tiny hiatus hernia. There is a small fat-containing left inguinal hernia. Cholelithiasis. No gallbladder wall thickening. The liver, spleen, adrenal glands, and pancreas are unremarkable. Mild bilateral perinephric edema which is likely chronic. No hydronephrosis. There are 2 right renal cysts with the largest measuring 6 cm. No retroperitonea l lymphadenopathy. Moderate calcified plaque within the normal caliber abdominal aorta. No pelvic free fluid. The bladder is unremarkable. No bowel wall thickening or obstruction. Normal appendix. IMPRESSION: 1. No bowel wall thickening or obstruction. 2. Normal appendix. 3. No hydronephrosis. 4. Cholelithiasis. No gallbladder wall thickening. 5. Additional findings as described above. ACT 112: Negative or not required by law. Electronically signed by: Ad Mensah M.D. 08/29/2021 3:[address] 08/29/21 11:21 CT SCAN OF THE BRAIN WITHOUT IV CONTRAST CLINICAL HISTORY: Right-sided headache. COMPARISON STUDY: Report of CT of the brain dated 08/25/2021. TECHNIQUE: Unenhanced axial CT scan of the brain is performed from the vertex to the skull base. A dose lowering technique was utilized adhering to the principles of ALARA. CT DOSE: 1451.97 mGy.cm FINDINGS: Brain parenchyma: There is a subacute/evolving infarct in the right cerebellar hemisphere. No additional foci of acute ischemia are suggested by CT criteria. There is no hemorrhage or mass effect. A chronic lacunar infarct is noted in the left caudate head. There is age-related involutional change noting mild subcortical and periventricular microangiopathic disease. No extra-axial fluid collection is seen. Ventricles, sulci, cisterns: Prominent secondary to involutional change. Intracranial vasculature: There is atherosclerotic calcification of the ca vernous carotid and vertebral arteries. Calvarium: Unremarkable. Sinuses and mastoids: A 2.7 cm retention cyst is noted in the left maxillary antrum. The remaining visualized paranasal sinuses are clear. The mastoid air cells are well pneumatized. Orbits: The bony orbits are grossly intact. There are bilateral ocular lens implants. IMPRESSION: 1. There is a subacute/evolving infarct in the right cerebellar hemisphere. 2. No new foci of acute ischemia are suggested by CT criteria. 3. There is no hemorrhage or mass effect. ACT 112: Negative or not required by law. Electronically signed by: Luis Russell M.D. 08/29/2021 2:16 PM Chest X-Ray 08/29/21 11:23 SINGLE VIEW CHEST CLINICAL HISTORY: Generalized abdominal pain. FINDINGS: 2 AP, portable, upright chest radiographs are compared to study dated 08/03/2020 and correlated with chest CT dated 08/24/2020. A 2-lead cardiac pacemaker is unchanged in position and partially obscures the left upper chest. The heart is enlarged noting atherosclerotic calcification of the thoracic aorta. The pulmonary vasculature is noncongested. Chronic residual thickening is similar to previous. Scarring/atelectasis is noted at the lung bases. No airspace consolidation or large pleural effusion is identified. No pneumothorax is seen. The skeletal structures are osteopenic. The bony thorax is grossly intact. IMPRESSION: 1. Cardiomegaly and cardiac pacemaker with no radiographic evidence of congestive failure. 2. No airspace consolidation or large pleural effusion is identified. ACT 112: Negative or not required by law. Electronically signed by: Luis Russell M.D. 08/29/2021 11:52 AM Discharge Plan Visit Data Chief Complaint: Abdominal Pain Stated Complaint: TINGLING & NUMBNESS IN RIGHT HAND NO APPETITE ED Provider: Luis Tracey Discharge Problem: Weakness, Lower abdominal pain, Diaphoresis, Leukocytosis, Elevated lactic acid level Patient Disposition: Admitted As Inpatient Condition: Fair Forms Stand Alone Forms: [employer] Prescriptions Prescriptions: No Action atorvastatin 40 mg tablet 40 mg PO HS Qty: 90 RF: 3 Eliquis 5 mg tablet 5 mg PO BID Qty: 180 RF: 3 cholecalciferol (vitamin D3) 50 mcg (2,000 unit) capsule 50 mcg PO DAILY RF: 0 losartan 50 mg tablet 50 mg PO DAILY Qty: 90 RF: 3 glimepiride 4 mg tablet 4 mg PO BID Qty: 180 RF: 3 nitroglycerin 0.4 mg tablet, sublingual 0.4 mg SL Q5M PRN (Reason: chest pain) Qty: 1 RF: 0 acetaminophen 325 mg Tablet 650 mg PO Q4H PRN (Reason: Pain) RF: 0 isosorbide mononitrate 60 mg tablet extended release 24 hr 30 mg PO DAILY RF: 0 levothyroxine 150 mcg tablet 150 mcg PO DAILYBB RF: 0 metoprolol succinate 100 mg tablet extended release 24 hr 100 mg PO DAILY RF: 0 Multiple Vitamin-Minerals Tablet 1 tab PO DAILY RF: 0 Januvia 50 mg tablet 50 mg PO DAILY RF: 0 metformin 500 mg tablet extended release 24 hr 500 mg PO DIRECTED RF: 0 clopidogrel 75 mg Tablet 75 mg PO QAM 30 Days Qty: 30 RF: 0 cyanocobalamin (vitamin B-12) 500 mcg Tablet 1,000 mcg PO QAM Qty: 60 RF: 5 Referrals Referrals: Savanna Lizama CRNP [Primary Care Provider] -
--- NOTE | 2021-08-29 11:54 | XRay Report ---
SINGLE VIEW CHEST CLINICAL HISTORY: Generalized abdominal pain. FINDINGS: 2 AP, portable, upright chest radiographs are compared to study dated 08/03/2020 and correla karen with chest CT dated 08/24/2020. A 2-lead cardiac pacemaker is unchanged in position and partially o bscures the left upper chest. The heart is enlarged noting atherosclerotic calcification of the thora cic aorta. The pulmonary vasculature is noncongested. Chronic residual thickening is similar to previ ous. Scarring/atelectasis is noted at the lung bases. No airspace consolidation or large pleural effu antionette is identified. No pneumothorax is seen. The skeletal structures are osteopenic. The bony thorax is grossly intact. IMPRESSION: 1. Cardiomegaly and cardiac pacemaker with no radiographic evidence of congestive failure. 2. No airspace consolidation or large pleural effusion is identified. ACT 112: Negative or not required by law. Electronically signed by: Luis Russell M.D. 08/29/2021 11:52 AM
[2021-08-29 12:08] LABS: Mean Corpuscular Hgb Conc 34.3 g/dL (32-36)
[2021-08-29 12:18] LABS: Appearance Urine Clear (Clear); Bilirubin Urine Negative (Negative); Blood Urine Negative (Negative); Color Urine Yellow; Glucose Urine UA 1+ (Negative); Ketones Urine Trace (Negative); Leukocyte Esterase Urine Negative (Negative); Nitrite Urine Negative (Negative); Protein Urine Negative (Negative); Specific Gravity Urine 1.027 (1.000-1.030); Urobilinogen Urine Negative (Negative); pH Urine 5.5 (4.5-7.5)
[2021-08-29 12:21] LABS: Hematocrit (blood only) 40.5 % (42-52); Hemoglobin 13.9 g/dL (14.0-18.0); Mean Corpuscular Hemoglobin 33.5 pg (25-34); Mean Corpuscular Volume 97.6 fL (80-100); RDW Standard Deviation 46.5 fL (36.4-46.3); Red Blood Count 4.15 M/uL (4.7-6.1); White Blood Count 11.05 K/uL (4.8-10.8)
[2021-08-29 12:30] LABS: Alanine Aminotransferase 17 U/L (7-52); Albumin Globulin Ratio 1.4 (0.9-2); Albumin Level 4.3 gm/dl (3.4-5.0); Alkaline Phosphatase 90 U/L (34-104); Anion Gap 10 (3-11); Aspartate Aminotransferase 13 U/L (13-39); BUN Creatinine Ratio 31.3 (10-20); Bilirubin,Total 0.8 mg/dl (0.2-1.0); Blood Urea Nitrogen 41 mg/dl (6-23); Calcium 10.1 mg/dl (8.5-10.1); Carbon Dioxide 24 mmol/L (21-32); Chloride 103 mmol/L (98-107); Est GFR (African American) 57.9 ml/min; Globulin 3.1 gm/dl (2.5-4.0); Glucose 131 mg/dl (70-99(Fasting)); Lipase 67 U/L (11-82); Potassium 4.2 mmol/L (3.5-5.1); Sodium 137 mmol/L (136-145); Total Protein 7.4 gm/dl (6.0-8.3)
[2021-08-29 12:43] LABS: Eosinophils # (auto) 0.02 K/uL (0-0.5); Eosinophils % (auto) 0.2 %; Immature Granulocytes # (auto) 0.02 K/uL (0.00-0.02); Immature Granulocytes % (auto) 0.2 %; Lymphocytes # (auto) 1.35 K/uL (1.2-3.4); Lymphocytes % (auto) 12.2 %; Mean Platelet Volume 13.3 fL (7.4-10.4); Monocytes # (auto) 0.99 K/uL (0.11-0.59); Neutrophils # (auto) 8.67 K/uL (1.4-6.5); Neutrophils % (auto) 78.4 %; Platelet Count 136 K/uL (130-400); Platelet Estimate Decreased (Normal)
[2021-08-29] MEDS ORDERED: ONDANSETRON INJ 2 MG/ML 2 ML VIAL IV STA (13:31)
[2021-08-29] MEDS ORDERED: OPTIRAY 320 100ml IV ONE (13:53)
--- NOTE | 2021-08-29 14:19 | CT Scan Report ---
CT SCAN OF THE BRAIN WITHOUT IV CONTRAST CLINICAL HISTORY: Right-sided headache. COMPARISON STUDY: Report of CT of the brain dated 08/25/2021. TECHNIQUE: Unenhanced axial CT scan of the brain is performed from the vertex to the skull base. A do se lowering technique was utilized adhering to the principles of ALARA. CT DOSE: 1451.97 mGy.cm FINDINGS: Brain parenchyma: There is a subacute/evolving infarct in the right cerebellar hemisphere. No additio nal foci of acute ischemia are suggested by CT criteria. There is no hemorrhage or mass effect. A chr onic lacunar infarct is noted in the left caudate head. There is age-related involutional change noti ng mild subcortical and periventricular microangiopathic disease. No extra-axial fluid collection is seen. Ventricles, sulci, cisterns: Prominent secondary to involutional change. Intracranial vasculature: There is atherosclerotic calcification of the cavernous carotid and vertebr al arteries. Calvarium: Unremarkable. Sinuses and mastoids: A 2.7 cm retention cyst is noted in the left maxillary antrum. The remaining vi sualized paranasal sinuses are clear. The mastoid air cells are well pneumatized. Orbits: The bony orbits are grossly intact. There are bilateral ocular lens implants. IMPRESSION: 1. There is a subacute/evolving infarct in the right cerebellar hemisphere. 2. No new foci of acute ischemia are suggested by CT criteria. 3. There is no hemorrhage or mass effect. ACT 112: Negative or not required by law. Electronically signed by: Luis Russell M.D. 08/29/2021 2:16 PM
--- NOTE | 2021-08-29 15:30 | CT Scan Report ---
ABDOMEN AND PELVIS CT WITH IV CONTRAST CT DOSE: HISTORY: lower abd pain TECHNIQUE: Multiaxial CT images of the abdomen and pelvis were performed following the use of intrave nous contrast. A dose lowering technique was utilized adhering to the principles of ALARA. COMPARISON STUDY: None. FINDINGS: Mild interstitial thickening at the lung bases which is likely chronic. No pneumoperitoneum . No pneumatosis. Bilateral L5 spondylolysis. No suspicious lytic or blastic osseous lesions. Pacemak er wires are noted. The heart is mildly enlarged. There is a tiny hiatus hernia. There is a small fat -containing left inguinal hernia. Cholelithiasis. No gallbladder wall thickening. The liver, spleen, adrenal glands, and pancreas are unremarkable. Mild bilateral perinephric edema which is likely chron ic. No hydronephrosis. There are 2 right renal cysts with the largest measuring 6 cm. No retroperiton eal lymphadenopathy. Moderate calcified plaque within the normal caliber abdominal aorta. No pelvic f ree fluid. The bladder is unremarkable. No bowel wall thickening or obstruction. Normal appendix. IMPRESSION: 1. No bowel wall thickening or obstruction. 2. Normal appendix. 3. No hydronephrosis. 4. Cholelithiasis. No gallbladder wall thickening. 5. Additional findings as described above. ACT 112: Negative or not required by law. Electronically signed by: Ad Mensah M.D. 08/29/2021 3:28 PM
[2021-08-29] MEDS ORDERED: TAMSULOSIN HCL 0.4 MG CAP PO ONE (15:45)
[2021-08-29] MEDS ORDERED: cefTRIAXone SODIUM 2,000 MG/70 ML BAG IV STA (15:45)
[2021-08-29] MEDS ORDERED: SODIUM CHLORIDE 0.9% 1000ML 500 ML IV ONE (15:45)
--- NOTE | 2021-08-29 16:26 | History & Physical Report ---
Date of Service August 29, 2021 Assessment & Plan (1) Weakness: Plan: - Ongoing for month, worse over past week. With associated chills, fatigue, loss of appetite. WBC mildly elevate at 11.05, initial lactate 2.1, repeat 1.3. procalcitonin pending. - COVID negative, UA without evidence of UTI, prostate nontender on exam, labs and imaging unrevealing for obvious source of infection. - Given a dose of Rocephin in ED, will hold off on further abx as I currently do not see an obvious infection to treat. - PT and OT to evaluate. - Repeat labs in AM. (2) Urinary retention: Plan: - Reported at home over past week, possibly longer. History of BPH, no medications for this. - Straight cath in ED for 500cc - Will order PVR bladder scans with orders to straight cath for > 400 cc, [address] saavedra if requiring straight cath x2. - Start on Flomax. (3) GERD (gastroesophageal reflux disease): Plan: - Burning sensation, nausea, vomiting over the past month associated with meals. reports he has been gagging on food over past month. Did have speech eval on 08/24 when dx with stroke, did not have speech or swallowing deficits, passed dysphagia screening and had regular diet ordered. - Will order daily Protonix with Zofran, Phenergan prn for nausea. (4) History of CVA (cerebrovascular accident): Plan: - He was admitted from 08/24/21 through 08/25/21 after being given results of MRI and reporting worsening balance, dizziness and nausea with ambulation. - MRI brain (08/23/21): large region of restricted diffusion in inferior right cerebellar hemisphere consistent with acute-subacute infarct, additional punctate focus of restricted diffusion in right parietal lobe consistent with tiny acute-subacute infarct, no hemorrhage. - Neuro was consulted and anticoag changed to Eliquis + Plavix (from Eliquis + aspirin). A follow up CTA head/neck was recommended in 3-6 months. (5) Diabetes mellitus type 2, uncontrolled: Plan: - Hold home oral glycemics. - Last hospitalization did well with correctional insulin, will order this. - Diabetic diet. (6) Benign prostate hyperplasia: Plan: - History of, has not taken any medication for this in "years". (7) CAD (coronary artery disease): Plan: - Follows with Dr. Valenzuela. - Continue metoprolol, losartan, isosorbide. Nitroglycerin prn. (8) Hypertension: Plan: - Continue metoprolol, losartan. (9) Paroxysmal atrial fibrillation: Plan: - Pacemaker present. - Continue Eliquis, metoprolol. (10) CKD (chronic kidney disease), stage III: Plan: - BUN 38, Cr 1.48, about baseline. - Renally dose all medications, avoid nephrotoxic agents. (11) Anemia: Plan: - Chronic, H/H acceptable and stable today. - Daily B12 supplement. B12 level n April. (12) Hyperlipidemia: Plan: - Continue statin. (13) Hypothyroidism: Plan: - Continue levothyroxine. Plan: - Admit to med/surg. - SCDs, Eliquis for DVT ppx. - Full Code. History of Present Illness Chief Complaint: weakness x 1 week Primary Care Provider: NITHIN Tsai Mr. Watt is an 85-year-old male with past medical history of CVA last week and in 2020 on Eliquis and Plavix, CAD, HTN, HLD, pacemaker present, CKD3, DM2, and hypothyroidism who presents today withabdominal pain with urination. When he does urinate, he often dribbles, does not put out as much urine as he used to. He also breaks out in a visible sweat. He denies any dysuria, hematuria, or increased urinary frequency. This is associated with generalized weakness, he cannot do much more than ambulate from the living room to the bathroom with his walker. Previously, he had been able to ambulate up the stairs, do coater brake linings. This is previously been limited over the past month due to his altered balance Xarelto results of his recent stroke, however though he is too weak to even she did in the bathroom to shave. He is constantly cold, states the house is set at 80 degrees and he is still requesting multiple blankets. They do not have a thermometer at home and therefore not been able to take his temperature. Finally, over the past month, patient reports he has been declining, may have noticed decline in energy level since then, but mainly his complaints have been decreased appetite, nausea and abdominal pain after meals and liquids. He denies night sweats, chest pain, palpitations, shortness of breath, cough, URI symptoms, diarrhea, constipation, melena, and hematochezia. Has a history of BPH, and he says many years ago he took a medication from a vitamin store that was supposed to help with urination, however it did not help him so he stopped taking it. No other medications for this. In ED, VSS and wnl. Labs significant for WBC 11.05, lactate 2.1, BUN 41 and Cr 1.31 (baseline), CXR showed cardiomegaly and cardiac pacemaker with no evidence of heart failure. No consolidation or large pleural effusion identified. Head CT shows subacute/evolving infarct in right cerebellar hemisphere (diagnosed here 08/25), no new foci of acute ischemia, hemorrhage, or mass-effect. CT A/P was unrevealing, no bowel thickening or obstruction, appendix normal, no hydronephrosis, cholelithiasis without gallbladder wall thickening. Allergies Allergy/AdvReac Type Severity Reaction Status Date / Time No Known Allergies Allergy Verified 08/24/21 12:16 Home Medications Medication Instructions Recorded Confirmed Type nitroglycerin 0.4 mg sublingual 0.4 mg SL Q5M PRN #1 tab 01/02/19 08/29/21 History tablet cyanocobalamin (vitamin B-12) 500 1,000 mcg PO QAM #60 tab 08/09/20 08/29/21 Rx mcg tablet atorvastatin 40 mg tablet 40 mg PO HS #90 tab 10/17/20 08/29/21 Rx apixaban 5 mg tablet (Eliquis) 5 mg PO BID #180 tab 02/23/21 08/29/21 Rx cholecalciferol (vitamin D3) 50 50 mcg PO DAILY 03/21/21 08/29/21 History mcg (2,000 unit) capsule acetaminophen 325 mg tablet 650 mg PO Q4H PRN 08/05/21 08/29/21 History isosorbide mononitrate 60 mg 30 mg PO DAILY 08/05/21 08/29/21 History tablet,extended release 24 hr levothyroxine 150 mcg tablet 150 mcg PO DAILYBB 08/05/21 08/29/21 History metoprolol succinate 100 mg 100 mg PO DAILY 08/05/21 08/29/21 History tablet,extended release 24 hr multivitamin with minerals 1 tab PO DAILY 08/05/21 08/29/21 History (Multiple Vitamin-Minerals) glimepiride 4 mg tablet 4 mg PO BID #180 tab 08/07/21 08/29/21 Rx losartan 50 mg tablet 50 mg PO DAILY #90 tab 08/07/21 08/29/21 Rx metformin 500 mg tablet,extended 500 mg PO DIRECTED 08/24/21 08/29/21 History release 24 hr sitagliptin 50 mg tablet (Januvia) 50 mg PO DAILY 08/24/21 08/29/21 History clopidogrel 75 mg tablet 75 mg PO QAM 30 Days #30 tab 08/25/21 08/29/21 Rx 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) Anemia Benign prostate hyperplasia CAD (coronary artery disease) Cerebrovascular accident CKD (chronic kidney disease), stage III Diabetes mellitus type 2, uncontrolled Diabetes mellitus with circulatory complication Dyslipidemia Hyperlipidemia Hypertension Hypothyroidism Obesity Paroxysmal atrial fibrillation Prostatitis 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 Surgical History History of colonoscopy (~1992) S/P cataract surgery left - 03/06/17, right - 03/20/17 Family History Father Lung cancer Smoker Brother Smoker Denies family history of Ovarian cancer Prostate cancer Breast cancer Colorectal cancer Social History Smoking Status: Former smoker Tobacco Type: Cigarettes Age Started Using Tobacco: 14; Age Quit Using Tobacco: 50; packs per day: 0.5; Years Smoked: 36; Cigarettes Per Day: 10; Second Hand Exposure: No; Hx Alcohol Use: No Hx Substance Use: No Preferred Language: Upper Sorbian Communication Ability: Effective Baker Pie Required: No Beliefs That Will Affect Care: None marital status: Current Living Situation: Spouse Feels Safe at Home: Yes Assistive Devices: Hearing Aid - Right and Walker Review of Systems Review of Systems: Constitutional: reports chills, fatigue, generalized weakness, anorexia x1 week; no myalgias, night sweats Eyes: No diplopia, no worsening or blurred vision ENT: sometimes gagging on food over past few months; normal hearing Respiratory: No cough, sputum, dyspnea at rest or on exertion Cardiovascular: No chest pain, tightness or palpitations Abdomen: No pain, nausea, vomiting, diarrhea or constipation : reports suprapubic pain with and without urination and some difficulty voiding; Denies dysuria, hematuria, increased urgency/frequency Neurologic: No focal weakness, numbness/tingling, or balance problems Psychiatric: No anxiety or depression Skin: No rash or itch Physical Exam Physical Exam: General: awake, alert, no apparent distress Head: Normocephalic, atraumatic ENT: PERRL, EOMI, no pharyngeal exudate, mucous membranes moist Chest: Clear to auscultation, on room air, no adventitious breath sounds Cardiac: Regular rate and rhythm, no murmur, no JVD, normal peripheral pulses, good capillary refill Abdominal: NABS x 4 quadrants, soft, nontender to palpation, no rebound, guarding or tenderness Extremities: Normal inspection, no peripheral edema or erythema, calfs nontender to palpation no suprapubic tenderness, no scrotal edema, masses, or penile abnormality, no enlarged lymph nodes; Psych: Normal mood and affect Neuro: AAO x 3, strength intact bilaterally and rated 5/5, no motor deficits, speech is clear, no peripheral sensory deficits Skin: no rash or erythema Results & Data Results & Data ([facility]) Vital Signs (Past 12 Hours) Vital Signs Temp Pulse Pulse Resp BP BP Pulse Ox 08/29/21 14:07 60 18 153/89 H 98 08/29/21 13:12 64 18 131/73 99 08/29/21 12:06 99 08/29/21 12:00 65 14 142/84 H 08/29/21 11:58 64 21 133/85 08/29/21 11:50 66 14 08/29/21 11:40 65 08/29/21 11:35 65 08/29/21 11:07 36.9 C 66 20 130/73 98 Laboratory Results Abnormal lab results 08/29/21 08/29/21 08/29/21 Range/Units 11:47 11:47 11:47 WBC 11.05 H (4.8-10.8) K/uL RBC 4.15 L (4.7-6.1) M/uL Hgb 13.9 L (14.0-18.0) g/dL Hct 40.5 L (42-52) % RDW Std Deviation 46.5 H (36.4-46.3) fL MPV 13.3 H (7.4-10.4) fL Neut # (Auto) 8.67 H (1.4-6.5) K/uL [place] # (Auto) 0.99 H (0.11-0.59) K/uL Platelet Estimate Decreased L (Normal) BUN 41 H (6-23) mg/dl BUN/Creatinine Ratio 31.3 H (10-20) Glucose 131 H (70-99(Fasting)) mg/dl Lactate 2.1 H* (0.4-2.0) mmol/L Urine Glucose (UA) (Negative) Urine Ketones (Negative) 08/29/21 Range/Units 12:03 WBC (4.8-10.8) K/uL RBC (4.7-6.1) M/uL Hgb (14.0-18.0) g/dL Hct (42-52) % RDW Std Deviation (36.4-46.3) fL MPV (7.4-10.4) fL Neut # (Auto) (1.4-6.5) K/uL [place] # (Auto) (0.11-0.59) K/uL Platelet Estimate (Normal) BUN (6-23) mg/dl BUN/Creatinine Ratio (10-20) Glucose (70-99(Fasting)) mg/dl Lactate (0.4-2.0) mmol/L Urine Glucose (UA) 1+ H (Negative) Urine Ketones Trace H (Negative) Diagnostic Findings Abdomen/Pelvis CT 08/29/21 11:[address] WITH IV CONTRAST CT DOSE: HISTORY: lower abd pain TECHNIQUE: Multiaxial CT images of the abdomen and pelvis were performed following the use of intravenous contrast. A dose lowering technique was utilized adhering to the principles of ALARA. COMPARISON STUDY: None. FINDINGS: Mild interstitial thickening at the lung bases which is likely chronic. No pneumoperitoneum. No pneumatosis. Bilateral L5 spondylolysis. No suspicious lytic or blastic osseous lesions. Pacemaker wires are noted. The heart is mildly enlarged. There is a tiny hiatus hernia. There is a small fat- containing left inguinal hernia. Cholelithiasis. No gallbladder wall thickening. The liver, spleen, adrenal glands, and pancreas are unremarkable. Mild bilateral perinephric edema which is likely chronic. No hydronephrosis. There are 2 right renal cysts with the largest measuring 6 cm. No retroperitoneal lymphadenopathy. Moderate calcified plaque within the normal caliber abdominal aorta. No pelvic free fluid. The bladder is unremarkable. No bowel wall thickening or obstruction. Normal appendix. IMPRESSION: 1. No bowel wall thickening or obstruction. 2. Normal appendix. 3. No hydronephrosis. 4. Cholelithiasis. No gallbladder wall thickening. 5. Additional findings as described above. ACT 112: Negative or not required by law. Electronically signed by: Ad Mensah M.D. 08/29/2021 3:[address] 08/29/21 11:21 CT SCAN OF THE BRAIN WITHOUT IV CONTRAST CLINICAL HISTORY: Right-sided headache. COMPARISON STUDY: Report of CT of the brain dated 08/25/2021. TECHNIQUE: Unenhanced axial CT scan of the brain is performed from the vertex to the skull base. A dose lowering technique was utilized adhering to the principles of ALARA. CT DOSE: 1451.97 mGy.cm FINDINGS: Brain parenchyma: There is a subacute/evolving infarct in the right cerebellar hemisphere. No additional foci of acute ischemia are suggested by CT criteria. There is no hemorrhage or mass effect. A chronic lacunar infarct is noted in the left caudate head. There is age-related involutional change noting mild subcortical and periventricular microangiopathic disease. No extra-axial fluid collection is seen. Ventricles, sulci, cisterns: Prominent secondary to involutional change. Intracranial vasculature: There is atherosclerotic calcification of the cavernous carotid and vertebral arteries. Calvarium: Unremarkable. Sinuses and mastoids: A 2.7 cm retention cyst is noted in the left maxillary antrum. The remaining visualized paranasal sinuses are clear. The mastoid air cells are well pneumatized. Orbits: The bony orbits are grossly intact. There are bilateral ocular lens implants. IMPRESSION: 1. There is a subacute/evolving infarct in the right cerebellar hemisphere. 2. No new foci of acute ischemia are suggested by CT criteria. 3. There is no hemorrhage or mass effect. ACT 112: Negative or not required by law. Electronically signed by: Luis Russell M.D. 08/29/2021 2:16 PM Chest X-Ray 08/29/21 11:23 SINGLE VIEW CHEST CLINICAL HISTORY: Generalized abdominal pain. FINDINGS: 2 AP, portable, upright chest radiographs are compared to study dated 08/03/2020 and correlated with chest CT dated 08/24/2020. A 2-lead cardiac pacemaker is unchanged in position and partially obscures the left upper chest. The heart is enlarged noting atherosclerotic calcification of the thoracic aorta. The pulmonary vasculature is noncongested. Chronic residual thickening is similar to previous. Scarring/atelectasis is noted at the lung bases. No airspace consolidation or large pleural effusion is identified. No pneumothorax is seen. The skeletal structures are osteopenic. The bony thorax is grossly intact. IMPRESSION: 1. Cardiomegaly and cardiac pacemaker with no radiographic evidence of congestive failure. 2. No airspace consolidation or large pleural effusion is identified. ACT 112: Negative or not required by law. Electronically signed by: Luis Russell M.D. 08/29/2021 11:52 AM ECG Additional Comments: Atrial-sensed ventricular-paced rhythm Abnormal ECG When compared with ECG of 24-AUG-2021 11:09, Vent. rate has decreased BY 8 BPM. Code Status & VTE Plan Code Status Full Code. Supervising Physician Co-Signing Physician Notes Patient was seen and examined independently I discussed the case with Jyoti COOPER I reviewed pertinent past medical social family history and also the plan of care and agree with the plan of care. Patient presents with failure to thrive at home unable to be able to take care of himself is very weak. Initial evaluation in the ER is not very for filling with regard to a direct cause of possible metabolic encephalopathy does have a mild elevation of his white count but no defined infection is found. Evaluated him his lungs sound clear his belly is benign actually do rectal exam his prostate is not tender Continue to collect information get repeat evaluation by PT OT and and rule out other infectious causes for metabolic encephalopathy.\\ The patient may simply have failed outpatient attempts and may need inpatient reha Any exceptions will be noted below PG Care Time/CCT Total # of Minutes Spent Total Time Spent with Patient: Total time spent is greater than 50% in coordination of care (as documented) at patient's floor/unit and/or counseling patient: Coding Level of Care Code 56806 Initial Inpt Care Lvl 3 Diagnoses History of CVA (cerebrovascular accident) Z86.73 Diabetes mellitus type 2, uncontrolled E11.65 Glycemic state: with hyperglycemia Benign prostate hyperplasia N40.0 CAD (coronary artery disease) I25.10 Associated angina: without angina Coronary Disease-Associated Artery/Lesion type: [place] artery [place] vs. transplanted heart: [place] heart Hypertension I10 Hypertension type: essential hypertension Paroxysmal atrial fibrillation I48.0 CKD (chronic kidney disease), stage III N18.32 Chronic kidney disease stage 3 subtype: stage 3b (GFR 30-44) Anemia D64.9 Hyperlipidemia E78.5 Hyperlipidemia type: unspecified Hypothyroidism E03.9 Hypothyroidism type: unspecified Weakness R53.1 Urinary retention R33.9 GERD (gastroesophageal reflux disease) K21.9 (1) CKD (chronic kidney disease), stage III Chronic kidney disease stage 3 subtype: stage 3b (GFR 30-44) Qualified Code(s): N18.32 - Chronic kidney disease, stage 3b (2) CAD (coronary artery disease) Associated angina: without angina Coronary Disease-Associated Artery/Lesion type: [place] artery [place] vs. transplanted heart: [place] heart Qualified Code(s): I25.10 - Atherosclerotic heart disease of [place] coronary artery without angina pectoris (3) Hyperlipidemia Hyperlipidemia type: unspecified Qualified Code(s): E78.5 - Hyperlipidemia, unspecified (4) Hypothyroidism Hypothyroidism type: unspecified Qualified Code(s): E03.9 - Hypothyroidism, unspecified (5) Diabetes mellitus type 2, uncontrolled Glycemic state: with hyperglycemia Qualified Code(s): E11.65 - Type 2 diabetes mellitus with hyperglycemia (6) Hypertension Hypertension type: essential hypertension Qualified Code(s): I10 - Essential (primary) hypertension
[2021-08-29 16:45] LABS: Lyme Ab IgG w/WB Rflx Negative (Negative); Lyme Ab IgM w/WB Rflx Negative (Negative)
[2021-08-29] MEDS ORDERED: PANTOprazole 40 MG TAB PO STA (17:22)
[2021-08-29] MEDS ORDERED: PROMETHAZINE HCL 12.5 MG in SODIUM CHLORIDE 0.9% 50 ML IV PRN (20:42)
[2021-08-29] MEDS ORDERED: GLUCOSE 10 TABS/TUBE PO PRN (20:42)
[2021-08-29] MEDS ORDERED: ACETAMINOPHEN 325 MG TAB PO PRN (20:42)
[2021-08-29] MEDS ORDERED: GLUCAGON FOR INJ 1 MG VIAL SQ PRN (20:42)
[2021-08-29] MEDS ORDERED: GLUCOSE 40% GEL 15 GM TUBE PO PRN (20:42)
[2021-08-29] MEDS ORDERED: DEXTROSE 50% 50 ML SYRINGE IV PRN (20:42)
[2021-08-29] MEDS ORDERED: CARBOHYDRATES FOR HYPOGLYCEMIA PO PRN (20:42)
[2021-08-29] MEDS ORDERED: POLYETHYLENE (MIRALAX) 17 GM PACK PO PRN (20:42)
[2021-08-29] MEDS ORDERED: NITROGLYCERIN SL 0.4 MG/TAB TAB SL PRN (20:42)
[2021-08-29] MEDS ORDERED: ONDANSETRON INJ 2 MG/ML 2 ML VIAL IV PRN (20:42)
[2021-08-29] MEDS: INSULIN ASPART PER UNIT SC SCH (21:18)
[2021-08-29] MEDS: APIXABAN 5 MG TABLET PO SCH (21:19)
[2021-08-29] MEDS: ATORVASTATIN 40 MG TAB PO SCH (21:19)
[2021-08-29] MEDS: LACTATED RINGER'S 1,000 ML IV SCH (21:27)
[2021-08-30] MEDS: LEVOTHYROXINE SODIUM 150 MCG TABLET PO SCH (05:49)
[2021-08-30 07:43] LABS: Albumin Globulin Ratio 1.4 (0.9-2); Albumin Level 3.7 gm/dl (3.4-5.0); BUN Creatinine Ratio 27.5 (10-20); Bilirubin,Total 0.7 mg/dl (0.2-1.0); Calcium 9.4 mg/dl (8.5-10.1); Creatinine Clr Calc Pharmacy 44.6 ml/min; Est GFR (African American) 57.9 ml/min; Globulin 2.6 gm/dl (2.5-4.0); Total Protein 6.3 gm/dl (6.0-8.3)
[2021-08-30 08:14] LABS: Eosinophils # (auto) 0.04 K/uL (0-0.5); Eosinophils % (auto) 0.5 %; Hematocrit (blood only) 38.3 % (42-52); Hemoglobin 12.7 g/dL (14.0-18.0); Immature Granulocytes # (auto) 0.02 K/uL (0.00-0.02); Immature Granulocytes % (auto) 0.2 %; Lymphocytes # (auto) 1.42 K/uL (1.2-3.4); Lymphocytes % (auto) 16.2 %; Mean Corpuscular Hemoglobin 31.8 pg (25-34); Mean Corpuscular Hgb Conc 33.2 g/dL (32-36); Mean Platelet Volume 13.3 fL (7.4-10.4); Monocytes # (auto) 0.88 K/uL (0.11-0.59); Neutrophils # (auto) 6.41 K/uL (1.4-6.5); Neutrophils % (auto) 73.1 %; Platelet Count 123 K/uL (130-400); Platelet Estimate Decreased (Normal); RDW Coefficient of Variation 13.3 % (11.5-14.5); RDW Standard Deviation 46.3 fL (36.4-46.3); Red Blood Count 3.99 M/uL (4.7-6.1); White Blood Count 8.77 K/uL (4.8-10.8)
[2021-08-30] MEDS: CLOPIDOGREL BISULFATE 75 MG TAB PO SCH (08:20)
[2021-08-30] MEDS: CHOLECALCIFEROL 1,000 UNITS 25 MCG TAB PO SCH (08:20)
[2021-08-30] MEDS: APIXABAN 5 MG TABLET PO SCH ×2 (08:20→20:17)
[2021-08-30] MEDS: ISOSORBIDE MONO EXTENDED REL 30 MG TABCR PO SCH (08:21)
[2021-08-30] MEDS: CYANOCOBALAMIN (B-12) 500 MCG TABLET PO SCH (08:21)
[2021-08-30] MEDS: METOPROLOL SUCC 50MG EXT REL TAB PO SCH (08:21)
[2021-08-30] MEDS: LOSARTAN POTASSIUM 50 MG TAB PO SCH (08:21)
[2021-08-30] MEDS: LACTATED RINGER'S 1,000 ML IV SCH ×2 (08:22→20:17)
[2021-08-30] MEDS: INSULIN ASPART PER UNIT SC SCH ×4 (09:42→20:41)
[2021-08-30] MEDS: TAMSULOSIN HCL 0.4 MG CAP PO SCH (10:33)
--- NOTE | 2021-08-30 16:48 | Hospitalist Progress Note ---
Date of Service August 30, 2021 Assessment & Plan (1) Weakness: Plan: - Ongoing for month, worse over past week. With associated chills, fatigue, loss of appetite. WBC mildly elevate at 11.05, initial lactate 2.1, repeat 1.3. procalcitonin negative - Likely secondary to deconditioning in addition to recent cerebellar stroke. - COVID negative, UA without evidence of UTI, prostate nontender on exam, labs and imaging unrevealing for obvious source of infection. - Given a dose of Rocephin in ED, will hold off on further abx as I currently do not see an obvious infection to treat. - PT and OT to evaluate, during PT evaluation, patient became pale and diaphoretic per PT note so recommendations were not established. Occupational Therapy recommend skilled OT upon discharge and while in hospital. -Blood work overall normal (2) Urinary retention: Plan: - Reported at home over past week, possibly longer. History of BPH, no medications for this. - Straight cath in ED for 500cc - Will order PVR bladder scans with orders to straight cath for > [address] saavedra if requiring straight cath x2. -Continue Flomax -If patient ultimately continues to retain urine, patient may need to get a Saavedra catheter and follow-up with urology. (3) GERD (gastroesophageal reflux disease): Plan: - Burning sensation, nausea, vomiting over the past month associated with meals. reports he has been gagging on food over past month. Did have speech eval on 08/24 when dx with stroke, did not have speech or swallowing deficits, passed dysphagia screening and had regular diet ordered. - Daily Protonix with Zofran, Phenergan prn for nausea. (4) History of CVA (cerebrovascular accident): Plan: - He was admitted from 08/24/21 through 08/25/21 after being given results of MRI and reporting worsening balance, dizziness and nausea with ambulation. - MRI brain (08/23/21): large region of restricted diffusion in inferior right cerebellar hemisphere consistent with acute-subacute infarct, additional punctate focus of restricted diffusion in right parietal lobe consistent with tiny acute-subacute infarct, no hemorrhage. - Neuro was consulted and anticoag changed to Eliquis + Plavix (from Eliquis + aspirin). A follow up CTA head/neck was recommended in 3-6 months. (5) Diabetes mellitus type 2, uncontrolled: Plan: - Hold home oral glycemics. - Last hospitalization did well with correctional insulin, will order this. - Diabetic diet. (6) Benign prostate hyperplasia: Plan: - History of, has not taken any medication for this in "years". -Continuing Flomax as above. (7) CAD (coronary artery disease): Plan: - Follows with Dr. Valenzuela. - Continue metoprolol, losartan, isosorbide. Nitroglycerin prn. (8) Hypertension: Plan: - Continue metoprolol, losartan. (9) Paroxysmal atrial fibrillation: Plan: - Pacemaker present. - Continue Eliquis, metoprolol. (10) CKD (chronic kidney disease), stage III: Plan: - BUN 38, Cr 1.48, about baseline. - Renally dose all medications, avoid nephrotoxic agents. (11) Anemia: Plan: - Chronic, H/H acceptable and stable today. - Daily B12 supplement. B12 level n April. (12) Hyperlipidemia: Plan: - Continue statin. (13) Hypothyroidism: Plan: - Continue levothyroxine. Plan: - Admit to med/surg. - SCDs, Eliquis for DVT ppx. - Full Code. Admission and Anticipated Discharge Date Admission Date: August 29, 2021 Supervising Physician Co-Signing Physician Notes I personally examined the patient and verified all velasco points of history and exam, discussed case, and agree with decision making with Dr Peralta. No new complaints. Awaiting PT input, waiting to see how well he voids after starting Flomax. Later in the day informed by nursing that he was actually voiding with fairly low postvoid residuals, but did fairly poorly with PT. Got easily diaphoretic with most activities. Vitals noted, in general he is awake and alert pleasant no distress. HEENT normocephalic atraumatic mucous membranes moist. Breathing unlabored no accessory muscle use good effort. Skin shows no rashes no pallor or icterus. Weakness and functional decline as sequelae of CVA - likely would benefit from more formal or more intensive PT - possibly inpatient rehab - PT/OT eval and treat urinary retention - likely BPH w acute spasm - trial of flomax, cath if necessary otherwise as above Subjective Patient seen at bedside this morning. Patient is very pleasant and describes his symptoms to me. Seems that he was having some difficulty with balance and the ability to be mobile in his own home. Been walking around with a walker for the past 1 to 2 weeks because he has been noticing this weakness. Patient reports that he feels that he was let off of physical therapy a little bit too early which is what put him at risk for getting weak at home he is more concerned about his urinary symptoms which includes difficulty with urination as well as straining. Reports a long history of BPH but has not had treatment for it in many years per his history. Denies any pain with urination. Reports that at home he was getting nauseous and he was getting abdominal fullness, however, when he was finally able to urinate, his symptoms resolved almost immediately. Denies any fevers, chills, chest pain, shortness of breath. Otherwise has no new other complaints this morning. Review of Systems Review of Systems: All systems reviewed & are unremarkable except as noted in HPI & below Physical Exam Constitutional: WD/WN, vitals as above Eyes: PERRL, conjunctivae normal, anicteric sclerae ENMT: external ear and nose normal, oropharynx normal Neck: trachea midline, no thyromegaly Respiratory: normal respiratory effort, lungs clear to auscultation Cardiovascular: RRR, no murmur, no edema Gastrointestinal (Abdomen): normal bowel sounds, soft, nontender, no hepatosplenomegaly Musculoskeletal: no cyanosis or clubbing, extremities motor strength 5/5 Head/Neck/Chest: normocephalic and head atraumatic Skin: no rashes, warm and dry Neurologic: CN's II-XI intact bilaterally Psychiatric: A+Ox3, euthymic affect Results & Data Results & Data ([facility]) Vital Signs (Past 12 Hours) Vital Signs Temp Pulse Pulse Resp BP Pulse Ox Pulse Ox 08/30/21 16:33 36.9 C 65 18 126/72 98 08/30/21 15:20 60 18 125/74 97 08/30/21 11:26 98 08/30/21 11:16 36.6 C 66 14 115/71 97 08/30/21 07:58 36.6 C 68 12 136/84 97 (1) CKD (chronic kidney disease), stage III Chronic kidney disease stage 3 subtype: stage 3b (GFR 30-44) Qualified Code(s): N18.32 - Chronic kidney disease, stage 3b (2) CAD (coronary artery disease) Associated angina: without angina Coronary Disease-Associated Artery/Lesion type: [place] artery [place] vs. transplanted heart: [place] heart Qualified Code(s): I25.10 - Atherosclerotic heart disease of [place] coronary artery without angina pectoris (3) Hyperlipidemia Hyperlipidemia type: unspecified Qualified Code(s): E78.5 - Hyperlipidemia, unspecified (4) Hypothyroidism Hypothyroidism type: unspecified Qualified Code(s): E03.9 - Hypothyroidism, unspecified (5) Diabetes mellitus type 2, uncontrolled Glycemic state: with hyperglycemia Qualified Code(s): E11.65 - Type 2 diabetes mellitus with hyperglycemia (6) Hypertension Hypertension type: essential hypertension Qualified Code(s): I10 - Essential (primary) hypertension
[2021-08-30] MEDS: ATORVASTATIN 40 MG TAB PO SCH (20:18)
[2021-08-31] MEDS: LEVOTHYROXINE SODIUM 150 MCG TABLET PO SCH (05:40)
--- NOTE | 2021-08-31 05:55 | Electrocardiogram Report ---
Test Reason : Blood Pressure : / mmHG Vent. Rate : 064 BPM Atrial Rate : 064 BPM P-R Int : 170 ms QRS Dur : 144 ms QT Int : 408 ms P-R-T Axes : 027 -15 195 degrees QTc Int : 420 ms Atrial-sensed ventricular-paced rhythm Abnormal ECG When compared with ECG of 24-AUG-2021 11:09, Vent. rate has decreased BY 8 BPM Confirmed by Trace Finn ([id number]) on 08/31/2021 5:55:20 AM Referred By: REFERRED SELF Confirmed By:Trace Finn
[2021-08-31 07:50] LABS: Hematocrit (blood only) 37.6 % (42-52); Hemoglobin 12.8 g/dL (14.0-18.0); Mean Corpuscular Hemoglobin 32.3 pg (25-34); Mean Corpuscular Volume 94.9 fL (80-100); Mean Platelet Volume 13.2 fL (7.4-10.4); RDW Coefficient of Variation 13.2 % (11.5-14.5); RDW Standard Deviation 45.7 fL (36.4-46.3); Red Blood Count 3.96 M/uL (4.7-6.1); White Blood Count 8.72 K/uL (4.8-10.8)
[2021-08-31 07:55] LABS: Basophils # (auto) 0.01 K/uL (0-0.2); Basophils % (auto) 0.1 %; Eosinophils # (auto) 0.08 K/uL (0-0.5); Eosinophils % (auto) 0.9 %; Immature Granulocytes # (auto) 0.03 K/uL (0.00-0.02); Immature Granulocytes % (auto) 0.3 %; Lymphocytes # (auto) 1.36 K/uL (1.2-3.4); Lymphocytes % (auto) 15.6 %; Monocytes # (auto) 0.85 K/uL (0.11-0.59); Monocytes % (auto) 9.7 %; Neutrophils # (auto) 6.39 K/uL (1.4-6.5); Neutrophils % (auto) 73.4 %; Platelet Count 115 K/uL (130-400); Platelet Estimate Decreased (Normal)
[2021-08-31] MEDS: LOSARTAN POTASSIUM 50 MG TAB PO SCH (08:09)
[2021-08-31] MEDS: TAMSULOSIN HCL 0.4 MG CAP PO SCH (08:09)
[2021-08-31] MEDS: CHOLECALCIFEROL 1,000 UNITS 25 MCG TAB PO SCH (08:09)
[2021-08-31] MEDS: METOPROLOL SUCC 50MG EXT REL TAB PO SCH (08:09)
[2021-08-31] MEDS: CYANOCOBALAMIN (B-12) 500 MCG TABLET PO SCH (08:09)
[2021-08-31] MEDS: CLOPIDOGREL BISULFATE 75 MG TAB PO SCH (08:09)
[2021-08-31] MEDS: APIXABAN 5 MG TABLET PO SCH ×2 (08:10→20:54)
[2021-08-31] MEDS: ISOSORBIDE MONO EXTENDED REL 30 MG TABCR PO SCH (08:10)
[2021-08-31] MEDS: LACTATED RINGER'S 1,000 ML IV SCH (08:49)
[2021-08-31] MEDS: INSULIN ASPART PER UNIT SC SCH ×4 (09:14→21:00)
--- NOTE | 2021-08-31 11:06 | Discharge Summary ---
Date of Service August 31, 2021 Admission HPI Per Admitting Provider Mr. Watt is an 85-year-old male with past medical history of CVA last week and in 2020 on Eliquis and Plavix, CAD, HTN, HLD, pacemaker present, CKD3, DM2, and hypothyroidism who presents today withabdominal pain with urination. When he does urinate, he often dribbles, does not put out as much urine as he used to. He also breaks out in a visible sweat. He denies any dysuria, hematuria, or increased urinary frequency. This is associated with generalized weakness, he cannot do much more than ambulate from the living room to the bathroom with his walker. 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 This is previously been limited over the past month due to his altered balance Xarelto results of his recent stroke, however though he is too weak to even she did in the bathroom to shave. He is constantly cold, states the house is set at 80 degrees and he is still requesting multiple blankets. They do not have a thermometer at home and therefore not been able to take his temperature. Finally, over the past month, patient reports he has been declining, may have noticed decline in energy level since then, but mainly his complaints have been decreased appetite, nausea and abdominal pain after meals and liquids. He denies night sweats, chest pain, palpitations, shortness of breath, cough, URI symptoms, diarrhea, constipation, melena, and hematochezia. Has a history of BPH, and he says many years ago he took a medication from a vitamin store that was supposed to help with urination, however it did not help him so he stopped taking it. No other medications for this. In ED, VSS and wnl. Labs significant for WBC 11.05, lactate 2.1, BUN 41 and Cr 1.31 (baseline), CXR showed cardiomegaly and cardiac pacemaker with no evidence of heart failure. No consolidation or large pleural effusion identified. Head CT shows subacute/evolving infarct in right cerebellar hemisphere (diagnosed here 08/25), no new foci of acute ischemia, hemorrhage, or mass-effect. CT A/P was unrevealing, no bowel thickening or obstruction, appendix normal, no hydronephrosis, cholelithiasis without gallbladder wall thickening. Discharge Exam Constitutional WD/WN, vitals as above Eyes PERRL, conjunctivae normal, anicteric sclerae ENMT external ear and nose normal, oropharynx normal Neck trachea midline, no thyromegaly Respiratory normal respiratory effort, lungs clear to auscultation Cardiovascular RRR, no murmur, no edema Gastrointestinal (Abdomen) normal bowel sounds, soft, nontender, no hepatosplenomegaly Musculoskeletal no cyanosis or clubbing, extremities motor strength 5/5 Head/Neck/Chest: normocephalic and head atraumatic Skin no rashes, warm and dry Neurologic CN's II-XI intact bilaterally Psychiatric A+Ox3, euthymic affect Discharge Data Allergies Allergy/AdvReac Type Severity Reaction Status Date / Time No Known Allergies Allergy Verified 08/24/21 12:16 Consultations 08/29/21 16:23 ED Decision to Admit Stat Ordered Studies 08/29/21 11:21 CT abd pelvis IV con only Stat CT head/brain wo con Stat Hospital Course (1) Weakness: - Ongoing for month, worse over past week. With associated chills, fatigue, loss of appetite. WBC mildly elevate at 11.05, initial lactate 2.1, repeat 1.3. procalcitonin negative - Likely secondary to deconditioning in addition to recent cerebellar stroke. - COVID negative, UA without evidence of UTI, prostate nontender on exam, labs and imaging unrevealing for obvious source of infection. - Given a dose of Rocephin in ED, will hold off on further abx as I currently do not see an obvious infection to treat. - PT and OT to evaluate, during PT evaluation, patient became pale and diaphoretic per PT note so recommendations were not established. Occupational Therapy recommend skilled OT upon discharge and while in hospital. -Blood work overall normal (2) Urinary retention: - Reported at home over past week, possibly longer. History of BPH, no medications for this. - Straight cath in ED for 500cc - Will order PVR bladder scans with orders to straight cath for > [address] saavedra if requiring straight cath x2. -Continue Flomax -If patient ultimately continues to retain urine, patient may need to get a Saavedra catheter and follow-up with urology. (3) GERD (gastroesophageal reflux disease): - Burning sensation, nausea, vomiting over the past month associated with meals. reports he has been gagging on food over past month. Did have speech eval on 08/24 when dx with stroke, did not have speech or swallowing deficits, passed dysphagia screening and had regular diet ordered. - Daily Protonix with Zofran, Phenergan prn for nausea. (4) History of CVA (cerebrovascular accident): - He was admitted from 08/24/21 through 08/25/21 after being given results of MRI and reporting worsening balance, dizziness and nausea with ambulation. - MRI brain (08/23/21): large region of restricted diffusion in inferior right cerebellar hemisphere consistent with acute-subacute infarct, additional punctate focus of restricted diffusion in right parietal lobe consistent with tiny acute-subacute infarct, no hemorrhage. - Neuro was consulted and anticoag changed to Eliquis + Plavix (from Eliquis + aspirin). A follow up CTA head/neck was recommended in 3-6 months. (5) Diabetes mellitus type 2, uncontrolled: - Hold home oral glycemics. - Last hospitalization did well with correctional insulin, will order this. - Diabetic diet. (6) Benign prostate hyperplasia: - History of, has not taken any medication for this in "years". -Continuing Flomax as above. (7) CAD (coronary artery disease): - Follows with Dr. Valenzuela. - Continue metoprolol, losartan, isosorbide. Nitroglycerin prn. (8) Hypertension: - Continue metoprolol, losartan. (9) Paroxysmal atrial fibrillation: - Pacemaker present. - Continue Eliquis, metoprolol. (10) CKD (chronic kidney disease), stage III: - BUN 38, Cr 1.48, about baseline. - Renally dose all medications, avoid nephrotoxic agents. (11) Anemia: - Chronic, H/H acceptable and stable today. - Daily B12 supplement. B12 level n April. (12) Hyperlipidemia: - Continue statin. (13) Hypothyroidism: - Continue levothyroxine. - Admit to med/surg. - SCDs, Eliquis for DVT ppx. - Full Code. Discharge Plan Discharge Items Reason For Visit: WEAKNESS Condition on Discharge: Fair Follow-up/Referrals: Savanna Lizama CRNP [Primary Care Provider] - Medications and DC Order Prescriptions: No Action atorvastatin 40 mg tablet 40 mg PO HS Qty: 90 RF: 3 Eliquis 5 mg tablet 5 mg PO BID Qty: 180 RF: 3 cholecalciferol (vitamin D3) 50 mcg (2,000 unit) capsule 50 mcg PO DAILY RF: 0 losartan 50 mg tablet 50 mg PO DAILY Qty: 90 RF: 3 glimepiride 4 mg tablet 4 mg PO BID Qty: 180 RF: 3 nitroglycerin 0.4 mg tablet, sublingual 0.4 mg SL Q5M PRN (Reason: chest pain) Qty: 1 RF: 0 acetaminophen 325 mg Tablet 650 mg PO Q4H PRN (Reason: Pain) RF: 0 isosorbide mononitrate 60 mg tablet extended release 24 hr 30 mg PO DAILY RF: 0 levothyroxine 150 mcg tablet 150 mcg PO DAILYBB RF: 0 metoprolol succinate 100 mg tablet extended release 24 hr 100 mg PO DAILY RF: 0 Multiple Vitamin-Minerals Tablet 1 tab PO DAILY RF: 0 Januvia 50 mg tablet 50 mg PO DAILY RF: 0 metformin 500 mg tablet extended release 24 hr 500 mg PO DIRECTED RF: 0 clopidogrel 75 mg Tablet 75 mg PO QAM 30 Days Qty: 30 RF: 0 cyanocobalamin (vitamin B-12) 500 mcg Tablet 1,000 mcg PO QAM Qty: 60 RF: 5 Admission Data Admit Date/Time: 08/29/21 17:17 Attending Provider: Anderson Ferrara Admit Provider: Edouard Pérez Primary Care Provider: Savanna Lizama Other Providers: Edouard Pérez ; [facility]
--- NOTE | 2021-08-31 17:21 | Hospitalist Progress Note ---
Date of Service August 31, 2021 Assessment & Plan (1) Weakness: Plan: - Ongoing for month, worse over past week. With associated chills, fatigue, loss of appetite. WBC mildly elevate at 11.05, initial lactate 2.1, repeat 1.3. procalcitonin negative - Likely secondary to deconditioning in addition to recent cerebellar stroke. - COVID negative, UA without evidence of UTI, prostate nontender on exam, labs and imaging unrevealing for obvious source of infection. - Given a dose of Rocephin in ED, will hold off on further abx as I currently do not see an obvious infection to treat. - PT and OT to evaluate, patient attempted PT evaluation again today and they did recommend rehab. Occupational Therapy recommend skilled OT upon discharge and while in hospital. -At this time Case management is working on getting a referral to [facility] and doing a prior authorization and will likely hear back tomorrow. -Blood work overall normal (2) Urinary retention: Plan: - Reported at home over past week, possibly longer. History of BPH, no medications for this. - Straight cath in ED for 500cc - Will order PVR bladder scans with orders to straight cath for > [address] saavedra if requiring straight cath x2. -Continue Flomax -Patient urinating well today, improved symptoms. (3) GERD (gastroesophageal reflux disease): Plan: - Burning sensation, nausea, vomiting over the past month associated with meals. reports he has been gagging on food over past month. Did have speech eval on 08/24 when dx with stroke, did not have speech or swallowing deficits, passed dysphagia screening and had regular diet ordered. - Daily Protonix with Zofran, Phenergan prn for nausea. (4) History of CVA (cerebrovascular accident): Plan: - He was admitted from 08/24/21 through 08/25/21 after being given results of MRI and reporting worsening balance, dizziness and nausea with ambulation. - MRI brain (08/23/21): large region of restricted diffusion in inferior right cerebellar hemisphere consistent with acute-subacute infarct, additional punctate focus of restricted diffusion in right parietal lobe consistent with tiny acute-subacute infarct, no hemorrhage. - Neuro was consulted and anticoag changed to Eliquis + Plavix (from Eliquis + aspirin). A follow up CTA head/neck was recommended in 3-6 months. (5) Diabetes mellitus type 2, uncontrolled: Plan: - Hold home oral glycemics. - Last hospitalization did well with correctional insulin, will order this. - Diabetic diet. (6) Benign prostate hyperplasia: Plan: - History of, has not taken any medication for this in "years". -Continuing Flomax as above. (7) CAD (coronary artery disease): Plan: - Follows with Dr. Valenzuela. - Continue metoprolol, losartan, isosorbide. Nitroglycerin prn. (8) Hypertension: Plan: - Continue metoprolol, losartan. (9) Paroxysmal atrial fibrillation: Plan: - Pacemaker present. - Continue Eliquis, metoprolol. (10) CKD (chronic kidney disease), stage III: Plan: - BUN 38, Cr 1.48, about baseline. - Renally dose all medications, avoid nephrotoxic agents. (11) Anemia: Plan: - Chronic, H/H acceptable and stable today. - Daily B12 supplement. B12 level n April. (12) Hyperlipidemia: Plan: - Continue statin. (13) Hypothyroidism: Plan: - Continue levothyroxine. Plan: - Admit to med/surg. - SCDs, Eliquis for DVT ppx. - Full Code. Admission and Anticipated Discharge Date Admission Date: August 29, 2021 Supervising Physician Co-Signing Physician Notes I personally examined the patient and verified all [place] points of history and exam, discussed case, and agree with decision making with Dr Peralta. gets diaphoretic w activity - in discussion - did not happen before stroke. no caraballo. gets quesy feeling in stomach then gets diaphoretic. notes that the quesy feeling comes after he feels dizzy with movement. Vitals noted, in general he is awake and alert pleasant no distress. HEENT normocephalic atraumatic mucous membranes moist. Breathing unlabored no access ory muscle use good effort. Skin shows no rashes no pallor or icterus. walked with pt - while a little unsteady at transitions he does so without assistance, and then is able to walk without significant dyspnea. Weakness and functional decline as sequelae of CVA - likely would benefit from more formal or more intensive PT -ideally inpatient rehab - PT/OT eval and treat urinary retention - likely BPH w acute spasm - trial of flomax so far beneficial otherwise as above, for rehab once available Subjective Patient seen at bedside this morning. Patient reports that his symptoms of nausea and abdominal pain seemed to have improve moderately. Reports not having much difficulty with urination so much anymore. Does report getting up causes him some dizziness and nausea which has been going on for the past week. Apparently when he had physical therapy yesterday, he became very dizzy and a little bit pale so he was unable to participate with physical therapy. Does wish to attempt again later today when able. Otherwise has no new complaints at today's interview. Review of Systems Review of Systems: All systems reviewed & are unremarkable except as noted in HPI & below Physical Exam Constitutional: WD/WN, vitals as above Eyes: PERRL, conjunctivae normal, anicteric sclerae ENMT: external ear and nose normal, oropharynx normal Neck: trachea midline, no thyromegaly Respiratory: normal respiratory effort, lungs clear to auscultation Cardiovascular: RRR, no murmur, no edema Gastrointestinal (Abdomen): normal bowel sounds, soft, nontender, no hepatosplenomegaly Musculoskeletal: no cyanosis or clubbing, extremities motor strength 5/5 Head/Neck/Chest: normocephalic and head atraumatic Skin: no rashes, warm and dry Neurologic: CN's II-XI intact bilaterally Psychiatric: A+Ox3, euthymic affect Results & Data Results & Data ([facility]) Vital Signs (Past 12 Hours) Vital Signs Temp Pulse Resp BP Pulse Ox 08/31/21 14:59 36.6 C 69 15 125/82 94 08/31/21 07:22 36.4 C L 69 16 169/85 H 96 (1) CKD (chronic kidney disease), stage III Chronic kidney disease stage 3 subtype: stage 3b (GFR 30-44) Qualified Code(s): N18.32 - Chronic kidney disease, stage 3b (2) CAD (coronary artery disease) Associated angina: without angina Coronary Disease-Associated Artery/Lesion type: [place] artery [place] vs. transplanted heart: [place] heart Qualified Code(s): I25.10 - Atherosclerotic heart disease of [place] coronary artery without angina pectoris (3) Hyperlipidemia Hyperlipidemia type: unspecified Qualified Code(s): E78.5 - Hyperlipidemia, unspecified (4) Hypothyroidism Hypothyroidism type: unspecified Qualified Code(s): E03.9 - Hypothyroidism, unspecified (5) Diabetes mellitus type 2, uncontrolled Glycemic state: with hyperglycemia Qualified Code(s): E11.65 - Type 2 diabetes mellitus with hyperglycemia (6) Hypertension Hypertension type: essential hypertension Qualified Code(s): I10 - Essential (primary) hypertension
--- NOTE | 2021-08-31 19:18 | Billing Data ---
Date of Service August 31, 2021 Coding Level of Care Code 39596 Subseq Hosp Care Lvl 3
--- NOTE | 2021-08-31 19:18 | Billing Data ---
Date of Service August 31, 2021 Coding Level of Care Code 96856 Subseq Hosp Care Lvl 3
[2021-08-31] MEDS: ATORVASTATIN 40 MG TAB PO SCH (20:54)
[2021-09-01] MEDS: LEVOTHYROXINE SODIUM 150 MCG TABLET PO SCH (05:48)
[2021-09-01 06:48] LABS: BUN Creatinine Ratio 21.6 (10-20); Calcium 8.9 mg/dl (8.5-10.1); Creatinine Clr Calc Pharmacy 48.8 ml/min; Est GFR (African American) 61.3 ml/min; Est GFR (Non-African American) 52.9 ml/min; Potassium 3.5 mmol/L (3.5-5.1)
[2021-09-01 07:07] LABS: Hematocrit (blood only) 35.7 % (42-52); Hemoglobin 12.1 g/dL (14.0-18.0); Mean Corpuscular Hemoglobin 32.6 pg (25-34); Mean Corpuscular Hgb Conc 33.9 g/dL (32-36); Mean Corpuscular Volume 96.2 fL (80-100); Mean Platelet Volume 13.7 fL (7.4-10.4); Platelet Count 113 K/uL (130-400); RDW Coefficient of Variation 13.1 % (11.5-14.5); Red Blood Count 3.71 M/uL (4.7-6.1); White Blood Count 8.28 K/uL (4.8-10.8)
[2021-09-01 07:08] LABS: Platelet Estimate Decreased (Normal)
[2021-09-01] MEDS: APIXABAN 5 MG TABLET PO SCH (08:09)
[2021-09-01] MEDS: METOPROLOL SUCC 50MG EXT REL TAB PO SCH (08:09)
[2021-09-01] MEDS: TAMSULOSIN HCL 0.4 MG CAP PO SCH (08:09)
[2021-09-01] MEDS: LOSARTAN POTASSIUM 50 MG TAB PO SCH (08:09)
[2021-09-01] MEDS: CLOPIDOGREL BISULFATE 75 MG TAB PO SCH (08:10)
[2021-09-01] MEDS: CYANOCOBALAMIN (B-12) 500 MCG TABLET PO SCH (08:10)
[2021-09-01] MEDS: ISOSORBIDE MONO EXTENDED REL 30 MG TABCR PO SCH (08:10)
[2021-09-01] MEDS: CHOLECALCIFEROL 1,000 UNITS 25 MCG TAB PO SCH (08:10)
[2021-09-01] MEDS: INSULIN ASPART PER UNIT SC SCH ×3 (08:36→17:25)
[2021-09-01] MEDS ORDERED: FAMOTIDINE 40 MG TABLET PO ONE (15:45)
--- NOTE | 2021-09-01 16:26 | Discharge Summary ---
Date of Service September 01, 2021 Principal Diagnosis Vertigo secondary to subacute ischemic stroke Discharge Exam Constitutional WD/WN, vitals as above Eyes PERRL, conjunctivae normal, anicteric sclerae ENMT external ear and nose normal, oropharynx normal Neck trachea midline, no thyromegaly Respiratory normal respiratory effort, lungs clear to auscultation Cardiovascular RRR, no murmur, no edema Gastrointestinal (Abdomen) normal bowel sounds, soft, nontender, no hepatosplenomegaly Musculoskeletal no cyanosis or clubbing, extremities motor strength 5/5 Head/Neck/Chest: normocephalic and head atraumatic Skin no rashes, warm and dry Neurologic CN's II-XI intact bilaterally Psychiatric A+Ox3, euthymic affect Discharge Data Allergies Allergy/AdvReac Type Severity Reaction Status Date / Time No Known Allergies Allergy Verified 08/24/21 12:16 Consultations 08/29/21 16:23 ED Decision to Admit Stat Ordered Studies 08/29/21 11:21 CT abd pelvis IV con only Stat CT head/brain wo con Stat Hospital Course (1) Weakness: - Ongoing for month, worse over past week. With associated chills, fatigue, loss of appetite. WBC mildly elevate at 11.05, initial lactate 2.1, repeat 1.3. procalcitonin negative - Likely secondary to deconditioning in addition to recent cerebellar stroke. - COVID negative, UA without evidence of UTI, prostate nontender on exam, labs and imaging unrevealing for obvious source of infection. - Given a dose of Rocephin in ED, will hold off on further abx as I currently do not see an obvious infection to treat. - PT and OT to evaluate, PT evaluation on 08/31 and they did recommend rehab. Occupational Therapy recommend skilled OT upon discharge and while in hospital. -Patient has a bed at [facility] and has been discharged with transporting him to the facility. (2) Urinary retention: - Reported at home over past week, possibly longer. History of BPH, no medications for this. - Straight cath in ED for 500cc - Will order PVR bladder scans with orders to straight cath for > [address] cc[address] saavedra if requiring straight cath x2. -Continue Flomax -Patient urinating well today, improved symptoms. (3) GERD (gastroesophageal reflux disease): - Burning sensation, nausea, vomiting over the past month associated with meals. reports he has been gagging on food over past month. Did have speech eval on 08/24 when dx with stroke, did not have speech or swallowing deficits, passed dysphagia screening and had regular diet ordered. - Daily Protonix with Zofran, Phenergan prn for nausea while hospitalized. (4) History of CVA (cerebrovascular accident): - He was admitted from 08/24/21 through 08/25/21 after being given results of MRI and reporting worsening balance, dizziness and nausea with ambulation. - MRI brain (08/23/21): large region of restricted diffusion in inferior right cerebellar hemisphere consistent with acute-subacute infarct, additional puncta te focus of restricted diffusion in right parietal lobe consistent with tiny acute-subacute infarct, no hemorrhage. - Neuro was consulted and anticoag changed to Eliquis + Plavix (from Eliquis + aspirin). A follow up CTA head/neck was recommended in 3-6 months. (5) Diabetes mellitus type 2, uncontrolled: - Restart home diabetic regimen upon discharge - Diabetic diet. (6) Benign prostate hyperplasia: - History of, has not taken any medication for this in "years". -Continuing Flomax as above. (7) CAD (coronary artery disease): - Follows with Dr. Valenzuela. - Continue metoprolol, losartan, isosorbide. Nitroglycerin prn. (8) Hypertension: - Continue metoprolol, losartan. (9) Paroxysmal atrial fibrillation: - Pacemaker present. - Continue Eliquis, metoprolol. (10) CKD (chronic kidney disease), stage III: - At baseline. - Renally dose all medications, avoid nephrotoxic agents. (11) Anemia: - Chronic, H/H acceptable and stable today. - Daily B12 supplement. B12 level n April. (12) Hyperlipidemia: - Continue statin. (13) Hypothyroidism: - Continue levothyroxine. - Discharged to acute rehab - [facility] for DVT ppx. - Full Code. Total Time Total Time Spent Total Time Spent (In Minutes): <30 Discharge Plan Discharge Items Patient Disposition: Transfer Inpatient Rehab Fac Reason For Visit: WEAKNESS Discharge Diagnosis: Vertigo secondary to subacute ischemic stroke Condition on Discharge: Fair Activity: Per Instructions section Non-emergency contact: Primary Care Provider and Neurologist Call non-emergency contact if: you have any medication questions and your symptoms worsen Follow-up/Referrals: Savanna Lizama CRNP [Primary Care Provider] - Diet: Carb Consistent or DM2 and Heart Healthy Addtl Attending Provider Instructions: (1) Weakness: Plan: - Ongoing for month, worse over past week. With associated chills, fatigue, loss of appetite. WBC mildly elevate at 11.05, initial lactate 2.1, repeat 1.3. procalcitonin negative - Likely secondary to deconditioning in addition to recent cerebellar stroke. - COVID negative, UA without evidence of UTI, prostate nontender on exam, labs and imaging unrevealing for obvious source of infection. - Given a dose of Rocephin in ED, will hold off on further abx as I currently do not see an obvious infection to treat. - PT and OT to evaluate,PT evaluation again today and they did recommend rehab . Occupational Therapy recommend skilled OT upon discharge and while in hospital. -Patient has been accepted at [facility] and has a bed available to him today. will be transporting him to the facility. (2) Urinary retention: Plan: - Reported at home over past week, possibly longer. History of BPH, no medications for this. - Straight cath in ED for 500cc - Will order PVR bladder scans with orders to straight cath for > [address] saavedra if requiring straight cath x2. -Continue Flomax -Patient urinating well today, improved symptoms. (3) GERD (gastroesophageal reflux disease): Plan: - Burning sensation, nausea, vomiting over the past month associated with meals. reports he has been gagging on food over past month. Did have speech eval on 08/24 when dx with stroke, did not have speech or swallowing deficits, passed dysphagia screening and had regular diet ordered. - Daily Protonix with Zofran, Phenergan prn for nausea. (4) History of CVA (cerebrovascular accident): Plan: - He was admitted from 08/24/21 through 08/25/21 after being given results of MRI and reporting worsening balance, dizziness and nausea with ambulation. - MRI brain (08/23/21): large region of restricted diffusion in inferior right cerebellar hemisphere consistent with acute-subacute infarct, additional punctate focus of restricted diffusion in right parietal lobe consistent with tiny acute-subacute infarct, no hemorrhage. - Neuro was consulted and anticoag changed to Eliquis + Plavix (from Eliquis + aspirin). A follow up CTA head/neck was recommended in 3-6 months. (5) Diabetes mellitus type 2, uncontrolled: Plan: - Hold home oral glycemics. - Last hospitalization did well with correctional insulin, will order this. - Diabetic diet. (6) Benign prostate hyperplasia: Plan: - History of, has not taken any medication for this in "years". -Continuing Flomax as above. (7) CAD (coronary artery disease): Plan: - Follows with Dr. Valenzuela. - Continue metoprolol, losartan, isosorbide. Nitroglycerin prn. (8) Hypertension: Plan: - Continue metoprolol, losartan. (9) Paroxysmal atrial fibrillation: Plan: - Pacemaker present. - Continue Eliquis, metoprolol. (10) CKD (chronic kidney disease), stage III: Plan: - At baseline. - Renally dose all medications, avoid nephrotoxic agents. (11) Anemia: Plan: - Chronic, H/H acceptable and stable today. - Daily B12 supplement. B12 level n April. (12) Hyperlipidemia: Plan: - Continue statin. (13) Hypothyroidism: Plan: - Continue levothyroxine. Plan: - D/C to acute rehab - [facility] for DVT ppx. - Full Code. Pending Studies at Discharge: No Stand-Alone Forms: My New [facility] Skilled Items Patient informed of condition?: Yes DNR: No Discharge Level of Care: Acute rehab Communicable Disease: No Discharge Prognosis: Stable Lines: None Urinary Catheter: No Medications and DC Order Prescriptions: New tamsulosin 0.4 mg Capsule 0.4 mg PO QAM Qty: 30 RF: 2 Continued atorvastatin 40 mg tablet 40 mg PO HS Qty: 90 RF: 3 Eliquis 5 mg tablet 5 mg PO BID Qty: 180 RF: 3 cholecalciferol (vitamin D3) 50 mcg (2,000 unit) capsule 50 mcg PO DAILY RF: 0 losartan 50 mg tablet 50 mg PO DAILY Qty: 90 RF: 3 glimepiride 4 mg tablet 4 mg PO BID Qty: 180 RF: 3 nitroglycerin 0.4 mg tablet, sublingual 0.4 mg SL Q5M PRN (Reason: chest pain) Qty: 1 RF: 0 acetaminophen 325 mg Tablet 650 mg PO Q4H PRN (Reason: Pain) RF: 0 isosorbide mononitrate 60 mg tablet extended release 24 hr 30 mg PO DAILY RF: 0 levothyroxine 150 mcg tablet 150 mcg PO DAILYBB RF: 0 metoprolol succinate 100 mg tablet extended release 24 hr 100 mg PO DAILY RF: 0 Multiple Vitamin-Minerals Tablet 1 tab PO DAILY RF: 0 Januvia 50 mg tablet 50 mg PO DAILY RF: 0 metformin 500 mg tablet extended release 24 hr 500 mg PO DIRECTED RF: 0 clopidogrel 75 mg Tablet 75 mg PO QAM 30 Days Qty: 30 RF: 0 cyanocobalamin (vitamin B-12) 500 mcg Tablet 1,000 mcg PO QAM Qty: 60 RF: 5 Discharge Orders: Discharge Order (Routine); Ordered 09/01/21 Ordered By: Isidro Peralta Admission Data Admit Date/Time: 08/29/21 17:17 Attending Provider: Anderson Ferrara Admit Provider: Edouard Pérez Primary Care Provider: Savanna Lizama Other Providers: Edouard Pérez ; [facility] Other Interventions: Discharge Summary Assessment (RN) Last Done: 09/01/21 16:34 Supervising Physician Co-Signing Physician Notes I personally examined the patient and verified all velasco points of history and exam, discussed case, and agree with decision making with Dr Peralta. resting comfortably. approved for rehab, accepted today! vitals noted nad heent nc at mmm breathing unlabored no accessory muscles Weakness and functional decline as sequelae of CVA - likely would benefit from more formal or more intensive PT -for inpt rehab at [facility] urinary retention - likely BPH w acute spasm - trial of flomax so far beneficial otherwise as above, for rehab today!
--- NOTE | 2021-09-01 18:20 | Billing Data ---
Date of Service September 01, 2021 Coding Level of Care Code D/C DAY MANAGEMENT <30 MINS
== END 2021-09-01 18:13 | DRG 57 ==
LOC: ED 11:04 → SUATTDRO 17:17 → 3W 17:17
DX: E11.59 Type 2 diabetes mellitus with other circulatory complications; Z79.890 Hormone replacement therapy; R33.9 Retention of urine, unspecified; R53.1 Weakness; R61 Generalized hyperhidrosis; Z87.891 Personal history of nicotine dependence; N40.1 Benign prostatic hyperplasia with lower urinary tract symptoms; R10.30 Lower abdominal pain, unspecified; I12.9 Hypertensive chronic kidney disease with stage 1 through stage 4 chronic kidney disease, or unspecified chronic kidney disease; D64.9 Anemia, unspecified; E11.22 Type 2 diabetes mellitus with diabetic chronic kidney disease; Z79.84 Long term (current) use of oral hypoglycemic drugs; N18.30 Chronic kidney disease, stage 3 unspecified; I48.0 Paroxysmal atrial fibrillation; Z95.0 Presence of cardiac pacemaker; K21.9 Gastro-esophageal reflux disease without esophagitis; N32.89 Other specified disorders of bladder; R42 Dizziness and giddiness; I69.398 Other sequelae of cerebral infarction; E78.5 Hyperlipidemia, unspecified